=== PATIENT | male | born 1975 | race Caucasian/White ===

== ENCOUNTER 2019-11-22 23:44 | Emergency (ER) | payer OTHER ==
--- OUTSIDE RECORDS SUMMARY | 2019-11-22 23:46 | XMS REPORT | Clinical Summary ---
:1975 Author Organization [facility] Address [address] [place] [address] Care Team Providers Name Role Phone Unavailable Primary Care Provider Unavailable Allergies Not on File Medications Not on file Active Problems Not on file Encounters Date Type Specialty Care Team Description 08/28/2019 Outside Orders Central Scheduling Coco Prado, Sharif nox-Gastaut HOMICIDE SQUAD CAPTAIN syndrome, intra ctable, with status epi lepticus (HCC) (Primary Dx) after 11/21/2018 Social History Tobacco Use Types Packs/Day Years Used Date Never Assessed Sex Assigned at Date Recorded Not on file Job Start Date Occupation Industry Not on file Not on file Not on file Travel History Travel Start Travel End No recent travel history available. Last Filed Vital Signs Not on file Plan of Treatment Date Type Specialty Care Team Description 11/26/2019 Appointment Coco Prado, HOMICIDE SQUAD CAPTAIN [address] [facility] [address] [place], [place] [address] [phone] Results Not on fileafter 11/21/2018 Insurance Payer Benefit Plan / Group Subscriber ID Type Phone A ddress MEDICARE MEDICARE A B xxxxxxxxxxx Medicare MEDICAID MEDICAID [facility] xxxxxxxxx Medicaid
--- OUTSIDE RECORDS SUMMARY | 2019-11-22 23:46 | XMS REPORT | Continuity of Care Document ---
:1975 Author Organization [facility] t Address [address] [place] [address] Care Team Providers Name Role Phone Johan RODGERS Attending Clinician Mitchell Hayes MD Attending Clinician Payers Payer Name Policy Policy Number Effective Expiration Source Type Date Date MEDICAREMEDICARE A xxxxxxxxxxx [facility] S t BxxxxxxxxxxxMedicare [facility] MEDICAIDMEDICAID OF xxxxxxxxx [facility] [place]icaid [facility] Problems This patient has no known problems. Allergies, Adverse Reactions, Alerts This patient has no known allergies or adverse reactions. Social History Social Habit Start Date Stop Date Quantity Comments Source Sex Assigned At [facility] Medications This patient has no known medications. Procedures This patient has no known procedures. Encounters Start End Encounter Admission Attending Care Care Encounter Source Date/Time Date/Time Type Type Clinicians Facility Department ID 2019-03-21 2019-03-21 Office MIGUEL Hayes [id number] 14:17:49 14:47:49 Visit Hira Medrano AMBULATOR [id number] Y [id number] Results This patient has no known results.
[2019-11-23 00:44] LABS: Urine Blood TRACE (NEG); Urine Glucose NEGATIVE (NEG); Urine Protein 1+ (NEG); Urine Specific Gravity >1.030 (1.005-1.030)
[2019-11-23 00:55] LABS: Absolute Lymphocytes (CBC) 1.3 K/uL (0.7-4.9); Basophils % 0.4 % (0-1.3); Hematocrit 40.7 % (39.6-49.0); MPV 8.1 fL (7.6-11.3); RBC Red Blood Cell Count 4.69 M/uL (4.33-5.43)
[2019-11-23 01:04] LABS: Protime INR 0.88
[2019-11-23 01:16] LABS: Barbiturates NEGATIVE (NEGATIVE); Benzodiazepines NEGATIVE (NEGATIVE); Cocaine NEGATIVE (NEGATIVE); METHAMPHETAM NEGATIVE (NEGATIVE); Methadone NEGATIVE (NEGATIVE); Opiates NEGATIVE (NEGATIVE); Phencyclidine NEGATIVE (NEGATIVE); THC Cannibis POSITIVE (NEGATIVE)
[2019-11-23 01:16] LABS: ALT/SGPT 23 U/L (12-78); AST/SGOT 14 U/L (15-37); Albumin 3.7 g/dL (3.4-5.0); Alkaline Phosphatase 96 U/L (45-117); BUN Blood Urea Nitrogen 15 mg/dL (7-18); Bicarbonate 24 mmol/L (21-32); Bilirubin Direct < 0.1 mg/dL (0-0.2); Bilirubin Total 0.3 mg/dL (0.2-1.0); CKMB Creatine Kinase MB 2.3 ng/mL (0.3-3.6); Creatine Phosphokinase 157 U/L (39-308); Glucose Level 93 mg/dL (74-106); Lipase 150 U/L (73-393); Magnesium 2.7 mg/dL (1.8-2.4); Protein, Total 7.4 g/dL (6.4-8.2); Sodium Level 138 mmol/L (136-145); Troponin (Emerg Dept Use Only) < 0.02 ng/mL (0.0-0.045)
--- NOTE | 2019-11-23 01:41 | ER ---
Nurse's Notes [facility] Name: Dylan Manzanares Jr Age: 44 yrs Sex: Male : 1975 Arrival Date: 11/22/2019 Time: 23:45 Bed 8 Private MD: Diagnosis: Epilepsy and recurrent seizures Presentation: 11/22 00:00 Chief complaint: EMS states: Called by mother for seizure that lasted about 10 minutes. ea Mother denies trauma, reports his medications were recently increased, last seizure was one week ago. Coronavirus screen: Proceed with normal triage. Ebola Screen: No symptoms or risks identified at this time. Risk Assessment: Do you want to hurt yourself or someone else? Patient reports no desire to harm self or others. Onset of symptoms was November 23, 2019. 00:00 Method Of Arrival: EMS: [facility] ea 00:00 Acuity: CAITIE 3 ea 00:00 Initial Sepsis Screen: Does the patient meet any 2 criteria? No. Patient's initial rr5 sepsis screen is negative. Does the patient have a suspected source of infection? No. Patient's initial sepsis screen is negative. 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 - Social history:: Smoking status: Patient denies any tobacco usage or history of. Screenin/13 23:55 Abuse screen: Denies threats or abuse. Nutritional screening: No deficits noted. ea Tuberculosis screening: No symptoms or risk factors identified. Fall Risk None identified. Assessment: 11/22 00:30 General: Appears in no apparent distress. Behavior is appropriate for age. Pain: Unable ea to use pain scale. FLACC scale score is 0 out of 10. Neuro: Level of Consciousness is awake, alert, obeys commands, Oriented to person. Respiratory: Airway is patent Respiratory effort is even, unlabored, Respiratory pattern is regular, symmetrical. Derm: Skin is pink, warm \T\ dry. 01:20 Reassessment: Patient appears in no apparent distress at this time. No changes from rr5 previously documented assessment. Patient and/or family updated on plan of care and expected duration. Pain level reassessed. awaiting for results. Cardiovascular: Capillary refill < 3 seconds Patient's skin is warm and dry. 02:20 Reassessment: Patient appears in no apparent distress at this time. discharge rr5 instruction given and explained to solution coordinator without complaints made. no seizure noted vitally stable. Vital Signs: 00:00 BP 117 / 81; Pulse 81; Resp 16; Temp 97.6; Pulse Ox 98% ; Weight 74.39 kg; Height 5 ft. rr5 10 in. (177.80 cm) (R); 01:20 BP 115 / 62; Pulse 89; Resp 15; Pulse Ox 100% ; rr5 02:20 BP 105 / 62; Pulse 80; Resp 19; Pulse Ox 99% on R/A; rr5 00:00 Body Mass Index 23.53 (74.39 kg, 177.80 cm) rr5 [place] Coma Score: 00:59 Eye Response: spontaneous(4). Verbal Response: oriented(5). Motor Response: obeys ea commands(6). Total: 15. ED Course: 11/21 23:45 Patient arrived in ED. ds1 23:49 Michael Borges MD is Attending Physician. tw4 23:50 Patient has correct armband on for positive identification. Bed in low position. Call ea light in reach. Adult w/ patient. Seizure precautions initiated. salvationist on. Pulse ox on. NIBP on. 23:50 Arm band placed on right wrist. Patient placed in an exam room, on a stretcher, on ea pulse oximetry. 11/22 00:11 Kanchan Mehta RN is Primary Nurse. ea 00:22 Triage completed. ea 00:49 UDS Sent. ds4 02:20 No provider procedures requiring assistance completed. IV discontinued, intact, rr5 bleeding controlled, No redness/swelling at site. Pressure dressing applied. Administered Medications: No medications were administered Outcome: 01:40 Discharge ordered by . tw4 02:20 Discharged to home via wheelchair, with family. rr5 02:20 Condition: stable 02:20 Discharge instructions given to family, Instructed on discharge instructions, follow up and referral plans. Demonstrated understanding of instructions, follow-up care. 02:23 Patient left the ED. rr5 Signatures: Christen Noland ds1 Alcon Patel ds4 Kanchan Mehta RN RN ea Wadley, Terrence, MD MD tw4 Schultz, Bry, RN RN rr5
--- NOTE | 2019-11-23 01:41 | EDPHYS ---
Physician Documentation [facility] Name: Dylan Manzanares Jr Age: 44 yrs Sex: Male : 1975 Arrival Date: 11/22/2019 Time: 23:45 Bed 8 Private MD: ED Physician Michael Borges HPI: 11/22 01:33 This 44 yrs old Male presents to ER via EMS with complaints of Seizure. tw4 01:33 The patient presents after having a single isolated seizure. Character of seizure(s): tw4 Loss of consciousness: the patient experienced loss of consciousness. Seizure onset: just prior to arrival. Context: the seizure(s) was witnessed, by family, mother. Seizure Hx: the patient has no previous seizure history. Associated injury: The patient did not suffer any apparent associated injury. The patient has not experienced similar symptoms in the past. 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 - Social history:: Smoking status: Patient denies any tobacco usage or history of. ROS: 01:33 Constitutional: Negative for fever, chills, and weight loss, Eyes: Negative for injury, tw4 pain, redness, and discharge, Cardiovascular: Negative for chest pain, palpitations, and edema, Respiratory: Negative for shortness of breath, cough, wheezing, and pleuritic chest pain, Abdomen/GI: Negative for abdominal pain, nausea, vomiting, diarrhea, and constipation, Back: Negative for injury and pain. 01:33 Neuro: Positive for seizure activity. Exam: 01:33 Constitutional: This is a well developed, well nourished patient who is awake, alert, tw4 and in no acute distress. Head/Face: Normocephalic, atraumatic. Chest/axilla: Normal chest wall appearance and motion. Nontender with no deformity. No lesions are appreciated. Cardiovascular: Regular rate and rhythm with a normal S1 and S2. No gallops, murmurs, or rubs. Normal PMI, no JVD. No pulse deficits. Respiratory: Lungs have equal breath sounds bilaterally, clear to auscultation and percussion. No rales, rhonchi or wheezes noted. No increased work of breathing, no retractions or nasal flaring. Abdomen/GI: Soft, non-tender, with normal bowel sounds. No distension or tympany. No guarding or rebound. No evidence of tenderness throughout. Back: No spinal tenderness. No costovertebral tenderness. Full range of motion. MS/ Extremity: Pulses equal, no cyanosis. Neurovascular intact. Full, normal range of motion. Neuro: Awake and alert, GCS 15, oriented to person, place, time, and situation. Cranial nerves II-XII grossly intact. Motor strength 5/5 in all extremities. Sensory grossly intact. Cerebellar exam normal. Normal gait. Vital Signs: 00:00 BP 117 / 81; Pulse 81; Resp 16; Temp 97.6; Pulse Ox 98% ; Weight 74.39 kg; Height 5 ft. rr5 10 in. (177.80 cm) (R); 01:20 BP 115 / 62; Pulse 89; Resp 15; Pulse Ox 100% ; rr5 02:20 BP 105 / 62; Pulse 80; Resp 19; Pulse Ox 99% on R/A; rr5 00:00 Body Mass Index 23.53 (74.39 kg, 177.80 cm) rr5 [place] Coma Score: 00:59 Eye Response: spontaneous(4). Verbal Response: oriented(5). Motor Response: obeys ea commands(6). Total: 15. MDM: 01:33 Data reviewed: vital signs, nurses notes. Data interpreted: Pulse oximetry: tw4 Interpretation: normal. Counseling: I had a detailed discussion with the patient and/or guardian regarding: the historical points, exam findings, and any diagnostic results supporting the discharge/admit diagnosis. Special discussion: I discussed with the patient/guardian in detail that at this point there is no indication for admission to the hospital. It is understood, however, that if the symptoms persist or worsen the patient needs to return immediately for re-evaluation. 01:37 Differential diagnosis: seizure. tw4 01:40 Patient medically screened. 11/21 23:49 Order name: UDS; Complete Time: 01:23 11/22 01:23 Interpretation: Normal except: THC POSITIVE. 11/21 23:49 Order name: Basic Metabolic Panel; Complete Time: :11/22 01:23 Interpretation: Normal except: GFR 61. 11/21 23:49 Order name: CBC with Diff; Complete Time: :11/22 01:30 Interpretation: Normal except: WBC 11.6; HGB 13.4; MCV 86.8; YESICA% 80.4; LYM% 11.0; NEUT tw4 A 9.3. 11/21 23:49 Order name: Ckmb; Complete Time: :11/22 01:29 Interpretation: Within normal limits: CKMB 2.3. 11/21 23:49 Order name: CPK; Complete Time: :11/22 01:29 Interpretation: Within normal limits: CPK 157. 11/21 23:49 Order name: Hepatic Function; Complete Time: :11/22 01:28 Interpretation: Normal except: AST 14; GLOB 3.7; A/G 1.0. 11/21 23:49 Order name: Lipase; Complete Time: :11/22 01:29 Interpretation: Within normal limits: LIP 150. 11/21 23:49 Order name: Magnesium; Complete Time: 11/22 01:28 Interpretation: Normal except: MG 2.7. 11/21 23:49 Order name: Protime (+inr); Complete Time: :11/22 01:29 Interpretation: Within normal limits: PT 10.4. 11/21 23:49 Order name: Ptt, Activated; Complete Time: :11/22 01:30 Interpretation: Within normal limits: PTT 28.3. 11/21 23:49 Order name: Troponin (emerg Dept Use Only); Complete Time: :11/22 01:30 Interpretation: Within normal limits: TROPED < 0.02. 11/21 23:49 Order name: EKG; Complete Time: 23:50 11/21 23:49 Order name: Cardiac monitoring; Complete Time: 00:49 11/22 00:30 Order name: Urine Dipstick--Ancillary (enter results); Complete Time: 01:23 11/22 01:29 Interpretation: Normal except: USPGR >1.030; UBLD TRACE; UPROT 1+. 11/21 23:49 Order name: EKG - Nurse/Tech; Complete Time: 00:16 11/21 23:49 Order name: IV Saline Lock; Complete Time: 00:49 11/21 23:49 Order name: Labs collected and sent; Complete Time: 00:49 11/21 23:49 Order name: NPO; Complete Time: 00:16 11/21 23:49 Order name: O2 Per Protocol; Complete Time: 00:16 11/21 23:49 Order name: O2 Sat Monitoring; Complete Time: 00:16 11/21 23:49 Order name: Urine Dipstick-Ancillary (obtain specimen); Complete Time: 00:29 EC:13 Rate is 76 beats/min. Rhythm is regular. QRS [place] is Normal. DE interval is normal. QRS tw4 interval is normal. QT interval is normal. No Q waves. T waves are Normal. No ST changes noted. Clinical impression: NSR w/ Non-specific ST/T Changes. Interpreted by me. Reviewed by me. Administered Medications: No medications were administered Disposition: 11/23/19 01:40 Discharged to Home. Impression: Epilepsy and recurrent seizures. - Condition is Stable. - Discharge Instructions: Seizure, Adult. - Medication Reconciliation Form, Thank You Letter, Antibiotic Education, Prescription Opioid Use form. - Follow up: Private Physician; When: Upon discharge from the Emergency Department; Reason: Recheck today's complaints, Continuance of care, Re-evaluation by your physician. - Problem is new. - Symptoms have improved. Signatures: Dispatcher [employer] EDME Kanchan Mehta RN RN Michael Montemayor MD MD tw4 Bry Schultz RN RN rr5 Corrections: (The following items were deleted from the chart) 01:30 01:28 Normal except: WBC 11.6; HGB 13.4; MCV 86.8. 02:23 01:40 11/23/2019 01:40 Discharged to Home. Impression: Epilepsy and recurrent seizures. rr5 Condition is Stable. Forms are Medication Reconciliation Form, Thank You Letter, Antibiotic Education, Prescription Opioid Use. Follow up: Private Physician; When: Upon discharge from the Emergency Department; Reason: Recheck today's complaints, Continuance of care, Re-evaluation by your physician. Problem is new. Symptoms have improved. tw4
[2019-11-23 02:29] VITALS: BP 117/81; TEMP 97.6; O2SAT 98
== END 2019-11-23 02:23 | disposition home or self-care (01) ==
LOC: ER 23:44
DX: G40.802 Other epilepsy, not intractable, without status epilepticus (principal); G80.9 Cerebral palsy, unspecified
CPT/HCPCS: 36415; 80048; 80076; 80307; 81003; 82550; 82553; 83690; 83735; 84484; 85025; 85610; 85730; 93005; 99284

== ENCOUNTER 2020-05-15 17:55 | Inpatient (IN) | payer OTHER ==
--- OUTSIDE RECORDS SUMMARY | 2020-05-15 17:58 | XMS REPORT | Clinical Summary ---
:[address] [facility] Address [address] [place] [address] Care Team Providers Name Role Phone John Taylor MD Primary Care Provider Unavailable Allergies Not on File Medications Not on file Active Problems Not on file Encounters Date Type Specialty Care Team Description 11/26/2019 Hospital Encounter Johan, Matt-Ga staut Coco, GUEST RELATIONS REPRESENTATIVE syndrome, intractable, wi th status epilepti cus (HCC) 08/28/2019 Outside Orders Central Scheduling Johan, [place]- Gastaut Coco, GUEST RELATIONS REPRESENTATIVE syndrome, intractable, wi th status epilepti cus (HCC) (Primary Dx) after 05/15/2019 Social History Tobacco Use Types Packs/Day Years Used Date Never Assessed Sex Assigned at Date Recorded Not on file Last Filed Vital Signs Not on file Plan of Treatment Health Maintenance Due Date Last Done Comments MEDICARE ANNUAL WELLNESS (YEAR 2 or FIRST YEAR if no 02/10/1997 IPPE) LIPID PANEL 02/20/2011 INFLUENZA VACCINE (#1) 2020 Procedures Procedure Name Priority Date/Time Associated Diagnosis Comme nts EEG AWAKE AND Routine 11/26/2019 1:42 PM Matt-Gastaut Resul ts for this DROWSY CDT syndrome, procedure are i n intractable, with the result s status epilepticus section. ([facility]) after 05/15/2019 Results EEG Awake & Drowsy (11/26/2019 1:42 PM CDT) Specimen Narrative Performed At [facility] EEG REPORT GE RIS DATE OF TEST: 11-26-2019 DATE OF REPORT: 11-26-2019 ACC: [id number] EE Start time: 1312 Stop time: 1342 CPT Code: 10088 ICD-10: G40.813 HISTORY: A 44yr old M with LGS with freq uent seizures, last seizure was 1 week ago. MEDICATIONS: Epidiolex and Lacosamide. TECHNICAL SUMMARY: This is a digital video EEG recorded wit h 32 input channels reviewed with bipolar and referential montages us ing the modified combinatorial system nomenclature. DESCRIPTION OF RECORD: In the most wakeful state the background consists of theta (5-7Hz) activity with a poorly formed posterior dominant rhythm 7Hz, minimally reactive to light and poorly m odulated, symmetric with no AP gradient noted. Stage 2 sleep archite cture was seen K-complexes and sleep spindles. HV: Hyperventilation was not performed. PHOTIC STIMULATION: Photic stimulation w as done from 1-33 Hz; photic driving was not seen; photoparoxysmal re sponses were absent. ELECTROCARDIOGRAM EVENTS: None IMPRESSION: Abnormal Awake and Asleep EE G due to: 1) Continuous slow, generalized 2) Background slow CLINICAL CORRELATION: The EEG is consistent with a mild degree of encephalopathy. No areas of focal dysfunction or epileptiform dis charges were seen. No clinical or electrographic seizures were seen. Carlitos Henrandez MD Epilepsy Fellow I have reviewed this electroencephalogra m, discussed the findings with the fellow, addended the fellow's r eport and agree with the overall assessment. Hoang Monaco MD, MS Neurophysiology/Epilepsy attending. Procedure Note Interface, External Ris In - 11/26/2019 3:[address] [facility]'s EEG REPORT DATE OF TEST: 11-26-2019 DATE OF REPORT: 11-26-2019 ACC: [id number] EE Start time: 1312 Stop time: 1342 CPT Code: 56773 ICD-10: G40.813 HISTORY: A 44yr old M with LGS with freq uent seizures, last seizure was 1 week ago. MEDICATIONS: Epidiolex and Lacosamide. TECHNICAL SUMMARY: This is a digital video EEG recorded wit h 32 input channels reviewed with bipolar and referential montages us ing the modified combinatorial system nomenclature. DESCRIPTION OF RECORD: In the most wakeful state the background consists of theta (5-7Hz) activity with a poorly formed posterior dominant rhythm 7Hz, minimally reactive to light and poorly m odulated, symmetric with no AP gradient noted. Stage 2 sleep archite cture was seen K-complexes and sleep spindles. HV: Hyperventilation was not performed. PHOTIC STIMULATION: Photic stimulation w as done from 1-33 Hz; photic driving was not seen; photoparoxysmal re sponses were absent. ELECTROCARDIOGRAM EVENTS: None IMPRESSION: Abnormal Awake and Asleep EE G due to: 1) Continuous slow, generalized 2) Background slow CLINICAL CORRELATION: The EEG is consistent with a mild degree of encephalopathy. No areas of focal dysfunction or epileptiform dis charges were seen. No clinical or electrographic seizures were seen. Carlitos Hernandez MD Epilepsy Fellow I have reviewed this electroencephalogra m, discussed the findings with the fellow, addended the fellow's r eport and agree with the overall assessment. Hoang Monaco MD, MS Neurophysiology/Epilepsy attending. Performing Organization Address City/State/Zipcode Phone Number GE RIS after 05/15/2019
--- OUTSIDE RECORDS SUMMARY | 2020-05-15 17:58 | XMS REPORT | Summary of Care ---
:[address] [facility] - [facility] Address [address] [place] [id number] Care Team Providers Name Role Phone John Taylor MD Primary Care Provider Reason for Referral MRI/CAT Scan (AMINATA) Status Reason Specialty Diagnoses / Referred By Referred To Procedures Contact Contact New Request Diagnostic Diagnoses Closed fracture of eleventh thoracic vertebra, unspecified fracture morphology, initial encounter Lumbar radiculopathy Arnol Baires MD Radiology Procedures MR THORACIC SPINE WO CONTRAST MR THORACIC SPINE WO CONTRAST [address] [place] [phone] MRI/CAT Scan (AMINATA) Status Reason Specialty Diagnoses / Referred By Referred To Procedures Contact Contact New Request Diagnostic Diagnoses Closed fracture of eleventh thoracic vertebra, unspecified fracture morphology, initial encounter Lumbar radiculopathy Arnol Baires MD Radiology Procedures MR LUMBAR SPINE WO CONTRAST MR LUMBAR SPINE WO CONTRAST [address] [place] [phone] (Routine) Status Reason Specialty Diagnoses / Referred By Referred To Procedures Contact Contact New Request Physical Therapy Diagnoses Closed fracture of eleventh thoracic vertebra, unspecified fracture morphology, initial encounter Lumbar radiculopathy Arnol Baires MD Procedures CONSULT/REFERRAL PHYSICAL THERAPY [address] [place] [phone] Radiology Services (Routine) Status Reason Specialty Diagnoses / Referred By Referred To Procedures Contact Contact New Request Diagnostic Diagnoses Closed fracture of eleventh thoracic vertebra, unspecified fracture morphology, initial encounter Lumbar radiculopathy Arnol Baires MD Radiology Procedures XR SCOLIOSIS SURVEY 2 [address] [facility] [place] [address] Reason for Visit Reason Comments New Evaluation Encounter Details Date Type Department Care Team Description 04/22/2020 Office Visit [facility] Arnol Baires MD Closed fracture of eleventh thoracic param tebra, unspecified fracture morphology, initial encounter (Primary Dx); Neurosurgery, [address] Lumbar radiculopathy [facility]. [address] [place] [address] 4th Floor [address] [place], [place] [phone] [phone] Allergies Active Allergy Reactions Severity Noted Date Comments Antihistamines - Unknown - See High 04/28/2008 Reacts wit h Alkylamine comments medications. Diphenhydramine Hcl Unknown - See 12/30/2007 comments documented as of this encounter (statuses as of 04/23/2020) Medications Medication Sig Dispensed Refills Start End Status Date Date triazolam 0.25 mg 2 tabs po x 1 4 tablet 0 Active tabletIndications: dose 1 hour 9 Agitation requiring prior to CT sedation protocol scan ciclopirox 8 % Apply to 6.6 mL 0 Activ e solutionIndications: area(s) at 0 Onychomycosis bedtime. Apply to Nails. Reapply nightly. On day 7, remove with alcohol/file nails. Repeat diazePAM (VALTOCO) 15 Use in each 0 Active mg/2 spray (7.5/0.1mL nostril. x 2) [place] capsaicin/menthol Apply to 0 Di scontinued (ALIVIO TOPICAL) area(s). 020 CBD oil (ABHINAV'S 100 mL. 0 D iscontinued HOPE) 20:1 with 020 safflower DIAZEPAM RECTAL Insert into 0 D iscontinued rectum as 020 (Discontin ued needed. by another clinician) mupirocin 2 % Apply to 22 g 0 Discon tinued ointmentIndications: area(s) 3 9 020 Abrasion, knee, left, (three) times initial encounter daily. diazePAM 5-7.5-10 mg USE 10 MG 3 Discontinued rectal gel AFTER SEIZURE 9 020 (Disc ontinued LASTING OVER 5 by an other MINS OR BACK clinici an) TO BACK SEIZURE VIMPAT 100 mg tablet 200 mg 3 3 Discontinued (three) times 9 020 daily. methocarbamoL Take 1 tablet 28 tablet 0 Di scontinued (ROBAXIN-750) 750 mg by mouth 4 0 020 (Reorder) tabletIndications: Low (four) times back pain, unspecified daily for 7 back pain laterality, days. unspecified chronicity, unspecified whether sciatica present meloxicam (MOBIC) 15 Take 1 tablet 7 tablet 0 04/22 Discontinued mg tabletIndications: by mouth daily 0 020 (Reorder) Low back pain, for 7 days. unspecified back pain laterality, unspecified chronicity, unspecified whether sciatica present methylPREDNISolone Take by mouth 21 Each 0 Discontinued (MEDROL, CUCO,) 4 mg SEE-INSTRUCTIO 0 020 tabletsIndications: NS. 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 Elevated lipase 09/17/2018 Seizure disorder 09/16/2018 Dyspepsia 09/16/2018 Personal history of other mental and behavioral disord ers 09/16/2018 Cerebral palsy, unspecified type 09/16/2018 MR (mental retardation) 09/16/2018 Autism 09/16/2018 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 Legal blindness Microcephaly Intellectual disability documented as of this encounter (statuses as of 04/23/2020) Social History Tobacco Use Types Packs/Day Years Used Date Never Smoker Smokeless Tobacco: Never Used Alcohol Use Drinks/Week oz/Week Comments No Sex Assigned at Date Recorded Not on file COVID-19 Exposure Response Date Recorded In the last month, have you been in contact with No / Unsure 04/22/2020 3:22 PM HAT SIZER someone who was confirmed or suspected to have Coronavirus / COVID-19? documented as of this encounter Last Filed Vital Signs Vital Sign Reading Time Taken Comments Blood Pressure 123/72 04/22/2020 9:00 AM HAT SIZER Pulse 80 04/22/2020 9:00 AM HAT SIZER Temperature - - Respiratory Rate - - Oxygen Saturation - - Inhaled Oxygen Concentration - - Weight 80.6 kg (177 lb 12.8 oz) 04/22/2020 9:00 AM HAT SIZER Height 175.3 cm (5' 9") 04/22/2020 9:00 AM HAT SIZER Body Mass Index 26.26 04/22/2020 9:00 AM HAT SIZER documented in this encounter Progress Notes Dany Echavarria MD - 04/22/2020 9:00 AM CSTNeurosurgery Clinic Note 04/22/2020 HPI: Dylan Manzanares is a pleasant 45 year old man with R lower back pain, unclear if radicular component due to autism limited communication ability. He has had this pain for several weeks and his ambulationhas been limited due to pain and he is more hunched over than previously per parents. Past Medical History: Severe autism Review of Systems Constitutional: negative Eyes: negative Ears: negative Nose/Sinuses: negative Mouth/Throat: negative Cardiovascular: negative Respiratory: negative Gastrointestinal: negative Genitourinary: negative Musculoskeletal: Back pain Integumentary: negative Neuro: negative Physical Exam: Awake, alert, communication limited due to autism Face symmetric UPPER EXTREMITY STRENGTH EXAM: R 5/5 5/5 5/5 5/5 5/5 D(C5) B(C6) T(C7) Surgeon/President(C8) I (T1) L 5/5 5/5 5/5 5/5 5/5 LOWER EXTREMITY STRENGTH EXAM: R 5/5 5/5 5/5 5/5 5/5 IP(L2) Q(L3) TA(L4) EHL(L5) G(S1) L 5/5 5/5 5/5 5/5 5/5 Sensation intact to LT throughout Exam deep tendon: unable to elicit patellar No clonus No Hair's Imaging: XR L sp: unremarkable CT abd: T11 severe compression deformity c focal scoliotic deformity Assessment/Plan: Dylan Manzanares is a 45 year old male with severe autism, several weeks of predominantly R lower back pain but unclear to what extent there is a radicular component due to communication limitations. Has focal T11 scoliotic deformity that may be causative of his pain. Will image further c scoli films, MRI T/L spine. Also rx medrol dosepak and referral to PT. Follow Up: Follow up with Dr Baires in neurosurgery clinic after imaging complete Dany Echavarria MD Neurosurgery Faculty Addendum: I personally evaluated and examined the patient and agree with the note by Dr. Echavarria with no changes. Given his severe autism, would be hesitant to pursue surgery, but given that patient seems to be in very severe pain (which is causing him to pursue some self harming behavior), and his inability tofully articulate what he is experiencing, feel the best option is to obtain MRI imaging at present to rule out any severe stenosis or compression and to help identify target for possible CAITIE. F/u afterimaging complete. Arnol Baires MD [facility] Neurosurgery I spent 45 minutes on this encounter over half of which was spent on patient counseling and coordination of care documented in this encounter Plan of Treatment Date Type Specialty Care Team Description 04/28/2020 Hospital Encounter Ambulatory Arnol Baires MD Surgical [address] [place] [address]. [place] [phone] 04/28/2020 Anesthesia Event Surgery Letty Kruger, RN [address] [place] [address] 04/28/2020 Appointment Radiology Arnol Baires MD [address] [place] [address]. [place] [phone] 04/28/2020 Surgery Surgery Anesthesiology [facility] [address] [place] [address] IMAGING UNDER [facility] [place] [address] 04/28/2020 Appointment Radiology Arnol Baires MD [address] [place] [address]. [place] [phone] 05/10/2020 Office Visit Family Medicine Og Taylor MD [address] [place] [phone] Name Type Priority Associated Diagnoses Order S chedule XR SCOLIOSIS SURVEY 2 IMAGING Routine Closed fracture of Expected: VW eleventh thoracic 04/22/2020 , Expires: vertebra, unspecified 2020 fracture morphology, initial encounte r Lumbar radiculopathy MR LUMBAR SPINE WO IMAGING AMINATA Closed fracture of Exp ected: CONTRAST eleventh thoracic 04/22/2020 , Expires: vertebra, unspecified 2020 fracture morphology, initial encounte r Lumbar radiculopathy MR THORACIC SPINE WO IMAGING AMINATA Closed fracture of E xpected: CONTRAST th thoracic 04/22/2020 , Expires: vertebra, unspecified 2020 fracture morphology, initial encounte r Lumbar radiculopathy Health Maintenance Due Date Last Done Comments DTaP,Tdap,and Td Vaccines (1 - 02/20/1995 Tdap) INFLUENZA VACCINE (#1) 2020 Depression Screening 04/22/2021 04/22/2020 PNEUMOCOCCAL 0-64 YEARS COMBINED Aged Out No longer eligible based on SERIES patient's age to complete this topic documented as of this encounter Results Not on filedocumented in this encounter Visit Diagnoses Diagnosis Closed fracture of eleventh thoracic param tebra, unspecified fracture morphology, initial encounter - Primary Lumbar radiculopathy Thoracic or lumbosacral neuritis or radi culitis, unspecified documented in this encounter Insurance Payer Benefit Plan / Subscriber ID Effective Dates Phone Addre ss Type Group MEDICARE MEDICARE PART [id number] 1996-Nighat [phone] [address] Medicare A & B t [id number] [place] [address] [facility] MEDICAID OF [id number] 2018-Nighat [phone] [address] Medicaid [place] t 0 [id number] [place] [address] (Home) [place] [address] documented as of this encounter
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
--- OUTSIDE RECORDS SUMMARY | 2020-05-15 17:58 | XMS REPORT | Summary of Care ---
:1975 Author Organization [facility] - Health Address [address] [place] [id number] Care Team Providers Name Role Phone John Taylor MD Primary Care Provider Reason for Visit Reason Comments Back Pain right side Other bites, pinches and scratches self Encounter Details Date Type Department Care Team Description 04/15/2020 Urgent Care [facility] Family Rula Taylor MD [address] [place] [address] [phone] Acute midline low back pain without scia chayito (Primary Dx); Medicine - [place] Provider, [facility] Onychomycosis [address] [place] [phone] Allergies Active Allergy Reactions Severity Noted Date Comments Antihistamines - Unknown - See High 04/28/2008 Reacts wit h Alkylamine comments medications. Diphenhydramine Hcl Unknown - See 12/30/2007 comments documented as of this encounter (statuses as of 04/18/2020) Medications Medication Sig Dispensed Refills Start Date End Date Status capsaicin/menthol Apply to 0 Ac tive (ALIVIO TOPICAL) area(s). CBD oil (ABHINAV'S 0 A ctive HOPE) 20:1 with safflower DIAZEPAM RECTAL Insert into 0 A ctive rectum as needed. triazolam 0.25 mg 2 tabs po x 1 4 tablet 0 09/18/2018 Active tabletIndications: dose 1 hour prior Agitation requiring to CT scan sedation protocol mupirocin 2 % Apply to area(s) 22 g 0 10/15/2018 Active ointmentIndications: 3 (three) times Abrasion, knee, left, daily. initial encounter diazePAM 5-7.5-10 mg USE 10 MG AFTER 3 08/29/2018 Active rectal gel SEIZURE LASTING OVER 5 MINS OR BACK TO BACK SEIZURE VIMPAT 100 mg tablet TAKE 2 TABLETS BY 3 10/05/2018 Active MOUTH TWICE A DAY ciclopirox 8 % Apply to area(s) 6.6 mL 0 04/15/2020 Active solutionIndications: at bedtime. Apply Onychomycosis to Nails. Reapply nightly. On day 7, remove with alcohol/file nails. Repeat documented as of this encounter (statuses as of 04/18/2020) Active Problems Problem Noted Date Elevated lipase 09/17/2018 Seizure disorder 09/16/2018 Dyspepsia 09/16/2018 Personal history of other mental and behavioral disord ers 09/16/2018 Cerebral palsy, unspecified type 09/16/2018 MR (mental retardation) 09/16/2018 Autism 09/16/2018 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 Legal blindness Microcephaly Intellectual disability documented as of this encounter (statuses as of 04/18/2020) Social History Tobacco Use Types Packs/Day Years Used Date Never Smoker Smokeless Tobacco: Never Used Alcohol Use Drinks/Week oz/Week Comments No Sex Assigned at Date Recorded Not on file COVID-19 Exposure Response Date Recorded In the last month, have you been in contact with No / Unsure 04/15/2020 1:11 PM [employer] someone who was confirmed or suspected to have Coronavirus / COVID-19? documented as of this encounter Last Filed Vital Signs Vital Sign Reading Time Taken Comments Blood Pressure 110/76 04/15/2020 1:16 PM [employer] Pulse 69 04/15/2020 1:16 PM [employer] Temperature 36.4 C (97.6 F) 04/15/2020 1:16 PM [employer] Respiratory Rate 20 04/15/2020 1:16 PM [employer] Oxygen Saturation 95% 04/15/2020 1:16 PM [employer] Inhaled Oxygen Concentration - - Weight 79.8 kg (176 lb) 04/15/2020 1:16 PM [employer] Height - - Body Mass Index 27.57 12/24/2018 2:30 PM CDT documented in this encounter Patient Instructions Patient InstructionsAlicia Borrego PA - 04/15/2020 1:00 PM CST Patient Education Back Exercises: Knee Lift To start, lie on your back with your knees bent and feet flat on the floor. Dont press your neck or lower back to the floor. Breathe deeply. You should feel comfortable and relaxed in this position: Start by tightening your abdominal muscles. Lift one bent knee off the floor 2 to 4 inches. Hold for10 seconds. Return to start position. Repeat3 times. Switch legs. [email or web address] last reviewed this educational content on 08/09/2017 [employer]. [address] [place] [address]. All rights reserved. This information is not intended as a substitute for professional medical care. Always follow your healthcare professional's instructions. Patient Education Back Exercises: Back Release Do this exercise on your hands and knees. Keep your knees under your hips and your hands under your shoulders. Relax your abdominal and buttocks muscles, lift your head, and let your back sag. Be sure to keepyour weight evenly distributed. Dont sit back on your hips. Hold [id number]. Return to starting position. Tuck your head and lift (arch) your back. Hold for 5 seconds Return to starting position. [id number]. [email or web address] last reviewed this educational content on 08/09/2017 [employer]. [address] [place] [address]. All rights reserved. This information is not intended as a substitute for professional medical care. Always follow your healthcare professional's instructions. Patient Education Back Exercises: Leg Pull To start, lie on your back with your knees bent and feet flat on the floor. Dont press your neck or lower back to the floor. Breathe deeply. You should feel comfortable and relaxed in this position. Pull one knee to your chest. Hold for30 to 60seconds. Return to starting position. [id number]. Switch legs. For a double leg pull, pull both legs to your chest at the same time. [id number]. For your safety, check with your healthcare provider before starting an exercise program. [email or web address] last reviewed this educational content on 08/09/201719990258-7911 [employer]. [address] [place] [address]. All rights reserved. This information is not intended as a substitute for professional medical care. Always follow your healthcare professional's instructions. Patient Education Back Exercises: Lower Back Rotation To start, lie on your back with your knees bent and feet flat on the floor. Dont press your neck or lower back to the floor. Breathe deeply. You should feel comfortable and relaxed in this position. Drop both knees to one side. Turn your head to the other side. Keep your shoulders flat on the floor. Do not push through pain. Hold [id number]. Slowly switch sides. Repeat2 to 5times. [email or web address] last reviewed this educational content on 08/09/201719997434-8104 [employer]. [address] [place] [address]. All rights reserved. This information is not intended as a substitute for professional medical care. Always follow your healthcare professional's instructions. Patient Education Back Exercises: Lower Back Stretch To start, sit in a chair with your feet flat on the floor. Shift your weight slightly forward. Relax, and keep your ears, shoulders, and hips aligned while you do the following: Sit with your feet well apart. Bend forward and touch the floor with the backs of your hands. Relax and let your body drop. Hold for 20seconds. Return to starting position. Repeat 2times. Note: If you've had back or hip surgery, talk with your healthcare provider before doing this stretch. [email or web address] last reviewed this educational content on 09/10/201919999286-6818 [employer]. All rights reserved. This information is not intended as a substitute for professional medical care. Always follow your healthcare professional's instructions. [employer] documented in this encounter Progress Notes Dinorah Jones RN - 04/15/2020 1:00 PM CST Dylan Manzanares is a 45 year old male here for Chief Complaint Patient presents with Back Pain right side/flank x 2 days Other bites, pinches and scratches self x 2 days Duration of Symptoms: 2 days Patient brought in by mother/legal guardian for complains of right side/back/flank pain. Mother reports that patient is walking hunched over and appears in pain. Mother also states that patient has been pinching, scratching and biting himself. Noted with bruises and scratches to his arms. Patient awake and responsive, answers simple questions, unclear speech Respirations even and non-labored. Skin dry and warm. Ambulatory, slightly bent over. Dinorah Garcia RN 04/15/2020 1:21 PM [employer] Alicia Borrego PA - 04/15/2020 1:00 PM CST Cc: Chief Complaint Patient presents with Back Pain right side Other bites, pinches and scratches self Dylan Manzanares is a 45 year old male. Patient with pmh of cerebral palsy, intellectual disability presents with Fide Morton, mother, to appointment for low back pain. Mother helps with most of history. No covid-19 exposure. PCP-Dr. Taylor Patient is under the care of neuro who is already aware/managing the biting/scratching/picking. Use neosporin as needed. No spreading redness, purulent drainage. No f/c, n/v. Want to make sure he does not have a UTI. No flank pain. No dysuria, frequency, urgency, hematuria. No f/c. No abdominal pain, n/v/d/c. Last BM this morning- normal. Not black or bloody Fluid intake: 2 cokes daily 2-3 ensure daily [place] or chocolate milk Water: none At the last minute asking about L 2nd toenail abnormality Appears discolored Possible fungus? No redness, warmth, tenderness or pain Back Pain Location: Lumbar spine Quality: Aching Radiates to: Does not radiate Duration: 2 days Timing: Intermittent Progression: Unchanged Chronicity: New Context: not emotional stress, not falling, not jumping from heights, not lifting heavy objects, notMCA, not MVA, not occupational injury, not pedestrian accident, not physical stress, not recent illness, not recent injury and not twisting Worsened by: Lying down Ineffective treatments: None tried Associated symptoms: no abdominal pain, no abdominal swelling, no bladder incontinence, no bowel incontinence, no chest pain, no dysuria, no fever, no headaches, no leg pain, no numbness, no paresthesias, no pelvic pain, no perianal numbness, no tingling, no weakness and no weight loss Allergies Dylan is allergic to antihistamines - alkylamine and diphenhydramine hcl. Medications Outpatient Medications Prior to Visit Medication Sig Dispense Refill diazePAM 5-7.5-10 mg rectal gel USE 10 MG AFTER SEIZURE LASTING OVER 5 MINS OR BACK TO BACK SEIZURE 3 VIMPAT 100 mg tablet TAKE 2 TABLETS BY MOUTH TWICE A DAY 3 mupirocin 2 % ointment Apply to area(s) 3 (three) times daily. 22 g 0 triazolam 0.25 mg tablet 2 tabs po x 1 dose [address] scan 4 tablet 0 capsaicin/menthol (ALIVIO TOPICAL) Apply to area(s). CBD oil ([employer]S HOPE) 20:1 with safflower DIAZEPAM RECTAL Insert into rectum as needed. No facility-administered medications prior to visit. Histories Past Medical History: Diagnosis Date Autism Cerebral palsy 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 Epilepsy Gout Intellectual disability Legal blindness Microcephaly Psychotic disorder Past Surgical History: Procedure Laterality Date FOOT/TOES SURGERY PROC UNLISTED Left MYRINGOTOMY Bilateral Social History Socioeconomic History Marital status: Single Spouse name: Not on file Number of children: Not on file Years of education: Not on file Highest education level: Not on file Occupational History Not on file Social Needs Financial resource strain: Not on file Food insecurity Worry: Not on file Inability: Not on file Transportation needs Medical: Not on file Non-medical: Not on file Tobacco Use Smoking status: Never Smoker Smokeless tobacco: Never Used Substance and Sexual Activity Alcohol use: No Drug use: No Sexual activity: Never Lifestyle Physical activity Days per week: Not on file Minutes per session: Not on file Stress: Not on file Relationships Social connections Talks on phone: Not on file Gets together: Not on file Attends zoroastrianism service: Not on file Active member of club or organization: Not on file Attends meetings of clubs or organizations: Not on file Relationship status: Not on file Intimate partner violence Fear of current or ex partner: Not on file Emotionally abused: Not on file Physically abused: Not on file Forced sexual activity: Not on file Other Topics Concern Not on file Social History Narrative Not on file Family History Problem Relation Age of Onset High cholesterol Mother Skin Cancer Mother Stroke Mother Diabetes Father DM1, at 32yo of complications from his diabetes Ovarian Cancer Sister Review of Systems Constitutional: Negative for activity change, appetite change, chills, diaphoresis, fatigue, fever and weight loss. HENT: Negative for congestion, ear discharge, ear pain, facial swelling, postnasal drip, rhinorrhea,sinus pressure, sneezing, sore throat, trouble swallowing and voice change. Eyes: Negative for pain, discharge, redness and itching. Respiratory: Negative for cough, chest tightness, shortness of breath and wheezing. Cardiovascular: Negative for chest pain, palpitations and leg swelling. Gastrointestinal: Negative for abdominal pain, bowel incontinence, constipation, diarrhea, nausea and vomiting. Genitourinary: Negative for bladder incontinence, dysuria, urgency, frequency, hematuria, flank pain, decreased urine volume, discharge, enuresis, difficulty urinating, genital sores, pelvic pain and nocturia. Musculoskeletal: Positive for back pain. Negative for arthralgias, gait problem, joint swelling, myalgias, neck pain and neck stiffness. Skin: Negative for rash. Neurological: Negative for dizziness, tingling, syncope, weakness, light- headedness, numbness, headaches and paresthesias. Psychiatric/Behavioral: Negative for confusion. Endocrine: Negative for weight loss. Vital Signs BP 110/76 (BP Location: Right arm, Patient Position: Sitting, BP CUFF SIZE: Adult Medium) | Pulse 69 | Temp 36.4 C (97.6 F) (Axillary) | Resp 20 | Wt 176 lb (79.8 kg) | SpO2 95% | BMI 27.57 kg/m Physical Exam Vitals signs and nursing note reviewed. Constitutional: General: He is not in acute distress. Appearance: He is well-developed. He is not ill-appearing, toxic-appearing or diaphoretic. HENT: Head: Normocephalic and atraumatic. Right Ear: External ear normal. Left Ear: External ear normal. Eyes: Conjunctiva/sclera: Conjunctivae normal. Cardiovascular: Rate and Rhythm: Normal rate and regular rhythm. Pulses: Normal pulses. Heart sounds: Normal heart sounds. Pulmonary: Effort: Pulmonary effort is normal. Breath sounds: Normal breath sounds. Abdominal: General: Bowel sounds are normal. There is no distension. Palpations: Abdomen is soft. Abdomen is not rigid. Tenderness: There is no abdominal tenderness. There is no right CVA tenderness, left CVA tenderness, guarding or rebound. Musculoskeletal: General: No swelling. Lumbar back: He exhibits tenderness, bony tenderness and pain. He exhibits normal range of motion, no swelling, no edema and normal pulse. Back: Right lower leg: No edema. Left lower leg: No edema. Skin: General: Skin is warm and dry. Comments: L 2nd toenail with slight yellow coloration and nail thickening Neurological: Mental Status: He is alert and oriented to person, place, and time. Psychiatric: Behavior: Behavior normal. Assessment/Plan Acute midline low back pain without sciatica (primary encounter diagnosis) Plan: POCT URINALYSIS W SPECIFIC GRAVITY, XR LUMBAR SPINE 4 VW, XR SACRUM AND COCCYX Afebrile, well appearing, NAD, nontoxic. HR < 100. No UTI symptoms. No flank pain and no CVAT. UA- neg for UTI. No leuk or nitrite. No blood. Urine color appearance: yellow. No evidence of UTI. Admits to midline low back pain. Does have mild bony tenderness and paraspinal muscle tenderness/tightness on exam. Likely 2/2 musculoskeletal cause. Will get x-rays to further evaluate. Follow-up withPCP if no improvement, discuss ortho spine and/or PT referral. Educated on the following at home care: Take otc nsaids as needed with food. May add Tylenol as needed Ice 15 min every 2-3 hours as needed; alternate with warm compress Stretches 2-3 times daily Icy hot as needed Massages as needed Avoid heavy lifting > 10 lbs Wear good, supportive tennis shoes Er--> worsening condition; increasing pain, incontinence, weakness, numbness/tingling in groin Onychomycosis Plan: ciclopirox 8 % solution Start on ciclopirox, use as directed. Follow-up with PCP for additional RF/management monitoring Avoid moisture Keep area clean and dry Wear cotton socks, change often Pt ed/precautions given in detail regarding conditions/medicaitons. Er precautions given. Pt reportsunderstanding and agrees. rtc if s/s worsen or do not improve ; Plan of care, desired health behaviors, goals, Ddx, & any prescribed or OTC medications discussed with patient. Education resources & self management tools provided and reviewed with AVS. Patient/guardian/family verbalized understanding & agrees to plan of care. Barriers to care: NONE Ability to manage care: Good This visit did not involve counseling and coordination that comprised more than 50% of the visit time. documented in this encounter Plan of Treatment Date Type Specialty Care Team Description 04/22/2020 Office Visit Family Medicine Charles Taylor MD [address] [place] [phone] Health Maintenance Due Date Last Done Comments Depression Screening 1988 DTaP,Tdap,and Td Vaccines (1 - 02/20/1995 Tdap) INFLUENZA VACCINE (#1) 2020 PNEUMOCOCCAL 0-64 YEARS COMBINED Aged Out No longer eligible based on SERIES patient's age to complete this topic documented as of this encounter Procedures Procedure Name Priority Date/Time Associated Diagnosis Comme nts POCT URINALYSIS STAT 04/15/2020 1:26 PM Acute midline low Results for this [employer] back pain without procedure are in sciatica the results section. documented in this encounter Results XR SACRUM AND COCCYX (04/16/2020 11:26 AM [employer]) Specimen Narrative Performed At XR LUMBAR SPINE 4 VW, PACS/VR/DOSE XR SACRUM AND COCCYX HISTORY: Male 45 years acute midline low back pain w/o sciatica COMPARISON: None FINDINGS: Mild levocurvature. The vertebral bodies are normal in heigh t and in normal alignment. No significant degenerative changes are pre sent. Oblique radiographs demonstrate no evidence of spondylolysis . The sacrum and coccyx are unremarkable. Procedure Note [facility], Radiant Results Inft User - 2019 1:42 PM [employer] XR LUMBAR SPINE 4 VW, XR SACRUM AND COCCYX HISTORY: Male 45 years acute midline low back pain w/o sciatica COMPARISON: None FINDINGS: Mild levocurvature. The vertebral bodies are normal in heigh t and in normal alignment. No significant degenerative changes are pre sent. Oblique radiographs demonstrate no evidence of spondylolysis . The sacrum and coccyx are unremarkable. Performing Organization Address City/State/Zipcode Phone Number PACS/VR/DOSE XR LUMBAR SPINE 4 VW (04/16/2020 11:26 AM [employer]) Specimen Narrative Performed At XR LUMBAR SPINE 4 VW, PACS/VR/DOSE XR SACRUM AND COCCYX HISTORY: Male 45 years acute midline low back pain w/o sciatica COMPARISON: None FINDINGS: Mild levocurvature. The vertebral bodies are normal in heigh t and in normal alignment. No significant degenerative changes are pre sent. Oblique radiographs demonstrate no evidence of spondylolysis . The sacrum and coccyx are unremarkable. Procedure Note [facility], Radiant Results Inft User - 2019 1:42 PM [employer] XR LUMBAR SPINE 4 VW, XR SACRUM AND COCCYX HISTORY: Male 45 years acute midline low back pain w/o sciatica COMPARISON: None FINDINGS: Mild levocurvature. The vertebral bodies are normal in heigh t and in normal alignment. No significant degenerative changes are pre sent. Oblique radiographs demonstrate no evidence of spondylolysis . The sacrum and coccyx are unremarkable. Performing Organization Address City/State/Zipcode Phone Number PACS/VR/DOSE POCT URINALYSIS W SPECIFIC GRAVITY (04/15/2020 1:26 PM [employer]) Pathologist Sig nature POCT U SP GRAV 1.020 1.005 - 1.025 mg/dl POCT PH U 5 5 - 8 mg/dl POCT U LEUK EST Negative Negative - Negative POCT U NIT Negative Negative - Negative POCT U PROT Negative Negative - Negative POCT U GLU Negative Negative - Negative POCT U KETONE Negative Negative - Negative POCT U UROBILI Normal 0.2 - 1 mg/dl POCT U BILI Negative Negative - Negative POCT U BLD Negative Negative - Negative POCT U COLOR orange POCT U APPEAR clear Specimen Urine - URINE, CLEAN CATCH documented in this encounter Visit Diagnoses Diagnosis Acute midline low back pain without scia chayito - Primary Onychomycosis Dermatophytosis of nail documented in this encounter Insurance Payer Benefit Plan / Subscriber ID Effective Dates Phone Addre ss Type Group MEDICARE MEDICARE PART [id number] 1996-Presen [phone] Medicare A & B t 2 [id number] [place] [id number] [facility] MEDICAID OF [id number] 2018-Nighat [phone] [address] Medicaid [place] t 0 [id number] [place] [address] documented as of this encounter"
--- OUTSIDE RECORDS SUMMARY | 2020-05-15 17:58 | XMS REPORT | Summary of Care ---
:1975 Author Organization [facility] Address [address] [place] [address] Care Team Providers Name Role Phone John Taylor MD Primary Care Provider Reason for Visit Reason Comments Orders MRI STAT Encounter Details Date Type Department Care Team Description 04/19/2020 Telephone [facility] Moondo Family Og Taylor O rders (MRI STAT ) Medicine - Christopher WINSLOW [address] [place] [address] Dr wheel[address] [place] [address] [place] [address] [place] [phone] Allergies Active Allergy Reactions Severity Noted Date Comments Antihistamines - Unknown - See High 04/28/2008 Reacts wit h Alkylamine comments medications. Diphenhydramine Hcl Unknown - See 12/30/2007 comments documented as of this encounter (statuses as of 04/19/2020) Medications Medication Sig Dispensed Refills Start Date End Date Status capsaicin/menthol Apply to 0 Ac tive (ALIVIO TOPICAL) area(s). CBD oil (ABHINAV'S 0 A ctive HOPE) 20:1 with safflower DIAZEPAM RECTAL Insert into 0 A ctive rectum as needed. triazolam 0.25 mg 2 tabs po x 1 4 tablet 0 09/18/2018 Active tabletIndications: dose 1 hour Agitation requiring prior to CT scan sedation protocol mupirocin 2 % Apply to 22 g 0 10/15/2018 Activ e ointmentIndications: area(s) 3 Abrasion, knee, left, (three) times initial encounter daily. diazePAM 5-7.5-10 mg USE 10 MG AFTER 3 08/29/2018 Active rectal gel SEIZURE LASTING OVER 5 MINS OR BACK TO BACK SEIZURE VIMPAT 100 mg tablet TAKE 2 TABLETS 3 10/05/2018 Active BY MOUTH TWICE A DAY ciclopirox 8 % Apply to 6.6 mL 0 04/15/2020 Acti ve solutionIndications: area(s) at Onychomycosis bedtime. Apply to Nails. Reapply nightly. On day 7, remove with alcohol/file nails. Repeat methocarbamoL Take 1 tablet by 28 tablet 0 04/19/2020 04/26/20 20 Active (ROBAXIN-750) 750 mg mouth 4 (four) tabletIndications: Low times daily for back pain, unspecified 7 days. back pain laterality, unspecified chronicity, unspecified whether sciatica present meloxicam (MOBIC) 15 Take 1 tablet by 7 tablet 0 04/19/2020 1 06/26/2019 Active mg tabletIndications: mouth daily for Low back pain, 7 days. unspecified back pain laterality, unspecified chronicity, unspecified whether sciatica present documented as of this encounter (statuses as of 04/19/2020) Active Problems Problem Noted Date Elevated lipase 09/17/2018 Seizure disorder 09/16/2018 Dyspepsia 09/16/2018 Personal history of other mental and behavioral disord ers 09/16/2018 Cerebral palsy, unspecified type 09/16/2018 MR (mental retardation) 09/16/2018 Autism 09/16/2018 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 Legal blindness Microcephaly Intellectual disability documented as of this encounter (statuses as of 04/19/2020) Social History Tobacco Use Types Packs/Day Years Used Date Never Smoker Smokeless Tobacco: Never Used Alcohol Use Drinks/Week oz/Week Comments No Sex Assigned at Date Recorded Not on file COVID-19 Exposure Response Date Recorded In the last month, have you been in contact with No / Unsure 04/15/2020 1:11 PM 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 documented as of this encounter Last Filed Vital Signs Not on filedocumented in this encounter Miscellaneous Notes Telephone Encounter - Katlheen Crockett FNP - 04/19/2020 4:23 PM CSTSpoke with caregiver and she states Dylan is in pain and Tylenol is not helping, she thought she was coming in today to urgent care for MRI order, I informed her that does not order that he will need to see his PCP, Dylan has an appointment scheduled but she is requesting pain and muscle relaxer medications be sent to pharmacy on file. Dylan was seen in a few days ago, chart reviewed. Cyn and Deriksapna called in, should help with symptoms until Dylan can get into PCP on . elephone Encounter - Harriet Mcgarry LVN - 04/19/2020 10:34 AM INDUSTRIAL ECONOMICS PROFESSOR Patient's mother states the patient is autistic and is self harming. He is in pain and needs medication. Requesting to possibly see you earlier this week. Not sure they can wait until . Please advise. elephone Encounter - Og Taylor MD - 04/19/2020 10:29 AM CSTI have to see the patient in order to order an MRI. elephone Encounter - Harriet Mcgarry LVN - 04/19/2020 9:48 AM CSTPlease see below. Patient has appointment with you o 04/22/20. Advise. Pt's guardian is calling in regards to requesting a STAT MRI for the patient. She states that she has been trying to get him in with a specialist but they will not see him unless an MRI is done. Pleasecontact the patient's guardian for further assistance. elephone Encounter - Winnie Hawthorne - 04/19/2020 9:23 AM CSTPt's guardian is calling in regards to requesting a STAT MRI for the patient. She states that she has been trying to get him in with a specialist but they will not see him unless an MRI is done. Pleasecontact the patient's guardian for further assistance. documented in this encounter Plan of Treatment Date Type Specialty Care Team Description 04/19/2020 Urgent Care Family Medicine Provider, [facility] 04/22/2020 Office Visit Neurological Surgery Arnol Baires MD [address] [place] [address]. [place], [place] [phone] 04/22/2020 Office Visit Family Medicine Charles Taylor MD [address] [place], [place] [phone] Health Maintenance Due Date Last Done Comments Depression Screening 1988 DTaP,Tdap,and Td Vaccines (1 - 02/20/1995 Tdap) INFLUENZA VACCINE (#1) 2020 PNEUMOCOCCAL 0-64 YEARS COMBINED Aged Out No longer eligible based on SERIES patient's age to complete this topic documented as of this encounter Results Not on filedocumented in this encounter Visit Diagnoses Diagnosis Low back pain, unspecified back pain lat erality, unspecified chronicity, unspecified whether sciatica present - Primary documented in this encounter Insurance Payer Benefit Plan / Subscriber ID Effective Dates Phone Addre ss Type Group MEDICARE MEDICARE PART [id number] 1996-[place] [phone] [address] Medicare A & B t 2 [id number] [place] [address] [facility] MEDICAID OF [id number] 2018-[place] [phone] [address] Medicaid [place] t 0 [id number] [place] [address] documented as of this encounter
--- OUTSIDE RECORDS SUMMARY | 2020-05-15 17:58 | XMS REPORT | Summary of Care ---
:1975 Author Organization [facility] Address [address] [place] [address] Care Team Providers Name Role Phone John Taylor MD Primary Care Provider Reason for Visit (Routine) Status Reason Specialty Diagnoses / Procedures Referred By Gatito ontact Referred To Contact Closed Radiology Procedures Alicia Borrego PA [facility] X-Ray XR LUMBAR SPINE [address] XR LUMBAR SPINE 4 [place] Dr wheeler [address] [place], [place] Phone: [phone] Fax: Encounter Details Date Type Department Care Team Description 04/16/2020 Hospital Encounter [facility] Alicia Borrego PA Arrived [facility] [address] [place] [address] [place] [address] [phone] Allergies Active Allergy Reactions Severity Noted Date Comments Antihistamines - Unknown - See High 04/28/2008 Reacts wit h Alkylamine comments medications. Diphenhydramine Hcl Unknown - See 12/30/2007 comments documented as of this encounter (statuses as of 04/17/2020) Medications Medication Sig Dispensed Refills Start Date [...] as of this encounter (statuses as of 04/17/2020) Active Problems Problem Noted Date Elevated lipase 09/17/2018 Seizure disorder 09/16/2018 Dyspepsia 09/16/2018 Personal history of other mental and behavioral disord ers 09/16/2018 Cerebral palsy, unspecified type 09/16/2018 MR (mental retardation) 09/16/2018 Autism 09/16/2018 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 Legal blindness Microcephaly Intellectual disability documented as of this encounter (statuses as of 04/17/2020) Social History Tobacco Use Types Packs/Day Years Used Date Never Smoker Smokeless Tobacco: Never Used Alcohol Use Drinks/Week oz/Week Comments No Sex Assigned at Date Recorded Not on file COVID-19 Exposure Response Date Recorded In the last month, have you been in contact with No / Unsure 04/15/2020 1:11 PM 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 documented as of this encounter Last Filed Vital Signs Not on filedocumented in this encounter Plan of Treatment Date Type Specialty Care Team Description 04/22/2020 Office Visit Family Medicine Charles Taylor MD [address] [place] [address] [phone] Health Maintenance Due Date Last Done Comments Depression Screening 1988 DTaP,Tdap,and Td Vaccines (1 - 02/20/1995 Tdap) INFLUENZA VACCINE (#1) 2020 PNEUMOCOCCAL 0-64 YEARS COMBINED Aged Out No longer eligible based on SERIES patient's age to complete this topic documented as of this encounter Procedures Procedure Name Priority Date/Time Associated Diagnosis Comme nts XR SACRUM AND Routine 04/16/2020 11:26 AM Acute midline low Re sults for this COCCYX SHRIMPING BOAT CAPTAIN back pain without procedure are in sciatica the results section. XR LUMBAR SPINE 4 Routine 04/16/2020 11:26 AM Acute midline lo w Results for this VW SHRIMPING BOAT CAPTAIN back pain without procedure are in sciatica the results section. documented in this encounter Results XR SACRUM AND COCCYX (04/16/2020 11:26 AM SHRIMPING BOAT CAPTAIN) Specimen Narrative Performed At XR LUMBAR SPINE [...] Results Inft User - 2019 1:42 PM SHRIMPING BOAT CAPTAIN XR LUMBAR SPINE 4 VW, XR SACRUM [...] LUMBAR SPINE 4 VW (04/16/2020 11:26 AM SHRIMPING BOAT CAPTAIN) Specimen Narrative Performed At XR LUMBAR SPINE [...] Results Inft User - 2019 1:42 PM SHRIMPING BOAT CAPTAIN XR LUMBAR SPINE 4 VW, XR SACRUM [...] Performing Organization Address City/State/Zipcode Phone Number PACS/VR/DOSE documented in this encounter Visit Diagnoses Diagnosis Acute midline low back pain without scia chayito documented in this encounter Insurance Payer Benefit Plan / Subscriber ID Effective Dates Phone Addre ss Type Group MEDICARE MEDICARE PART [id number] [facility] [phone] [address] Medicare A & B t 2 [id number] [place] [address] [facility] MEDICAID OF [id number] 2018-[place] [phone] [address] Medicaid [place] t 0 [id number] [place] [address] documented as of this encounter
--- OUTSIDE RECORDS SUMMARY | 2020-05-15 17:58 | XMS REPORT | Continuity of Care Document ---
:[address] [facility] t Address [address] [place] [address] Care Team Providers Name Role Phone Claudia WINSLOW, A Primary Care Physician Unavailable Lab, Fam Pob I Attending Clinician Unavailable Romina OBRIENP Attending Clinician Viry WINSLOW Attending Clinician Claudia WINSLOW, John Attending Clinician Andrea PT, G Attending Clinician Unavailable Devin Garcia MD, Mitchell Attending Clinician Johan OBRIENP Attending Clinician Payers Payer Name Policy Type Policy Effective Date Expiration Date Sour ce Number MEDICAREMEDICARE A [id number] 1996 PERLA Petit [id number] 00:00:00 [facility] MEDICAIDMEDICAID OF [id number] 2019 PERLA Petit [id number] 2019 00:00:[facility] Problems This patient has no known problems. Allergies, Adverse Reactions, Alerts This patient has no known allergies or adverse reactions. Social History Social Habit Start Date Stop Date Quantity Comments Source Sex Assigned At [facility] Medications This patient has no known medications. Procedures Procedure Date / Time Performed Performing Clinician Sour e EEG AWAKE AND DROWSY 2019-11-26 13:42:00 Coco Prado [facility] Plan of Care Planned Activity Planned Date Details Comments Source Future Scheduled 2020-02-[address] [facility] - Test 00:00:00 (#1) [code = [facility] INFLUENZA VACCINE (#1)] Future Scheduled 2011-02-[address] - Test 00:00:00 (procedure) [code = [facility] [id number]] Future Scheduled 1997-02-[address] [facility] [facility] - Test 00:00:00 WELLNESS (YEAR 2 or [facility] Center FIRST YEAR if no IPPE) [code = MEDICARE ANNUAL WELLNESS (YEAR 2 or FIRST YEAR if no IPPE)] Encounters Start End Encounter Admission Attending Care Care Encounter Source Date/Time Date/Time Type Type Clinicians Facility Department ID 2020-05-15 2020-05-15 Laboratory Lab, [facility] [id number] 13:51:55 14:11:55 Only Fam Pob I Health [id number] [place] [id number] Professio [phone] nal 044 Office Building One 2020-05-14 2020-05-14 Telemedici Romina [facility] [id number] 15:04:18 15:19:18 ne Visit [facility] [id number] [place] [id number] Professio [phone] nal [facility] Office Building One 2020-05-14 2020-05-14 Telephone Arnol Baires [facility] [id number] 00:00:00 00:00:00 Health [id number] [place] [id number] [place] [phone] Medical [facility] [facility] Office Building 2020-05-10 2020-05-10 Office Claudia [facility] [id number] 15:03:56 16:37:58 Visit [facility] [id number] [place] 4.2.7.2.686 Professio [phone] nal 044 Office Building One 2020-05-04 2020-05-04 Ancillary CIRILO Mendez [id number] 13:42:26 14:42:26 Visit Susie White [id number] [place] 4.2.7.2.686 laurie [phone] [facility] 179 [facility] 2020-04-07 2020-04-07 Office MIGUEL Hayes [id number] 13:03:12 13:33:12 Visit Hira Medrano AMBULATOR [id number] Y [id number] [phone] 800 2019-03-21 2019-03-21 Office MIGUEL Hayes [id number] 14:17:49 14:47:49 Visit Hira Medrano AMBULATOR [id number] Y 0.2.7.2.686 [phone] Results Test Description Test Time Test Comments Results Result [facility] e Comments EEG AWAKE AND 2019-11-[address] [facility] EEG DROWSY 7 exam:->Matt-Ga REPORTDATE OF TEST: 15:51:00 staut syndrome, [id number] OF intractable, REPORT: [id number]: with status [id number]: epilepticus Start time: 1312Stop time: 1342CPT Code: 60796VTR-49: G40.813 HISTORY: A 44yr old M with LGS with frequent seizures, last seizure was 1 week ago. MEDICATIONS: Epidiolex and Lacosamide. TECHNICAL SUMMARY:This is a digital video EEG recorded with 32 input channels reviewed with bipolar and referential montages using the modified combinatorial system nomenclature. DESCRIPTION OF RECORD:In the most wakeful state the background consists of theta (5-7Hz) activity with a poorly formed posterior dominant rhythm 7Hz, minimally reactive to light and poorly modulated, symmetric with no AP gradient noted. Stage 2 sleep architecture was seen K-complexes and sleep spindles. HV: Hyperventilation was not performed.PHOTIC STIMULATION: Photic stimulation was done from 1-33 Hz; photic driving was not seen; photoparoxysmal responses were absent. ELECTROCARDIOGRAM EVENTS: None IMPRESSION: Abnormal Awake and Asleep EEG due to: 1) Continuous slow, generalized2) Background slow CLINICAL CORRELATION:The EEG is consistent with a mild degree of encephalopathy. No areas of focal dysfunction or epileptiform discharges were seen. No clinical or electrographic seizures were seen. Carlitos Hernandez MDEpilepsy Fellow I have reviewed this electroencephalogram, discussed the findings with the fellow, addended the fellow's report and agree with the overall assessment. Frank Monaco MD, MSNeurophysiology/Epi lepsy attending. Awake & 2019-11-10 Interface, External [facility] - [facility]/26[facility] - 15:51:00 3:[address] [facility] EEG REPORTDATE OF Center TEST: [id number] OF REPORT: [id number]: [id number]: [id number] time: 1312Stop time: 1342CPT Code: 12694PHP-86: G40.813 HISTORY: A 44yr old M with LGS with frequent seizures, last seizure was 1 week ago. MEDICATIONS: Epidiolex and Lacosamide. TECHNICAL SUMMARY:This is a digital video EEG recorded with 32 input channels reviewed with bipolar and referential montages using the modified combinatorial system nomenclature. DESCRIPTION OF RECORD:In the most wakeful state the background consists of theta (5-7Hz) activity with a poorly formed posterior dominant rhythm 7Hz, minimally reactive to light and poorly modulated, symmetric with no AP gradient noted. Stage 2 sleep architecture was seen K-complexes and sleep spindles. HV: Hyperventilation was not performed.PHOTIC STIMULATION: Photic stimulation was done from 1-33 Hz; photic driving was not seen; photoparoxysmal responses were absent. ELECTROCARDIOGRAM EVENTS: None
--- OUTSIDE RECORDS SUMMARY | 2020-05-15 17:59 | XMS REPORT | Summary of Care ---
:1975 Author Organization [facility] Address [address] [place] [address] Care Team Providers Name Role Phone John Taylor MD Primary Care Provider Reason for Referral MRI/CAT Scan (AMINATA) Status Reason Specialty Diagnoses / Referred By Referred To Procedures Contact Contact New Request Diagnostic Diagnoses Closed fracture of eleventh thoracic vertebra, unspecified fracture morphology, initial encounter Lumbar radiculopathy Arnol Baires MD Radiology Procedures MR THORACIC SPINE WO CONTRAST MR THORACIC SPINE WO CONTRAST [address] [place] [phone] MRI/CAT Scan (AMINATA) Status Reason Specialty Diagnoses / Referred By Referred To Procedures Contact Contact New Request Diagnostic Diagnoses Closed fracture of eleventh thoracic vertebra, unspecified fracture morphology, initial encounter Lumbar radiculopathy Arnol Baires MD Radiology Procedures MR LUMBAR SPINE WO CONTRAST MR LUMBAR SPINE WO CONTRAST [address] [place] [phone] (Routine) Status Reason Specialty Diagnoses / Referred By Referred To Procedures Contact Contact New Request Physical Therapy Diagnoses Closed fracture of eleventh thoracic vertebra, unspecified fracture morphology, initial encounter Lumbar radiculopathy Arnol Baires MD Procedures CONSULT/REFERRAL PHYSICAL THERAPY [address] [place] [phone] Radiology Services (Routine) Status Reason Specialty Diagnoses / Referred By Referred To Procedures Contact Contact New Request Diagnostic Diagnoses Closed fracture of eleventh thoracic vertebra, unspecified fracture morphology, initial encounter Lumbar radiculopathy Arnol Baires MD Radiology Procedures XR SCOLIOSIS SURVEY [address] [facility] [place] [address] Reason for Visit Reason Comments New Evaluation Encounter Details Date Type Department Care Team Description 04/22/2020 Office Visit [facility] Arnol Baires MD Closed fracture of eleventh thoracic param tebra, unspecified fracture morphology, initial encounter (Primary Dx); Neurosurgery, [address] [facility]. [address] [place] [address] 4th Floor [address] [place], [place] [phone] [address] [phone] Allergies Active Allergy Reactions Severity Noted Date [...] Active mg/2 spray (7.5/0.1mL nostril. x 2) [place] capsaicin/menthol Apply to 0 Di scontinued (ALIVIO [...] with No / Unsure 04/22/2020 3:22 PM THINNER SPRAYER someone who was confirmed or suspected to have Coronavirus / COVID-19? documented as of this encounter Last Filed Vital Signs Vital Sign Reading Time Taken Comments Blood Pressure 123/72 04/22/2020 9:00 AM THINNER SPRAYER Pulse 80 04/22/2020 9:00 AM THINNER SPRAYER Temperature - - Respiratory Rate - - Oxygen Saturation - - Inhaled Oxygen Concentration - - Weight 80.6 kg (177 lb 12.8 oz) 04/22/2020 9:00 AM THINNER SPRAYER Height 175.3 cm (5' 9") 04/22/2020 9:00 AM THINNER SPRAYER Body Mass Index 26.26 04/22/2020 9:00 AM THINNER SPRAYER documented in this encounter Progress Notes Dany [...] 5/5 5/5 5/5 5/5 D(C5) B(C6) T(C7) Him Specialist(C8) I (T1) L 5/5 5/5 5/5 5/5 5/5 LOWER EXTREMITY STRENGTH EXAM: R 5/5 5/5 5/5 5/5 5/5 IP(L2) Q(L3) TA(L4) EHL(L5) G(S1) L 5/5 5/5 5/5 5/5 5/5 Sensation intact to LT throughout Exam deep tendon: unable to elicit patellar No clonus No [facility] Imaging: XR L sp: unremarkable CT abd: [...] CAITIE. F/u afterimaging complete. Arnol Baires MD [facility] Neurosurgery I spent 45 minutes on this encounter over half of which was spent on patient counseling and coordination of care documented in this encounter Plan of Treatment Date Type Specialty Care Team Description 04/28/2020 Hospital Encounter Ambulatory Arnol Baires MD Surgical [address] [place] [address]. [place] [phone] 04/28/2020 Anesthesia Event Surgery Letty Kruger, RN [address] [place] [address] 04/28/2020 Appointment Radiology Arnol Baires MD [address] [place] [address]. [place] [phone] 04/28/2020 Surgery Surgery Anesthesiology [facility] [address] [place] [address] IMAGING UNDER [facility] [place] [address] 04/28/2020 Appointment Radiology Arnol Baires MD [address] [place] [address]. [place] [phone] 05/10/2020 Office Visit Family Medicine Og Taylor MD [address] [place] [phone] Name Type Priority Associated Diagnoses Order S [...] Addre ss Type Group MEDICARE MEDICARE PART [id number] 1996-[place] [phone] [address] Medicare A & B t 2 [id number] [place] [address] [facility] MEDICAID OF [id number] 2018-[place] [phone] [address] Medicaid [place] t 0 [id number] [place] [address] (Home) [place] [address] documented as of this encounter
--- OUTSIDE RECORDS SUMMARY | 2020-05-15 17:59 | XMS REPORT | Summary of Care ---
:1975 Author Organization [facility] - [facility] Address [address] [place] [address] Care Team Providers Name Role Phone John Taylor MD Primary Care Provider Reason for Visit Reason Comments Erroneous encounter-disregard Encounter Details Date Type Department Care Team Description 04/19/2020 Urgent Care [facility] Family Provider, [facility] ENCOUNTER--DISREGARD [address] [place] [address] (Primary D x) [place] [address] Allergies Active Allergy Reactions Severity Noted Date Comments Antihistamines - Unknown - See High 04/28/2008 Reacts wit h Alkylamine comments medications. Diphenhydramine Hcl Unknown - See 12/30/2007 comments documented as of this encounter (statuses as of 04/24/2020) Medications Medication Sig Dispensed Refills Start Date End Date Status triazolam 0.25 mg 2 tabs po x 1 4 tablet 0 09/18/2018 Active tabletIndications: dose 1 hour prior Agitation requiring to CT scan sedation protocol ciclopirox 8 % Apply to area(s) 6.6 mL 0 04/15/2020 Active solutionIndications: at bedtime. Apply Onychomycosis to Nails. Reapply nightly. On day 7, remove with alcohol/file nails. 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 Elevated lipase 09/17/2018 Seizure disorder 09/16/2018 Dyspepsia 09/16/2018 Personal history of other mental and behavioral disord ers 09/16/2018 Cerebral palsy, unspecified type 09/16/2018 MR (mental retardation) 09/16/2018 Autism 09/16/2018 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 Legal blindness Microcephaly Intellectual disability documented as of this encounter (statuses as of 04/24/2020) Social History Tobacco Use Types Packs/Day Years Used Date Never Smoker Smokeless Tobacco: Never Used Alcohol Use Drinks/Week oz/Week Comments No Sex Assigned at Date Recorded Not on file COVID-19 Exposure Response Date Recorded In the last month, have you been in contact with No / Unsure 04/22/2020 3:22 PM [employer] SAL[employer]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 documented as of this encounter Last Filed Vital Signs Not on filedocumented in this encounter Progress Notes Kathleen Crockett FNP - 04/19/2020 6:40 PM CSTError documented in this encounter Plan of Treatment Date Type Specialty Care Team Description 04/28/2020 Hospital Encounter Ambulatory Arnol Baires MD Surgical [address] [place] [phone] 04/28/2020 Anesthesia Event Surgery Letty Krguer, ABBY [address] [place] [phone] 04/28/2020 Appointment Radiology Arnol Baires MD [address] [place] [phone] 04/28/2020 Surgery Surgery Anesthesiology [facility] [address] [place] [address] [facility]ER [facility] [place] [address] 04/28/2020 Appointment Radiology Arnol Baires MD [address] [place] [phone] 05/04/2020 Ancillary Visit Physical Therapy Arnol Baires MD [address] [place] [phone] Susie Mendez, PT [address] [place] [phone] 05/10/2020 Office Visit Family Medicine Og Taylor MD [address] [place] [phone] Health Maintenance Due Date Last Done Comments DTaP,Tdap,and Td Vaccines (1 - 02/20/1995 Tdap) INFLUENZA VACCINE (#1) 2020 Depression Screening 04/22/2021 04/22/2020 PNEUMOCOCCAL 0-64 YEARS COMBINED Aged Out No longer eligible based on SERIES patient's age to complete this topic documented as of this encounter Results Not on filedocumented in this encounter Visit Diagnoses Diagnosis ERRONEOUS ENCOUNTER--DISREGARD - Primary documented in this encounter Insurance Payer Benefit Plan / Subscriber ID Effective Dates Phone Addre ss Type Group MEDICARE MEDICARE PART [id number] 1996-Nighat [phone] [address] Medicare A & B t 2 [id number] [place] [address] [facility] MEDICAID OF [id number] 2018-Nighat [phone] [address] Medicaid [place] t 0 [id number] [place] [address] documented as of this encounter
--- OUTSIDE RECORDS SUMMARY | 2020-05-15 17:59 | XMS REPORT | Summary of Care ---
:1975 Author Organization [facility] Address [address] [place] [address] Care Team Providers Name Role Phone John Taylor MD Primary Care Provider Reason for Referral (Routine) Status Reason Specialty Diagnoses / Referred By Referred To Procedures Contact Contact New Request Diagnoses Elevated lipase Pancreatic abnormality Og Taylor [place], Procedures CONSULT/REFERRAL GENERAL SURGERY MD GOLDY Lopez [address] [place] [address] [facility] [address] Jose 2.100 Phone: Crapo, Santhosh TM [phone] Fax: Reason for Visit Reason Comments Back Pain Encounter Details Date Type Department Care Team Description 04/22/2020 Office Visit [facility] Claudia, Og Elev ated lipase (Primary Dx); Medicine - Christopher Lopez MD Self-mutilation; [address] [place] [address] Intellectual disability; Drive [place], [place] Cerebral palsy, unspecified type; [place] [address] Autism; [phone] Protein malnutrition; [phone] Pancreati c abnormality; Low back pain, unspecified back pain laterality, unspecified chronicity, unspecified whether sciatica present Allergies Active Allergy Reactions Severity Noted Date Comments Antihistamines - Unknown - See High 04/28/2008 Reacts wit h Alkylamine comments medications. Diphenhydramine Hcl Unknown - See 12/30/2007 comments documented as of this encounter (statuses as of 04/24/2020) Medications Medication Sig Dispensed Refills Start End [...] Active mg/2 spray (7.5/0.1mL nostril. x 2) [place] cannabidioL Take 500 mg by 0 Act liam (EPIDIOLEX) 100 mg/mL mouth 2 (two) 0 oral solution times daily. VIMPAT 200 mg tablet TAKE 1 TABLET 0 Active BY MOUTH EVERY 0 MORNING THEN TAKE 2 TABLETS BY MOUTH EVERY EVENING ENSURE Take 1-2 Cans 180 Can 11 Active liquidIndications: by mouth 3 0 Protein malnutrition (three) times daily. methocarbamoL Take 1 tablet 28 tablet 0 Ac tive (ROBAXIN-750) 750 mg by mouth 4 0 tabletIndications: Low (four) times back pain, unspecified daily. back pain laterality, unspecified chronicity, unspecified whether sciatica present meloxicam (MOBIC) 15 Take 1 tablet 30 tablet 0 Active mg tabletIndications: by mouth once 0 Low back pain, daily as unspecified back pain needed for laterality, Pain or unspecified Inflammation. chronicity, Take with unspecified whether food. Don't sciatica present take while on the steroid pack. capsaicin/menthol Apply to 0 Di scontinued (ALIVIO [...] tabletsIndications: NS. follow Lumbar radiculopathy package directions Lacosamide (VIMPAT) Take 1 tab PO 0 Discontinued 200 mg tablet qAM and 2 tabs 0 020 ( Discontinued PO qPM by another clinician) documented as of this encounter (statuses as of 04/24/2020) Active Problems Problem Noted Date Low back pain, unspecified back pain laterality, unspe cified chronicity, 04/24/2020 unspecified whether sciatica present Lyons-Gastaut syndrome 04/22/2020 Elevated lipase 09/17/2018 Seizure disorder [...] with No / Unsure 04/22/2020 3:22 PM PRINCIPAL [employer] OFFICER someone who was confirmed or suspected to have Coronavirus / COVID-19? documented as of this encounter Last Filed Vital Signs Vital Sign Reading Time Taken Comments Blood Pressure 116/68 04/22/2020 3:23 PM [employer] OFFICER Pulse 61 04/22/2020 3:23 PM [employer] OFFICER Temperature 36.3 C (97.3 F) 04/22/2020 3:23 PM PRINCIPAL [employer]TS OFFICER Respiratory Rate - - Oxygen Saturation - - Inhaled Oxygen Concentration - - Weight 81.6 kg (180 lb) 04/22/2020 3:23 PM PRINCIPAL [employer]IFTS OFFICER Height 175.3 cm (5' 9") 04/22/2020 3:23 PM PRINCIPAL [employer] OFFICER Body Mass Index 26.58 04/22/2020 3:23 PM PRINCIPAL [employer]IFTS OFFICER documented in this encounter Patient Instructions Patient InstructionsSonya Townsend R - 04/22/2020 3:00 PM [employer] OFFICER Patient Education Back Care Tips Caring for your back These are things you can do to prevent a recurrence of acute back pain and to reduce symptoms from chronic back pain: Stay at a healthy weight. If you are overweight, losing weight will help most types of back pain. Exercise is an important part of recovery from most types of back pain. The muscles behind and infront of the spine support the back. This means strengthening both the back muscles and the abdominal muscles will provide better support for your spine. Swimming and brisk walking are good overall exercises to improve your fitness level. Practice safe lifting methods (see below). Practice good posture when sitting, standing, and walking. Don't sit for a long time. This puts more stress on the lower back than standing or walking. Wear quality shoes with good arch support. Foot and ankle alignment can affect back symptoms. Don't wear high heels. Therapeutic massage can help relax the back muscles without stretching them. During the first 24 to 72 hours after an acute injury or flare-up of chronic back pain, put an ice pack on the painful area for 20 minutes and then remove it for 20 minutes. Do thisover a period of 60 to 90 minutes, or several times a day. As a safety precaution, don't use a heating pad at bedtime.Sleeping on a heating pad can lead to skin john or tissue damage. You can alternate using ice and heat. Medicines Talk with your healthcare provider before using medicines, especially if you have other health problems or are taking other medicines. You may use clmq-myx-xgiedwi medicines, such as acetaminophen, ibuprofen, or naprosyn to control pain, unless your healthcare provider prescribed other pain medicine. Talk with your healthcare provider before taking any medicines if you have a chronic condition such as diabetes, liver or kidney disease, stomach ulcers, or digestive bleeding, or are taking blood thinners. Be careful if you are given prescription pain medicines, opioids, or medicine for muscle spasm. They can cause drowsiness, and affect your coordination, reflexes, and judgment. Don't drive or operate heavy machinery while taking these types of medicines. Take prescription pain medicine only as prescribed by your healthcare provider. Lumbar stretch This simple stretch will help relax muscle spasm and keep your back more limber. If exercise makes your back pain worse, dont do it. Lie on your back with your knees bent and both feet on the ground. Slowly raise your left knee to your chest as you flatten your lower back against the floor. Hold for 5 seconds. Relax and repeat the exercise with your right knee. Do 10 of these exercises for each leg. Safe lifting method Dont bend over at the waist to lift an object off the floor. Instead, bend your knees and hips in a squat. Keep your back and head upright Hold the object close to your body, directly in front of you. Straighten your legs to lift the object. Lower the object to the floor in the reverse fashion. If you must slide something across the floor, push it. Posture tips Sitting Sit in chairs with straight backs or low-back support. Keep your knees lower than your hips, with your feet flat on the floor. When driving, sit up straight. Adjust the seat forward so you are not leaning toward the steering wheel. A small pillow or rolled towel behind your lower back may help if you are driving long distances. Standing When standing for long periods, shift most of your weight to one leg at a time. Switch legs every few minutes. Sleeping The best way to sleep is on your side with your knees bent. Put a low pillow under your head to support your neck in a neutral spine position. Don't use thick pillows that bend your neck to one side. Put a pillow between your legs to further relax your lower back. If you sleep on your back, put pillows under your knees to support your legs in a slightly flexed position. Use a firm mattress. If your mattress sags, replace it, or use a 1/2-inch plywood board under the mattress to add support. Follow-up care Follow up with yourhealthcare provider, or as advised. If X-rays, a CT scan or an MRI scan were taken, they may be reviewed by a radiologist. You will be told of any new findings that may affect your care. Call 911 Call 911 if any of the following occur: Trouble breathing Confusion Very drowsy Fainting or loss of consciousness Rapid or very slow heart rate Loss of bowel or bladder control When to seek medical advice Call your healthcare provider right awayif any of the following occur: Pain becomes worse or spreads to your arms or legs Weakness or numbness in one or both arms or legs Numbness in the groin area [employer] last reviewed this educational content on 04/11/201919995668-4124 [employer]. [address] [place] [address]. All rights reserved. This information is not intended as a substitute for professional medical care. Always follow your healthcare professional's instructions. MOTOR[employer]ED [employer]ING OFFICER B[employer]CTION CIPAL GIFTS OFFICER documented in this encounter Progress Notes Og Taylor MD - 04/22/2020 3:00 PM CST CC: Chief Complaint Patient presents with Back Pain HPI Dylan Manzanares is a 45 year old M who presents for back pain. He is non-verbal and is brought in by his mother who is his primary caregiver and provides the history. His self-mutilation behavior had recently increased and he was holding his back and that is how his mother realized he was in severe pain. An urgent care provider prescribed some meloxicam and methocarbamol which have helped to ease his pain and [facility]. Imaging studies of the spine have been ordered by the Neurosurgeon and he was prescribed a steroid pack. She wanted to fill me in on the clinical situation given I am his PCP and she wanted to express her frustration regarding what she feels is a lack of urgency in getting his problem addressed. His mother also questions if he needs to follow-up with General Surgery (Dr. Reina) in regards tohis h/o abnormal pancreatic imaging and his elevated lipase level. Additionally she requests an Rx for the Ensure he uses for calorie supplementation. He often won't eat regular meals but will pretty reliable drink Ensure. He consumes 1-2 cans TID (min 3 cans per day, max 6 cans per day). Without the use of Ensure he typically falls into a pattern of weight loss. Allergies Allergen Reactions Antihistamines - Alkylamine Unknown - See comments Reacts with medications. Diphenhydramine Hcl Unknown - See comments Current Outpatient Medications: cannabidioL (EPIDIOLEX) 100 mg/mL oral solution, Take 500 mg by mouth 2 (two) times daily., Disp: , Rfl: diazePAM ([place]) 15 mg/2 spray (7.5/0.1mL x 2) [place], Use in each nostril., Disp: , Rfl: ENSURE liquid, Take 1-2 Cans by mouth 3 (three) times daily., Disp: 180 Can, Rfl: 11 meloxicam (MOBIC) 15 mg tablet, Take 1 tablet by mouth once daily as needed for Pain or Inflammation. Take with food. Don't take while on the steroid pack., Disp: 30 tablet, Rfl: 0 methocarbamoL (ROBAXIN-750) 750 mg tablet, Take 1 tablet by mouth 4 (four) times daily., Disp: 28 tablet, Rfl: 0 VIMPAT 200 mg tablet, TAKE 1 TABLET BY MOUTH EVERY MORNING THEN TAKE 2 TABLETS BY MOUTH EVERY EVENING, Disp: , Rfl: ciclopirox 8 % solution, Apply to area(s) at bedtime. Apply to Nails. Reapply nightly. On day 7, remove with alcohol/file nails. 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 HENT: Negative. Eyes: Negative. Respiratory: Positive for cough. Cardiovascular: Negative. Gastrointestinal: Negative. Genitourinary: Negative. Musculoskeletal: Positive for back pain and gait problem. Skin: Positive for wound (self-inflicted skin wounds). Neurological: Positive for seizures (4 this year). Psychiatric/Behavioral: Positive for behavioral problems, dysphoric mood, self- injury and sleep disturbance. Endocrine: Endocrine negative Vital signs BP 116/68 | Pulse 61 | Temp 36.3 C (97.3 F) (Tympanic) | Ht 5' 9" (1.753 m) | Wt 180 lb (81.6 kg) | BMI 26.58 kg/m Physical Exam Vitals signs and nursing note reviewed. Constitutional: General: He is not in acute distress. HENT: Head: Microcephalic. Neck: Musculoskeletal: Neck supple. Cardiovascular: Rate and Rhythm: Normal rate and regular rhythm. Pulses: Normal pulses. Heart sounds: Normal heart sounds. No murmur. No friction rub. No gallop. Pulmonary: Effort: Pulmonary effort is normal. No respiratory distress. Breath sounds: Normal breath sounds. No wheezing, rhonchi or rales. Abdominal: General: Bowel sounds are normal. There is no distension. Palpations: Abdomen is soft. There is no mass. Tenderness: There is no abdominal tenderness. There is no right CVA tenderness, left CVA tenderness, guarding or rebound. Skin: General: Skin is warm and dry. Comments: Self-inflicted abrasions on the extremities Neurological: Mental Status: He is alert. Mental status is at baseline. Psychiatric: Attention and Perception: He is inattentive. Speech: He is noncommunicative (only sparse occasional prompted speech). Behavior: Behavior is cooperative. Cognition and Memory: Cognition is impaired. Labs Urgent Care on 04/15/2020 Component Date Value POCT U SP GRAV 04/15/2020 1.020 POCT PH U 04/15/2020 5 POCT U LEUK EST 04/15/2020 Negative POCT U NIT 04/15/2020 Negative POCT U PROT 04/15/2020 Negative POCT U GLU 04/15/2020 Negative POCT U KETONE 04/15/2020 Negative POCT U UROBILI 04/15/2020 Normal POCT U BILI 04/15/2020 Negative POCT U BLD 04/15/2020 Negative POCT U COLOR 04/15/2020 orange POCT U APPEAR 04/15/2020 clear Radiology XR LUMBAR SPINE 4 VW, XR SACRUM AND COCCYX HISTORY: Male 45 years acute midline low back pain w/o sciatica COMPARISON: None FINDINGS: Mild levocurvature. The vertebral bodies are normal in height and in normal alignment. No significant degenerative changes are present. Oblique radiographs demonstrate no evidence of spondylolysis. The sacrum and coccyx are unremarkable. ASSESSMENT/PLAN Diagnoses and all orders for this visit: Self-mutilation, Intellectual disability, Cerebral palsy, unspecified type, Autism He is pretty close to his baseline today. It seems his self-mutilating behavior had worsened due touncontrolled pain. Pain control will be paramount in preventing an increase in self-harming behaviors in this challenged patient (see below). Low back pain, unspecified back pain laterality, unspecified chronicity, unspecified whether sciatica present Refills of the previous analgesic medications were provided given these medications seem to pretty effectively manage his pain. Management otherwise will be per Neurosurgery. Follow-up for imaging and with this specialist as scheduled/planned. - methocarbamoL (ROBAXIN-750) 750 mg tablet; Take 1 tablet by mouth 4 (four) times daily. - meloxicam (MOBIC) 15 mg tablet; Take 1 tablet by mouth once daily as needed for Pain or Inflammation. Take with food. Don't take while on the steroid pack. Elevated lipase, Pancreatic abnormality I recommended a repeat lipase level and f/u with General Surgery soon. - LIPASE; Standing - CONSULT/REFERRAL GENERAL SURGERY Protein malnutrition - ENSURE liquid; Take 1-2 Cans by mouth 3 (three) times daily. Plan of care, desired health behaviors, goals, Ddx, and any prescribed medications were discussed with the patient. This visit did not involve counseling and coordination that comprised more than 50% of the visit time. Education resources and self-management tools were provided/reviewed with the AVS. Patient/guardian/family verbalized understanding and agrees to the plan of care. Barriers to care: None. Ability to manage care: Good. Advanced care planning (living will) information was not given/offered to the patient to review for discussion at a future visit. If applicable, the [place] PMPdatabase was accessed to review any controlled substance prescription claims data. If the patient is taking prescribed medications, the [place] prescription claims data in [place] was reviewed to assess patient compliance with the medication treatment plan. Follow-up: Return soon for fasting annual physical. Follow-up sooner if any problems or concerns. documented in this encounter Plan of Treatment Date Type Specialty Care Team Description 04/28/2020 Hospital Encounter Ambulatory Arnol Baires MD Surgical [address] [place] [address]. [place] [phone] 04/28/2020 Anesthesia Event Surgery Letty Kruger, ABBY [address] [place] [address] 04/28/2020 Appointment Radiology Arnol Baires MD [address] [place] [address]. [place] [phone] 04/28/2020 Surgery Surgery Anesthesiology [facility] [address] [place] [address] IMAGING [facility] [place] [address] 04/28/2020 Appointment Radiology Arnol Baires MD [address] [place] [phone] 05/04/2020 Ancillary Visit Physical Therapy Arnol Baires MD [address] [place] [phone] Susie Mendez, PT [address] [place] [address] 05/10/2020 Office Visit Family Medicine Og Taylor MD [address] [place] [phone] Name Type Priority Associated Diagnoses Order S chedule LIPASE LAB Routine Elevated lipase 1 Occurrences starting Pancreatic abnormality 04/22 until 10/20/2020 Health Maintenance Due Date Last Done Comments DTaP,Tdap,and Td Vaccines (1 - 02/20/1995 Tdap) INFLUENZA VACCINE (#1) 2020 Depression Screening 04/22/2021 04/22/2020 PNEUMOCOCCAL 0-64 YEARS COMBINED Aged Out No longer eligible based on SERIES patient's age to complete this topic documented as of this encounter Results Not on filedocumented in this encounter Visit Diagnoses Diagnosis Elevated lipase - Primary Other nonspecific abnormal serum enzyme levels Self-mutilation Unspecified nonpsychotic mental disorder Intellectual disability Unspecified intellectual disabilities Cerebral palsy, unspecified type Autism Autistic disorder, current or active sta te Protein malnutrition [place] Pancreatic abnormality Low back pain, unspecified back pain lat erality, unspecified chronicity, unspecified whether sciatica present documented in this encounter Insurance Payer Benefit Plan / Subscriber ID Effective Dates Phone Addre ss Type Group MEDICARE MEDICARE PART [id number] 1996-Nighat [phone] [address] Medicare A & B t 2 [id number] [place] [address] [facility] MEDICAID OF [id number] 2018-Nighat [phone] [address] Medicaid [place] t 0 [id number] [place] [address] documented as of this encounter
--- OUTSIDE RECORDS SUMMARY | 2020-05-15 18:00 | XMS REPORT | Summary of Care ---
:1975 Author Organization [facility] Address [address] [place], [place] [address] Care Team Providers Name Role Phone John Taylor MD Primary Care Provider Reason for Referral MRI/CAT Scan (AMINATA) Status Reason Specialty Diagnoses / Referred By Referred To Procedures Contact Contact Closed Diagnostic Diagnoses Closed fracture of eleventh thoracic vertebra, unspecified fracture morphology, initial encounter Lumbar radiculopathy Arnol Baires MD Radiology Procedures MR LUMBAR SPINE WO CONTRAST MR LUMBAR SPINE WO CONTRAST [address] [facility] [place] [place] [address] Reason for Visit Auth/Cert Status Reason Specialty Diagnoses / Referred By Referred To Procedures Contact Contact Ambulatory Diagnoses Preoperative Diagnosis 1: Closed fracture of eleventh thoracic vertebra, uns Diagnosis Code:S22.089A Additional Diagnosis 2: Lumbar radiculopathy Diagnosis Code:M54.16 Kayleigh u Surgical Procedures [facility] CODING HELP [facility]NET[facility]ON[facility] IMAGING UNDER ANESTHESIA [address] [place] [address] Encounter Details Date Type Department Care Team Description 04/28/2020 Hospital Encounter [facility] Shruti Baires MD Arrived Resonance Imaging - [address] [place] [address]. [place] [address] [phone] [place], [place] [phone] Allergies Active Allergy Reactions Severity Noted Date Comments Antihistamines - Unknown - See High 04/28/2008 Reacts wit h Alkylamine comments medications. 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 Elevated lipase 09/17/2018 Seizure disorder 09/16/2018 Dyspepsia 09/16/2018 Personal history of other mental and behavioral disord ers 09/16/2018 Cerebral palsy, unspecified type 09/16/2018 MR (mental retardation) 09/16/2018 Autism 09/16/2018 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 Legal blindness Microcephaly Intellectual disability documented as of this encounter (statuses as of 04/29/2020) Social History Tobacco Use Types Packs/Day Years Used Date Never Smoker Smokeless Tobacco: Never Used Alcohol Use Drinks/Week oz/Week Comments No Sex Assigned at Date Recorded Not on file COVID-19 Exposure Response Date Recorded In the last month, have you been in contact with No / Unsure 04/27/2020 9:21 AM RESEARCH ADVISOR someone who was confirmed or suspected to have Coronavirus / COVID-19? documented as of this encounter Last Filed Vital Signs Not on filedocumented in this encounter Plan of Treatment Date Type Specialty Care Team Description 05/04/2020 Ancillary Visit Physical Therapy Arnol Baires MD [address] [place] [phone] Susie Mendez, PT [address] [place] [address] 05/10/2020 Office Visit Family Medicine Charles Taylor MD [address] [place], [place] [phone] Health Maintenance Due Date Last Done Comments DTaP,Tdap,and Td Vaccines (1 - 02/20/1995 Tdap) INFLUENZA VACCINE (#1) 2020 Depression Screening 04/28/2021 04/28/2020 PNEUMOCOCCAL 0-64 YEARS COMBINED Aged Out No longer eligible based on SERIES patient's age to complete this topic documented as of this encounter Procedures Procedure Name Priority Date/Time Associated Diagnosis Comme nts MR LUMBAR SPINE WO AMINATA 04/28/2020 1:16 Closed fracture of Results for this CONTRAST PM RESEARCH ADVISOR eleventh thoracic procedure are in vertebra, unspecified the re sults fracture morphology, section . 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 Diffuse posterior epidural lamina stenosis is noted th roughout the thoracic spine resulting in mild effacement of th e thecal sac but no bony canal stenosis. Mild multilevel spondylosis and spondylo arthropathy of the lumbar spine most pronounced at L3-L4 result in no more than mild s kade canal stenosis. Narrative Performed At EXAM: MR THORACIC SPINE WO CONTRAST, MR LUMBAR SPINE WO CONTRAST PACS/VR/DOSE HISTORY: Presurgical eval, T-spine TECHNIQUE: MRIs of the thoracic and lumb ar spine were performed without intravenous contrast. COMPARISON: Lumbar spine radiograph date d 04/16/2020. 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 The vertebral bodies are otherwise hilary l in height and alignment. The background bone marrow signal is unremar kable. Small Schmorl's nodes are noted at the mid thoracic sp ine. Disc spaces are otherwise normal in height and alignment . There is prominent posterior epidural fa t throughout the entire thoracic spine results in mild diffuse narrowing of the thecal sac. No osseous spinal canal stenosis. The paraspinal soft tissues are unremark able. Dilated fluid-filled esophagus noted. LUMBAR SPINE The vertebral bodies are normal in heigh t and alignment. The background bone marrow signal is unr emarkable. The cauda equina terminates at L2 and is normal. Cauda equina nerve roots are unremarkable. Mild disc desiccation at L3-L4. Lumbar discs are other padron normal in height and signal intensity. At L1-L2, mild ligamentum flavum thicken ing noted. No high-grade spinal canal stenosis or significant neural for aminal narrowing. At L2-L3, mild diffuse disc bulge with b ilateral facet arthrosis and ligamentum flavum thickening. No high-gr jesse spinal canal stenosis or significant neural foraminal narrowing. At L3-L4, diffuse disc bulge with bilateral facet arth rosis and ligamentum flavum thickening result in mild spinal canal stenosis. No significant neural foraminal narrowing. At L4-L5, mild to moderate bilateral facet arthrosis a nd ligamentum flavum thickening. No high-grade spinal canal s tenosis or significant neural foraminal narrowing. At L5-S1, no high-grade spinal canal viola nosis or significant neural foraminal narrowing. The paraspinal soft tissues are unremark able. Procedure Note [facility], Radiant Results Inft User - 2019 3:24 PM RESEARCH ADVISOR EXAM: MR THORACIC SPINE WO CONTRAST, MR LUMBAR SPINE WO CONTRAST HISTORY: Presurgical eval, T-spine TECHNIQUE: MRIs of the thoracic and lumb ar spine were performed without intravenous contrast. COMPARISON: Lumbar spine radiograph date d 04/16/2020. FINDINGS: THORACIC SPINE Congenital hypoplastic T11 vertebral bod y and posterior elements noted and resulted in mild kyphotic deformity. The vertebral bodies are otherwise hilary l in height and alignment. The background bone marrow signal is unremar kable. Small Schmorl's nodes are noted at the m id thoracic spine. Disc spaces are otherwise normal in height and alignment . There is prominent posterior epidural fa t throughout the entire thoracic spine results in mild diffuse narrowing of the thecal sac. No osseous spinal canal stenosis. The paraspinal soft tissues are unremark able. Dilated fluid-filled esophagus noted. LUMBAR SPINE The vertebral bodies are normal in heigh t and alignment. The background bone marrow signal is unr emarkable. The cauda equina terminates at L2 and is normal. Cauda equina nerve roots are unremarkable. Mild disc desiccation at L3-L4. Lumbar d iscs are otherwise normal in height and signal intensity. At L1-L2, mild ligamentum flavum thicken ing noted. No high-grade spinal canal stenosis or significant neural for aminal narrowing. At L2-L3, mild diffuse disc bulge with b ilateral facet arthrosis and ligamentum flavum thickening. No high-gr jesse spinal canal stenosis or significant neural foraminal narrowing. At L3-L4, diffuse disc bulge with bilate ral facet arthrosis and ligamentum flavum thickening result in mild spinal canal stenosis. No significant neural foraminal narrowing. At L4-L5, mild to moderate bilateral fac et arthrosis and ligamentum flavum thickening. No high-grade spinal canal s tenosis or significant neural foraminal narrowing. At L5-S1, no high-grade spinal canal viola nosis or significant neural foraminal narrowing. The paraspinal soft tissues are unremark able. 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 Diffuse posterior epidural lamina stenos is is noted throughout the thoracic spine resulting in mild effacement of th e thecal sac but no bony canal stenosis. Mild multilevel spondylosis and spondylo arthropathy of the lumbar spine most pronounced at L3-L4 result in no mo re than mild spinal canal stenosis. Performing Organization Address City/State/Zipcode Phone Number PACS/VR/DOSE documented in this encounter Visit Diagnoses Diagnosis Closed fracture of eleventh thoracic param tebra, unspecified fracture morphology, initial encounter Lumbar radiculopathy Thoracic or lumbosacral neuritis or radi culitis, unspecified documented in this encounter Additional Health Concerns Infection Onset Date Last Indicated Resolved Time COVID-19 Rule Out 04/28/2020 04/28/2020 04/28/2020 9: 58 AM RESEARCH ADVISOR documented as of this encounter Insurance Payer Benefit Plan / Subscriber ID Effective Dates Phone Addre ss Type Group MEDICARE MEDICARE PART [id number] 1996-[place] [phone] [address] t [id number] [place] [address] [facility] MEDICAID OF [id number] 2018-Presjackelyn [phone] [address] [place] t 0 [id number] [place] [address] documented as of this encounter
--- OUTSIDE RECORDS SUMMARY | 2020-05-15 18:00 | XMS REPORT | Summary of Care ---
:1975 Author Organization [facility] Address [address] [place], [place] [address] Care Team Providers Name Role Phone John Taylor MD Primary Care Provider Reason for Referral Radiology Services (Routine) Status Reason Specialty Diagnoses / Referred By Referred To Procedures Contact Contact New Request Diagnostic Diagnoses Closed fracture of eleventh thoracic vertebra, unspecified fracture morphology, initial encounter Lumbar radiculopathy Arnol Baires MD Radiology Procedures XR SCOLIOSIS SURVEY [address] [address] Reason for Visit Auth/Cert Status Reason Specialty Diagnoses / Procedures Referred By [place] ontact Referred To Contact Radiology Diagnoses Unspecified fracture of t11-T12 vertebra, initial encounter for closed fracture [facility] X-Ray [address] [place] [address] Phone: Fax: Encounter Details Date Type Department Care Team Description 04/27/2020 Hospital Encounter Pending sale to [facility] Shruti Baires MD [facility] Radiology [address] [place] [address] Drive [address] [place], [place] [phone] [address] [phone] Allergies Active Allergy Reactions Severity Noted Date Comments Antihistamines - Unknown - See High 04/28/2008 Reacts wit h Alkylamine comments medications. Diphenhydramine Hcl Unknown - See 12/30/2007 comments documented as of this encounter (statuses as of 04/28/2020) Medications Medication Sig Dispensed Refills Start Date End Date Status triazolam 0.25 mg 2 tabs po x 1 4 tablet 0 09/18/2018 Active tabletIndications: dose 1 hour Agitation requiring prior to CT sedation protocol scan ciclopirox 8 % Apply to 6.6 mL 0 04/15/2020 Acti ve solutionIndications: area(s) at Onychomycosis bedtime. Apply to Nails. Reapply nightly. On day 7, remove with alcohol/file nails. Repeat diazePAM (VALTOCO) 15 mg/2 Use in each 0 Active spray (7.5/0.1mL x 2) [place] nostril. cannabidioL (EPIDIOLEX) Take 500 mg by 0 10/14/2019 Active 100 mg/mL oral solution mouth 2 (two) times daily. VIMPAT 200 mg tablet TAKE 1 TABLET 0 03/28/2020 Active BY MOUTH EVERY MORNING THEN TAKE 2 TABLETS BY MOUTH EVERY EVENING ENSURE liquidIndications: Take 1-2 Cans 180 Can 11 04/22/2020 Active Protein malnutrition by mouth 3 (three) times daily. methocarbamoL Take 1 tablet 28 tablet 0 04/22/2020 A ctive (ROBAXIN-750) 750 mg by mouth 4 tabletIndications: Low (four) times back pain, unspecified daily. back pain laterality, unspecified chronicity, unspecified whether sciatica present meloxicam (MOBIC) 15 mg Take 1 tablet 30 tablet 0 04/22/2020 Active tabletIndications: Low by mouth once back pain, unspecified daily as back pain laterality, needed for unspecified chronicity, Pain or unspecified whether Inflammation. sciatica present Take with food. Don't take while on the steroid pack. Methylprednisolone 4 mg Take 4 mg 0 Active tablet through enteral tube every 4 (four) hours. 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 Elevated lipase 09/17/2018 Seizure disorder 09/16/2018 Dyspepsia 09/16/2018 Personal history of other mental and behavioral disord ers 09/16/2018 Cerebral palsy, unspecified type 09/16/2018 MR (mental retardation) 09/16/2018 Autism 09/16/2018 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 Legal blindness Microcephaly Intellectual disability documented as of this encounter (statuses as of 04/28/2020) Social History Tobacco Use Types Packs/Day Years Used Date Never Smoker Smokeless Tobacco: Never Used Alcohol Use Drinks/Week oz/Week Comments No Sex Assigned at Date Recorded Not on file COVID-19 Exposure Response Date Recorded In the last month, have you been in contact with No / Unsure 04/27/2020 9:21 AM ANTHROPOMETRIST someone who was confirmed or suspected to have Coronavirus / COVID-19? documented as of this encounter Last Filed Vital Signs Not on filedocumented in this encounter Plan of Treatment Date Type Specialty Care Team Description 04/28/2020 Appointment Radiology Arnol Baires MD [address] [place] [phone] 04/28/2020 Appointment Radiology Arnol Baires MD [address] [place] [phone] 05/04/2020 Ancillary Visit Physical Therapy Arnol Baires MD [address] [place] [phone] Susie Mendez, PT [address] [place] [address] 05/10/2020 Office Visit Family Medicine Charles Taylor MD [address] [place] [phone] Health Maintenance Due Date Last Done Comments DTaP,Tdap,and Td Vaccines (1 - 02/20/1995 Tdap) INFLUENZA VACCINE (#1) 2020 Depression Screening 04/22/2021 04/22/2020 PNEUMOCOCCAL 0-64 YEARS COMBINED Aged Out No longer eligible based on SERIES patient's age to complete this topic documented as of this encounter Procedures Procedure Name Priority Date/Time Associated Diagnosis Comme nts XR SCOLIOSIS SURVEY Routine 04/27/2020 12:34 Closed fracture o f Results for this 2 VW PM ANTHROPOMETRIST eleventh thoracic procedure are in vertebra, unspecified the re sults fracture morphology, section . initial encounte r Lumbar radiculopathy NOTICE OF PRIVACY Routine 04/27/2020 12:02 PRACTICES PM ANTHROPOMETRIST CONSENT/REFUSAL FOR Routine 04/27/2020 12:01 DIAGNOSIS AND PM ANTHROPOMETRIST TREATMENT ASSIGNMENT OF Routine 04/27/2020 12:01 BENEFITS PM ANTHROPOMETRIST documented in this encounter Results XR SCOLIOSIS SURVEY 2 VW (04/27/2020 12:34 PM ANTHROPOMETRIST) Specimen Narrative Performed At HISTORY: Back pain, T11 deformity. PACS/VR/DOSE COMPARISON: Lumbar spine study of and CT scan of abdomen dated 09/19/2018. TECHNIQUE: AP and lateral views of thora cic and lumbar spines as well as sacrum were obtained. FINDINGS: Anatomical details of upper th oracic spines in the AP view are suboptimal. Mild mid thoracic dextroscoliosis suspec kerry. Moderate thoracolumbar dextroscoliosis is noted second yoanna to developmental abnormality in size and shape of T11 as well as T12 ve rtebral bodies. T11 vertebral body is butterfly-shaped and, as a result, t here is deformity in the upper left side of T12 vertebral bod y. Approximate scoliosis angle at mid thora cic level is less than 5 degrees and at thoracolumbar junction is proxima lly 13 to 15 degrees. 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 Procedure Note [facility], Radiant Results Inft User - 2019 12:43 PM ANTHROPOMETRIST HISTORY: Back pain, T11 deformity. COMPARISON: Lumbar spine study of and CT scan of abdomen dated 09/19/2018. TECHNIQUE: AP and lateral views of thora cic and lumbar spines as well as sacrum were obtained. FINDINGS: Anatomical details of upper th oracic spines in the AP view are suboptimal. Mild mid thoracic dextroscoliosis suspec kerry. Moderate thoracolumbar dextroscoliosis i s noted secondary to developmental abnormality in size and shape of T11 as well as T12 vertebral bodies. T11 vertebral body is butterfly-shaped and, as a result, there is deformity in the upper left side of T12 vertebral bod y. Approximate scoliosis angle at mid thora cic level is less than 5 degrees and at thoracolumbar junction is proxima lly 13 to 15 degrees. CONCLUSIONS: Thoracolumbar scoliosis sec ondary to developmental anomaly in size and shape of T11 and T12 vertebral bodies. Performing Organization Address City/State/Zipcode Phone Number PACS/VR/DOSE documented in this encounter Visit Diagnoses Diagnosis Closed fracture of eleventh thoracic param tebra, unspecified fracture morphology, initial encounter Lumbar radiculopathy Thoracic or lumbosacral neuritis or radi culitis, unspecified documented in this encounter Insurance Payer Benefit Plan / Subscriber ID Effective Dates Phone Addre ss Type Group MEDICARE MEDICARE PART [id number] 1996-[place] [phone] [address] Medicare A & B t 2 [id number] [place] [address] [facility] MEDICAID OF [id number] 2018-[place] [phone] [address] Medicaid [place] t 0 [id number] [place] [address] documented as of this encounter
--- OUTSIDE RECORDS SUMMARY | 2020-05-15 18:00 | XMS REPORT | Summary of Care ---
:1975 Author Organization [facility] - Health Address [address] [place] [address] Care Team Providers Name Role Phone John Taylor MD Primary Care Provider Reason for Visit Auth/Cert Status Reason Specialty Diagnoses / Referred By Referred To Procedures Contact Contact Ambulatory Diagnoses Preoperative Diagnosis 1: Closed fracture of eleventh thoracic vertebra, uns Diagnosis Code:S22.089A Additional Diagnosis 2: Lumbar radiculopathy Diagnosis Code:M54.16 [facility] Surgical Procedures [facility] CODING HELP MAGNETIC RESONANCE IMAGING UNDER ANESTHESIA [address] [place] [address] Encounter Details Date Type Department Care Team Description 04/28/2020 Hospital Encounter [facility] Luiza Baires MD Post Anesthesia Care [address] [place] [address]. Unit [place] [address] [place] [address] [phone] Allergies Active Allergy Reactions Severity Noted Date Comments Antihistamines - Unknown - See High 04/28/2008 Reacts wit h Alkylamine comments medications. Diphenhydramine Hcl Unknown - See 12/30/2007 comments documented as of this encounter (statuses as of 04/28/2020) Medications Medication Sig Dispensed Refills Start Date End Date Status triazolam 0.25 mg 2 tabs po x 4 tablet 0 09/18/2018 Discontinued tabletIndications: 1 dose 1 0 Agitation requiring hour prior sedation protocol to CT scan ciclopirox 8 % Apply to 6.6 mL 0 04/15/2020 Disc ontinued solutionIndications: area(s) at 0 Onychomycosis bedtime. Apply to Nails. Reapply nightly. On day 7, remove with alcohol/file nails. Repeat diazePAM (VALTOCO) 15 Use in each 0 04/28 Discontinued mg/2 spray (7.5/0.1mL x nostril. 0 2) Lasara cannabidioL (EPIDIOLEX) Take 500 mg 0 10/14/2019 Discontinued 100 mg/mL oral solution by mouth 2 0 (two) times daily. VIMPAT 200 mg tablet TAKE 1 0 03/28/2020 04/28/20 2 Discontinued TABLET BY 0 MOUTH EVERY MORNING THEN TAKE 2 TABLETS BY MOUTH EVERY EVENING ENSURE Take 1-2 180 Can 11 04/22/2020 Discontin ued liquidIndications: Cans by 0 Protein malnutrition mouth 3 (three) times daily. methocarbamoL Take 1 28 tablet 0 04/22/2020 Disco ntinued (ROBAXIN-750) 750 mg tablet by 0 tabletIndications: Low mouth 4 back pain, unspecified (four) times back pain laterality, daily. unspecified chronicity, unspecified whether sciatica present meloxicam (MOBIC) 15 mg Take 1 30 tablet 0 04/22/202004/28 Discontinued tabletIndications: Low tablet by 0 back pain, unspecified mouth once back pain laterality, daily as unspecified chronicity, needed for unspecified whether Pain or sciatica present Inflammation . Take with food. Don't take while on the steroid pack. Methylprednisolone 4 mg Take 4 mg 0 Discontinued tablet through 0 enteral tube every 4 (four) hours. documented [...] with No / Unsure 04/27/2020 9:21 AM TORCH STRAIGHTENER someone who was confirmed or suspected to have Coronavirus / COVID-19? documented as of this encounter Last Filed Vital Signs Vital Sign Reading Time Taken Comments Blood Pressure 91/55 04/28/2020 2:45 PM TORCH STRAIGHTENER Pulse 57 04/28/2020 2:45 PM TORCH STRAIGHTENER Temperature 36 C (96.8 F) 04/28/2020 1:40 PM TORCH STRAIGHTENER Respiratory Rate 16 04/28/2020 1:45 PM TORCH STRAIGHTENER Oxygen Saturation 98% 04/28/2020 3:00 PM TORCH STRAIGHTENER Inhaled Oxygen Concentration - - Weight 78.9 kg (173 lb 15.1 oz) 04/28/2020 10:35 AM TORCH STRAIGHTENER Height 177.8 cm (5' 10") 04/28/2020 10:35 AM TORCH STRAIGHTENER Body Mass Index 24.96 04/28/2020 10:35 AM TORCH STRAIGHTENER documented in this encounter Miscellaneous Notes Nursing Note - Jaki Kay RN - 04/27/2020 9:27 AM CSTMom states he may be hard to get covid test on. She will explain procedure to him before hand and ask the nurses to go slow. documented in this encounter Plan of Treatment Date Type Specialty Care Team Description 05/04/2020 Ancillary Visit Physical Therapy Arnol Baires MD [address] [place] [address] [phone] Susie Mendez, PT [address] [place] [address] 05/10/2020 Office Visit Family Medicine Charles Taylor MD [address] [place] [address] [phone] Name Type Priority Associated Diagnoses Date/Ti me LAB ONLY COVID LAB Routine 04/28/2020 9 :14 AM INTERPRETATION TORCH STRAIGHTENER Name Type Priority Associated Diagnoses Order S chedule LAB ONLY COVID LAB Routine ONCE for 1 Oc currences INTERPRETATION starting 04/11 until 0, 1 completed Health Maintenance Due Date Last Done Comments DTaP,Tdap,and Td Vaccines (1 - 02/20/1995 Tdap) INFLUENZA VACCINE (#1) 2020 Depression Screening 04/28/2021 04/28/2020 PNEUMOCOCCAL 0-64 YEARS COMBINED Aged Out No longer eligible based on SERIES patient's age to complete this topic documented as of this encounter Procedures Procedure Name Priority Date/Time Associated Comments Diagnosis COVID-19 (ID NOW STAT 04/28/2020 9:14 AM Resu lts for this RAPID TESTING) TORCH STRAIGHTENER procedure are in the results section. CONSENT/REFUSAL FOR Routine 04/28/2020 8:46 AM DIAGNOSIS AND TORCH STRAIGHTENER TREATMENT ASSIGNMENT OF Routine 04/28/2020 8:41 AM BENEFITS TORCH STRAIGHTENER documented in this encounter Results COVID-19 (ID NOW RAPID TESTING) (04/28/2020 9:14 AM TORCH STRAIGHTENER) SARS-CoV-2 Rapid ID Not Detected Not Detected [facility] LABOR[facility] NOW SERVICES Specimen Swab - NASOPHARYNGEAL SWAB Narrative Performed At ID NOW COVID-19 Assay is an isothermal nucleic acid [facility]OR[facility] SERVICES amplification test intended for the qualitative detect ion of nucleic acid from SARS-CoV-2 viral RNA in nasopharynge al (GROUND INTELLIGENCE OFFICER) specimens. It is used under Emergency Use Authori zation (EUA) by FDA. The limit of detection (LOD) of the assa y is 125 Genome Equivalents/mL. A positive result is indicative of the presence of SARS-CoV-2 RNA. Clinical correlation with patient hi story and other diagnostic information is necessary to deter mine patient infection status. A negative (Not Detected) result does not preclude SARS-CoV-2 infection. In patients with clinical sympto ms and other tests that are consistent with SARS-CoV-2 infect ion, negative results should be treated as presumptive nega tive and a new specimen should be tested with alternative P CR molecular test. Invalid: Please collect a new specimen for repeat kwadwo ent testing if clinically indicated. Performing Organization Address City/State/Zipcode Phone Number [facility] CLIA: [id number] [place] [address] [place] [address] documented in this encounter Additional Health Concerns Infection Onset Date Last Indicated Resolved Time COVID-19 Rule Out 04/28/2020 04/28/2020 04/28/2020 9: 58 AM TORCH STRAIGHTENER documented as of this encounter Insurance Payer Benefit Plan / Subscriber ID Effective Dates Phone Addre ss Type Group MEDICARE MEDICARE PART [id number] 1996-Nighat [phone] Medicare A & B t 2 [id number] [place] [phone] [facility] MEDICAID OF [id number] 2018-Nighat [phone] Medicaid [place] t 0 [id number] [place] [address] documented as of this encounter
--- OUTSIDE RECORDS SUMMARY | 2020-05-15 18:00 | XMS REPORT | Summary of Care ---
:1975 Author Organization [facility] Address [address] [place], [place] [address] Care Team Providers Name Role Phone John Taylor MD Primary Care Provider Reason for Referral MRI/CAT Scan (AMINATA) Status Reason Specialty Diagnoses / Referred By Referred To Procedures Contact Contact Closed Diagnostic Diagnoses Closed fracture of eleventh thoracic vertebra, unspecified fracture morphology, initial encounter Lumbar radiculopathy Arnol Baires MD Radiology Procedures MR THORACIC SPINE WO CONTRAST MR THORACIC SPINE WO CONTRAST [address] [place] [address]. [place] [phone] Reason for Visit Auth/Cert Status Reason Specialty Diagnoses / Referred By Referred To Procedures Contact Contact Ambulatory Diagnoses Preoperative Diagnosis 1: Closed fracture of eleventh thoracic vertebra, uns Diagnosis Code:S22.089A Additional Diagnosis 2: Lumbar radiculopathy Diagnosis Code:M54.16 [facility] Surgical Procedures [facility] CODING HELP MAGNETIC RESONANCE IMAGING UNDER ANESTHESIA [address] [place] [address] Encounter Details Date Type Department Care Team Description 04/28/2020 Hospital Encounter [facility] Shruti Baires MD Arrived Resonance Imaging - [address] [place] [address]. [place] [address] [place], [place] [phone] Allergies Active Allergy Reactions Severity Noted Date [...] with No / Unsure 04/27/2020 9:21 AM CERTIFIED CODING SPECIALIST someone who was confirmed or suspected to have Coronavirus / COVID-19? documented as of this encounter Last Filed Vital Signs Not on filedocumented in this encounter Plan of Treatment Date Type Specialty Care Team Description 05/04/2020 Ancillary Visit Physical Therapy Arnol Baires MD [address] [place] [phone] Susie Mendez, PT [address] [place] [address] 05/10/2020 Office Visit Family Medicine Charles Taylor MD [address] [place], [place] [phone] Health Maintenance Due Date Last Done Comments DTaP,Tdap,and Td Vaccines (1 - 02/20/1995 Tdap) INFLUENZA VACCINE (#1) 2020 Depression Screening 04/28/2021 04/28/2020 PNEUMOCOCCAL 0-64 YEARS COMBINED Aged Out No longer eligible based on SERIES patient's age to complete this topic documented as of this encounter Procedures Procedure Name Priority Date/Time Associated Diagnosis Comme nts MR THORACIC SPINE AMINATA 04/28/2020 12:42 Closed fracture of Results for this WO CONTRAST PM CERTIFIED CODING SPECIALIST eleventh thoracic procedure are in vertebra, unspecified the re sults fracture morphology, section . initial encounte r Lumbar radiculopathy documented in this encounter Results MR THORACIC SPINE WO CONTRAST (04/28/2020 12:42 PM CERTIFIED CODING SPECIALIST) Specimen Impressions Performed At PACS/VR/DOSE Congenital hypoplastic [...] Results Inft User - 2019 3:24 PM CERTIFIED CODING SPECIALIST EXAM: MR THORACIC SPINE WO CONTRAST, MR [...] Out 04/28/2020 04/28/2020 04/28/2020 9: 58 AM CERTIFIED CODING SPECIALIST documented as of this encounter Insurance Payer Benefit Plan / Subscriber ID Effective Dates Phone Addre ss Type Group MEDICARE MEDICARE PART [id number] 1996-Presen [phone] [address] Medicare A & B t 2 [id number] [place] [address] [facility] MEDICAID OF [id number] 2018-Presjackelyn [phone] [address] Medicaid [place] t 0 [id number] [place] [address] documented as of this encounter
--- OUTSIDE RECORDS SUMMARY | 2020-05-15 18:00 | XMS REPORT | Summary of Care ---
:1975 Author Organization [facility] Address [address] [place] [address] Care Team Providers Name Role Phone John Taylor MD Primary Care Provider Reason for Referral (Routine) Status Reason Specialty Diagnoses / Referred By Referred To Procedures Contact Contact New Request Diagnoses Elevated lipase Pancreatic abnormality Og Taylor [place], Procedures CONSULT/REFERRAL GENERAL SURGERY MD GOLDY Lopez [address] [place] [address] [facility] [address] Jose 2.100 Phone: [place], Santhosh Tilera [phone] Fax: Reason for Visit Reason Comments Back Pain Encounter Details Date Type Department Care Team Description 04/22/2020 Office Visit [facility] Family Claudia, Og Elev ated lipase (Primary Dx); Medicine - Christopher Lopez MD Self-mutilation; [address] [place] [address] Intellectual disability; [place], [place] Cerebral palsy, unspecified type; [place] [address] Autism; [phone] Protein malnutrition; [phone] Pancreati c abnormality; Low back pain, unspecified [...] Active mg/2 spray (7.5/0.1mL nostril. 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 documented as of this encounter Last Filed Vital Signs Vital Sign Reading Time Taken Comments Blood Pressure 116/68 04/22/2020 3:23 PM MARKETING AND COMMUNICATIONS OFFICER Pulse 61 04/22/2020 3:23 PM MARKETING AND COMMUNICATIONS OFFICER Temperature 36.3 C (97.3 F) 04/22/2020 3:23 PM MARKETING AND COMMUNICATIONS OFFICER Respiratory Rate - - Oxygen Saturation - - Inhaled Oxygen Concentration - - Weight 81.6 kg (180 lb) 04/22/2020 3:23 PM MARKETING AND COMMUNICATIONS OFFICER Height 175.3 cm (5' 9") 04/22/2020 3:23 PM MARKETING AND COMMUNICATIONS OFFICER Body Mass Index 26.58 04/22/2020 3:23 PM MARKETING AND COMMUNICATIONS OFFICER documented in this encounter Patient Instructions Patient InstructionsSonya Townsend R - 04/22/2020 3:00 PM MARKETING AND COMMUNICATIONS OFFICER Patient Education Back Care Tips Caring [...] are taking other medicines. You may use ljcq-wai-zifpcyt medicines, such as acetaminophen, ibuprofen, or naprosyn [...] or legs Numbness in the groin area [employer] last reviewed this educational content on 04/11/201919999982-0801 [employer]. [address] [place] [address]. All rights reserved. This information is not intended as a substitute for professional medical care. Always follow your healthcare professional's instructions. CAR DESIGNER [place] ETING AND COMMUNICATIONS OFFICER documented in this encounter Progress Notes [...] to ease his pain and he saw [facility] Neurosurgery today. Imaging studies of the spine [...] (VALTOCO) 15 mg/2 spray (7.5/0.1mL x 2) Heartwell, Use in each nostril., Disp: , Rfl: [...] file Gets together: Not on file Attends roman catholic service: Not on file Active member of [...] at a future visit. If applicable, the [place] PMPdatabase was accessed to review any controlled substance prescription claims data. If the patient is taking prescribed medications, the [employer] prescription claims data in Survature was reviewed to assess patient compliance with the medication treatment plan. Follow-up: Return soon for fasting annual physical. Follow-up sooner if any problems or concerns. documented in this encounter Plan of Treatment Date Type Specialty Care Team Description 04/28/2020 Hospital Encounter Ambulatory Arnol Baires MD Surgical [address] [place] [address]. [place] [phone] 04/28/2020 Anesthesia Event Surgery Letty Kruger, ABBY [address] [place] [phone] 04/28/2020 Appointment Radiology Arnol Baires MD [address] [place] [address]. [place] [phone] 04/28/2020 Surgery Surgery Anesthesiology MAGNETIC RESONANCE [address] [place] [address] IMAGING UNDER [facility] [place] [address] 04/28/2020 Appointment Radiology Arnol Baires MD [address] [place] [phone] 05/04/2020 Ancillary Visit Physical Therapy Arnol Baires MD [address] [place] [phone] Susie Mendez, PT [address] [place] [address] 05/10/2020 Office Visit Family Medicine Og Taylor MD [address] [place] [phone] Name Type Priority Associated Diagnoses Order [...] Addre ss Type Group MEDICARE MEDICARE PART [id number] 1996-Nighat [phone] [address] Medicare A & B t 2 [id number] [place] [address] [facility] MEDICAID OF [id number] 2018-Nighat [phone] [address] Medicaid [place] t 0 [id number] [place] [address] documented as of this encounter
--- OUTSIDE RECORDS SUMMARY | 2020-05-15 18:01 | XMS REPORT | Summary of Care ---
:1975 Author Organization [facility] - [facility] Address [address] [place] [address] Care Team Providers Name Role Phone John Taylor MD Primary Care Provider Mitchell Hayes Unavailable Annie Toussaint Unavailable MD Nuno Unavailable MD Viry Unavailable Charis Rivas Unavailable Junior Gaitan MD Unavailable Reason for Visit Reason Comments Medicare Annual Wellness Encounter Details Date Type Department Care Team Description 05/10/2020 Office Visit [facility] Family Og Taylor [facility] annual wellness visit, initial (Primary Dx); Medicine - Christopher Lopez MD Need for influenza vaccination; [address] [place] [address] Encounter for lipid screening for cardio vascular disease; [place], [place] Diabetes mellitus screening; [place] [address] Other senior care (current) drug therapy; [address] Medication monitoring encounter [phone] Allergies Active Allergy Reactions Severity Noted Date Comments Antihistamines - Unknown - See High 04/28/2008 Reacts wit h Alkylamine comments medications. Diphenhydramine Hcl Unknown - See 12/30/2007 comments documented as of this encounter (statuses as of 05/10/2020) Medications Medication Sig Dispensed Refills Start Date End Date Status EPIDIOLEX 100 mg/mL Take by mouth. 0 05/04/2020 Active oral solution 500 ml in AM and 500 ml PM diazePAM (VALTOCO) 15 Use 15 mg in each 0 01/09/2020 Active mg/2 spray (7.5/0.1mL nostril. x 2) [place] meloxicam 15 mg tablet PLEASE SEE 0 04/25/2020 Active ATTACHED FOR DETAILED DIRECTIONS methocarbamoL 750 mg TAKE 1 TABLET BY 0 04/19/2020 Active tablet MOUTH 4 (FOUR) TIMES DAILY FOR 7 DAYS. Lacosamide (VIMPAT) Take by mouth. 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 documented as of this encounter Last Filed Vital Signs Vital Sign Reading Time Taken Comments Blood Pressure 117/77 05/10/2020 4:02 PM SEMICONDUCTOR PROCESSING GROUP LEADER Pulse 92 05/10/2020 4:02 PM SEMICONDUCTOR PROCESSING GROUP LEADER Temperature 37.8 C (100 F) 05/10/2020 4:02 PM SEMICONDUCTOR PROCESSING GROUP LEADER Respiratory Rate - - Oxygen Saturation - - Inhaled Oxygen Concentration - - Weight 79.8 kg (176 lb) 05/10/2020 4:02 PM SEMICONDUCTOR PROCESSING GROUP LEADER Height 177.8 cm (5' 10") 05/10/2020 4:02 PM SEMICONDUCTOR PROCESSING GROUP LEADER Body Mass Index 25.25 05/10/2020 4:02 PM SEMICONDUCTOR PROCESSING GROUP LEADER documented in this encounter Patient Instructions Patient InstructionsOg Taylor MD - 05/10/2020 3:15 PM CST Patient Education Prevention Guidelines,Men Ages 40 to 49 Screening tests and vaccines are an important part of managing your health. A screening test is doneto find possible disorders or diseases in people who don't have any symptoms. The goal is to find a disease early so lifestyle changes can be made and you can be watched more closely to reduce the riskof disease, or to detect it early enough to treat it most effectively. Screening tests are not considered diagnostic, but are used to determine if more testing is needed.Health counseling is essential, too. Below are guidelines for these, for men ages 40 to 49. Talk with your healthcare provider to make sure youre up to date on what you need. Screening Who needs it How often Alcohol misuse All men in this age group At routine exams Blood pressure All men in this age group Yearly checkup if your blood pressure reading is normal Normal blood pressure is less than 120/80 mm Hg If your blood pressure is higher than normal, follow the advice of your healthcare provider Depression All men in this age group At routine exams Type 2 diabetes or prediabetes All men beginning at age 45 and men without symptoms at any age whoare overweight or obese and have 1 or more other risk factors for diabetes At least every 3 years (yearly if blood sugar has begun to rise) Type 2 diabetes All men with prediabetes Every year Hepatitis C Men at increased risk for infection talk with your healthcare provider At routine exams High cholesterol or triglycerides All men ages 35 and older, and younger men at high risk for coronary artery disease At least every 5 years HIV All men At routine exams Obesity All men in this age group At routine exams Prostate cancer Starting at age 45, talk to healthcare provider about risks and benefits of digital rectal exam (MARTIN) and prostate-specific antigen (PSA) screening1 At routine exams Syphilis Men at increased risk for infection talk with your healthcare provider At routine exams Tuberculosis Men at increased risk for infection talk with your healthcare provider Check with your healthcare provider Vision All men in this age group Every 2 to 4 years if no risk factors for eye disease2 Vaccine Who needs it How often Chickenpox (varicella) All men in this age group who have no record of this infection or vaccine 2 doses; the second dose should be given at least 4 weeks after the first dose Hepatitis A Men at increased risk for infection talk with your healthcare provider 2 doses givenat least 6 months apart Hepatitis B Men at increased risk for infection talk with your healthcare provider 3 doses over 6 months; second dose should be given 1 month after the first dose; the third dose should be given atleast 2 months after the second dose and at least 4 months after the first dose Haemophilus influenzae Type B (HIB) Men at increased risk for infection talk with your healthcare provider 1 to 3 doses Influenza (flu) All men in this age group Once a year Measles, mumps, rubella (MMR) All men in this age group who have no record of these infections or vaccines 1 or 2 doses Meningococcal Men at increased risk for infection talk with your healthcare provider 1 or more doses Pneumococcal conjugate vaccine (PCV13) and pneumococcal polysaccharide vaccine (PPSV23) Men at increased risk for infection talk with your healthcare provider PCV13: 1 dose ages 19 to 65 (protects against 13 types of pneumococcal bacteria) PPSV23: 1 to2 doses through age 64, or 1 dose at 65 or older (protects against 23 types of pneumococcal bacteria) Tetanus/diphtheria/ pertussis (Td/Tdap) booster All men in this age group Td every 10 years, or a one-time dose of Tdap instead of a Td booster after age 18, then Td every 10 years Counseling Who needs it How often Diet and exercise Menwho are overweight or obese When diagnosed, and then at routine exams Sexually transmitted infection prevention Men at increased risk for infection talk with your healthcare provider At routine exams Use of daily aspirin Men ages 45 to 79 at risk for cardiovascular health problems At routine exams Use of tobacco and the health effects it can cause All men in this age group Every exam [address] [place] [address] [facility] Academy of Ophthalmology Text[employer] last reviewed this educational content on 07/12/201619999843-1010 The [employer]. All rights reserved. This information is not intended as a substitute for professional medical care. Always follow your healthcare professional's instructions. CONDUCTOR PROCESSING GROUP LEADER documented in this encounter Progress Notes Og Taylor MD - 05/10/2020 3:15 PM CST CC: FIRST ANNUAL WELLNESS VISIT (AWV) LORENA Richardson is a 45 year old male is here for his FIRST ANNUAL WELLNESS VISIT (AWV). He is brought in by his mother who is his primary caregiver. She provides the history. Patient Care Team: Og Taylor MD as PCP - General (FM-FAMILY MEDICINE) Hira Hayes (PN-NEUROLOGY ) Paolo Toussaint (PN-NEUROLOGY ) Sara Reina MD (DUNCAN-SURGERY) Arnol Baires MD (NS-NEUROLOGICAL SURGERY) Renetta Rivas (KOBI-OTOLARYNGOLOGY) Maxwell Gaitan MD (OPH-OPHTHALMOLOGY) List additional current known providers and DME suppliers: He gets supplies and equipment through the [employer] program. - Depression and Other Mood Disorder Assessment Is the patient under current treatment for depression or other mood disorder? The patient exhibits self-mutilating behaviors and has seizure disorder treated with anticonvulsant therapy. PHQ-2: Over the last 2 weeks, how often have you been bothered by any of the following problems? Little interest or pleasure in doing things: 2 Feeling down, depressed, or hopeless: 0 PHQ-2 Score (_/6): (!) 2 - Opioid Risk Assessment Is the patient on chronic opioid pain medication? No Is the patient identified as at risk for opioid use disorder (personal or family history of substance use disorder or personal history of mental illness)? No How many times in the past year have you used an illegal drug or a prescription medication for nonmedical reasons?: Never - Hearing Impairment Assessment Do you think you have a hearing problem?: No - Activities of Daily Living Assessment Bathing: (!) With assistance Dressing: (!) With assistance Feeding: (!) With assistance Using the toilet: Independent Grooming (brushing teeth or hair): (!) With assistance Getting around the house: Independent - Home Safety Assessment Are firearms stored unloaded and securely locked?: (!) No Do you have working smoke alarms and a fire extinguisher available for use?: Yes Have throw rugs been removed or fastened down?: Yes Are electrical cords in working order, easily seen, and out of the walking path?: Yes Are non-slip mats in all bathtubs and showers?: (!) No Do all stairways have a working rail or banister?: Yes Are doorways, walkways, and stairs free of clutter?: Yes In the places you walk outside, are there uneven surfaces, cracked sidewalks, slippery steps, or other problems that make you stumble?: (!) Yes Do you have good light when you walk into your house?: Yes If you were to fall and were unable to get up, would you be able to get help quickly?: Yes Do you slip or have difficulty getting on and off the toilet or in and out of the bath or shower?: (!) Yes Have you been known to leave the stove on or water running?: No -Fall Risk Assessment Have you fallen two or more times in the past year?: (!) Yes Do you believe you have a gait or balance problem or are you afraid of falling?: (!) Yes HISTORY Past Medical History: Diagnosis Date Autism Cerebral palsy 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 Epilepsy Gout Intellectual disability 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 Microcephaly Psychotic disorder Past Surgical History: Procedure Laterality Date FOOT/TOES SURGERY PROC UNLISTED Left MAGNETIC RESONANCE IMAGING UNDER ANESTHESIA N/A 04/28/2020 Surgeon: Anesthesiology; [facility]: [facility] Bilateral Family History Problem Relation Age of Onset High cholesterol Mother Skin Cancer Mother Stroke Mother Diabetes Father DM1, at 32yo of complications from his diabetes Ovarian Cancer Sister Social History Tobacco Use Smoking status: Never Smoker Smokeless tobacco: Never Used Substance Use Topics Alcohol use: No Social History Substance and Sexual Activity Drug Use No Social History Substance and Sexual Activity Sexual Activity Never Allergies Allergen Reactions Antihistamines - Alkylamine Unknown - See comments Reacts with medications. Diphenhydramine Hcl Unknown - See comments Current Outpatient Medications: diazePAM (VALTOCO) 15 mg/2 spray (7.5/0.1mL x 2) [place], Use 15 mg in each nostril., Disp: , Rfl: EPIDIOLEX 100 mg/mL oral solution, Take by mouth. 500 ml in AM and 500 ml PM, Disp: , Rfl: Lacosamide (VIMPAT) 200 mg tablet, Take by mouth. Takes 1 tablet in AM and 2 tablets PM, Disp:, Rfl: meloxicam 15 mg tablet, PLEASE SEE ATTACHED FOR DETAILED DIRECTIONS, Disp: , Rfl: methocarbamoL 750 mg tablet, TAKE 1 TABLET BY MOUTH 4 (FOUR) TIMES DAILY FOR 7 DAYS., Disp: , Rfl: PHYSICAL EXAM BP 117/77 | Pulse 92 | Temp 37.8 C (100 F) (Tympanic) | Ht 5' 10" (1.778 m) | Wt 176 lb (79.8 kg) | BMI 25.25 kg/m Discussion in lieu of physical examination. - Cognitive Screen (Please complete preferred cognitive screen in Flowsheet Activity) Upon direct observation and per beneficiary report, further cognitive assessment is not indicated. ASSESSMENT/PLAN After review of the HRA dated 05/10/2020 and assessment above, I have identified the following concerns: Behavioral disturbance including self-mutilating behaviors Cognitive Impairment Inadequate Pain Control At Risk for Falls At Risk for Accident at Home Declining Functional Status Dependent for Transportation Dependent for Meal Preparation Dependent for Money Management Needs orders/letter for a pickett-sized adjustable bed and a new camera system (some cameras have stopped working) given he sleeps upstairs and has seizures and self-mutilating behavior (his mother sleeps downstairs) Personalized health counseling provided through patient instructions (Medicare Wellness Health Advice) Health Maintenance Summary Status Date DTaP,Tdap,and Td Vaccines Overdue 02/20/1995 INFLUENZA VACCINE Overdue 02/10/2020 Depression Screening Next Due 05/10/2021 Done 05/10/2020 Registry Metric: Last PHQ-2: Flowsheet Data PNEUMOCOCCAL 0-64 YEARS COMBINED SERIES This plan is no longer active. Recommended health maintenance schedule: Diabetes Screening Cardiovascular Disease Screening with Lipid Panel Influenza Vaccination Tdap/Td Vaccination Screening for thyroid disease, Screening for anemia We will hold off on administering the Influenza vaccine today given he has mild temperature elevation without a true fever. Were advanced care planning documents or end of life goals discussed during the visit? Yes. Specify: Living will, advanced care planning, POA for healthcare. Follow-up plan is as follows: Follow-up clinic visit in 12 months for next Medicare AWV discussion but follow- up sooner for any problems or concerns. Orders Placed This Encounter Procedures CBC WITHOUT DIFF COMP. METABOLIC PANEL (49798) LIPID PANEL (12411)(TOTAL CHOLESTEROL, TRIGLYCERIDES, HDL) THYROID STIMULATING HORMONE GLYCOSYLATED HEMOGLOBIN (A1C) VITAMIN D, 25-OH CONDUCTOR PROCESSING GROUP LEADER documented in this encounter Plan of Treatment Date Type Specialty Care Team Description 05/17/2020 [employer] Worker Visit Family Cammy Barajas MD [address] [place] [address] [place] [phone] Lab, Tirso Fam Pob I 05/17/2020 Nurse Visit Family Charles Barajas MD [address] [place] [address] [place] [phone] Nurse, [facility] Pob I 06/17/2020 Office Visit Surgery Sara Reina MD [address] [facility] [address] [place], [place] [id number] Name Type Priority Associated Diagnoses Order S chedule CBC WITHOUT DIFF LAB Routine Medicare annual wellness 1 Occurrences starting visit, initial 05/10/2020 until Encounter for lipid 11/08/19 21 screening for cardiovascular d isease Diabetes mellitus screening Other senior care (current) drug therapy Medication monitoring encounter COMP. METABOLIC PANEL LAB Routine Medicare annual wel lness 1 Occurrences starting (09361) visit, initial 05/10/2020 until Encounter for lipid 11/08/19 21 screening for cardiovascular d isease Diabetes mellitus screening Other senior care (current) drug therapy Medication monitoring encounter LIPID PANEL LAB Routine Medicare annual wellness 1 O ccurrences starting (62764)(TOTAL visit, initial 05/10/2020 until CHOLESTEROL, Encounter for lipid 11/08/19 21 TRIGLYCERIDES, HDL) screening for cardiovascular d isease Diabetes mellitus screening Other predatory animal exterminator (current) drug therapy Medication monitoring encounter THYROID STIMULATING LAB Routine Medicare annual welln ess 1 Occurrences starting HORMONE visit, initial 05/10/2020 until Encounter for lipid 11/08/19 21 screening for cardiovascular d isease Diabetes mellitus screening Other senior care (current) drug therapy Medication monitoring encounter GLYCOSYLATED HEMOGLOBIN LAB Routine Medicare annual w ellness 1 Occurrences starting (A1C) visit, initial 05/10/2020 until Encounter for lipid 11/08/19 21 screening for cardiovascular d isease Diabetes mellitus screening Other senior care (current) drug therapy Medication monitoring encounter VITAMIN D, 25-OH LAB Routine Medicare annual wellness 1 Occurrences starting visit, initial 05/10/2020 until Encounter for lipid 11/08/19 21 screening for cardiovascular d isease Diabetes mellitus screening Other predatory animal exterminator (current) drug therapy Medication monitoring encounter Health Maintenance Due Date Last Done Comments DTaP,Tdap,and Td Vaccines (1 - 02/20/1995 Tdap) INFLUENZA VACCINE (#1) 2020 Depression Screening 05/10/2021 05/10/2020 PNEUMOCOCCAL 0-64 YEARS COMBINED Aged Out No longer eligible based on SERIES patient's age to complete this topic documented as of this encounter Results Not on filedocumented in this encounter Visit Diagnoses Diagnosis Medicare annual wellness visit, initial - Primary Routine general medical examination at a health care facility Need for influenza vaccination Need for prophylactic vaccination and in oculation against influenza Encounter for lipid screening for cardio vascular disease Diabetes mellitus screening Screening for diabetes mellitus Other senior care (current) drug therapy Medication monitoring encounter Encounter for therapeutic drug monitorin g documented in this encounter Insurance Payer Benefit Plan / Subscriber ID Effective Dates Phone Addre ss Type Group MEDICARE MEDICARE PART [id number] 1996-[place]ig[place] [phone] Medicare A & B t 2 [id number] [place] [address] [facility] MEDICAID OF [id number] 2018-Nig[place] [phone] Medicaid [place] t 0 [id number] [place] [address] documented as of this encounter
--- OUTSIDE RECORDS SUMMARY | 2020-05-15 18:01 | XMS REPORT | Summary of Care ---
:1975 Author Organization [facility] - [facility] Address [address] [place] [address] Care Team Providers Name Role Phone John Taylor MD Primary Care Provider Mitchell Hayes Unavailable Annie Toussaint Unavailable MD Nuno Unavailable MD Viry Unavailable Charis Rivas Unavailable Junior Gaitan MD Unavailable Reason for Visit Reason Comments Medicare Annual Wellness Encounter Details Date Type Department Care Team Description 05/10/2020 Office Visit [facility] Family Og Taylor [facility] annual wellness visit, initial (Primary Dx); Medicine - Christopher Lopez MD Need for influenza vaccination; [address] [place] [address] Encounter for lipid screening for cardio vascular disease; [place], [place] Diabetes mellitus screening; [place] [address] Other senior living (current) drug therapy; [address] Medication monitoring encounter [phone] Allergies Active Allergy Reactions Severity Noted Date [...] Active mg/2 spray (7.5/0.1mL nostril. x 2) [place] meloxicam 15 mg tablet PLEASE SEE 0 [...] with No / Unsure 05/10/2020 4:04 PM SCIENTIFIC SOFTWARE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 documented as of this encounter Last Filed Vital Signs Vital Sign Reading Time Taken Comments Blood Pressure 117/77 05/10/2020 4:02 PM SCIENTIFIC SOFTWARE ENGINEER Pulse 92 05/10/2020 4:02 PM SCIENTIFIC SOFTWARE ENGINEER Temperature 37.8 C (100 F) 05/10/2020 4:02 PM SCIENTIFIC SOFTWARE ENGINEER Respiratory Rate - - Oxygen Saturation - - Inhaled Oxygen Concentration - - Weight 79.8 kg (176 lb) 05/10/2020 4:02 PM SCIENTIFIC SOFTWARE ENGINEER Height 177.8 cm (5' 10") 05/10/2020 4:02 PM SCIENTIFIC SOFTWARE ENGINEER Body Mass Index 25.25 05/10/2020 4:02 PM SCIENTIFIC SOFTWARE ENGINEER documented in this encounter Patient Instructions Patient [...] men in this age group Every exam [address] [place] [address] [facility] Academy of Ophthalmology [employer] last reviewed this educational content on 07/12/201619999270-9743 The [employer]. All rights reserved. This information is not intended as a substitute for professional medical care. Always follow your healthcare professional's instructions. NTIFIC SOFTWARE ENGINEER documented in this encounter Progress Notes Og [...] He gets supplies and equipment through the [employer] program. - Depression and Other Mood Disorder [...] (VALTOCO) 15 mg/2 spray (7.5/0.1mL x 2) [place], Use 15 mg in each nostril., Disp: [...] Procedures CBC WITHOUT DIFF COMP. METABOLIC PANEL (99722) LIPID PANEL (23412)(TOTAL CHOLESTEROL, TRIGLYCERIDES, HDL) THYROID STIMULATING HORMONE GLYCOSYLATED HEMOGLOBIN (A1C) VITAMIN D, 25-OH NTIFIC SOFTWARE ENGINEER documented in this encounter Plan of Treatment Date Type Specialty Care Team Description 05/17/2020 Fowl Blood Tester Visit Family Cammy Barajas MD [address] [place] [address] [place] [phone] Lab, Tirso Fam Pob I 05/17/2020 Nurse Visit Family Charles Barajas MD [address] [place] [address] [place] [phone] Nurse, [facility] Pob I 06/17/2020 Office Visit Surgery Sara Reina MD [address] [facility] [address] [place], [place] [address] Name Type Priority Associated Diagnoses Order S chedule CBC WITHOUT DIFF LAB Routine Medicare annual wellness 1 Occurrences starting visit, initial 05/10/2020 until Encounter for lipid 11/08/19 21 screening for cardiovascular d isease Diabetes mellitus screening Other senior living (current) drug therapy Medication monitoring encounter COMP. METABOLIC PANEL LAB Routine Medicare annual wel lness 1 Occurrences starting (21819) visit, initial 05/10/2020 until Encounter for lipid 11/08/19 21 screening for cardiovascular d isease Diabetes mellitus screening Other senior living (current) drug therapy Medication monitoring encounter LIPID PANEL LAB Routine Medicare annual wellness 1 O ccurrences starting (79311)(TOTAL visit, initial 05/10/2020 until CHOLESTEROL, Encounter for lipid 11/08/19 21 TRIGLYCERIDES, HDL) screening for cardiovascular d isease Diabetes mellitus screening Other termite control representative (current) drug therapy Medication monitoring encounter THYROID STIMULATING LAB Routine Medicare annual welln ess 1 Occurrences starting HORMONE visit, initial 05/10/2020 until Encounter for lipid 11/08/19 21 screening for cardiovascular d isease Diabetes mellitus screening Other senior living (current) drug therapy Medication monitoring encounter GLYCOSYLATED HEMOGLOBIN LAB Routine Medicare annual w ellness 1 Occurrences starting (A1C) visit, initial 05/10/2020 until Encounter for lipid 11/08/19 21 screening for cardiovascular d isease Diabetes mellitus screening Other senior living (current) drug therapy Medication monitoring encounter VITAMIN D, 25-OH LAB Routine Medicare annual wellness 1 Occurrences starting visit, initial 05/10/2020 until Encounter for lipid 11/08/19 21 screening for cardiovascular d isease Diabetes mellitus screening Other termite control representative (current) drug therapy Medication monitoring encounter Health [...] screening Screening for diabetes mellitus Other senior living (current) drug therapy Medication monitoring encounter Encounter for therapeutic drug monitorin g documented in this encounter Insurance Payer Benefit Plan / Subscriber ID Effective Dates Phone Addre ss Type Group MEDICARE MEDICARE PART [id number] 1996-[place]ig[place] [phone] [address] Medicare A & B t 2 [id number] [place] [address] [facility] MEDICAID OF [id number] 2018-Nig[place] [phone] [address] Medicaid [place] t 0 [id number] [place] [address] documented as of this encounter
--- OUTSIDE RECORDS SUMMARY | 2020-05-15 18:01 | XMS REPORT | Summary of Care ---
:1975 Author Organization [facility] - [facility] Address [address] [place] [address] Care Team Providers Name Role Phone John Taylor MD Primary Care Provider Mitchell Hayes Unavailable Annie Toussaint Unavailable MD Nuno Unavailable MD Viry Unavailable Charis Rivas Unavailable Junior Gaitan MD Unavailable Reason for Visit Reason Comments Medicare Annual Wellness Encounter Details Date Type Department Care Team Description 05/10/2020 Office Visit [facility] annual wellness visit, initial (Primary Dx); Medicine - Christopher Lopez MD Need for influenza vaccination; [address] [place] [address] Encounter for lipid screening for cardio vascular disease; [place], [place] Diabetes mellitus screening; [place] [address] Other chcf (current) drug therapy; [address] Medication monitoring encounter [phone] Allergies Active Allergy Reactions Severity Noted Date [...] Active mg/2 spray (7.5/0.1mL nostril. x 2) [place] meloxicam 15 mg tablet PLEASE SEE 0 [...] with No / Unsure 05/10/2020 4:04 PM GALLEY HAND someone who was confirmed or suspected to have Coronavirus / COVID-19? documented as of this encounter Last Filed Vital Signs Vital Sign Reading Time Taken Comments Blood Pressure 117/77 05/10/2020 4:02 PM GALLEY HAND Pulse 92 05/10/2020 4:02 PM GALLEY HAND Temperature 37.8 C (100 F) 05/10/2020 4:02 PM GALLEY HAND Respiratory Rate - - Oxygen Saturation - - Inhaled Oxygen Concentration - - Weight 79.8 kg (176 lb) 05/10/2020 4:02 PM GALLEY HAND Height 177.8 cm (5' 10") 05/10/2020 4:02 PM GALLEY HAND Body Mass Index 25.25 05/10/2020 4:02 PM GALLEY HAND documented in this encounter Patient Instructions Patient [...] men in this age group Every exam [address] [place] [address] [facility] [employer] [facility] Trippy Bandz last reviewed this educational content on 07/12/201619991061-1870 [employer]. All rights reserved. This information is not intended as a substitute for professional medical care. Always follow your healthcare professional's instructions. EY HAND documented in this encounter Progress Notes Og [...] He gets supplies and equipment through the [employer] program. - Depression and Other Mood Disorder [...] (VALTOCO) 15 mg/2 spray (7.5/0.1mL x 2) [place], Use 15 mg in each nostril., Disp: [...] Procedures CBC WITHOUT DIFF COMP. METABOLIC PANEL (48679) LIPID PANEL (38478)(TOTAL CHOLESTEROL, TRIGLYCERIDES, HDL) THYROID STIMULATING HORMONE GLYCOSYLATED HEMOGLOBIN (A1C) VITAMIN D, 25-OH EY HAND documented in this encounter Plan of Treatment Date Type Specialty Care Team Description 05/17/2020 Chemical Dependency Therapist Visit Family Cammy Barajas MD [address] [place] [address] [place] [phone] Lab, [facility] Pob I 05/17/2020 Nurse Visit Family Charels Barajas MD [address] [place] [address] [place] [phone] Nurse, [facility] Pob I 06/17/2020 Office Visit Surgery Sara Reina MD [address] [facility] [address] [place], [place] [address] Name Type Priority Associated Diagnoses Order S chedule CBC WITHOUT DIFF LAB Routine Medicare annual wellness 1 Occurrences starting visit, initial 05/10/2020 until Encounter for lipid 11/08/19 21 screening for cardiovascular d isease Diabetes mellitus screening Other chcf (current) drug therapy Medication monitoring encounter COMP. METABOLIC PANEL LAB Routine Medicare annual wel lness 1 Occurrences starting (41974) visit, initial 05/10/2020 until Encounter for lipid 11/08/19 21 screening for cardiovascular d isease Diabetes mellitus screening Other chcf (current) drug therapy Medication monitoring encounter LIPID PANEL LAB Routine Medicare annual wellness 1 O ccurrences starting (61415)(TOTAL visit, initial 05/10/2020 until CHOLESTEROL, Encounter for lipid 11/08/19 21 TRIGLYCERIDES, HDL) screening for cardiovascular d isease Diabetes mellitus screening Other supervisor intermediates (current) drug therapy Medication monitoring encounter THYROID STIMULATING LAB Routine Medicare annual welln ess 1 Occurrences starting HORMONE visit, initial 05/10/2020 until Encounter for lipid 11/08/19 21 screening for cardiovascular d isease Diabetes mellitus screening Other chcf (current) drug therapy Medication monitoring encounter GLYCOSYLATED HEMOGLOBIN LAB Routine Medicare annual w ellness 1 Occurrences starting (A1C) visit, initial 05/10/2020 until Encounter for lipid 11/08/19 21 screening for cardiovascular d isease Diabetes mellitus screening Other chcf (current) drug therapy Medication monitoring encounter VITAMIN D, 25-OH LAB Routine Medicare annual wellness 1 Occurrences starting visit, initial 05/10/2020 until Encounter for lipid 11/08/19 21 screening for cardiovascular d isease Diabetes mellitus screening Other supervisor intermediates (current) drug therapy Medication monitoring encounter Health [...] mellitus screening Screening for diabetes mellitus Other chcf (current) drug therapy Medication monitoring encounter Encounter for therapeutic drug monitorin g documented in this encounter Insurance Payer Benefit Plan / Subscriber ID Effective Dates Phone Addre ss Type Group MEDICARE MEDICARE PART [id number] 1996-Nighat [phone] [address] Medicare A & B t 2 [id number] [place] [address] [facility] MEDICAID OF [id number] 2018-Nighat [phone] Medicaid [place] t 0 [id number] [place] [address] documented as of this encounter
--- OUTSIDE RECORDS SUMMARY | 2020-05-15 18:02 | XMS REPORT | Summary of Care ---
:1975 Author Organization [facility] - [facility] Address [address] [place] [address] Care Team Providers Name Role Phone John Taylor MD Primary Care Provider Mitchell Hayes Unavailable Annie Toussaint Unavailable MD Nuno Unavailable MD Viry Unavailable Charis Rivas Unavailable Junior Gaitan MD Unavailable Reason for Visit Reason Comments LAB covid testing- exposure Encounter Details Date Type Department Care Team Description 05/15/2020 Laboratory Only [facility] Family Snell Enriqueta, ANA MARIA [address] [facility] [address] [place] [address] Exposure to Medicine - [facility], Adc Fam Pob I SARS-associated [address] [facility] coronaviru s (Primary Drive Dx) [place] [address] Allergies Active Allergy Reactions Severity Noted Date Comments Antihistamines - Unknown - See High 04/28/2008 Reacts wit h Alkylamine comments medications. Diphenhydramine Hcl Unknown - See 12/30/2007 comments documented as of this encounter (statuses as of 05/15/2020) Medications Medication Sig Dispensed Refills Start Date End Date Status EPIDIOLEX 100 mg/mL Take by mouth. 0 05/04/2020 Active oral solution 500 ml in AM and 500 ml PM diazePAM (VALTOCO) 15 Use 15 mg in each 0 01/09/2020 Active mg/2 spray (7.5/0.1mL nostril. x 2) [place] meloxicam 15 mg PLEASE SEE 0 04/25/2020 Ac tive tablet ATTACHED FOR DETAILED DIRECTIONS methocarbamoL 750 mg TAKE 1 TABLET BY 0 04/19/2020 Active tablet MOUTH 4 (FOUR) TIMES DAILY FOR 7 DAYS. Lacosamide (VIMPAT) Take by mouth. 0 Active 200 mg tablet Takes 1 tablet in AM and 2 tablets PM promethazine-dextrome Take 5 mL by 200 mL 0 05/14/202005/11 Active thorphan 6.25-15 mg/5 mouth 4 (four) mL syrupIndications: times daily as URI, acute needed for Cough for up to 10 days. 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 Elevated lipase 09/17/2018 Seizure disorder 09/16/2018 Dyspepsia 09/16/2018 Personal history of other mental and behavioral disord ers 09/16/2018 Cerebral palsy, unspecified type 09/16/2018 MR (mental retardation) 09/16/2018 Autism 09/16/2018 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 Legal blindness Microcephaly Intellectual disability documented as of this encounter (statuses as of 05/15/2020) Social History Tobacco Use Types Packs/Day Years Used Date Never Smoker Smokeless Tobacco: Never Used Alcohol Use Drinks/Week oz/Week Comments No Sex Assigned at Date Recorded Not on file COVID-19 Exposure Response Date Recorded In the last month, have you been in contact with Yes 05/15/2020 2:32 PM DENTAL PRACTICE MANAGER someone who was confirmed or suspected to have Coronavirus / COVID-19? documented as of this encounter Last Filed Vital Signs Not on filedocumented in this encounter Nursing Notes Lauren Driver MA - 05/15/2020 1:40 PM CSTDylan Manzanares is a 45 year old male here for COVID Screening with a Nasopharyngeal Swab All droplet and contact precautions taken with appropriate PPE worn while interacting with patient. ? Goggles ? N95 Mask ? Gloves ? Gown RR 18 Pulse Ox 98% Patient educated on plan of care for visit, swabbing technique, risks and benefits of test and length of time to receive results. Verbal consent obtained to perform test. CDC Fact Sheet for Patients nCoV Diagnostic Panel dated 08/24/2019 and Factsheet What to Do if Sick with COVID 19 08/04/19 provided. Patient swabbed per appropriate nasopharyngeal technique, and patient tolerated well. Patient was discharged from the testing clinic in stable condition. Lauren Johnson MA 05/15/2020 2:36 PM Bilate nares swabbed during COVID19 nasopharyngeal swab. AL PRACTICE MANAGER documented in this encounter Plan of Treatment Date Type Specialty Care Team Description 05/20/2020 Telemedicine Visit Neurological Surgery Shruti Baires MD [address] [place] [address]. [place] [phone] 05/21/2020 Food Specialist Visit Family Medicine Lab, [facility] Pob I 06/17/2020 Office Visit Surgery Sara Reina MD [address] [facility] [address] [place] [address] Name Type Priority Associated Diagnoses Order S chedule COVID-19 (MOLECULAR LAB Routine Exposure to Expected : 05/15/2020, TESTING SARS-associated Expires: 021 NUCLEIC ACID coronavirus AMPLIFICATION) Health Maintenance Due Date Last Done Comments DTaP,Tdap,and Td Vaccines (1 - 02/20/1995 Tdap) INFLUENZA VACCINE (#1) 2020 Depression Screening 05/10/2021 05/10/2020 PNEUMOCOCCAL 0-64 YEARS COMBINED Aged Out No longer eligible based on SERIES patient's age to complete this topic documented as of this encounter Results Not on filedocumented in this encounter Visit Diagnoses Diagnosis Exposure to SARS-associated coronavirus - Primary documented in this encounter Additional Health Concerns Infection Onset Date Last Indicated Resolved Time COVID-19 Rule Out 05/15/2020 05/15/2020 documented as of this encounter Insurance Payer Benefit Plan / Subscriber ID Effective Dates Phone Addre ss Type Group MEDICARE MEDICARE PART [id number] 1996-Nighat [phone] [address] Medicare A & B t 2 [id number] [place] [address] [employer] MEDICA[employer] OF [id number] 2018-Nighat [phone] [address] Medicaid [place] t 0 [id number] [place] [address] documented as of this encounter
--- OUTSIDE RECORDS SUMMARY | 2020-05-15 18:02 | XMS REPORT | Summary of Care ---
:1975 Author Organization [facility] Address [address] [place] [address] Care Team Providers Name Role Phone John Taylor MD Primary Care Provider Mitchell Hayes Unavailable Annie Toussaint Unavailable MD Nuno Unavailable MD Viry Unavailable Charis Rivas Unavailable Junior Gaitan MD Unavailable Reason for Visit Reason Comments Medicare Annual Wellness Encounter Details Date Type Department Care Team Description 05/10/2020 Office Visit [facility] annual wellness visit, initial (Primary Dx); Medicine - Christopher Lopez MD Need for influenza vaccination; [address] [place] [address] Encounter for lipid screening for cardio vascular disease; [place], [place] Diabetes mellitus screening; [place] [address] Other roasterman (current) drug therapy; [address] Medication monitoring encounter [phone] Allergies Active Allergy Reactions Severity Noted Date Comments Antihistamines - Unknown - See High 04/28/2008 Reacts wit h Alkylamine comments medications. Diphenhydramine Hcl Unknown - See 12/30/2007 comments documented as of this encounter (statuses as of 05/11/2020) Medications Medication Sig Dispensed Refills Start Date End Date Status EPIDIOLEX 100 mg/mL Take by mouth. 0 05/04/2020 Active oral solution 500 ml in AM and 500 ml PM diazePAM (VALTOCO) 15 Use 15 mg in each 0 01/09/2020 Active mg/2 spray (7.5/0.1mL nostril. x 2) [place] meloxicam 15 mg tablet PLEASE SEE 0 04/25/2020 Active ATTACHED FOR DETAILED DIRECTIONS methocarbamoL 750 mg TAKE 1 TABLET BY 0 04/19/2020 Active tablet MOUTH 4 (FOUR) TIMES DAILY FOR 7 DAYS. Lacosamide (VIMPAT) Take by mouth. 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 Elevated lipase 09/17/2018 Seizure disorder 09/16/2018 Dyspepsia 09/16/2018 Personal history of other mental and behavioral disord ers 09/16/2018 Cerebral palsy, unspecified type 09/16/2018 MR (mental retardation) 09/16/2018 Autism 09/16/2018 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 Legal blindness Microcephaly Intellectual disability documented as of this encounter (statuses as of 05/11/2020) Social History Tobacco Use Types Packs/Day Years Used Date Never Smoker Smokeless Tobacco: Never Used Alcohol Use Drinks/Week oz/Week Comments No Sex Assigned at Date Recorded Not on file COVID-19 Exposure Response Date Recorded In the last month, have you been in contact with No / Unsure 05/10/2020 4:04 PM AUTO ELECTRICIAN someone who was confirmed or suspected to have Coronavirus / COVID-19? documented as of this encounter Last Filed Vital Signs Vital Sign Reading Time Taken Comments Blood Pressure 117/77 05/10/2020 4:02 PM AUTO ELECTRICIAN Pulse 92 05/10/2020 4:02 PM AUTO ELECTRICIAN Temperature 37.8 C (100 F) 05/10/2020 4:02 PM AUTO ELECTRICIAN Respiratory Rate - - Oxygen Saturation - - Inhaled Oxygen Concentration - - Weight 79.8 kg (176 lb) 05/10/2020 4:02 PM AUTO ELECTRICIAN Height 177.8 cm (5' 10") 05/10/2020 4:02 PM AUTO ELECTRICIAN Body Mass Index 25.25 05/10/2020 4:02 PM AUTO ELECTRICIAN documented in this encounter Patient Instructions Patient InstructionsOg Talyor MD - 05/10/2020 3:15 PM CST Patient [...] men in this age group Every exam [address] [place] [address] [facility] [employer] of Ophthalmology [employer] last reviewed this educational content on 07/12/201619992929-8152 [employer]. All rights reserved. This information is not intended as a substitute for professional medical care. Always follow your healthcare professional's instructions. ELECTRICIAN documented in this encounter Progress Notes Og [...] He gets supplies and equipment through the [employer] program. 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 METABOLIC PANEL (98222) LIPID PANEL (13307)(TOTAL CHOLESTEROL, TRIGLYCERIDES, HDL) THYROID STIMULATING HORMONE GLYCOSYLATED HEMOGLOBIN (A1C) VITAMIN D, 25-OH ELECTRICIAN documented in this encounter Plan of Treatment Date Type Specialty Care Team Description 05/17/2020 Case Assembler Visit Family Camym Barajas MD [address] [place] [address] [place] [phone] Lab, Tirso Fam Pob I 05/17/2020 Nurse Visit Family Charles Barajas MD [address] [place] [address] [place] [phone] Nurse, [facility] Pob I 06/17/2020 Office Visit Surgery Sara Reina MD [address] [facility] [address] [place], [place] [address] Name Type Priority Associated Diagnoses Order S chedule CBC WITHOUT DIFF LAB Routine Medicare annual wellness 1 Occurrences starting visit, initial 05/10/2020 until Encounter for lipid 11/08/19 21 screening for cardiovascular d isease Diabetes mellitus screening Other roasterman (current) drug therapy Medication monitoring encounter COMP. METABOLIC PANEL LAB Routine Medicare annual wel lness 1 Occurrences starting (35402) visit, initial 05/10/2020 until Encounter for lipid 11/08/19 21 screening for cardiovascular d isease Diabetes mellitus screening Other usp (current) drug therapy Medication monitoring encounter LIPID PANEL LAB Routine Medicare annual wellness 1 O ccurrences starting (75983)(TOTAL visit, initial 05/10/2020 until CHOLESTEROL, Encounter for lipid 11/08/19 21 TRIGLYCERIDES, HDL) screening for cardiovascular d isease Diabetes mellitus screening Other roasterman (current) drug therapy Medication monitoring encounter THYROID STIMULATING LAB Routine Medicare annual welln ess 1 Occurrences starting HORMONE visit, initial 05/10/2020 until Encounter for lipid 11/08/19 21 screening for cardiovascular d isease Diabetes mellitus screening Other usp (current) drug therapy Medication monitoring encounter GLYCOSYLATED HEMOGLOBIN LAB Routine Medicare annual w ellness 1 Occurrences starting (A1C) visit, initial 05/10/2020 until Encounter for lipid 11/08/19 21 screening for cardiovascular d isease Diabetes mellitus screening Other usp (current) drug therapy Medication monitoring encounter VITAMIN D, 25-OH LAB Routine Medicare annual wellness 1 Occurrences starting visit, initial 05/10/2020 until Encounter for lipid 11/08/19 21 screening for cardiovascular d isease Diabetes mellitus screening Other usp (current) drug therapy Medication monitoring encounter Health [...] mellitus screening Screening for diabetes mellitus Other roasterman (current) drug therapy Medication monitoring encounter Encounter for therapeutic drug monitorin g documented in this encounter Insurance Payer Benefit Plan / Subscriber ID Effective Dates Phone Addre ss Type Group MEDICARE MEDICARE PART [id number] 1996-Nighat [phone] [address] Medicare A & B t 2 [id number] [place] [phone] [facility] MEDICAID OF [id number] 2018-Nighat [phone] [address] Medicaid [place] t 0 [id number] [place] [address] documented as of this encounter
--- OUTSIDE RECORDS SUMMARY | 2020-05-15 18:02 | XMS REPORT | Summary of Care ---
:1975 Author Organization [facility] - [facility] Address [address] [place] [address] Care Team Providers Name Role Phone John Taylor MD Primary Care Provider Reason for Visit Reason Comments New Evaluation (Routine) Status Reason Specialty Diagnoses / Referred By Referred To Procedures Contact Contact Authorized Physical Therapy Diagnoses Closed fracture of eleventh thoracic vertebra, unspecified fracture morphology, initial encounter Lumbar radiculopathy Arnol Baires MD Procedures CONSULT/REFERRAL PHYSICAL THERAPY FL PHYSICAL THERAPY EVALUATION LOW COMPLEX 20 MINS FL PHYSICAL THERAPY EVALUATION MOD COMPLEX 30 MINS FL PHYSICAL THERAPY EVALUATION HIGH COMPLEX 45 MINS FL THERAPEUTIC EXERCISES [address] [place] [address] FL NEUROMUSC REE DUCAT,1+ AREAS, EA 15 MIN FL MANUAL THER TECH,1+REGIONS,EA 15 MIN FL THERAPEUT ACTVITY DIRECT PT CONTACT EACH 15 MIN FL SELF-CARE/HOME MGMT TRAINING EACH 15 [place] [address] Encounter Details Date Type Department Care Team Description 05/04/2020 Ancillary Visit [facility] Arnol Baires MD [address] [place] [phone] Closed fracture of eleventh thoracic param tebra, unspecified fracture morphology, initial encounter (Primary Dx); Physical Therapy- Susie Mendez, PT [address] [place] [address] Lumbar radiculopathy [facility] [address] [place] [address] Dr. Xie [address] [place] [address] Allergies Active Allergy Reactions Severity Noted Date Comments Antihistamines - Unknown - See High 04/28/2008 Reacts wit h Alkylamine comments medications. 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 Elevated lipase 09/17/2018 Seizure disorder 09/16/2018 Dyspepsia 09/16/2018 Personal history of other mental and behavioral disord ers 09/16/2018 Cerebral palsy, unspecified type 09/16/2018 MR (mental retardation) 09/16/2018 Autism 09/16/2018 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 Legal blindness Microcephaly Intellectual disability documented as of this encounter (statuses as of 05/13/2020) Social History Tobacco Use Types Packs/Day Years Used Date Never Smoker Smokeless Tobacco: Never Used Alcohol Use Drinks/Week oz/Week Comments No Sex Assigned at Date Recorded Not on file COVID-19 Exposure Response Date Recorded In the last month, have you been in contact with No / Unsure 05/10/2020 4:04 PM MANAGER POOL someone who was confirmed or suspected to have Coronavirus / COVID-19? documented as of this encounter Last Filed Vital Signs Not on filedocumented in this encounter Patient Instructions Patient InstructionsSusie Mendez, PT - 05/04/2020 1:40 PM MANAGER POOL Home Exercises Program: Pelvic Tilt - 10 reps - 5 hold - 2x daily Supine Single Knee to Chest Stretch - 10 reps - 5 hold - 2x daily Supine Bridge - 10 reps - 2x daily Small Range Straight Leg Raise - 10 reps - 2x daily Clamshell - 10 reps - 2x daily Cervical Extension Stretch - 10 reps - 5 hold - 2x daily Seated Scapular Retraction - 10 reps - 5 hold - 2x daily Seated Shoulder Shrugs - 10 reps - 5 hold - 2x daily GER POOL documented in this encounter Progress Notes Susie Mendez, PT - 05/04/2020 1:40 PM CST Initial Evaluation Date: May 04, 2020 Visit Number: Visit count could not be calculated. Make sure you are using a visit which is associated with an episode. Diagnosis: 1. Closed fracture of eleventh thoracic vertebra, unspecified fracture morphology, initial encounter 2. Lumbar radiculopathy History of Condition:Per patient's mom (legal guardian) stated that in the beginning of this month April 2020 she has noticed that patient is more bend over forward and unsteady when walking. Patient was taken to his doctor for further evaluation and was given medication. Mom reported that he has been better that patient is back to his normal posture. Patient has limited communication that all history and communication is done by mom (Fide). 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 Functional mobility training, Transfer training, Gait training, Patient/Family/Caregiver education and Therapeutic exercise: PT reviewed PT POC, and Safety precautions. Transfers: provided Independent and Modified independent Type: Sit to stand, Stand to sit and Scooting Ambulation:assisted patient with ambulation Independent and Modified independent A/D: None [id number] Weight Bearing: NA Assessment:Patient is a 45 year old male seen secondary to the above listed diagnosis. No further PTneeds at this time. Patient mom (legal guardian) agreed to help patient at home with HEP given to patient. Rehab potential: NA Facilitators to goal achievement: Good family support Barriers to goal achievement: Medical complexity Short Term Goals: To be met in NA visits: Fdc Goals: To be met in NA visits: No acute goals identified at this time Plan of Care Eval only Frequency: NA Duration: NA Patient- Family Teaching: Patient and Family member provided with preferred teaching of verbal information and demonstration on POC. Shows readiness to learn. Verbal instruction teaching provided. Individual is able to read and verbalizes understanding of teaching provided. Susie Mendez,PT [place] License: [id number] PATIENT COMPLEXITY LEVEL Low GER POOL documented in this encounter Plan of Treatment Date Type Specialty Care Team Description 05/17/2020 Bioinformatics Scientist Visit Family Cammy Barajas MD [address] [place] [address] [place] [phone] Lab, [facility] Pob I 05/17/2020 Nurse Visit Family Charles Barajas MD [address] [place] [address] [place] [phone] Nurse, [facility] Pob I 06/17/2020 Office Visit Surgery Sara Reina MD [address] [facility] [address] [place], [place] [address] Health Maintenance Due Date Last Done Comments [...] Addre ss Type Group MEDICARE MEDICARE PART [id number] 1996-Nighat [phone] [address] Medicare A & B t 2 [id number] [place] [address] [facility] MEDICAID OF [id number] 2018-Nighat [phone] [address] Medicaid [place] t 0 [id number] [place] [address] documented as of this encounter
--- OUTSIDE RECORDS SUMMARY | 2020-05-15 18:02 | XMS REPORT | Summary of Care ---
:1975 Author Organization [facility] Address [address] [place], [place] [address] Care Team Providers Name Role Phone John Taylor MD Primary Care Provider Mitchell Hayes Unavailable Annie Toussaint Unavailable MD Nuno Unavailable MD Viry Unavailable Charis Rivas Unavailable Junior Gaitan MD Unavailable Reason for Visit Reason Comments Results Encounter Details Date Type Department Care Team Description 05/14/2020 Telephone [facility], Arnol Baires MD Results [address] [place] [address] Floor [phone] [place] [phone] Allergies Active Allergy Reactions Severity Noted Date Comments Antihistamines - Unknown - See High 04/28/2008 Reacts wit h Alkylamine comments medications. Diphenhydramine Hcl Unknown - See 12/30/2007 comments documented as of this encounter (statuses as of 05/14/2020) Medications Medication Sig Dispensed Refills Start Date End Date Status EPIDIOLEX 100 mg/mL Take by mouth. 0 05/04/2020 Active oral solution 500 ml in AM and 500 ml PM diazePAM (VALTOCO) 15 Use 15 mg in each 0 01/09/2020 Active mg/2 spray (7.5/0.1mL nostril. x 2) [place] meloxicam 15 mg tablet PLEASE SEE 0 04/25/2020 Active ATTACHED FOR DETAILED DIRECTIONS methocarbamoL 750 mg TAKE 1 TABLET BY 0 04/19/2020 Active tablet MOUTH 4 (FOUR) TIMES DAILY FOR 7 DAYS. Lacosamide (VIMPAT) Take by mouth. 0 Active 200 mg tablet Takes 1 tablet in AM and 2 tablets PM documented as of this encounter (statuses as of 05/14/2020) Active Problems Problem Noted Date Low back [...] as of this encounter (statuses as of 05/14/2020) Social History Tobacco Use Types Packs/Day Years Used Date Never Smoker Smokeless Tobacco: Never Used Alcohol Use Drinks/Week oz/Week Comments No Sex Assigned at Date Recorded Not on file COVID-19 Exposure Response Date Recorded In the last month, have you been in contact with No / Unsure 05/10/2020 4:04 PM SURETY BOND AGENT someone who was confirmed or suspected to have Coronavirus / COVID-19? documented as of this encounter Last Filed Vital Signs Not on filedocumented in this encounter Miscellaneous Notes Telephone Encounter - Julianna Serna RN - 05/14/2020 11:31 AM CSTTH appointment made for 05/20/20 at 1330 to follow-up on imaging results. Mother requested TH as they live 70 miles away. elephone Encounter - Marissa Huston - 05/14/2020 11:22 AM CSTDylan Manzanares is a 45 year old male mother calling to discuss MRI results and next steps. Please call [phone] signed by Marissa Huston at 05/14/2020 11:23 AM SURETY BOND AGENT documented in this encounter Plan of Treatment Date Type Specialty Care Team Description 05/17/2020 Substation Operator Conversion Visit Family Cammy Barajas MD [address] [place] [address] [place] [address] Lab, [facility] Fam Pob I 05/17/2020 Nurse Visit Family Charles Barajas MD [address] [place] [address] [place] [address] Nurse, [facility] Pob I 05/20/2020 Telemedicine Visit Neurological Surgery Shruti Baires MD [address] [place] [address]. [place] [address] 06/17/2020 Office Visit Surgery Sara Reina MD [address] [employer] [address] [place] [address] Health Maintenance Due Date Last Done Comments DTaP,Tdap,and Td Vaccines (1 - 02/20/1995 Tdap) INFLUENZA VACCINE (#1) 2020 Depression Screening 05/10/2021 05/10/2020 PNEUMOCOCCAL 0-64 YEARS COMBINED Aged Out No longer eligible based on SERIES patient's age to complete this topic documented as of this encounter Results Not on filedocumented in this encounter Insurance Payer Benefit Plan / Subscriber ID Effective Dates Phone Addre ss Type Group MEDICARE MEDICARE PART [id number] 1996-Nighat [id number] [address] Medicare A & B t 2 [id number] [place] [phone] [facility] MEDICAID OF [id number] 2018-Nighat [phone] [address] Medicaid [place] t 0 [id number] [place] [address] documented as of this encounter
--- OUTSIDE RECORDS SUMMARY | 2020-05-15 18:02 | XMS REPORT | Summary of Care ---
:1975 Author Organization [facility] Address [address] [place] [address] Care Team Providers Name Role Phone John Taylor MD Primary Care Provider Mitchell Hayes Unavailable Annie Toussaint Unavailable MD Nuno Unavailable MD Viry Unavailable Charis Rivas Unavailable Junior Gaitan MD Unavailable Reason for Visit Reason Comments Fever Cough Congestion Encounter Details Date Type Department Care Team Description 05/14/2020 Telemedicine Visit [facility] Family Digna Vanegas URI, acute (Primary Dx); Medicine - [place] [facility] [employer] Cough; [facility] Fever, u nspecified fever cause [address] [place], [place] [address] [place], [place] [phone] [address] Allergies Active Allergy Reactions Severity Noted Date [...] Active mg/2 spray (7.5/0.1mL nostril. 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 documented as of this encounter Last Filed Vital Signs Not on filedocumented in this encounter Progress Notes Digna Vanegas FNP - 05/14/2020 4:00 PM CST Cc: Chief Complaint Patient presents with Fever Cough Congestion Dylan Manzanares is a 45 year old male. TELEHEALTH NOTE Verbal consent obtained from Patient: Dylan Manzanares due to the COVID-19 pandemic for telehealth services provided below. Communication with patient was conducted via Telephone due to patient unable to obtain video call option. Location of Patient: Home Location of Provider: Clinic Date of Service: 05/14/2020 Chief Complaint: fever HPI: Dylan Manzanares is a 45 year old male with his dad speaking for him as he is autistic and has cerebral palsy, this HPI provided by dad. Patient has been having fever on and off for 3 days along withcongestion and cough, sometimes he cough so hard he vomits. T-max of 101.9, has been taking Tylenol around the clock. 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 500 ml in AM and 500 ml PM, Disp: , Rfl: Lacosamide (VIMPAT) 200 mg tablet, Take by mouth. Takes 1 tablet in AM and 2 tablets PM, Disp: , Rfl: meloxicam 15 mg tablet, PLEASE SEE ATTACHED FOR DETAILED DIRECTIONS, Disp: , Rfl: methocarbamoL 750 mg tablet, TAKE 1 TABLET BY MOUTH 4 (FOUR) TIMES DAILY FOR 7 DAYS., Disp: , Rfl: No current facility-administered medications for this visit. URI Presenting symptoms: congestion, cough and fever Presenting symptoms: no fatigue Congestion: Location: Nasal and chest Interferes with sleep: no Interferes with eating/drinking: no Fever: Timing: Intermittent Max temp prior to arrival: 101.9 Temp source: Subjective Severity: Moderate Onset quality: Gradual Duration: 3 days Timing: Constant Progression: Unchanged Chronicity: New Relieved by: Nothing Worsened by: Nothing Ineffective treatments: OTC medications Associated symptoms: no headaches and no wheezing Risk factors: no sick contacts Allergies Dylan is allergic to antihistamines - alkylamine and diphenhydramine hcl. Medications Outpatient Medications Prior to Visit Medication Sig Dispense Refill diazePAM (VALTOCO) 15 mg/2 spray (7.5/0.1mL x 2) [place] Use 15 mg in each nostril. EPIDIOLEX 100 mg/mL oral solution Take by mouth. 500 ml in AM and 500 ml PM Lacosamide (VIMPAT) 200 mg tablet Take by mouth. Takes 1 tablet in AM and 2 tablets PM meloxicam 15 mg tablet PLEASE SEE ATTACHED FOR DETAILED DIRECTIONS methocarbamoL 750 mg tablet TAKE 1 TABLET BY MOUTH 4 (FOUR) TIMES DAILY FOR 7 DAYS. No facility-administered medications prior to visit. 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 Negative for chills and fatigue. HENT: Positive for congestion. Respiratory: Positive for cough. Negative for chest tightness, shortness of breath and wheezing. Cardiovascular: Negative. Negative for chest pain and palpitations. Gastrointestinal: Negative. Neurological: Negative. Negative for syncope, weakness, light-headedness and headaches. Psychiatric/Behavioral: Negative. Endocrine: Endocrine negative Vital Signs There were no vitals taken for this visit. Physical Exam Vitals signs and nursing note reviewed. Constitutional: General: He is not in acute distress. Appearance: He is well-developed. Neurological: Mental Status: He is alert. Assessment/Plan Dylan Manzanares is a 45 year old male with PMH as above presenting with: 1. URI, acute- will schedule patient to come in tomorrow for covid testing. - promethazine-dextromethorphan 6.25-15 mg/5 mL syrup; Take 5 mL by mouth 4 (four) times daily as needed for Cough for up to 10 days. Dispense: 200 mL; Refill: 0 medrol dose pack and bromfed given for symptom relief.hydration, rest, and proper hygiene encouraged. Avoid any known triggers and RTC in 7-10 days if no relief, or sooner if worse. Educated on the following at home care: -Increase water intake -Take over the counter vitamin C/multivitamin with vitamin C -Take Tylenol as needed, avoid nsaids -REST -Wash hands often -Cover mouth when coughing -Wear mask with in the same room/car as others -Gargle with warm salt water as needed -Drink warm liquids as needed. -Throat lozenges as needed -Quarantine until your COVID results are back -Stay in your own bedroom and use a separate bathroom -Keep at least 6 feet from you and others -Avoid sharing personal household items, dishes, glasses, cups, towels -Clean high traffic/touch areas daily. These include but not limited to: doorknobs, refrigerator/cabinet handles, phones, keyboards, tablets, light switches. -Monitor your symptoms. Take your temperature 2 times daily. -Follow-up with PCP as needed, if no improvement. -Monitor your symptoms. Go to the ED if worsening symptoms: chest pain, difficulty breathing, coughing up blood, weakness, dizziness, passing out, AMS. -CDC handout provided After visit summary (AVS ) documentation will be available through [email or web address] for this encounter. A total of 25 minutes was spent on the Telephone due to patient unable to obtain video call option. Digna Vanegas DNP G MACHINE OPERATOR documented in this encounter Plan of Treatment Date Type Specialty Care Team Description 05/20/2020 Telemedicine Visit Neurological Surgery Shruti Baires MD [address] [place] [address]. [place] [phone] 05/21/2020 Needlemaker Visit Family Medicine Lab, [facility] Pob I 06/17/2020 Office Visit Surgery Sara Reina MD [address] [facility] [address] [place] [address] Health Maintenance Due Date Last Done Comments DTaP,Tdap,and Td Vaccines (1 - 02/20/1995 Tdap) INFLUENZA VACCINE (#1) 2020 Depression Screening 05/10/2021 05/10/2020 PNEUMOCOCCAL 0-64 YEARS COMBINED Aged Out No longer eligible based on SERIES patient's age to complete this topic documented as of this encounter Results Not on filedocumented in this encounter Visit Diagnoses Diagnosis URI, acute - Primary Acute upper respiratory infections of un specified site Cough Fever, unspecified fever cause documented in this encounter Insurance Payer Benefit Plan / Subscriber ID Effective Dates Phone Addre ss Type Group MEDICARE MEDICARE PART [id number] 1996-Nighat [phone] [address] Medicare A & B t 2 [id number] [place] [address] [facility] MEDICAID OF [id number] 2018-Nighat [phone] [address] Medicaid [place] t 0 [id number] [place] [address] documented as of this encounter
[2020-05-15 18:46] LABS: Absolute Lymphocytes (CBC) 0.5 K/uL (0.7-4.9); Basophils % 0.5 % (0-1.3); Hematocrit 41.9 % (39.6-49.0); MPV 9.4 fL (7.6-11.3); RBC Red Blood Cell Count 4.82 M/uL (4.33-5.43)
[2020-05-15 18:48] LABS: Protime INR 1.07
[2020-05-15] MEDS ORDERED: ACETAMINOPHEN 160 MG/5 ML UCUP ONE (19:01)
--- NOTE | 2020-05-15 19:04 | RAD REPORT ---
EXAM DESCRIPTION: Jose Alfredo Single View05/15/2020 6:52 pm CLINICAL HISTORY: Shortness of breath COMPARISON: 2011 FINDINGS: [id number] right and questionable mild left pulmonary opacities. The heart is normal size IMPRESSION: Mild to moderate right and questionable mild left pulmonary opacities may indicate pneu monia
[2020-05-15 19:07] LABS: ALT/SGPT 25 U/L (12-78); AST/SGOT 68 U/L (15-37); Albumin 2.9 g/dL (3.4-5.0); Alkaline Phosphatase 88 U/L (45-117); BUN Blood Urea Nitrogen 14 mg/dL (7-18); Bicarbonate 19 mmol/L (21-32); Bilirubin Direct < 0.1 mg/dL (0-0.2); Bilirubin Total 0.2 mg/dL (0.2-1.0); Glucose Level 114 mg/dL (74-106); Magnesium 2.1 mg/dL (1.8-2.4); NT PRO-BNP 51 pg/mL (<125); Potassium 3.9 mmol/L (3.5-5.1); Sodium Level 138 mmol/L (136-145); Troponin (Emerg Dept Use Only) < 0.02 ng/mL (0.0-0.045)
--- NOTE | 2020-05-15 20:07 | RAD REPORT ---
EXAM DESCRIPTION: CT - Chest For Pe Angio - 05/15/2020 7:47 pm CLINICAL HISTORY: cough COMPARISON: Chest x-ray May 15, 2020 TECHNIQUE: Dynamically enhanced axial 3 mm thick images of the chest were obtained during administra tion of <100> mL Isovue 370 IV contrast. Coronal and oblique reconstruction images were generated and reviewed. Exam utilizes a protocol for optimal evaluation of pulmonary arterial tree. Maximum intensity projections 3D imaging was utilized All CT scans are performed using dose optimization technique as appropriate and may include automated exposure control or mA/KV adjustment according to patient size. FINDINGS: A pulmonary embolus is not seen. A thoracic aortic aneurysm is not noted. A pleural effusion is not seen. A pericardial effusion is not seen. Mild to moderate right and mild left pulmonary ground-glass opacities Moderate to marked old compression deformity involves a lower thoracic vertebral body IMPRESSION: Negative for a pulmonary embolism. Mild to moderate right and mild left pulmonary ground-glass opacities may indicate Covid pneumonia
[2020-05-15] MEDS ORDERED: AZITHROMYCIN 500 MG INJ IVPB ONE (20:15)
[2020-05-15] MEDS ORDERED: CEFTRIAXONE/SWI 1gm 1 GM/10 ML SYR ONE (20:16)
[2020-05-15] MEDS ORDERED: NA CHLORIDE 0.9% 250 ML ONE (20:16)
[2020-05-15] MEDS ORDERED: NA CHLORIDE 0.9% 2,000 ML ONE (20:16)
--- NOTE | 2020-05-15 20:43 | ER ---
Nurse's Notes [facility] Name: Dylan Manzanares Jr Age: 45 yrs Sex: Male : 1975 Arrival Date: 05/15/2020 Time: 18:11 Bed 20 Private MD: Diagnosis: Pneumonia due to other specified infectious organisms;Hypoxemia Presentation: 05/15 18:12 Chief complaint: EMS states: Pt from home, mother reports fever and cough x 2 days, was ph tested for COVID today at urgent care but has not received results, has extensive seizure hx, had seizure lasting approx 30 minutes, nasal diazepam administered x 2 by family, axillary temp 101.2, HR 112, Spo2 96% RA. Coronavirus screen: cough unrelated to allergies, fatigue, fever, Client presents with at least one sign or symptom that may indicate coronavirus-19. Standard/surgical mask placed on the client. Provider contacted for isolation considerations. The client indicates previous COVID test results are pending. Ebola Screen: No symptoms or risks identified at this time. Initial Sepsis Screen: Does the patient meet any 2 criteria? Temp <36.0*C (96.8*F)) or > 38.3*C (100.9*F). HR > 90 bpm. Yes Does the patient have a suspected source of infection? Yes: Productive cough/pneumonia. Risk Assessment: Do you want to hurt yourself or someone else? Patient reports no desire to harm self or others. Onset of symptoms was May 15, 2020. 18:12 Method Of Arrival: EMS: [facility] 18:12 Acuity: CAITIE 2 ph Triage Assessment: 18:22 General: Appears in no apparent distress. ill, Behavior is cooperative, quiet, Reports ph fever for 2-3 days. Pain: Unable to use pain scale. Does not appear to understand pain scale. Neuro: Level of Consciousness is awake, obeys commands, lethargic, post ictal, Oriented to Seizure activity reported prior to arrival. Type of seizure: grand mal seizure. Seizure lasted approximately 30 minutes. Patient is post-ictal at this time. Cardiovascular: Rhythm is sinus tachycardia. Respiratory: Airway is patent Respiratory effort is even, unlabored. Respiratory: Parent/caregiver reports the patient having cough that is. GI: No signs and/or symptoms were reported involving the gastrointestinal system. Derm: Skin is intact, Skin is pale, Skin temperature is hot. Musculoskeletal: Circulation, motion, and sensation intact. Range of motion: intact in all extremities. 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 - Social history:: Smoking status: Patient denies any tobacco usage or history of. Screenin:22 Abuse screen: Denies threats or abuse. Denies injuries from another. Nutritional ph screening: No deficits noted. Tuberculosis screening: No symptoms or risk factors identified. Fall Risk Fall in past 12 months (25 points). Secondary diagnosis (15 points) seizures, IV access (20 points). Ambulatory Aid- None/Bed Rest/Nurse Assist (0 pts). Gait- Weak (10 pts.). Mental Status- Overestimates/Forgets Limitations (15 pts.). Total Elias Fall Scale indicates High Risk Score (45 or more points). Fall prevention measures have been instituted. Side Rails Up X 2 Placed Close to Nursing Station Frequent Obs/Assessments Occuring Family Present and informed to notify staff if the need to leave the bedside As available patient and family educated on Fall Prevention Program and Strategies. Assessment: 19:00 General: SEE TRIAGE ASSESSMENT. ph 20:00 Reassessment: No changes from previously documented assessment. Patient and/or family ll1 updated on plan of care and expected duration. Pain level reassessed. 21:00 Reassessment: Patient and/or family updated on plan of care and expected duration. Pain ll1 level reassessed. Patient states feeling better. 22:00 Reassessment: Patient appears in no apparent distress at this time. Patient and/or jb4 family updated on plan of care and expected duration. Pain level reassessed. Patient is alert, oriented x 3, equal unlabored respirations, skin warm/dry/pink. Received report from ABBY Brady. Mother remains at the bedside. 23:00 Reassessment: Patient appears in no apparent distress at this time. No changes from jb4 previously documented assessment. Patient and/or family updated on plan of care and expected duration. Pain level reassessed. Vital Signs: 18:12 BP 113 / 75; Pulse 109; Resp 20; Temp 101.2; Pulse Ox 88% on R/A; ph 20:08 Weight 83 kg (R); ll1 20:10 Resp 20; Pulse Ox 89% on R/A; ll1 20:18 BP 103 / 69; Pulse 77; Resp 18; Temp 97.5; Pulse Ox 94% on 2 lpm NC; ll1 21:46 BP 108 / 76; Pulse 69; Resp 18; Pulse Ox 96% on 2 lpm NC; Pain 0/10; ll1 22:30 BP 108 / 73; Pulse 72; Resp 16; Pulse Ox 95% on 2 lpm NC; jb4 23:30 BP 106 / 69; Pulse 77; Resp 16; Pulse Ox 93% on 2 lpm NC; jb4 [place] Coma Score: 18:22 Eye Response: spontaneous(4). Verbal Response: confused(4). Motor Response: obeys ph commands(6). Total: 14. ED Course: 18:11 Patient arrived in ED. ph 18:12 Perry Zee PA is PHCP. cp 18:12 Greg Cho MD is Attending Physician. cp 18:17 Triage completed. ph 18:21 Arm band placed on Patient placed in an exam room, on a stretcher, on oxygen, on ph monitor car operator, on pulse oximetry. 18:22 Placed in gown. Bed in low position. Call light in reach. Side rails up X2. Adult w/ ph patient. Seizure precautions initiated. court recording monitor on. Pulse ox on. NIBP on. 18:30 Inserted saline lock: 20 gauge in left forearm, using aseptic technique. Blood ds4 collected. 18:33 Judy Galloway RN is Primary Nurse. ph 18:52 XRAY Chest (1 view) In Process Unspecified. EDMS 19:11 Notified Nurse Practitioner and/or Physician Carpenter Repairer of a critical lab result(s), sg Lactate 4.4. 19:48 CT Chest For PE Angio In Process Unspecified. EDMS 20:41 Padilla Mckeon MD is Hospitalizing Provider. cp 21:44 Urine Dipstick--Ancillary (enter results) Sent. ll1 21:44 Urinalysis Sent. ll1 22:07 Report given to ABBY Felipe in ED. ll1 23:41 No provider procedures requiring assistance completed. Patient admitted, IV remains in jb4 place. Administered Medications: 18:58 Drug: Tylenol 1000 mg Route: PO; ph 20:53 Follow up: Response: No adverse reaction; Temperature is decreased; RASS: Drowsy (-1) ll1 19:12 CANCELLED (Physician Discretion): NS 0.9% 1000 ml IV at 1 bolus Per protocol; 1000 mL cp bolus 20:08 Drug: NS 0.9% (30 ml/kg) 30 ml/kg {Note: 2,000 ml.} Route: IV; Rate: bolus; Site: left ll1 forearm; 21:30 Follow up: Response: No adverse reaction; RASS: Alert and Calm (0); IV Status: ll1 Completed infusion; IV Intake: 2000ml 20:09 Drug: Rocephin - (cefTRIAXone) 1 grams Route: IVPB; Infused Over: 30 mins; Site: left ll1 forearm; 20:53 Follow up: Response: No adverse reaction; RASS: Drowsy (-1); IV Status: Completed ll1 infusion; IV Intake: 10ml 20:16 Drug: Zithromax 500 mg Route: IVPB; Infused Over: 1 hrs; Site: left forearm; ll1 21:30 Follow up: Response: No adverse reaction; RASS: Alert and Calm (0); IV Status: ll1 Completed infusion; IV Intake: 260ml 21:36 Drug: MethylPrednisoLONE 80 mg Route: IVP; Site: left forearm; 1 21:45 Follow up: Response: No adverse reaction; RASS: Alert and Calm (0) ll1 Intake: 20:53 IV: 10ml; Total: 10ml. ll1 21:30 IV: 260ml; Total: 270ml. ll1 21:30 IV: 2000ml; Total: 2270ml. ll1 Outcome: 20:42 Decision to Hospitalize by Provider. cp 23:41 Admitted to ER Hold. Please see [facility] for further documentation. 4 23:41 Condition: stable 23:41 Discharge instructions given to patient, family, Instructed on the need for admit, Demonstrated understanding of instructions. 12 12:59 Patient left the ED. eb Signatures: Dispatcher [employer] EDMS Vignesh Krishnan RN RN Alcon Billy ds4 Judy Galloway RN RN Perry Tejada PA PA cp Bryson, James, RN RN jb4 Katie Mata Lynsay, RN RN ll1 Corrections: (The following items were deleted from the chart) 05/15 23:41 22:30 BP 106 / 69; Pulse 77bpm; Resp 16bpm; Pulse Ox 93% 2 lpm Nasal Cannula; jb4 jb4
--- NOTE | 2020-05-15 20:43 | EDPHYS ---
Physician Documentation [facility] Name: Dylan Manzanares Jr Age: 45 yrs Sex: Male : 1975 Arrival Date: 05/15/2020 Time: 18:11 Bed 20 Private MD: ED Physician Greg Cho HPI: 05/15 18:20 This 45 yrs old Male presents to ER via EMS with complaints of Fever, Seizure.cp 18:20 The patient or guardian reports cough, that is intermittent. cp 18:20 Onset: The symptoms/episode began/occurred 2 day(s) ago. Associated signs and symptoms: cp Pertinent positives: fever, seizure, Pertinent negatives: chest pain, abdominal pain. Patient with history and known seizure disorder brought to ED by mother with concern for cough, fever and seizure today. Given intranasal diazepam for seizure. 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 - Social history:: Smoking status: Patient denies any tobacco usage or history of. ROS: 18:25 Constitutional: Positive for fever. cp 18:25 Eyes: Negative for injury, pain, redness, and discharge. cp 18:25 Respiratory: Positive for cough. 18:25 Abdomen/GI: Negative for vomiting, diarrhea, constipation. 18:25 Neuro: Negative for altered mental status. 18:25 All other systems are negative. Exam: 18:30 Constitutional: The patient appears in no acute distress, alert, awake, cp non-diaphoretic, non-toxic, well developed, well nourished, febrile. 18:30 Head/Face: Normocephalic, atraumatic. cp 18:30 Eyes: Periorbital structures: appear normal, Conjunctiva: normal, no exudate, no injection, Sclera: no appreciated abnormality, Lids and lashes: appear normal, bilaterally. 18:30 ENT: External ear(s): are unremarkable, Nose: is normal, Posterior pharynx: Airway: no evidence of obstruction, patent. 18:30 Neck: ROM/movement: is normal, is supple, no meningismus, no nuchal rigidity. 18:30 Chest/axilla: Inspection: normal, Palpation: is normal, no crepitus, no tenderness. 18:30 Cardiovascular: Rate: tachycardic, Rhythm: regular, Edema: is not appreciated, JVD: is not appreciated. 18:30 Respiratory: the patient does not display signs of respiratory distress, Respirations: labored breathing, is not present, intercostal retractions, are absent, Breath sounds: bronchial sounds, that are mild, are heard diffusely, stridor, is not appreciated, wheezing: is not appreciated. 18:30 Abdomen/GI: Inspection: abdomen appears normal, Bowel sounds: active, all quadrants, Palpation: abdomen is soft and non-tender, in all quadrants. 18:30 Skin: cellulitis, is not appreciated, no rash present. 18:30 Neuro: Orientation: no acute changes, per family, Mentation: able to follow commands, sleepy, Motor: moves all fours, strength is normal. 18:48 ECG was reviewed by the Attending Physician. cp Vital Signs: 18:12 BP 113 / 75; Pulse 109; Resp 20; Temp 101.2; Pulse Ox 88% on R/A; ph 20:08 Weight 83 kg (R); ll1 20:10 Resp 20; Pulse Ox 89% on R/A; ll1 20:18 BP 103 / 69; Pulse 77; Resp 18; Temp 97.5; Pulse Ox 94% on 2 lpm NC; ll1 21:46 BP 108 / 76; Pulse 69; Resp 18; Pulse Ox 96% on 2 lpm NC; Pain 0/10; ll1 22:30 BP 108 / 73; Pulse 72; Resp 16; Pulse Ox 95% on 2 lpm NC; jb4 23:30 BP 106 / 69; Pulse 77; Resp 16; Pulse Ox 93% on 2 lpm NC; jb4 [place] Coma Score: 18:22 Eye Response: spontaneous(4). Verbal Response: confused(4). Motor Response: obeys ph commands(6). Total: 14. MDM: 18:18 Patient medically screened. cp 19:00 Differential diagnosis: bronchitis, flu, pneumonia, sepsis, meningitis, COVID-19. cp 20:20 Data reviewed: vital signs, nurses notes, lab test result(s), EKG, radiologic studies, cp CT scan, plain films. 20:20 Test interpretation: by ED physician or midlevel provider: ECG. Physician consultation: nataly Mckeon MD was called at 20:15, was contacted at 20:15, regarding admission, to the telemetry unit. patient's condition. 05/15 18:17 Order name: Basic Metabolic Panel; Complete Time: 19:14 cp 12/ 19:14 Interpretation: Normal except: CL 108; CO2 19; GLUC 114; CRE 1.46; GFR 52. 05/15 18:17 Order name: CBC with Diff; Complete Time: 19:14 cp 05/15 19:15 Interpretation: Normal except: PLT 140; YESICA% 83.3; LYM% 10.0; LYMA 0.5. 05/15 18:17 Order name: LFT's; Complete Time: 19:14 05/15 19:16 Interpretation: Normal except: AST 68; ALB 2.9; GLOB 4.1; A/G 0.7. 05/15 18:17 Order name: Magnesium; Complete Time: 19:14 cp 05/15 19:15 Interpretation: MG 2.1; Reviewed. cp 05/15 18:17 Order name: NT PRO-BNP; Complete Time: 19:14 cp 05/15 18:17 Order name: PT-INR; Complete Time: 19:14 cp 05/15 18:17 Order name: Troponin (emerg Dept Use Only); Complete Time: 19:14 cp 05/15 18:17 Order name: Lactate; Complete Time: 19:14 cp 05/15 18:17 Order name: Procalcitonin; Complete Time: 20:11 cp 05/15 18:17 Order name: Blood Culture Adult (2) cp 05/15 18:17 Order name: CRP; Complete Time: 19:14 cp 05/15 19:16 Interpretation: Abnormal: C-REACTIVE PROT 102.00. cp 05/15 18:17 Order name: D-Dimer; Complete Time: 19:14 cp 05/15 18:17 Order name: Influenza Screen (a \T\ B); Complete Time: 19:14 cp 05/15 18:17 Order name: XRAY Chest (1 view); Complete Time: 19:14 cp 05/15 18:17 Order name: Strep; Complete Time: 19:14 cp 05/15 19:02 Order name: Throat Culture EDNC 05/15 19:08 Order name: CT Chest For PE Angio; Complete Time: 20:11 cp 05/15 20:11 Interpretation: Report reviewed. 05/15 19:14 Order name: Urine Microscopic Only 05/15 19:14 Order name: Urine Culture 05/15 20:52 Order name: Urinalysis EDNC 05/15 20:54 Order name: SARS-COV-2 RT PCR EDNC 05/15 21:26 Order name: Urine Dipstick--Ancillary (enter results) mw2 05/15 21:31 Order name: Urine Dipstick-Ancillary EDNC 05/15 22:14 Order name: Lactate Sepsis 2 HR Follow-up EDNC 05/16 06:09 Order name: CBC without Diff EDNC 05/16 06:41 Order name: Basic Metabolic Panel EDNC 05/16 06:41 Order name: C-Reactive Protein EDNC 05/15 18:17 Order name: EKG; Complete Time: 18:19 05/15 18:17 Order name: Cardiac monitoring; Complete Time: 18:58 05/15 18:17 Order name: EKG - Nurse/Tech; Complete Time: 18:58 05/15 18:17 Order name: IV Saline Lock; Complete Time: 18:19 05/15 18:17 Order name: Labs collected and sent; Complete Time: 18:19 05/15 18:17 Order name: O2 Per Protocol; Complete Time: 18:19 05/15 18:17 Order name: O2 Sat Monitoring; Complete Time: 18:19 05/15 19:14 Order name: Urine Dipstick-Ancillary (obtain specimen); Complete Time: 21:44 05/15 20:55 Order name: Respiratory Therapy Consult EDMS EC:48 Rate is 101 beats/min. Rhythm is regular. MN interval is normal. QRS interval is cp normal. QT interval is normal. T waves are Inverted in leads III, aVF. Interpreted by me. Reviewed by me. Administered Medications: 18:58 Drug: Tylenol 1000 mg Route: PO; ph 20:53 Follow up: Response: No adverse reaction; Temperature is decreased; RASS: Drowsy (-1) ll1 19:12 CANCELLED (Physician Discretion): NS 0.9% 1000 ml IV at 1 bolus Per protocol; 1000 mL cp bolus 20:08 Drug: NS 0.9% (30 ml/kg) 30 ml/kg {Note: 2,000 ml.} Route: IV; Rate: bolus; Site: left ll1 forearm; 21:30 Follow up: Response: No adverse reaction; RASS: Alert and Calm (0); IV Status: ll1 Completed infusion; IV Intake: 2000ml 20:09 Drug: Rocephin - (cefTRIAXone) 1 grams Route: IVPB; Infused Over: 30 mins; Site: left ll1 forearm; 20:53 Follow up: Response: No adverse reaction; RASS: Drowsy (-1); IV Status: Completed ll1 infusion; IV Intake: 10ml 20:16 Drug: Zithromax 500 mg Route: IVPB; Infused Over: 1 hrs; Site: left forearm; ll1 21:30 Follow up: Response: No adverse reaction; RASS: Alert and Calm (0); IV Status: ll1 Completed infusion; IV Intake: 260ml 21:36 Drug: MethylPrednisoLONE 80 mg Route: IVP; Site: left forearm; ll1 21:45 Follow up: Response: No adverse reaction; RASS: Alert and Calm (0) ll1 Disposition: 05/16 14:34 Co-signature as Attending Physician, Greg Cho MD. rn Disposition: 05/15/20 20:42 Hospitalization ordered by Padilla Mckeon for Inpatient Admission. Preliminary diagnosis are Pneumonia due to other specified infectious organisms, Hypoxemia. - Bed requested for [facility] ER HOLD. - Status is Inpatient Admission. eb - Condition is Stable. - Problem is new. - Symptoms have improved. Signatures: Dispatcher [employer] [facility] Greg Cho MD MD rn Hall, Patricia, RN RN Perry Tejada PA PA cp Elias Varner RN RN ja1 Katie Mata Lynsay, RN RN ll1 Corrections: (The following items were deleted from the chart) 05/15 19:12 19:08 NS 0.9% 1000 ml IV at 1 bolus Per protocol; 1000 mL bolus ordered. cp cp 19:15 19:15 Normal except: PLT 140; YESICA% 83.3; LYM% 10.0. cp cp 20:06 18:18 CORONAVIRUS+MR.LAB.BRZ ordered. [facility] EDNC 21:04 20:42 Hospitalization Ordered by Padilla Mckeon MD for Inpatient Admission. ja1 Preliminary diagnosis is Pneumonia due to other specified infectious organisms; Hypoxemia. Bed requested for Telemetry/MedSurg (Inpatient). Status is Inpatient Admission. Condition is Stable. Problem is new. Symptoms have improved. cp 05/16 12:59 05/15 21:04 05/15/2020 20:42 Hospitalization Ordered by Padilla Mckeon MD for eb Inpatient Admission. Preliminary diagnosis is Pneumonia due to other specified infectious organisms; Hypoxemia. Bed requested for [facility] ER HOLD. Status is Inpatient Admission. Condition is Stable. Problem is new. Symptoms have improved. ja1
[2020-05-15] MEDS: METHYLPREDNISOLONE 40 MG INJ IV SCH ×2 (20:47→21:00)
--- NOTE | 2020-05-15 20:52 | P.HP ---
Certification for Inpatient Patient admitted to: Inpatient With expected LOS: >2 Midnights Practitioner: I am a practitioner with admitting privileges, knowledge of patient current condition, hospital course, and medical plan of care. 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 complaining of some fever prior to that patient is a she is usually very active used to work at [employer] exposed to his brother was also tested positive and is currently in the emergency room also complaining of some cough brought in due to hypoxemia Allergies ANTIHISTAMINES Allergy (Uncoded 11/14/14 14:45) interaction with epilepsy medication antihistimines Adverse Reaction (Severe, Uncoded 04/10/12 18:32) interferes with seizure medication - Past Medical/Surgical History -: [place]-Gastaut syndrome -: Seizures Review of Systems is unable to be obtained Physical Examination - Vital Signs Temperature: 101.2 F Blood Pressure: 113/75 Pulse: 109 Respirations: 20 Pulse Ox (%): 88 - Physical Exam General: Alert, Mild distress Respiratory: Clear to auscultation bilaterally, Crackles/rales Cardiovascular: No edema, Normal S1 S2 Gastrointestinal: Normal bowel sounds, Non-distended - Studies Laboratory Data (last 24 hrs) 05/15/20 18:30: PT 12.6 H, INR 1.07 05/15/20 18:30: WBC 4.7, Hgb 14.2, Hct 41.9, Plt Count 140 L 05/15/20 18:30: Sodium 138, Potassium 3.9, BUN 14, Creatinine 1.46 H, Glucose 114 H, Magnesium 2.1 D, Total Bilirubin 0.2, AST 68 H, ALT 25, Alkaline Phosphatase 88 Microbiology Data (last 24 hrs): 05/15/20 18:30 Nasopharnyx Influenza Type A Antigen Screen - Final 05/15/20 18:30 Nasopharnyx Influenza Type B Antigen Screen - Final 05/15/20 18:30 Throat Group A Streptococcus Rapid Screen - Final Assessment and Plan - Problems (Diagnosis) (1) Pneumonia due to 2019 novel coronavirus Current Visit: Yes Status: Acute Plan: Patient is 45 years of age became sick for about a week admitted with pneumonia due to tobin virus CRP is elevated he is febrile coughing renal function is mildly abnormal labs chest x-rays reviewed will admit to the hospital continue with steroids unstable tomorrow may discharge - Advance Directives Does patient have a Living Will: No Does patient have a Durable POA for Healthcare: No
[2020-05-15 21:30] LABS: Urine Blood NEGATIVE (NEG); Urine Glucose NEGATIVE (NEG); Urine Protein 1+ (NEG); Urine Specific Gravity 1.015 (1.005-1.030); Urine pH 5.5 (5.0-7.0)
[2020-05-15 22:07] LABS: Urine Bacteria <20 /HPF (NONE SEEN); Urine Mucus 1+ /HPF (NONE SEEN); Urine RBC <5 /HPF (NONE SEEN)
[2020-05-16] MEDS: ENOXAPARIN 40 MG/0.4 ML SQ SCH ×2 (00:20→09:00)
[2020-05-16 00:47] VITALS: BMI 26.6
[2020-05-16 06:08] LABS: Hematocrit 39.6 % (39.6-49.0); MPV 9.5 fL (7.6-11.3); RBC Red Blood Cell Count 4.55 M/uL (4.33-5.43)
[2020-05-16 06:41] LABS: C-Reactive Protein 76.8 mg/L (<3.00)
[2020-05-16] MEDS: LACOSAMIDE 200 MG PO SCH ×2 (09:00)
[2020-05-16] MEDS: CANNABIDIOL PO SCH ×2 (09:00)
[2020-05-16] MEDS: METHYLPREDNISOLONE 40 MG INJ IV SCH (09:00)
[2020-05-16] MEDS ORDERED: METHYLPREDNISOLONE 40 MG INJ ONE (09:17)
[2020-05-16] MEDS ORDERED: ENOXAPARIN 40 MG/0.4 ML SQ ONE (10:04)
[2020-05-16 10:47] VITALS: O2SAT 92
--- NOTE | 2020-05-16 11:46 | P.DS ---
Admission Date: 05/15/20 Discharge Date: 05/16/20 Disposition: ROUTINE DISCHARGE Discharge Condition: FAIR Reason for Admission: COVID penumonia - Problems (1) Acute respiratory failure with hypoxia Current Visit: Yes Status: Acute (2) Seizure disorder Current Visit: Yes Status: Acute (3) Pneumonia due to 2019 novel coronavirus Current Visit: Yes Status: Acute Brief History of Present Illness: 45 year olds gentleman with a history of seizure disorder, Matt-Gastaut signed was brought to the emergency department course the patient had a fever and started having seizures. Mother stated she given him dose of diazepam and his Lacosamide after which he stops seizing. Tested positive for COVID 19. CTA thorax demonstrated COVID pneumonia. Patient was hospitalized for further management. Hospital Course: Patient admitted to the medical floor and started on IV steroid. He was hypoxic on room air with oxygen saturations 88%. Patient condition was stable overnight, he did not experience any more seizure episodes. Vitals have been stable. Patient will be discharged home with oral prednisone. Mother states patient has oxygen. Mother informed patient is currently hypoxic on room air and need oxygen both at rest and with ambulation. Vital Signs/Physical Exam: Temp Pulse Resp BP Pulse Ox 97.9 F 83 22 H 108/69 96 05/16/20 08:00 05/16/20 08:00 05/16/20 08:00 05/16/20 08:00 05/16/20 08:00 General: Alert, In no apparent distress Respiratory: Clear to auscultation bilaterally, Normal air movement Cardiovascular: No edema, Regular rate/rhythm, Normal S1 S2 Gastrointestinal: Non-distended Musculoskeletal: No swelling Integumentary: No rashes Laboratory Data at Discharge: WBC 3.7 K/uL (4.3-10.9) L D 05/16/20 05:55 Hgb 13.4 g/dL (13.6-17.9) L 05/16/20 05:55 Hct 39.6 % (39.6-49.0) 05/16/20 05:55 Plt Count 128 K/uL (152-406) L 05/16/20 05:55 PT 12.6 SECONDS (9.5-12.5) H 05/15/20 18:30 INR 1.07 05/15/20 18:30 Sodium 141 mmol/L (136-145) 05/16/20 05:55 Potassium 4.0 mmol/L (3.5-5.1) 05/16/20 05:55 BUN 14 mg/dL (7-18) 05/16/20 05:55 Creatinine 1.02 mg/dL (0.55-1.3) 05/16/20 05:55 Glucose 172 mg/dL (74-106) H 05/16/20 05:55 Magnesium 2.1 mg/dL (1.8-2.4) D 05/15/20 18:30 Total Bilirubin 0.2 mg/dL (0.2-1.0) 05/15/20 18:30 AST 68 U/L (15-37) H 05/15/20 18:30 ALT 25 U/L (12-78) 05/15/20 18:30 Alkaline Phosphatase 88 U/L (45-117) 05/15/20 18:30 Home Medications: Ascorbate Calcium [Vitamin C] 500 mg PO TID #90 tablet 05/16/20 Cannabidiol (Cbd) [Epidiolex] 5 ml PO BID 05/16/20 Cholecalciferol (Vitamin D3) [Vitamin D 1000 Iu Tab] 2,000 unit PO DAILY #60 tab 05/16/20 Lacosamide [Vimpat] 2 tab PO BEDTIME 05/16/20 Lacosamide [Vimpat] 200 mg PO DAILY 05/16/20 Zinc Sulfate [Zinc Sulfate*] 220 mg PO DAILY #30 cap 05/16/20 predniSONE [Deltasone*] 10 mg PO BID #21 tab 05/16/20 New Medications: predniSONE [Deltasone*] 10 mg PO BID #21 tab Ascorbate Calcium [Vitamin C] 500 mg PO TID #90 tablet Cholecalciferol (Vitamin D3) [Vitamin D 1000 Iu Tab] 2,000 unit PO DAILY #60 tab Zinc Sulfate [Zinc Sulfate*] 220 mg PO DAILY #30 cap Patient Discharge Instructions: Please isolate for 2 weeks. Diet: Regular Activity: Ad myah Followup: Padilla Mckeon MD [ACTIVE - CAN ADMIT] - 1-2 Weeks Og Taylor MD [Primary Care Provider] - 1-2 Weeks Time spent managing pt's care (in minutes): 28
[2020-05-16] MEDS ORDERED: INFLUENZA VACCINE (for 3y+) 0.5 ML DOSE IMVAC ONE (12:00)
[2020-05-16 12:38] VITALS: BP 115/78; TEMP 98.2
[2020-05-16] MEDS ORDERED: LACOSAMIDE PO SCH (21:00)
== END 2020-05-16 13:01 | disposition home or self-care (01) | DRG 177 ==
LOC: ER 17:55 → ERHOLD 20:54
PROVIDERS: ADMIT Internal Medicine Sleep Medicine; ATTEND Internal Medicine
DX: U07.1 COVID-19 (principal); J12.89 Other viral pneumonia; J96.01 Acute respiratory failure with hypoxia; G40.909 Epilepsy, unspecified, not intractable, without status epilepticus; Z88.8 Allergy status to other drugs, medicaments and biological substances; Z79.52 Long term (current) use of systemic steroids; Z79.899 Other long term (current) drug therapy
CPT/HCPCS: 36415; 71045; 71275; 80048; 80076; 81003; 81015; 83605; 83735; 83880; 84145; 84484; 85025; 85027; 85379; 85610; 86140; 87040; 87070; 87081; 87086; 87088; 87804; 93005; 94760; 96365; 96367; 96375; 99285; J0456; J0696; J1650; J2920; J7030; J7050; Q9967; U0003

== ENCOUNTER 2020-10-10 21:42 | Emergency (ER) | payer OTHER ==
--- OUTSIDE RECORDS SUMMARY | 2020-10-10 21:44 | XMS REPORT | Continuity of Care Document ---
:1975 Author Organization [facility] t Address [address] [place] [address] Care Team Providers Name Role Phone Claudia WINSLOW, A Primary Care Physician Unavailable Devin Garcia MD, Mitchell Attending Clinician Jericho Barker Attending Clinician [phone] Claudia WINSLOW, John Attending Clinician Doctor Unassigned, Name Attending Clinician Unavailable Viry WINSLOW Attending Clinician Lab, Fam Pob I Attending Clinician Unavailable Romina MEASURER Attending Clinician Howie Mendez PT Attending Clinician Unavailable Johan OBRIENP Attending Clinician Payers Payer Name Policy Type Policy Effective Date Expiration Date Sour ce Number MEDICAREMEDICARE A [id number] 1996 PERLA Petit [id number] 1995-P 00:00:00 [facility] MEDICAIDMEDICAID OF [id number] 2019 PERLA Petit [id number] 2019 00:00:[facility] Problems This patient has no known problems. Allergies, Adverse Reactions, Alerts This patient has no known allergies or adverse reactions. Social History Social Habit Start Date Stop Date Quantity Comments Source Sex Assigned At [facility] Medications This patient has no known medications. Procedures Procedure Date / Time Performed Performing Clinician [facility] e EEG AWAKE AND DROWSY 2019-11-26 13:42:00 Coco Prado [facility] Plan of Care Planned Activity Planned Date Details Comments Source Future Scheduled 2020-02-[address] [facility] - Test 00:00:00 (#1) [code = [facility] INFLUENZA VACCINE (#1)] Future Scheduled 2011-02-[address] [facility] Test 00:00:00 (procedure) [code = [facility] [id number]] Future Scheduled 1997-02-[address] [facility] - Test 00:00:00 WELLNESS (YEAR 2 or [facility] FIRST YEAR if no IPPE) [code = MEDICARE ANNUAL WELLNESS (YEAR 2 or FIRST YEAR if no IPPE)] Encounters Start End Encounter Admission Attending Care Care Encounter Source Date/Time Date/Time Type Type Clinicians Facility Department ID 2020-09-03 2020-09-03 Office MIGUEL Hayes [id number] 13:03:36 13:33:36 Visit Hira Medrano AMBULATOR [id number] Y 0.2.7.2.686 [id number] 2020-07-16 2020-07-16 Outpatient Mj [facility] [id number] 00:00:00 00:00:00 Junior [id number] Jericho [id number] 2020-05-27 2020-05-27 Telemedici ClaudiaRUST 1.2.840.114 [id number] 14:38:06 18:06:46 ne Visit CliniCast A [facility] 350.1.13.10 [place] 4.2.7.2.686 Tim [id number] nal 044 Office Building One 2020-05-27 2020-05-27 Orders Doctor CRISTINA [id number] 00:00:00 00:00:00 Only Unassigned, ALANNAH [id number] [facility] 4.2.7.2.686 [id number] 2020-05-26 2020-05-26 Refill ClaudiaRUST [id number] 00:00:00 00:00:00 Wondiful A Health [id number] [place] 4.2.7.2.686 Professio [phone] [place] [address] Office [address] One 2020-05-24 2020-05-24 Telephone ClaudiaRUST 1.2.840.114 [id number] 00:00:00 00:00:00 Wondiful A [place] 350.1.13.10 [place] 4.2.7.2.686 Professio [phone] 2020-05-21 2020-05-21 Orders Doctor CRISTINA 1.2.840.114 [id number] 00:00:00 00:00:00 Only Unassigned, ALANNAH 350.1.13.10 [facility] 4.2.7.2.686 [id number] 2020-05-20 2020-05-20 Telemedici Arnol Baires [facility] 1.2.840.114 [id number] 11:20:35 11:35:35 ne Visit Health 350.1.13.10 Clear 4.2.7.2.686 Fung [phone] Medical [facility] Office Building 2020-05-20 2020-05-20 Telephone ClaudiaRUST 1.2.840.114 [id number] 00:00:00 00:00:00 Wondiful A Health 350.1.13.10 [place] 4.2.7.2.686 Professio [phone] [place] [address] Office Building One 2020-05-19 2020-05-19 [place] ClaudiaRUST 1.2.840.114 [id number] 00:00:00 00:00:00 Wondiful A Health 350.1.13.10 [place] 4.2.7.2.686 Professio [phone] [place] [address] Office Building One 2020-05-15 2020-05-15 Laboratory Lab, Adc [facility] 1.2.840.114 [id number] 13:51:55 14:11:55 Only Fam Pob I Health 350.1.13.10 [place] 4.2.7.2.686 Professio [phone] nal 044 Office Building One 2020-05-14 2020-05-14 Telemedici Romina [facility] 1.2.840.114 [id number] 15:04:18 15:19:18 ne Visit [facility] 350.1.13.10 [place] 4.2.7.2.686 Professio [phone] [facility] 044 Office Building One 2020-05-14 2020-05-14 Telephone Arnol Baires [facility] 1.2.840.114 [id number] 00:00:00 00:00:00 Health 350.1.13.10 Clear 4.2.7.2.686 Fung [phone] Medical 196 Office Building 2020-05-10 2020-05-10 Office Claudia [facility] 1.2.840.114 [id number] 15:03:56 16:37:58 Visit Wonreymundoful A Health 350.1.13.10 [place] 4.2.7.2.686 Professio [phone] [facility] 044 Office Building One 2020-05-04 2020-05-04 Ancillary Mendze [facility] [id number] 13:42:26 14:42:26 Visit Susie Denise Christopher 350.1.13.10 [place] 4.2.7.2.686 Professio [phone] [address] 2020-05-04 2020-05-04 Orders Doctor CRISTINA 1.2.840.114 [id number] 00:00:00 00:00:00 Only Unassigned, ALANNAH 350.1.13.10 [facility] 4.2.7.2.686 [id number] [id number] 2020-04-07 2020-04-07 Office MIGUEL Hayes [id number] 13:03:12 13:33:12 Visit Hira Medrano AMBULATOR 350.1.13.21 Y 0.2.7.2.686 [id number] 2019-03-21 2019-03-21 Office MIGUEL Hayes [id number] 14:17:49 14:47:49 Visit Hira Medrano AMBULATOR 350.1.13.21 Y 0.2.7.2.686 [id number] Results Test Description Test Time Test Comments Results Result [facility] e Comments EEG AWAKE AND 2019-11-[address] [facility] EEG DROWSY 7 exam:->[facility] REPORTDATE OF TEST: 15:51:00 staut syndrome, 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 Frank Glover MD, MSNeurophysiology/Epi lepsy attending. Awake & 2019-11-10 Interface, External [facility] 15:51[facility]00 [facility] [place] EEG REPORTDATE OF Center TEST: [id number] OF REPORT: [id number]: [id number]: [id number] time: 1312Stop time: 1342CPT Code: 49306SML-85: G40.813 HISTORY: A 44yr old M with [...]
[2020-10-10 22:41] LABS: Absolute Lymphocytes (CBC) 1.9 K/uL (0.7-4.9); Basophils % 0.5 % (0-1.3); Hematocrit 41.2 % (39.6-49.0); Lymphocytes % 26.5 % (15.3-44.8); MPV 8.5 fL (7.6-11.3); RBC Red Blood Cell Count 4.65 M/uL (4.33-5.43)
[2020-10-10 23:16] LABS: ALT/SGPT 22 U/L (12-78); AST/SGOT 20 U/L (15-37); Albumin 3.8 g/dL (3.4-5.0); Alkaline Phosphatase 81 U/L (45-117); BUN Blood Urea Nitrogen 18 mg/dL (7-18); Bicarbonate 16 mmol/L (21-32); Bilirubin Direct < 0.1 mg/dL (0-0.2); Bilirubin Total 0.2 mg/dL (0.2-1.0); Glucose Level 83 mg/dL (74-106); Potassium 4.3 mmol/L (3.5-5.1); Protein, Total 7.4 g/dL (6.4-8.2); Sodium Level 140 mmol/L (136-145)
[2020-10-10 23:20] LABS: Protime INR 0.87
--- NOTE | 2020-10-10 23:48 | ER ---
Nurse's Notes [facility] Name: Dylan Manzanares Jr Age: 45 yrs Sex: Male : 1975 Arrival Date: 10/10/2020 Time: 21:49 Bed 3 Private MD: Diagnosis: Epilepsy and recurrent seizures Presentation: 10/10 21:49 Chief complaint: EMS states: patient had seizure lasted 15 minutes, tonic-clonic, rv mother gave diazepam via nasal x 2 doses. BGL is [employer]. Coronavirus screen: At this time, unable to obtain information related to travel outside the [place] Ebola Screen: No symptoms or risks identified at this time. Initial Sepsis Screen: Does the patient meet any 2 criteria? No. Patient's initial sepsis screen is negative. Does the patient have a suspected source of infection? No. Patient's initial sepsis screen is negative. Risk Assessment: Do you want to hurt yourself or someone else? Patient reports no desire to harm self or others. Onset of symptoms was October 10, 2020 at 21:15. 21:49 Method Of Arrival: EMS: [facility] rv 21:49 Acuity: CAITIE 3 rv Triage Assessment: 21:55 General: Appears comfortable, Behavior is calm, cooperative. Pain: Denies pain. Neuro: rv Level of Consciousness is awake, alert. Cardiovascular: Patient's skin is warm and dry. Rhythm is sinus rhythm. Respiratory: Airway is patent Respiratory effort is even, unlabored. Derm: Skin is intact. Historical: - Allergies: 21:55 No Known Allergies; rv - Home Meds: 21:55 Vimpat oral oral [Active]; rv - PMHx: 21:55 autism retardation; Cerebral Palsy; microcephalic; Seizures; rv - PSHx: 21:55 None; rv - Immunization history:: Adult Immunizations up to date. - Social history:: Smoking status: Patient denies any tobacco usage or history of. Screenin:56 Abuse screen: Denies threats or abuse. Denies injuries from another. Nutritional rv screening: No deficits noted. Tuberculosis screening: No symptoms or risk factors identified. Fall Risk None identified. Assessment: 22:00 General: Appears in no apparent distress. Behavior is cooperative. Pain: Denies pain. ea Neuro: Level of Consciousness is awake, alert, obeys commands, Oriented to person, place. Respiratory: Airway is patent Respiratory effort is even, unlabored, Respiratory pattern is regular, symmetrical. Derm: Skin is pink, warm \T\ dry. 23:05 Reassessment: [id number]. ea 23:07 Reassessment: Patient and/or family updated on plan of care and expected duration. Pain ea level reassessed. Patient is alert, oriented x 3, equal unlabored respirations, skin warm/dry/pink. Vital Signs: 21:49 BP 112 / 73; Pulse 88; Resp 24; Temp 97.9(A); Pulse Ox 91% on R/A; Weight 83.46 kg; rv 23:45 BP 114 / 74; Pulse 78; Resp 18; Temp 98; Pulse Ox 97% ; ea [place]en Coma Score: 21:55 Eye Response: spontaneous(4). Verbal Response: oriented(5). Motor Response: obeys rv commands(6). Total: 15. ED Course: 21:49 Patient arrived in ED. rv 21:53 Triage completed. rv 21:55 Arm band placed on right wrist. Patient placed in the treatment room, on a stretcher, rv Patient notified of wait time. 21:56 Seizure precautions initiated. rv 21:56 Maintain EMS IV. Dressing intact. Good blood return noted. Site clean \T\ dry. Gauge \T\ rv site: G20 LAC. 22:20 Amarjit Vazquez, RN is Primary Nurse. rv 23:01 Ervin Quintero MD is Attending Physician. [facility] 23:47 Paolo Toussaint MD is Referral Physician. [facility] 10/11 00:04 No provider procedures requiring assistance completed. IV discontinued, intact, ea bleeding controlled, No redness/swelling at site. Pressure dressing applied. Administered Medications: No medications were administered Outcome: [id number] 23:48 Discharge ordered by . [facility] 10/11 00:04 Discharged to home via wheelchair, with family. ea Condition: stable Discharge instructions given to patient, Instructed on discharge instructions, follow up and referral plans. Demonstrated understanding of instructions, follow-up care. 00:04 Patient left the ED. ea Signatures: Kanchan Mehta RN RN ea Vicente, Ronaldo, RN RN rv Holmes, Maurice, MD MD [facility]
--- NOTE | 2020-10-10 23:48 | EDPHYS ---
Physician Documentation [facility] Name: Dylan Manzanares Jr Age: 45 yrs Sex: Male : 1975 Arrival Date: 10/10/2020 Time: 21:49 Bed 3 Private MD: SILVERIO Physician Ervin Quintero HPI: 10/10 23:37 This 45 yrs old Male presents to ER via EMS with complaints of Seizure. mh7 23:37 The patient presents after having a single isolated seizure, that lasted 15 minute(s). mh7 Character of seizure(s): Loss of consciousness: the patient experienced loss of consciousness, brief, Motor activity: generalized, shaking all over, Incontinence: none, Apnea: the patient did not experience apnea, Circulation: the patient did not experience evidence of pulse disturbance, Eye movements: are unknown. Seizure onset: today. Context: the seizure(s) was witnessed, by family, mother, occurred at home, occurred while the patient was at rest, Contributing factors: Frequent seizures due to medical condition. Seizure Hx: Original onset: longstanding. Associated injury: The patient did not suffer any apparent associated injury. EMS care: none. Current symptoms: Currently, the patient is not experiencing any symptoms, the patient feels back to baseline. The patient has experienced similar episodes in the past, chronically. Historical: - Allergies: 21:55 No Known Allergies; rv - Home Meds: 21:55 Vimpat oral oral [Active]; rv - PMHx: 21:55 autism retardation; Cerebral Palsy; microcephalic; Seizures; rv - PSHx: 21:55 None; rv - Immunization history:: Adult Immunizations up to date. - Social history:: Smoking status: Patient denies any tobacco usage or history of. ROS: 23:40 Constitutional: Negative for fever, chills, and weight loss, Respiratory: Negative for mh7 shortness of breath, cough, wheezing, and pleuritic chest pain, Abdomen/GI: Negative for abdominal pain, nausea, vomiting, diarrhea, and constipation, MS/Extremity: Negative for injury and deformity, Allergy/Immunology: Negative for hives, rash, and allergies, Endocrine: Negative for neck swelling, polydipsia, polyuria, polyphagia, and marked weight changes, Hematologic/Lymphatic: Negative for swollen nodes, abnormal bleeding, and unusual bruising. Exam: 23:40 Eyes: Pupils equal round and reactive to light, extra-ocular motions intact. Lids and mh7 lashes normal. Conjunctiva and sclera are non-icteric and not injected. Cornea within normal limits. Periorbital areas with no swelling, redness, or edema. 23:40 Neck: Trachea midline, no thyromegaly or masses palpated, and no cervical lymphadenopathy. Supple, full range of motion without nuchal rigidity, or vertebral point tenderness. No Meningismus. Chest/axilla: Normal chest wall appearance and motion. Nontender with no deformity. No lesions are appreciated. Cardiovascular: Regular rate and rhythm with a normal S1 and S2. No gallops, murmurs, or rubs. Normal PMI, no JVD. No pulse deficits. Respiratory: Lungs have equal breath sounds bilaterally, clear to auscultation and percussion. No rales, rhonchi or wheezes noted. No increased work of breathing, no retractions or nasal flaring. Abdomen/GI: Soft, non-tender, with normal bowel sounds. No distension or tympany. No guarding or rebound. No evidence of tenderness throughout. Back: No spinal tenderness. No costovertebral tenderness. Full range of motion. Skin: Warm, dry with normal turgor. Normal color with no rashes, no lesions, and no evidence of cellulitis. MS/ Extremity: Pulses equal, no cyanosis. Neurovascular intact. Full, normal range of motion. 23:40 Constitutional: The patient appears in no acute distress, alert, awake, Autism, baseline non verbal 23:40 Head/face: micrcephaly. 23:40 ENT: Nose: is normal, Mouth: Tongue: contusion, bite, no active bleeding, Posterior pharynx: is normal, airway is patent, Dental exam: normal. 23:40 Neuro: Orientation: unable to test, the patient is developmentally delayed, Mentation: unable to test, the patient is developmentally delayed, Memory: unable to test, the patient is developmentally delayed, Cranial nerves: unable to test, the patient is developmentally delayed, Cerebellar function: unable to test, the patient is developmentally delayed, Motor: is normal, Sensation: is normal, Gait: not tested. seizure activity, is not displayed by the patient, Abnormal movements: there are no abnormal movements. Vital Signs: 21:49 BP 112 / 73; Pulse 88; Resp 24; Temp 97.9(A); Pulse Ox 91% on R/A; Weight 83.46 kg; rv 23:45 BP 114 / 74; Pulse 78; Resp 18; Temp 98; Pulse Ox 97% ; ea [place] Coma Score: 21:55 Eye Response: spontaneous(4). Verbal Response: oriented(5). Motor Response: obeys rv commands(6). Total: 15. MDM: 23:40 Differential diagnosis: seizure, medication noncompliance. Data reviewed: vital signs, [facility] nurses notes, EMS record, old medical records, lab test result(s), CBC, electrolytes. Data interpreted: Pulse oximetry: on room air is 97 %. Interpretation: normal. Counseling: I had a detailed discussion with the patient and/or guardian regarding: the historical points, exam findings, and any diagnostic results supporting the discharge/admit diagnosis, lab results, the need for outpatient follow up, to return to the emergency department if symptoms worsen or persist or if there are any questions or concerns that arise at home. Response to treatment: the patient's symptoms have resolved after treatment, the patient's blood pressure is in an acceptable range, mental status has returned to baseline, the patient no longer shows bradycardia, the patient is not short of breath, the patient is not tachycardic, the patient's pain is gone, the patient's temperature has normalized. Refusal of service: The patient/guardian displays adequate decision making capability and despite a detailed discussion of alternatives, benefits, risks, and consequences refuses: CT Scan. 23:48 Patient medically screened. [facility] 10/10 21:51 Order name: Acetaminophen 10/10 21:51 Order name: Basic Metabolic Panel 10/10 21:51 Order name: CBC with Diff 10/10 21:51 Order name: ETOH Level; Complete Time: 23:16 10/10 21:51 Order name: Hepatic Function; Complete Time: 23:32 10/10 21:51 Order name: PT-INR; Complete Time: 23:32 10/10 21:51 Order name: Ptt, Activated; Complete Time: 23:32 10/10 21:51 Order name: Salicylate; Complete Time: 23:16 10/10 21:51 Order name: EKG; Complete Time: 21:52 10/10 21:52 Order name: Acetaminophen Level; Complete Time: 23:32 [facility] 10/10 21:52 Order name: Basic Metabolic Panel; Complete Time: 23:32 [facility] 10/10 21:52 Order name: CBC with Automated Diff; Complete Time: 23:16 [facility] 10/10 21:51 Order name: EKG - Nurse/Tech; Complete Time: 22:20 10/10 21:51 Order name: IV Saline Lock; Complete Time: 21:56 10/10 21:51 Order name: Labs collected and sent; Complete Time: 22:20 Administered Medications: No medications were administered Disposition: 10/10/20 23:48 Discharged to Home. Impression: Epilepsy and recurrent seizures. - Condition is Stable. - Discharge Instructions: Seizure, Adult, Kyru-cf-Jdob. - Medication Reconciliation Form, Thank You Letter, Antibiotic Education, Prescription Opioid Use form. - Follow up: Private Physician; When: 1 - 2 days; Reason: Worsening of condition, Recheck today's complaints, Continuance of care, Re-evaluation by your physician. Follow up: Paolo Toussaint MD; When: 1 - 2 days; Reason: Worsening of condition, Recheck today's complaints, Continuance of care, Re-evaluation by your physician. - Problem is an acute exacerbation. - Symptoms have improved. Signatures: Dispatcher [employer] [facility] Kanchan Mehta, RN Amarjit Chakraborty ea, RN RN rv Holmes, Maurice, MD MD mh7 Corrections: (The following items were deleted from the chart) 23:40 23:37 The patient presents after having a single isolated seizure, that lasted mh7 mh7 23:41 23:02 Head Brain Wo Cont+CT.RAD.BRZ ordered. [facility] 10/11 00:04 05 23:48 10/10/2020 23:48 Discharged to Home. Impression: Epilepsy and recurrent ea seizures. Condition is Stable. Forms are Medication Reconciliation Form, Thank You Letter, Antibiotic Education, Prescription Opioid Use. Follow up: Private Physician; When: 1 - 2 days; Reason: Worsening of condition, Recheck today's complaints, Continuance of care, Re-evaluation by your physician. Follow up: Paolo Toussaint; When: 1 - 2 days; Reason: Worsening of condition, Recheck today's complaints, Continuance of care, Re-evaluation by your physician. Problem is an acute exacerbation. Symptoms have improved. mh7
[2020-10-11 00:14] VITALS: BP 112/73; TEMP 97.9; O2SAT 91
--- NOTE | 2020-10-11 09:19 | EKG ---
Test Date: 2020-10-10 Test Time: 22:01:35 Eligibility Examiner: ALESSIA MEASUREMENT RESULTS: Intervals: Rate: 76 [place]: 190 QRSD: 74 QT: 360 QTc: 405 [place]: P: 23 [place]: 190 QRS: 101 T: 34 INTERPRETIVE STATEMENTS: Normal sinus rhythm Rightward axis Borderline ECG Compared to ECG 05/15/2020 18:38:41 Right-axis deviation now present Sinus tachycardia no longer present Myocardial infarct finding no longer present Electronically Signed On 10-11-20 09:17:10 CDT by Christian Christie
== END 2020-10-11 00:04 | disposition home or self-care (01) ==
LOC: ER 21:42
DX: G40.802 Other epilepsy, not intractable, without status epilepticus (principal); G80.9 Cerebral palsy, unspecified; F84.0 Autistic disorder
CPT/HCPCS: 36415; 80048; 80076; 80320; 80329; 85025; 85610; 85730; 93005; 99284

== ENCOUNTER 2021-09-02 00:57 | Emergency (ER) | payer OTHER ==
--- OUTSIDE RECORDS SUMMARY | 2021-09-02 01:04 | XMS REPORT | Continuity of Care Document ---
:1975 Author Organization [facility] t Address [address] [place] [address] Care Team Providers Name Role Phone Noah WINSLOW, John Primary Care Physician Unavailable DUSTINON_Luiza Attending Clinician Unavailable Jericho Barker Attending Clinician [phone] MITCHELL JACOB Attending Clinician Unavailable Mitchell Jacob MD Attending Clinician CORDELIA Attending Clinician Unavailable John ZAMORA Attending Clinician Unavailable John Zamora MD Attending Clinician Doctor Unassigned, Name Attending Clinician Unavailable VIRY Attending Clinician Unavailable Viry WINSLOW Attending Clinician Lab, Fam Pob I Attending Clinician Unavailable Channing RODGERS Attending Clinician CHANNING Attending Clinician Unavailable ANENE Attending Clinician Unavailable Romina GEOPHYSICS SCIENTIST Attending Clinician Howie Mendez PT Attending Clinician Unavailable Provider, Urgent Care Attending Clinician Unavailable John Tobias Attending Clinician John GIBBS Attending Clinician Unavailable SOLOMON Attending Clinician Unavailable SONIA_Luiza Admitting Clinician Unavailable Viry WINSLOW Admitting Clinician Payers Payer Name Policy Type Policy Number Effective Date Expiration Date [facility] [place]IC[place] PART A [id number] 1996 \T\ B 00:00:00 MEDICAID [facility] [id number] 2018 00:00:00 [place]: [id number] 1996 [place] [employer] 00:00:00 [place] [id number] [place] MEDICARE PART A [id number] 1996 \T\ B - MEDICARE 00:00:00 CHOICE/CHOICE [id number] PLUS/OPTIONS [facility]-MEDICAID - [id number] MEDICAID MEDICARE A B [id number] 1996 00:00:00 MEDICAID OF [place] [id number] Problems Condition Condition Condition Status Onset Resolution Last Treating Co mments Source Name Details Category Date Date Treatment Clinician Date COVID-19 COVID-19 Disease Active 2019-06 Unive rs virus virus 2-26 ity of infection infection 00:00: [facility] COVID-19 COVID-19 Disease Active 2019-06 Overview: Torrey ylor 2-05 [facility] 00:00: g of this note Medicin might be e different from the original. 2 days in ER, 100% O2 for 2 weeks, not intubated . He presented with status epileptic us with tonic clonic seizures Low back Low back Disease Active 2019-06 Unive rs pain, pain, 1-14 it[place] of [place]spec[place] back 00 Medical pain pain Branch laterality laterality , , unspecifie unspecifie d d chronicity chronicity , , unspecifie unspecifie d whether d whether sciatica sciatica present present Elevated Elevated Disease Active Unive rs lipase lipase 09-17 ity of 00:00: [place] 00 Medical Branch Seizure Seizure Disease Active Univers disorder disorder 09-16 ity of 00:00: [place] [facility] Dyspepsia Dyspepsia Disease Active Uni vers 09-16 ity of 00:00: [place] [facility] Personal Personal Disease Active Unive rs history of history of -08 it y of other other 00:00: [place] mental and mental and 00 Me dical behavioral behavioral Br anch disorders disorders Intellectu Intellectu Disease Active 2019-0 U nivers al al 09-16 [place] [facility] Compulsive Compulsive Disease Active 2019-0 U nivers self-bitin self-bitin 09-16 it y of g behavior g behavior [place] [facility] [place] Blind Blind Disease Active [facility] of Medicin e Autism Autism Disease Active [facility] Medicin e Microcepha Microcepha Disease Active [facility] ly ly [facility] Medicin e Cerebral Cerebral Disease Active [facility] r palsy palsy [facility] Medicin e Gout Gout Disease Active [facility] Medicin e Microcepha Microcepha Disease Active [facility] ly ly [facility] of Medicin e Moderate Moderate Disease Active [place] [facility] al al of disability disability Me dicin e Psychotic Psychotic Disease Active [place] sherita disorder disorder Colleg e (HCCode) (HCCode) of Medicin e Self-injur Self-injur Disease Active [facility] ious ious [place] behavior behavior of Medicin e [place] Matt-Gas Disease Active [facility] taut taut [place] syndrome, syndrome, of intractabl intractabl Me dicin e, with e, with e status status epilepticu epilepticu s ([facility] s ([facility] Legal Legal Disease Active Univers blindness blindness ity of [facility] Allergies, Adverse Reactions, Alerts Allergy Allergy Status Severity Reaction(s) Onset Inactive Treating Comm ents Source Name Type Date Date Clinician ANTIHIST Drug Active High Unknown-Cmnt 2007-06 Un pietro AMINES - Class 1-18 ity of ALKYLAMI 00:00: [place] 00 Medical Branch Antihist Propensi Active Unknown - 2007-06 Reacts Uni vers amines - ty to See comments 1-18 with it y of [place] adverse 00:00[place] reaction 00 ns. Medical s to Branch drug DIPHENHY DRUG Active Unknown-Cmnt Un pietro DRAMINE INGREDI 7- ity of HCL 00:00: [place] 00 Medical Branch Diphenhy Propensi Active Unknown - Uni vers dramine ty to See comments 7- ity of Hcl adverse 00:00: [place] reaction 00 Medical s Branch NO KNOWN Drug Active Univers ALLERGIE Class ity of S [facility] Social History Social Habit Start Date Stop Date Quantity Comments Source History SDOH [facility] ge Alcohol Comment of Medici ne Exposure to Not sure [facility] e SARS-CoV-2 (event) of Med icine History [facility] ge Alcohol Std Drinks of Med icine History [facility] Alcohol Binge of Medicine Alcohol intake 2021-07-01 2021-07-01 Lifetime [facility] Col lege 00:00:00 00:00:00 non-drinker of Medicine (finding) Tobacco use and 2018-10-18 2018-10-18 Smokeless tobacco [facility] [employer] exposure 00:00:00 00:00:00 non-user of Medicine History [facility] 2018-10-18 2018-10-18 1 [facility] Alcohol Frequency 00:00:00 00:00:00 of Medi cine Sex [birth year] [facility] [address] [place] [facility] - 00:00:00 00:00:00 [facility] Smoking Status Start Date Stop Date Source Never smoked tobacco [facility] ege of Medicine Medications Ordered Filled Start Stop Current Ordering Indication Dosage Frequency Signature Comments Components Source Medication Medication Date Date Medication? Clinician (SIG) Name Name CAMILABHAVANI Yes 500mg Take 500 [place] sherita 100 MG/ML 1-21 mg by College SOLN 00:00: mouth two of 00 times Medicin daily. e Lacosamide 2020-06 Yes 200mg Take 200 [facility] (VIMPAT) 2-27 mg by [place] 200 MG TABS 00:00: mouth of 00 daily. Medicin Take 1 e tablet (200 mg) in the morning and 2 tablets (400 mg) at night diazePAM, Yes 15mg 15 mg by [facility] or 15 MG Dose, 7-23 Nasal [facility] (VALTOCO 15 00:00: route as of MG DOSE) 2 00 needed for Med icin x 7.5 Other e MG/0.1ML (seizures LQPK lasting more than 3 minutes or for three or more seizure clusters). Lacosamide Yes 400mg Take 400 [facility] (VIMPAT) 7-23 mg by College 200 MG TABS 00:00: mouth of 00 every 12 Medicin hours. e Take 1 tab PO qAM and 2 tabs PO qPM EPIDIOLEX Yes 500mg Take 500 [place] sherita 100 MG/ML 7-23 mg by College SOLN 00:00: mouth two of 00 times Medicin daily. e diazePAM, Yes 15mg 15 mg by [place] or 15 MG Dose, 12-31 Nasal [facility] ([place] 15 00:00: route as of MG DOSE) 2 00 needed for Med icin x 7.5 Other e MG/0.1ML (seizures LQPK lasting more than 3 minutes or for three or more seizure clusters). EPIDIOLEX 2021- No 500mg Take 500 [facility] 100 MG/ML 12-31- mg by [place] SOLN 00:00: 00:00 mouth two of 00 :00 times Medicin daily. e diazePAM, No 15mg 15 mg by [place] sherita 15 MG Dose, 12-31 [facility] e ([place] 15 00:00: 00:00 route as o f MG DOSE) 2 00 :00 needed for Med icin x 7.5 Other e MG/0.1ML (seizures LQPK lasting more than 3 minutes or for three or more seizure clusters). EPIDIOLEX 2020- No 500mg Take 500 [facility] 100 MG/ML 11-16- mg by [facility] 00:00: 00:00 mouth two of 00 :00 times Medicin daily. e Lacosamide Yes Take 1 tab [facility] (VIMPAT) 09-03 PO qAM and Colle ge 200 MG TABS 00:00: 2 tabs PO o f 00 qPM Medicin e Lacosamide 2020- No Take 1 tab [facility] (VIMPAT) 09-03- PO qAM and Mary Jane ege 200 MG TABS 00:00: 00:00 2 tabs PO of 00 :00 qPM Medicin e EPIDIOLEX Yes 500mg Take 500 [place] sherita 100 MG/ML 2-04 mg by [place] SOL 00:00: mouth two of 00 times Medicin daily. e MELOXICAM 2019-06 Yes [id number] TAKE 1 U nivers 15 mg 2-16 TABLET BY ity of tablet 00:00: MOUTH ONCE [place] 00 DAILY Medical NEEDED FOR Branch PAIN OR INFLAMMATI ON. TAKE WITH FOOD. DON'T TAKE WHILE ON THE STEROID PACK. MELOXICAM 2019-06 Yes [id number] TAKE 1 U nivers 15 mg 2-16 TABLET BY ity of tablet 00:00: MOUTH ONCE [place] 00 DAILY Medical NEEDED FOR Branch PAIN OR INFLAMMATI ON. TAKE WITH FOOD. DON'T TAKE WHILE ON THE STEROID PACK. MELOXICAM 2019-06 Yes [id number] TAKE 1 U nivers 15 mg 2-16 TABLET BY ity of tablet 00:00: MOUTH ONCE [place] 00 DAILY Medical NEEDED FOR Branch PAIN OR INFLAMMATI ON. TAKE WITH FOOD. DON'T TAKE WHILE ON THE STEROID PACK. promethazin 2019-06- No [id number] 5mL Take 5 mL Univers e-dextromet 2-04 12-15 by mouth 4 i ty of horphan 00:00: 05:59 (four) [place] 6.25-15 00 :00 times Medical mg/5 mL daily as Branch syrup needed for Cough for up to 10 days. promethazin 2019-06- No [id number] 5mL Take 5 mL Univers e-dextromet 2-04 12-15 by mouth 4 i ty of horphan 00:00: 05:59 (four) [place] 6.25-15 00 :00 times Medical mg/5 mL daily as Branch syrup needed for Cough for up to 10 days. promethazin 2019-06- No [id number] 5mL Take 5 mL Univers e-dextromet 2-04 12-15 by mouth 4 i ty of horphan 00:00: 05:59 (four) [place] 6.25-15 00 :00 times Medical mg/5 mL daily as Branch syrup needed for Cough for up to 10 days. promethazin 2019-06- No [id number] 5mL Take 5 mL Univers e-dextromet 2-04 12-15 by mouth 4 i ty of horphan 00:00: 05:59 (four) [place] 6.25-15 00 :00 times Medical mg/5 mL daily as Branch syrup needed for Cough for up to 10 days. promethazin 2019-06- No [id number] 5mL Take 5 mL Univers e-dextromet 2-04 12-15 by mouth 4 i ty of horphan 00:00: 05:59 (four) [place] 6.25-15 00 :00 times Medical mg/5 mL daily as Branch syrup needed for Cough for up to 10 days. promethazin 2019-06- No [id number] 5mL Take 5 mL Univers e-dextromet 07-15 12-15 by mouth 4 i ty of horphan 00:00: 05:59 (four) [place] 6.25-15 00 :00 times Medical mg/5 mL daily as Branch syrup needed for Cough for up to 10 days. Lacosamide 2019- Yes Take by Uni vers (VIMPAT) 1-30 mouth. ity of 200 mg 22:03: Takes 1 [place] tablet 24 tablet in Medical AM and 2 Branch tablets PM Lacosamide 2019- Yes Take by Uni vers (VIMPAT) 1-30 mouth. ity of 200 mg 22:03: Takes 1 [place] tablet 24 tablet in Medical AM and 2 Branch tablets PM Lacosamide 2019- Yes Take by Uni vers (VIMPAT) 1-30 mouth. ity of 200 mg 22:03: Takes 1 [place] tablet 24 tablet in Medical AM and 2 Branch tablets PM Lacosamide 2019- Yes Take by Uni vers (VIMPAT) 1-30 mouth. ity of 200 mg 22:03: Takes 1 [place] tablet 24 tablet in Medical AM and 2 Branch tablets PM Lacosamide 2020- Yes Take by Uni vers (VIMPAT) 1-30 mouth. ity of 200 mg 22:03: Takes 1 [place] tablet 24 tablet in Medical AM and 2 Branch tablets PM Lacosamide 2020- Yes Take by Uni vers (VIMPAT) 1-30 mouth. ity of 200 mg 22:03: Takes 1 [place] tablet 24 tablet in Medical AM and 2 Branch tablets PM Lacosamide 2020-1 Yes Take by Uni vers (VIMPAT) 1-30 mouth. ity of 200 mg 22:03: Takes 1 [place] tablet 24 tablet in Medical AM and 2 Branch tablets PM Lacosamide 2020-1 Yes Take by Uni vers (VIMPAT) 1-30 mouth. ity of 200 mg 22:03: Takes 1 [place] tablet 24 tablet in Medical AM and 2 Branch tablets PM Lacosamide 2020-1 Yes Take by Uni vers (VIMPAT) 1-30 mouth. ity of 200 mg 22:03: Takes 1 [place] tablet 24 tablet in Medical AM and 2 Branch tablets PM Lacosamide 2020-1 Yes Take by Uni vers (VIMPAT) 1-30 mouth. ity of 200 mg 22:03: Takes 1 [place] tablet 24 tablet in Medical AM and 2 Branch tablets PM Lacosamide 2020-1 Yes Take by Uni vers (VIMPAT) 1-30 mouth. ity of 200 mg 22:03: Takes 1 [place] tablet 24 tablet in Medical AM and 2 Branch tablets PM Lacosamide 2020-1 Yes Take by Uni vers (VIMPAT) -30 mouth. ity of 200 mg 22:03: Takes 1 [place] tablet 24 tablet in Medical AM and 2 Branch tablets PM Lacosamide 2020-1 Yes Take by Uni vers (VIMPAT) -30 mouth. ity of 200 mg 22:03: Takes 1 [place] tablet 24 tablet in Medical AM and 2 Branch tablets PM Lacosamide 2020-1 Yes Take by Uni vers (VIMPAT) -30 mouth. ity of 200 mg 22:03: Takes 1 [place] tablet 24 tablet in Medical AM and 2 Branch tablets PM Lacosamide 2020-1 Yes Take by Uni vers (VIMPAT) -30 mouth. ity of 200 mg 22:03: Takes 1 [place] tablet 24 tablet in Medical AM and 2 Branch tablets PM EPIDIOLEX 2020-1 Yes Take by Univ ers 100 mg/mL 1-24 mouth. 500 ity of oral 00:00: ml in AM [place] solution 00 and 500 ml Medic al PM Branch EPIDIOLEX 2020-1 Yes Take by Univ ers 100 mg/mL 1-24 mouth. 500 ity of oral 00:00: ml in AM [place] solution 00 and 500 ml Medic al PM Branch EPIDIOLEX 2020-1 Yes Take by Univ ers 100 mg/mL 1-24 mouth. 500 ity of oral 00:00: ml in AM [place] solution 00 and 500 ml Medic al PM Branch EPIDIOLEX 2020-1 Yes Take by Univ ers 100 mg/mL 1-24 mouth. 500 ity of oral 00:00: ml in AM [place] solution 00 and 500 ml Medic al PM Branch EPIDIOLEX 2020-1 Yes Take by Univ ers 100 mg/mL 1-24 mouth. 500 ity of oral 00:00: ml in AM [place] solution 00 and 500 ml Medic al PM Branch EPIDIOLEX 2020-1 Yes Take by Univ ers 100 mg/mL 1-24 mouth. 500 ity of oral 00:00: ml in AM [place] solution 00 and 500 ml Medic al PM Branch EPIDIOLEX 2020- Yes Take by Univ ers 100 mg/mL -24 mouth. 500 ity of oral 00:00: ml in AM [place] solution 00 and 500 ml Medic al PM Branch EPIDIOLEX 2020- Yes Take by Univ ers 100 mg/mL 24 mouth. 500 ity of oral 00:00: ml in AM [place] solution 00 and 500 ml Medic al PM Branch EPIDIOLEX 2020- Yes Take by Univ ers 100 mg/mL 24 mouth. 500 ity of oral 00:00: ml in AM [place] solution 00 and 500 ml Medic al PM Branch EPIDIOLEX 2020- Yes Take by Univ ers 100 mg/mL 24 mouth. 500 ity of oral 00:00: ml in AM [place] solution 00 and 500 ml Medic al PM Branch EPIDIOLEX 2020- Yes Take by Univ ers 100 mg/mL 24 mouth. 500 ity of oral 00:00: ml in AM [place] solution 00 and 500 ml Medic al PM Branch EPIDIOLEX 2020- Yes Take by Univ ers 100 mg/mL 24 mouth. 500 ity of oral 00:00: ml in AM [place] solution 00 and 500 ml Medic al PM Branch EPIDIOLEX 2019- Yes Take by Univ ers 100 mg/mL 24 mouth. 500 ity of oral 00:00: ml in AM [place] solution 00 and 500 ml Medic al PM Branch EPIDIOLEX 2019- Yes Take by Univ ers 100 mg/mL 24 mouth. 500 ity of oral 00:00: ml in AM [place] solution 00 and 500 ml Medic al PM Branch EPIDIOLEX 2019- Yes Take by Univ ers 100 mg/mL 24 mouth. 500 ity of oral 00:00: ml in AM [place] solution 00 and 500 ml Medic al PM Branch diazePAM 2019-06 2020- [facility] 06-28 each ity of 15 mg/2 21:29: 00:00 nostril. [place] spray 03 :00 Medical (7.5/0.1mL Branch x 2) [place] Methylpredn 2019-06 2020- No 4mg Take 4 mg Univers isolone 4 [id number] through ity of mg tablet 21:29: 00:00 [place]eral [place] 03 :00 tube every Medical 4 (four) Branch hours. diazePAM 2019- Yes Use in Univer s (VALTOCO) 1-17 each ity of 15 mg/2 15:20: nostril. [place] spray 29 Medical (7.5/0.1mL Branch x 2) [place] Methylpredn 2019-06 Yes 4mg Take 4 mg U nivers isolone 4 1-17 through ity of mg tablet 15:20: enteral [place] 29 tube every Medical 4 (four) Branch hours. meloxicam 2019-06 Yes PLEASE SEE Un pietro 15 mg 1-15 ATTACHED ity of tablet 00:00: FOR DETAILED Medical DIRECTIONS Branch meloxicam 2019- Yes PLEASE SEE Un pietro 15 mg 1-15 ATTACHED ity of tablet 00:00: FOR DETAILED Medical DIRECTIONS Branch meloxicam 2019- Yes PLEASE SEE Un pietro 15 mg 1-15 ATTACHED ity of tablet 00:00: FOR DETAILED Medical DIRECTIONS Branch meloxicam 2019- Yes PLEASE SEE Un pietro 15 mg 1-15 ATTACHED ity of tablet 00:00: FOR DETAILED Medical DIRECTIONS Branch meloxicam 2019- Yes PLEASE SEE Un pietro 15 mg 1-15 ATTACHED ity of tablet 00:00: FOR DETAILED Medical DIRECTIONS Branch meloxicam 2019- Yes PLEASE SEE Un pietro 15 mg 1-15 ATTACHED ity of tablet 00:00: FOR DETAILED Medical DIRECTIONS Branch meloxicam 2019- Yes PLEASE SEE Un pietro 15 mg 1-15 ATTACHED ity of tablet 00:00: FOR DETAILED Medical DIRECTIONS Branch meloxicam 2019- Yes PLEASE SEE Un pietro 15 mg 1-15 ATTACHED ity of tablet 00:00: FOR DETAILED Medical DIRECTIONS Branch meloxicam 2019- Yes PLEASE SEE Un pietro 15 mg 1-15 ATTACHED ity of tablet 00:00: FOR DETAILED Medical DIRECTIONS Branch meloxicam 2019- Yes PLEASE SEE Un pietro 15 mg 1-15 ATTACHED ity of tablet 00:00: FOR DETAILED Medical DIRECTIONS Branch meloxicam 2019- Yes PLEASE SEE Un pietro 15 mg 1-15 ATTACHED ity of tablet 00:00: FOR DETAILED Medical DIRECTIONS Branch meloxicam 2020- 2020- No PLEASE SEE U nivers 15 mg 1-15 12-16 ATTACHED ity of tablet 00:00: 00:00 FOR [place] 00 :00 DETAILED Medical DIRECTIONS Branch diazePAM 2019-06 Yes Use in Univer s (VALTOCO) 1-12 each ity of 15 mg/2 21:50: nostril. [place] spray 05 Medical (7.5/0.1mL Branch x 2) [place] diazePAM 2019-06 Yes Use in Univer s (VALTOCO) -12 each ity of 15 mg/2 21:50: nostril. [place] spray 05 Medical (7.5/0.1mL Branch x 2) [place] diazePAM 2019-06 Yes Use in Univer s (VALTOCO) -12 each ity of 15 mg/2 21:50: nostril. [place] spray 05 Medical (7.5/0.1mL Branch x 2) [place] diazePAM 2019-06 Yes Use in Univer s (VALTOCO) -12 each ity of 15 mg/2 21:50: nostril. [place] spray 05 Medical (7.5/0.1mL Branch x 2) [place] CBD oil 2019-06 2020- No 100mL 100 mL. Unive rs ([facility] 06-22 ity [facility]) 20:1 21:48: 00:00 [place] with 42 :00 Medical safflower Branch CBD oil 2019-06 2020- No 100mL 100 mL. Unive rs ([facility] 06-22 ity [facility]) 20:1 21:48: 00:00 [place] with 42 :00 Medical safflower Branch CBD oil 2019- 2020- No 100mL 100 mL. Unive rs ([facility] 06-22 ity [facility]) 20:1 21:48: 00:00 [place] with 42 :00 Medical safflower Branch CBD oil 2019-06 2020- No 100mL 100 mL. Unive rs ([facility] 06-22 ity [facility]) 20:1 21:48: 00:00 [place] with 42 :00 Medical safflower Branch capsaicin/m 2019-06 2020- No Apply to [facility] 06-22 area(s). ity of (ALIVIO 21:48: 00:00 [place] TOPICAL) 38 :00 Medical Branch capsaicin/m 2019-06 2020- [facility] area[facility] ity of (ALIVIO 21:48: 00:00 [place] TOPICAL) 38 :00 Medical Branch capsaicin/m 2019-06 2020- No Apply to Univers enthol -04-22 area(s). ity of (ALIVIO 21:48: 00:00 [place] TOPICAL) 38 :00 Medical Branch capsaicin/m 2019-06 2020- No Apply to Univers enthol -12 area(s). ity of (ALIVIO 21:48: 00:00 [place] TOPICAL) 38 :00 Medical Branch DIAZEPAM 2019-06- No Insert Univer s RECTAL 06-22 into ity of 21:34: 00:00 rectum as [place] 25 :00 needed. Medical Branch DIAZEPAM 2019-06 2020- No Insert Univer s RECTAL 06-22 into ity of 21:34: 00:00 rectum as [place] 25 :00 needed. Medical Branch DIAZEPAM 2019-06 2020- No Insert Univer s RECTAL 06-22 into ity of 21:34: 00:00 rectum as [place] 25 :00 needed. Medical Branch DIAZEPAM 2019-06 2020- No Insert Univer s RECTAL 06-22 into ity of 21:34: 00:00 rectum as [place] 25 :00 needed. Medical Branch ENSURE 2019-06 Yes [id number] 1{can} Take 1-2 Univers liquid 1-12 Cans by ity of 00:00: mouth 3 [place] 00 (three) Medical times Branch daily. methocarbam 2019-06 Yes [id number] 750mg Take 1 Univers oL 1-12 tablet by ity of (ROBAXIN-75 00:00: mouth 4 [place] as 0) 750 mg 00 (four) Medical tablet times Branch daily. meloxicam 2019-06 Yes [id number] 15mg Take 1 U nivers (MOBIC) 15 1-12 tablet by ity of mg tablet 00:00: mouth once [place] 00 daily as Medical needed for Branch Pain or Inflammati on. Take with food. Don't take while on the steroid pack. ENSURE 2019-06 Yes [id number] 1{can} Take 1-2 Univers liquid 1-12 Cans by ity of 00:00: mouth 3 [place] 00 (three) Medical times Branch daily. methocarbam 2019-06 Yes [id number] 750mg Take 1 Univers oL 1-12 tablet by ity of (ROBAXIN-75 00:00: mouth 4 [place] as 0) 750 mg 00 (four) Medical tablet times Branch daily. meloxicam 2019-06 Yes [id number] 15mg Take 1 U nivers (MOBIC) 15 1-12 tablet by ity of mg tablet 00:00: mouth once [place] 00 daily as Medical needed for Branch Pain or Inflammati on. Take with food. Don't take while on the steroid pack. ENSURE 2019-06 Yes [id number] 1{can} Take 1-2 Univers liquid 1-12 Cans by ity of 00:00: mouth 3 [place] 00 (three) Medical times Branch daily. methocarbam 2019-06 Yes [id number] 750mg Take 1 Univers oL 1-12 tablet by ity of (ROBAXIN-75 00:00: mouth 4 [place] as 0) 750 mg 00 (four) Medical tablet times Branch daily. meloxicam 2019-06 Yes [id number] 15mg Take 1 U nivers (MOBIC) 15 1-12 tablet by ity of mg tablet 00:00: mouth once [place] 00 daily as Medical needed for Branch Pain or Inflammati on. Take with food. Don't take while on the steroid pack. ENSURE 2019-06- No [id number] 1{can} Take 1-2 Univers liquid -12 11-18 Cans by ity of 00:00: 00:00 mouth 3 [place] 00 :00 (three) Medical times Branch daily. methocarbam 2019-06 2020- No [id number] 750mg Take 1 Univers oL 1-12 11-18 tablet by ity of (ROBAXIN-75 00:00: 00:00 mouth 4 [place] 0) 750 mg 00 :00 (four) Medical tablet times Branch daily. meloxicam 2019-06 2020- No [id number] 15mg Take 1 Univers (MOBIC) 15 1-12 11-18 tablet by ity of mg tablet 00:00: 00:00 mouth once [place] 00 :00 daily as Medical needed for Branch Pain or Inflammati on. Take with food. Don't take while on the steroid pack. methylPREDN 2019-06 2020- No [id number] Take by Univers ISolone 1-12 11-12 mouth ity of (MEDROL, 00:00: 00:00 [place]-INSTRU [place] CUCO,) 4 mg 00 :00 CTIONS. Medica l tablets follow Branch package directions methylPREDN 2019-06 2020- No [id number] [facility] mouth ity of (MEDROL, 00:00: 00:00 [place]-INSTRU [place] CU[place],) 4 mg 00 :00 CTIONS. Medica l tablets follow Branch package directions methylPREDN 2019-06- No [id number] Take by [facility] 06-22 mouth ity of (MEDROL, 00:00: 00:00 [place]INSTRU [place] CU[place],) 4 mg 00 :00 CTIONS. Medica l tablets follow Branch package directions methylPREDN 2019-06- No [id number] Take by [facility] 06-22 mouth ity of (MEDROL, 00:00: 00:00 [place]INSTRU [place] CU[place],) 4 mg 00 :00 CTIONS. Medica l tablets follow Branch package directions methocarbam 2020- Yes TAKE 1 Univ ers oL 750 mg 1-09 TABLET BY ity o f tablet 00:00: MOUTH 4 ([facility]) Medical TIMES Branch DAILY FOR 7 DAYS. methocarbam 2020-1 Yes TAKE 1 Univ ers oL 750 mg 1-09 TABLET BY ity o f tablet 00:00: MOUTH 4 ([facility]) Medical TIMES Branch DAILY FOR 7 DAYS. methocarbam 2020-1 Yes TAKE 1 Univ ers oL 750 mg 1-09 TABLET BY ity o f tablet 00:00: MOUTH 4 ([facility]) Medical TIMES Branch DAILY FOR 7 DAYS. methocarbam 2020-1 Yes TAKE 1 Univ ers oL 750 mg 1-09 TABLET BY ity o f tablet 00:00: MOUTH 4 [place] ([facility]) Medical TIMES Branch DAILY FOR 7 DAYS. methocarbam 2020-1 Yes TAKE 1 Univ ers oL 750 mg 1-09 TABLET BY ity o f tablet 00:00: MOUTH 4 ([facility]) Medical TIMES Branch DAILY FOR 7 DAYS. methocarbam 2020-1 Yes TAKE 1 Univ ers oL 750 mg 1-09 TABLET BY ity o f tablet 00:00: MOUTH 4 ([facility]) Medical TIMES Branch DAILY FOR 7 DAYS. methocarbam 2020-1 Yes TAKE 1 Univ ers oL 750 mg 1-09 TABLET BY ity o f tablet 00:00: MOUTH 4 00 ([facility]) Medical TIMES Branch DAILY FOR 7 DAYS. methocarbam 2020- Yes TAKE 1 [facility] ers oL 750 mg 1-09 TABLET BY ity o f tablet 00:00: MOUTH 4 00 (FOUR) Medical TIMES Branch DAILY FOR 7 DAYS. methocarbam 2020-1 Yes TAKE 1 [facility] ers oL 750 mg 1-09 TABLET BY ity o f tablet 00:00: MOUTH 4 [place] 00 (FOUR) Medical TIMES Branch DAILY FOR 7 DAYS. methocarbam 2020- Yes TAKE 1 [facility] oL 750 mg 1-09 TABLET BY ity o f tablet 00:00: MOUTH 4 [place] 00 (FOUR) Medical TIMES Branch DAILY FOR 7 DAYS. methocarbam 2020- Yes TAKE 1 [facility] oL 750 mg 1-09 TABLET BY ity o f tablet 00:00: MOUTH 4 00 (FOUR) Medical TIMES Branch DAILY FOR 7 DAYS. methocarbam 2020- Yes TAKE 1 [facility] oL 750 mg 1-09 TABLET BY ity o f tablet 00:00: MOUTH 4 00 (FOUR) Medical TIMES Branch DAILY FOR 7 DAYS. methocarbam 2020- Yes TAKE 1 [facility] oL 750 mg 1-09 TABLET BY ity o f tablet 00:00: MOUTH 4 00 (FOUR) Medical TIMES Branch DAILY FOR 7 DAYS. methocarbam 2020- Yes TAKE 1 [facility] oL 750 mg 1-09 TABLET BY ity o f tablet 00:00: MOUTH 4 00 (FOUR) Medical TIMES Branch DAILY FOR 7 DAYS. methocarbam 2019- Yes TAKE 1 [facility] oL 750 mg 1-09 TABLET BY ity o f tablet 00:00: MOUTH 4 00 (FOUR) Medical TIMES Branch DAILY FOR 7 DAYS. methocarbam 2019-06 2020- No [id number] 750mg Take 1 [facility] oL 06-19 tablet by ity of (ROBAXIN-75 00:00: 05:59 mouth 4 [place] 0[place] 750 mg 00 :00 (four) Medical tablet times Branch daily for 7 days. meloxicam 2019-06- No [id number] 15mg Take 1 [facility] (MOBIC) 15 06-19 tablet by ity of mg tablet 00:00: 05:59 mouth [place] 00 :00 daily for Medical 7 days. Branch methocarbam 2019-06 2020- No [id number] 750mg Take 1 [facility] oL 06-19 tablet by ity of (ROBAXIN-75 00:00: [place]:00 [place] 4 [place] 0[place] 750 mg 00 :00 (four) Medical tablet times Branch daily for 7 days. meloxicam 2019-06 2020- No [id number] 15mg Take 1 [facility] (MOBIC) 15 06-19 tablet by ity of mg tablet 00:00: 00:00 mouth [place] 00 :00 daily for Medical 7 days. Branch methocarbam 2019-06- No [id number] 750mg Take 1 [facility] oL 06-19 tablet by ity of (ROBAXIN-75 00:00: [place]:00 [place] 4 [place] 750 mg 00 :00 (four) Medical tablet times Branch daily for 7 days. meloxicam 2019-06- No [id number] 15mg Take 1 [facility] (MOBIC) 15 06-19 tablet by ity of mg tablet 00:00: 00:00 mouth [place] 00 :00 daily for Medical 7 days. Branch methocarbam 2019-06- No [id number] 750mg Take 1 [facility] oL 06-19 tablet by ity of (ROBAXIN-75 00:00: [place]:00 [place] 4 [place] 750 mg 00 :00 (four) Medical tablet times Branch daily for 7 days. meloxicam 2019-06- No [id number] 15mg Take 1 [facility] (MOBIC) 15 06-19 tablet by ity of mg tablet 00:00: 00:00 mouth [place] 00 :00 daily for Medical 7 days. Branch methocarbam 2019-06- No [id number] 750mg Take 1 [facility] oL 06-19 tablet by ity of (ROBAXIN-75 00:00: 00:00 [place] 4 [place] 750 mg 00 :00 (four) Medical tablet times Branch daily for 7 days. meloxicam 2019-06- No [id number] 15mg Take 1 [facility] (MOBIC) 15 06-19 tablet by ity of mg tablet 00:00: 00:00 mouth [place] 00 :00 daily for Medical 7 days. Branch ciclopirox 2019-06 Yes [id number] Apply to Univers 8 % 1-05 area(s) at ity of solution 00:00: bedtime. [place] 00 Apply to Medical Nails. Branch Reapply nightly. On day 7, remove with alcohol/fi le nails. Repeat ciclopirox 2020- Yes [id number] Apply to Univers 8 % 1-05 area(s) at ity of solution 00:00: bedtime. [place] 00 Apply to Medical Nails. Branch Reapply nightly. On day 7, remove with alcohol/fi le nails. Repeat ciclopirox 2020- Yes [id number] Apply to Univers 8 % 1-05 area(s) at ity of solution 00:00: bedtime. [place] 00 Apply to Medical Nails. Branch Reapply nightly. On day 7, remove with alcohol/fi le nails. Repeat ciclopirox 2020- Yes [id number] Apply to Univers 8 % 1-05 area(s) at ity of solution 00:00: bedtime. [place] 00 Apply to Medical Nails. Branch Reapply nightly. On day 7, remove with alcohol/fi le nails. Repeat ciclopirox 2020- Yes [id number] Apply to Univers 8 % 1-05 area(s) at ity of solution 00:00: bedtime. [place] 00 Apply to Medical Nails. Branch Reapply nightly. On day 7, remove with alcohol/fi le nails. Repeat ciclopirox 2020- Yes [id number] Apply to Univers 8 % 1-05 area(s) at ity of solution 00:00: bedtime. [place] 00 Apply to Medical Nails. Branch Reapply nightly. On day 7, remove with alcohol/fi le nails. Repeat ciclopirox 2020- Yes [id number] Apply to Univers 8 % 1-05 area(s) at ity of solution 00:00: bedtime. [place] 00 Apply to Medical Nails. Branch Reapply nightly. On day 7, remove with alcohol/fi le nails. Repeat ciclopirox 2020- Yes [id number] Apply to Univers 8 % 1-05 area(s) at ity of solution 00:00: bedtime. [place] 00 Apply to Medical Nails. Branch Reapply nightly. On day 7, remove with alcohol/fi le nails. Repeat ciclopirox 2020- Yes [id number] Apply to Univers 8 % 1-05 area(s) at ity of solution 00:00: bedtime. [place] 00 Apply to Medical Nails. Branch Reapply nightly. On day 7, remove with alcohol/fi le nails. Repeat ciclopirox 2019-06 2020- No [id number] Apply to Univers 8 % 06-1518 area(s) at ity of solution 00:00: [place] :00 Apply to Medical Nails. Branch Reapply nightly. On day 7, remove with alcohol/fi le nails. Repeat Lacosamide 2019-06 Yes Take 1 tab [facility] (VIMPAT) 0-28 PO qAM and [facility] 200 MG TABS 00:00: 2 tabs PO o f 00 qPM Medicin e Lacosamide 2019-06- No Take 1 tab [facility] (VIMPAT) 0-28 03-26 PO qAM and [place] [facility] 200 MG TABS 00:00: 00:00 2 tabs PO of 00 :00 qPM Medicin e Lacosamide 2019-06 2020- No Take 1 tab [facility] (VIMPAT) 0-28 11-12 PO qAM and ity of 200 mg 00:00: 00:00 2 tabs PO [place] tablet 00 :00 qPM Medical Branch Lacosamide 2019-06 2020- No Take 1 tab [facility] (VIMPAT) 0-28 11-12 PO qAM and ity of 200 mg 00:00: 00:00 2 tabs PO [place] tablet 00 :00 qPM Medical Branch VIMPAT 200 2019-06 Yes TAKE 1 Unive rs mg tablet 0-18 TABLET BY ity o f 00:00: MOUTH [place] 00 EVERY Medical MORNING Branch THEN TAKE 2 TABLETS BY MOUTH EVERY EVENING VIMPAT 200 2019-06 Yes TAKE 1 Unive rs mg tablet 0-18 TABLET BY ity o f 00:00: MOUTH [place] 00 EVERY Medical MORNING Branch THEN TAKE 2 TABLETS BY MOUTH EVERY EVENING VIMPAT 200 2019-06 Yes TAKE 1 Unive rs mg tablet 0-18 TABLET BY ity o f 00:00: MOUTH [place] 00 EVERY Medical MORNING Branch THEN TAKE 2 TABLETS BY MOUTH EVERY EVENING VIMPAT 200 2019-06 2020- No TAKE 1 Univ ers mg tablet 0-18 11-18 TABLET BY ity of 00:00: 00:00 MOUTH [place] 00 :00 EVERY Medical MORNING Branch THEN TAKE 2 TABLETS BY MOUTH EVERY EVENING diazePAM, 2020-0 Yes 15mg 15 mg by [facility] 15 MG Dose, 01-08 [facility] (VALTOCO 15 00:00: route as of MG DOSE) 2 00 needed for Med icin x 7.5 Other e MG/0.1ML (seizures LQPK lasting more than 3 minutes or for three or more seizure clusters). diazePAM, 2020-0 Yes 15mg 15 mg by [facility] 15 MG Dose, 01-08 [facility] (VALTOCO 15 00:00: route as of MG DOSE) 2 00 needed for Med icin x 7.5 Other e MG/0.1ML (seizures LQPK lasting more than 3 minutes or for three or more seizure clusters). diazePAM 2020-0 Yes 15mg Use 15 mg Univ ers (VALTOCO) 01-08 in each ity of 15 mg/2 00:00: nostril. [place] spray 00 Medical (7.5/0.1mL Branch x 2) [place] diazePAM 2020-0 Yes 15mg Use 15 mg Univ ers (VALTOCO) 01-08 in each ity of 15 mg/2 00:00: nostril. [place] spray 00 Medical (7.5/0.1mL Branch x 2) [place] diazePAM 2020-0 Yes 15mg Use 15 mg [facility] ers (VALTOCO) 01-08 in each ity of 15 mg/2 00:00: nostril. [place] spray 00 Medical (7.5/0.1mL Branch x 2) [place] diazePAM 2020-0 Yes 15mg Use 15 mg [facility] ers (VALTOCO) 01-08 in each ity of 15 mg/2 00:00: nostril. [place] spray 00 Medical (7.5/0.1mL Branch x 2) [place] diazePAM 2020-0 Yes 15mg Use 15 mg [facility] ers (VALTOCO) 01-08 in each ity of 15 mg/2 00:00: nostril. [place] spray 00 Medical (7.5/0.1mL Branch x 2) [place] diazePAM 2020-0 Yes 15mg Use 15 mg [facility] ers (VALTOCO) 01-08 in each ity of 15 mg/2 00:00: nostril. [place] spray 00 Medical (7.5/0.1mL Branch x 2) [place] diazePAM 2020-0 Yes 15mg Use 15 mg [facility] ers (VALTOCO) 7-31 in each ity of 15 mg/2 00:00: nostril. [place] spray 00 Medical (7.5/0.1mL Branch x 2) [place] diazePAM 2020-0 Yes 15mg Use 15 mg [facility] ers (VALTOCO) 7-31 in each ity of 15 mg/2 00:00: nostril. [place] spray 00 Medical (7.5/0.1mL Branch x 2) [place] diazePAM 2020-0 Yes 15mg Use 15 mg [facility] ers (VALTOCO) 7-31 in each ity of 15 mg/2 00:00: nostril. [place] spray 00 Medical (7.5/0.1mL Branch x 2) [place] diazePAM 2020-0 Yes 15mg Use 15 mg [facility] ers (VALTOCO) 7-31 in each ity of 15 mg/2 00:00: nostril. [place] spray 00 Medical (7.5/0.1mL Branch x 2) [place] diazePAM 2020-0 Yes 15mg Use 15 mg [facility] ers (VALTOCO) 7-31 in each ity of 15 mg/2 00:00: nostril. [place] spray 00 Medical (7.5/0.1mL Branch x 2) [place] diazePAM 2020-0 Yes 15mg Use 15 mg Univ ers (VALTOCO) 7-31 in each ity of 15 mg/2 00:00: nostril. [place] spray 00 Medical (7.5/0.1mL Branch x 2) [place] diazePAM 2020-0 Yes 15mg Use 15 mg [facility] ers (VALTOCO) 7-31 in each ity of 15 mg/2 00:00: nostril. [place] spray 00 Medical (7.5/0.1mL Branch x 2) [place] diazePAM 2020-0 Yes 15mg Use 15 mg Univ ers (VALTOCO) 7-31 in each ity of 15 mg/2 00:00: nostril. [place] spray 00 Medical (7.5/0.1mL Branch x 2) [place] diazePAM 2020-0 Yes 15mg Use 15 mg [facility] ers (VALTOCO) 7-31 in each ity of 15 mg/2 00:00: nostril. [place] spray 00 Medical (7.5/0.1mL Branch x 2) [place] diazePAM, 2020-0 2020- No 15mg 15 mg by [place] sherita 15 MG Dose, 01-08 07-23 [facility] (VALTOCO 15 00:00: 00:00 route as o f MG DOSE) 2 00 :00 needed for Med icin x 7.5 Other e MG/0.1ML (seizures LQPK lasting more than 3 minutes or for three or more seizure clusters). EPIDIOLEX Yes 500mg Take 500 [place] sherita 100 MG/ML 7-24 mg by [facility] SOLN 00:00: mouth two of 00 times Medicin daily. e Lacosamide 2019- No Take 1 tab [facility] (VIMPAT) 7-24 10-28 PO qAM and [place] [facility] 200 MG TABS 00:00: 00:00 2 tabs PO of 00 :00 qPM Medicin e cannabidioL Yes 500mg Take 500 U nivers (EPIDIOLEX) 5-05 mg by ity of 100 mg/mL 00:00: mouth 2 [place] oral 00 (two) Medical solution times Branch daily. cannabidioL Yes 500mg Take 500 U nivers (EPIDIOLEX) 5-05 mg by ity of 100 mg/mL 00:00: mouth 2 [place] oral 00 (two) Medical solution times Branch daily. cannabidioL 2019- Yes 500mg Take 500 U nivers (EPIDIOLEX) 5-05 mg by ity of 100 mg/mL 00:00: mouth 2 [place] oral 00 (two) Medical solution times Branch daily. cannabidioL 2019- No 500mg Take 500 [facility] (EPIDIOLEX) 5-05 11-18 mg by ity of 100 mg/mL 00:00: 00:00 [place] oral 00 :00 (two) Medical solution times Branch daily. EPIDIOLEX 2018-06 Yes 400mg Take 400 [place] sherita 100 MG/ML 0-11 mg by [place] SOLN 00:00: mouth two of 00 times Medicin daily. e EPIDIOLEX 2018- No Take 180 [place] sherita 100 MG/ML 5-10 10-11 mg by [place] SOLN 00:00: 00:00 mouth two of 00 :00 times Medicin daily for e 7 days, THEN 360 mg two times daily for 30 days. capsaicin/m Yes Apply to U nivers enthol 5-07 area(s). ity of (ALIVIO 20:40: [place] TOPICAL) 17 Medical Branch CBD oil Yes Univers (ABHINAV'S 5-07 ity of HOPE) 20:1 20:40: [place] with 17 Medical safflower Branch DIAZEPAM 2019-0 Yes Insert Univers RECTAL 5-07 into ity of 20:40: rectum as [place] 17 needed. Medical Branch capsaicin/m Yes Apply to U nivers enthol 5-07 area(s). ity of (ALIVIO 20:40: [place] TOPICAL) 17 Medical Branch CBD oil Yes Univers (ABHINAV'S 5-07 ity of HOPE) 20:1 20:40: [place] with 17 Medical safflower Branch DIAZEPAM 2019-0 Yes Insert [facility] RECTAL 5-07 into ity of 20:40: rectum as [place] 17 needed. Medical Branch capsaicin/m Yes Apply to U nivers enthol 5-07 area(s). ity of (ALIVIO 20:40: [place] TOPICAL) 17 Medical Branch CBD oil Yes Univers (ABHINAV'S 5-07 ity of HOPE) 20:1 20:40: [place] with 17 Medical safflower Branch DIAZEPAM 2019-0 Yes Insert [facility] RECTAL 5-07 into ity of 20:40: rectum as [place] 17 needed. Medical Branch mupirocin 2 Yes [id number] Apply to Univers % ointment 5-07 [id number] area(s) 3 it y of 00:00: (three) [place] 00 times Medical daily. Branch mupirocin 2 2018- Yes [id number] Apply to Univers % ointment 5-07 [id number] area(s) 3 it y of 00:00: (three) [place] 00 times Medical daily. Branch mupirocin 2 Yes [id number] Apply to Univers % ointment 5-07 [id number] area(s) 3 it y of 00:00: (three) [place] 00 times Medical daily. Branch mupirocin 2 2020- No [id number] Apply to Univers % ointment 5-07 11-12 [id number] area(s) 3 i ty of 00:00: 00:00 (three) [place] 00 :00 times Medical daily. Branch mupirocin 2 2020- No [id number] Apply to Univers % ointment 10-15 [id number] area(s) 3 i ty of 00:00: 00:00 (three) [place] 00 :00 times Medical daily. Branch mupirocin 2 2020- No [id number] Apply to Univers % ointment 10-15 [id number] area(s) 3 i ty of 00:00: 00:00 (three) [place] 00 :00 times Medical daily. Branch mupirocin 2 2020- No [id number] Apply to Univers % ointment 10-15 [id number] area(s) 3 i ty of 00:00: 00:00 (three) [place] 00 :00 times Medical daily. Branch VIMPAT 100 Yes TAKE 2 [place] MG TABS 4-27 TABLETS BY Colleg e 00:00: MOUTH of 00 TWICE A Medicin DAY e VIMPAT 100 Yes TAKE 2 Unive rs mg tablet 4-27 TABLETS BY ity of 00:00: MOUTH [place] 00 TWICE A Medical DAY Branch VIMPAT 100 Yes TAKE 2 Unive rs mg tablet 4-27 TABLETS BY ity of 00:00: MOUTH [place] 00 TWICE A Medical DAY Branch VIMPAT 100 Yes TAKE 2 Unive rs mg tablet 4-27 TABLETS BY ity of 00:00: MOUTH [place] 00 TWICE A Medical DAY Branch VIMPAT 100 2020- No 200mg 200 mg 3 U nivers mg tablet 10-05 (three) ity of 00:00: 00:00 times [place] 00 :00 daily. Medical Branch VIMPAT 100 2020- No 200mg 200 mg 3 U nivers mg tablet 10-05 (three) ity of 00:00: 00:00 times [place] 00 :00 daily. Medical Branch VIMPAT 100 2020- No 200mg 200 mg 3 U nivers mg tablet 10-05 (three) ity of 00:00: 00:00 times [place] 00 :00 daily. Medical Branch VIMPAT 100 2020- No 200mg 200 mg 3 U nivers mg tablet 10-05 (three) ity of 00:00: 00:00 times [place] 00 :00 daily. Medical Branch triazolam 2019-0 Yes as needed. [facility] (HALCION) 4-10 [facility] 0.25 MG 00:00: of tablet 00 Medicin e triazolam 2019-0 Yes as needed. [facility] (HALCION) 4-10 [facility] 0.25 MG 00:00: of tablet 00 Medicin e triazolam 2019-0 Yes as needed. [facility] (HALCION) 4-10 [facility] 0.25 MG 00:00: of tablet 00 Medicin e triazolam 0 Yes [id number] 2 tabs po Univers 0.25 mg 4-10 x 1 dose 1 ity of tablet 00:00: hour prior to CT scan Medical Branch triazolam 0 Yes [id number] 2 tabs po [facility] 0.25 mg 4-10 x 1 dose 1 ity of tablet 00:00: hour prior to CT scan Medical Branch triazolam 0 Yes [id number] 2 tabs po [facility] 0.25 mg 4-10 x 1 dose 1 ity of tablet 00:00: hour prior to CT scan Medical Branch triazolam Yes [id number] 2 tabs po Univers 0.25 mg 4-10 x 1 dose 1 ity of tablet 00:00: hour prior to CT scan Medical Branch triazolam 0 Yes [id number] 2 tabs po [facility] 0.25 mg 4-10 x 1 dose 1 ity of tablet 00:00: hour prior to CT scan Medical Branch triazolam 0 Yes [id number] 2 tabs po Univers 0.25 mg 4-10 x 1 dose 1 ity of tablet 00:00: hour prior to CT scan Medical Branch triazolam 20190 Yes [id number] 2 tabs po [facility] 0.25 mg 4-10 x 1 dose 1 ity of tablet 00:00: hour prior to CT scan Medical Branch triazolam 20190 Yes [id number] 2 tabs po [facility] 0.25 mg 4-10 x 1 dose 1 ity of tablet 00:00: hour prior to CT scan Medical Branch triazolam 20190 Yes [id number] 2 tabs po [facility] 0.25 mg 4-10 x 1 dose 1 ity of tablet 00:00: hour prior to CT scan Medical Branch triazolam 0 2020- No as needed. [facility] (HALCION) 4-10 07-23 College 0.25 MG 00:00: 00:00 of tablet 00 :00 Medicin e triazolam 2020- No [id number] 2 tabs po [facility] 0.25 mg 09-1818 x 1 dose 1 ity o f tablet 00:00: 00:00 hour prior [place] [place] Medical Branch diazePAM 10 Yes USE 10 MG [facility] MG GEL 3-21 AFTER College 00:00: SEIZURE of 00 LASTING Medicin OVER 5 e MINS OR BACK TO BACK SEIZURE diazePAM Yes USE 10 MG Univ ers 5-7.5-10 mg 3-21 AFTER ity of rectal gel 00:00: SEIZURE [place] 00 LASTING Medical OVER 5 Branch MINS OR BACK TO BACK SEIZURE diazePAM Yes USE 10 MG Univ ers 5-7.5-10 mg 3-21 AFTER ity of rectal gel 00:00: SEIZURE [place] 00 LASTING Medical OVER 5 Branch MINS OR BACK TO BACK SEIZURE diazePAM Yes USE 10 MG Univ ers 5-7.5-10 mg 3-21 AFTER ity of rectal gel 00:00: SEIZURE [place] 00 LASTING Medical OVER 5 Branch MINS OR BACK TO BACK SEIZURE diazePAM 2019- No USE 10 MG Uni vers 5-7.5-10 mg 3-21 11-12 AFTER ity of rectal gel 00:00: 00:00 SEIZURE [place] 00 :00 LASTING Medical OVER 5 Branch MINS OR BACK TO BACK SEIZURE diazePAM 2019- No USE 10 MG Uni vers 5-7.5-10 mg 3-21 11-12 AFTER ity of rectal gel 00:00: 00:00 SEIZURE [place] 00 :00 LASTING Medical OVER 5 Branch MINS OR BACK TO BACK SEIZURE diazePAM 2019- No USE 10 MG Uni vers 5-7.5-10 mg 3-21 11-12 AFTER ity of rectal gel 00:00: 00:00 SEIZURE [place] 00 :00 LASTING Medical OVER 5 Branch MINS OR BACK TO BACK SEIZURE diazePAM 2019- No USE 10 MG Uni vers 5-7.5-10 mg 3-21 11-12 AFTER ity of rectal gel 00:00: 00:00 SEIZURE [place] 00 :00 LASTING Medical OVER 5 Branch MINS OR BACK TO BACK SEIZURE No known No Univers medications ity [facility] No known No Univers medications ity [facility] No known No Univers medications ity [facility] No known [facility] Vital Name Observation Time Observation Value Comments Source Systolic blood 2021-07-01 16:44:00 121 mm[Hg] [facility] pressure Medicine Diastolic blood 2021-07-01 16:44:00 80 mm[Hg] [facility] Medicine Heart rate 2021-07-01 16:44:00 60 /min [facility] Body height 2021-07-01 16:44:00 172.7 cm [facility] Body weight 2021-07-01 16:44:00 83.462 kg [facility] BMI 2021-07-01 16:44:00 27.98 kg/m2 [facility] Systolic blood 2020-12-31 15:36:00 130 mm[Hg] [facility] pressure Medicine Diastolic blood 2020-12-31 15:36:00 81 mm[Hg] [facility] Medicine Heart rate 2020-12-31 15:36:00 76 /min [facility] Body height 2020-12-31 15:36:00 172.7 cm [facility] Body weight 2020-12-31 15:36:00 78.472 kg [facility] BMI 2020-12-31 15:36:00 26.30 kg/m2 [facility] Systolic blood 2020-09-03 18:11:00 115 mm[Hg] [facility] pressure Medicine Diastolic blood 2020-09-03 18:11:00 81 mm[Hg] [facility] Medicine Body height 2020-09-03 18:11:00 172.7 cm [facility] Body weight 2020-09-03 18:11:00 78.744 kg [facility] BMI 2020-09-03 18:11:00 26.40 kg/m2 [facility] Systolic blood 2020-09-03 18:11:00 115 mm[Hg] [facility] of pressure Medicine Diastolic blood 2020-09-03 18:11:00 81 mm[Hg] [facility] Body height 2020-09-03 18:11:00 172.7 cm [facility] [place] 2020-09-03 18:11:00 78.744 kg [facility] [place] 2020-09-03 18:11:00 26.40 kg/m2 [facility] [place]stolic blood 2020-05-10 22:02:00 117 mm[Hg] Univer sity of pressure [facility] [place] [facility] Branch Diastolic blood 2020-05-10 22:02:00 77 mm[Hg] Unive rsity of pressure [facility] Heart rate 2020-05-10 22:02:00 92 /min Universi ty of [facility] Body temperature 2020-05-10 22:02:00 37.78 Yasmin Univ ersity of [facility] Body height 2020-05-10 22:02:00 177.8 cm Universi ty of [facility] Body weight 2020-05-10 22:02:00 79.833 kg Universi ty [facility] [place] [facility] BMI 2020-05-10 22:02:00 25.25 kg/m2 Universi ty of [facility] [place] [facility] Branch Systolic blood 2020-05-10 22:02:00 117 mm[Hg] Univer sity of pressure [facility] [place] [facility] Branch Diastolic blood 2020-05-10 22:02:00 77 mm[Hg] Unive rsity of pressure [facility] [place] [facility] Branch Heart rate 2020-05-10 22:02:00 92 /min [facility] [place] [facility] Body temperature 2020-05-10 22:02:00 37.78 Yasmin Univ ersity of [facility] [place] [facility] Body height 2020-05-10 22:02:00 177.8 cm [facility] [place] [facility] Body weight 2020-05-10 22:02:00 79.833 kg [facility] [place] [facility] BMI 2020-05-10 22:02:00 25.25 kg/m2 Universi ty of [facility] [place] [facility] Branch Oxygen saturation in 2020-04-28 21:00:00 98 /min [facility] Arterial blood by [facility] [place] Pulse oximetry Branch Systolic blood 2020-04-28 20:45:00 91 mm[Hg] Univer sity of pressure [facility] [place] [facility] Branch Diastolic blood 2020-04-28 20:45:00 55 mm[Hg] Unive rsity of pressure [place] [facility] Heart rate 2020-04-28 20:45:00 57 /min [facility]i ty [facility] Respiratory rate 2020-04-28 19:45:00 16 /min Univ ers[facility] [place] [facility] Body temperature 2020-04-28 19:40:00 36 Yasmin [facility] ersity [facility] [place] [facility] Body height 2020-04-28 16:35:00 177.8 cm [facility] Body weight 2020-04-28 16:35:00 78.9 kg [facility] [place] [facility] BMI 2020-04-28 16:35:00 24.96 kg/m2 [facility] [place] [facility] Systolic blood 2020-04-22 21:23:00 116 mm[Hg] Univer sity of pressure [place] [facility] Diastolic blood 2020-04-22 21:23:00 68 mm[Hg] Unive rsity of pressure [facility] Heart rate 2020-04-22 21:23:00 61 /min [facility]i [facility] Body temperature 2020-04-22 21:23:00 36.28 Yasmin [facility] ersity [facility] [place] [facility] Body height 2020-04-22 21:23:00 175.3 cm [facility] Body weight 2020-04-22 21:23:00 81.647 kg [facility] BMI 2020-04-22 21:23:00 26.58 kg/m2 [facility] Systolic blood 2020-04-22 15:00:00 123 mm[Hg] Univer sity of pressure [facility] Diastolic blood 2020-04-22 15:00:00 72 mm[Hg] Unive rsity of pressure [facility] Heart rate 2020-04-22 15:00:00 80 /min [facility]i [facility] Body height 2020-04-22 15:00:00 175.3 cm [facility] Body weight 2020-04-22 15:00:00 80.65 kg [facility]i ty [facility] [place] [facility] BMI 2020-04-22 15:00:00 26.26 kg/m2 [facility] Systolic blood 2020-04-15 19:16:00 110 mm[Hg] Univer sity of pressure [facility] Diastolic blood 2020-04-15 19:16:00 76 mm[Hg] Unive rsity of pressure [place] [facility] Heart rate 2020-04-15 19:16:00 69 /min Universi ty of [facility] Body temperature 2020-04-15 19:16:00 36.44 Yasmin Univ ersity of [facility] [place] [facility] Respiratory rate 2020-04-15 19:16:00 20 /min Univ ersity of [facility] Body weight 2020-04-15 19:16:00 79.833 kg Universi ty of [facility] BMI 2020-04-15 19:16:00 27.57 kg/m2 Universi ty of [facility] Oxygen saturation in 2020-04-15 19:16:00 95 /min University of Arterial blood by [facility] [place] Pulse oximetry Branch Systolic blood 2020-04-07 18:08:00 125 mm[Hg] [facility] pressure Medicine Diastolic blood 2020-04-07 18:08:00 86 mm[Hg] [facility] of pressure Medicine Heart rate 2020-04-07 18:08:00 73 /min [facility] Medicine Body height 2020-04-07 18:08:00 172.7 cm [facility] Body weight 2020-04-07 18:08:00 81.466 kg [facility] BMI 2020-04-07 18:08:00 27.31 kg/m2 [facility] Systolic blood 2020-04-07 18:08:00 125 mm[Hg] [facility] of pressure Medicine Diastolic blood 2020-04-07 18:08:00 86 mm[Hg] [place] [facility] Heart rate 2020-04-07 18:08:00 73 /min [facility] Body height 2020-04-07 18:08:00 172.7 cm [facility] Body weight 2020-04-07 18:08:00 81.466 kg [facility] [facility] [employer] BMI 2020-04-07 18:08:00 27.31 kg/m2 [facility] [employer] Systolic blood 2019-03-21 19:45:00 118 mm[Hg] [employer] Diastolic blood 2019-03-21 19:45:00 77 mm[Hg] [employer] Heart rate 2019-03-21 19:45:00 72 /min [facility] [employer] Body height 2019-03-21 19:45:00 172.7 cm [facility] [employer] Body weight 2019-03-21 19:45:00 73.936 kg [facility] [employer] BMI 2019-03-21 19:45:00 24.78 kg/m2 [facility] [employer] Systolic blood 2019-03-21 19:45:00 118 mm[Hg] [facility] pressure Medicine Diastolic blood 2019-03-21 19:45:00 77 mm[Hg] [facility] pressure Medicine Heart rate 2019-03-21 19:45:00 72 /min [facility] [employer] [facility] [employer] Body height 2019-03-21 19:45:00 172.7 cm [facility] [employer] Body weight 2019-03-21 19:45:00 73.936 kg [facility] [employer] BMI 2019-03-21 19:45:00 24.78 kg/m2 [facility] [employer] Procedures Procedure Date / Time Performing Clinician Source Performed EXTERNAL PROVIDER RECORDS 2020-05-27 06:01:00 Doctor Unassigned, [facility] [place] [facility] DME/SUPPLY JUSTIFICATION 2020-05-21 06:01:00 Doctor Unarina, [facility] Name Medical Branch MEDICATION CORRESPONDENCE 2020-05-04 06:01:00 Doctor Derik, [facility] Name Medical Branch MR LUMBAR SPINE WO 2020-04-28 19:16:00 Dany Echavarria [facility] CONTRAST Medical Branch MR THORACIC SPINE WO 2020-04-28 18:42:00 Dany Echavarria [facility] CONTRAST Medical Branch COVID-19 (ID NOW RAPID 2020-04-28 15:14:00 Dorene Omalley [facility] TESTING) Medical Branch CONSENT/REFUSAL FOR 2020-04-28 14:46:54 Doctor Unarina, [facility] DIAGNOSIS AND TREATMENT [place] [facility] ASSIGNMENT OF BENEFITS 2020-04-28 14:41:53 [facility] [place] [facility] XR SCOLIOSIS SURVEY 2 VW 2020-04-27 18:34:31 Dany Echavarria [facility] NOTICE OF PRIVACY 2020-04-27 18:02:46 Doctor Unarina, [facility] PRACTICES [place] [facility] CONSENT/REFUSAL FOR 2020-04-27 18:01:44 Doctor Unassigned, [facility] DIAGNOSIS AND TREATMENT [place] [facility] ASSIGNMENT OF BENEFITS 2020-04-27 18:01:27 Doctor [facility], [facility] [place] [facility] XR LUMBAR SPINE 4 VW 2020-04-16 17:26:02 Alicia Gibbs [facility] XR SACRUM AND COCCYX 2020-04-16 17:26:02 Alicia Gibbs [facility] POCT URINALYSIS 2020-04-15 19:26:00 Alicia Gibbs [facility] Plan of Care Planned Activity Planned Date Details Comments Source Future Scheduled 2021-07-01 LACOSAMIDE, Ordered: [facility] Test 11:22:23 SERUM/PLASMA [code = 07/01/2021 of Medi cine NOCPT] Future Scheduled 2021-07-01 Screening for malignant [facility] Test 10:58:03 neoplasm of colon of Medicin e (procedure) [code = 566576312] Future Scheduled 2021-07-01 TETANUS SHOT (ADULT) [facility] Test 10:58:03 [code = TETANUS SHOT of Medi cine (ADULT)] Future Scheduled 2021-07-01 BMI FOLLOW UP PLAN [facility] Test 10:58:03 [code = BMI FOLLOW UP of Med icine PLAN] Future Scheduled 2021-07-01 Hepatitis C screening [facility] Test 10:58:03 (procedure) [code = of Medic ine 672921713] Future Scheduled 2021-07-01 Human immunodeficiency B [facility] College Test 10:58:03 virus screening of Medicine (procedure) [code = 732524629] Future Scheduled 2021-07-01 MEDICARE AWV (Initial) [employer] Test 10:58:03 [code = MEDICARE AWV of Medi cine (Initial)] Future Scheduled 2021-07-01 FLU VACCINE > 6 MONTHS [employer] Test 10:58:03 [code = FLU VACCINE > 6 of M edicine MONTHS] Future Scheduled 2021-06-[address] [facility] - Test 00:00:00 (12+) [code = Medical Center DEPRESSION SCREENING (12+)] Future Scheduled 2021-06-[address] [facility] - Test 00:00:00 (12+) [code = Medical Center DEPRESSION SCREENING (12+)] Future Scheduled 2021-02-09 INFLUENZA VACCINE (#1) [facility] 00:[facility]:00 [code = INFLUENZA Medical Ce nter VACCINE (#1)] Future Scheduled 2021-02-09 INFLUENZA VACCINE (#1) [facility] Test 00:00:00 [code = INFLUENZA Medical Ce nter VACCINE (#1)] Future Scheduled 2020-12-31 TETANUS SHOT (ADULT) [place] [facility] [employer] Test 11:45:41 [code = TETANUS SHOT of Medi cine (ADULT)] Future Scheduled 2020-12-31 BMI FOLLOW UP PLAN [employer] Test 11:45:41 [code = BMI FOLLOW UP of Med icine PLAN] Future Scheduled 2020-12-31 Hepatitis C screening [facility] [place] Test 11:45:41 (procedure) [code = of Medic ine 424936948] Future Scheduled 2020-12-31 Human immunodeficiency [employer] Test 11:45:41 virus screening of Medicine (procedure) [code = 388118088] Future Scheduled 2020-12-31 MEDICARE AWV (Initial) [employer] Test 11:45:41 [code = MEDICARE AWV of Medi cine (Initial)] Future Scheduled 2020-12-31 FLU VACCINE > 6 MONTHS [employer] Test 11:45:41 [code = FLU VACCINE > 6 of M edicine MONTHS] Future Scheduled 2011-02-20 Lipid panel (procedure) [facility] Test 00:00:00 [code = 53609433] Medical Ce nter Future Scheduled 2011-02-20 Lipid panel (procedure) [facility] - Test 00:00:00 [code = 62754987] Medical Ce nter Future Scheduled 1997-02-[address] [facility] Test 00:00:00 WELLNESS (YEAR 2 or Medical Center FIRST YEAR if no IPPE) [code = MEDICARE ANNUAL WELLNESS (YEAR 2 or FIRST YEAR if no IPPE)] Future Scheduled 1997-02-[address] [facility] Test 00:00:00 WELLNESS (YEAR 2 or Medical Center FIRST YEAR if no IPPE) [code = MEDICARE ANNUAL WELLNESS (YEAR 2 or FIRST YEAR if no IPPE)] Future Scheduled 1995-02-20 DTAP/TDAP/TD [facility]ACCINES [facility] Test 00:[facility]:00 (1 - Tdap) [code = Medical C enter DTAP/TDAP/TD VACCINES (1 - Tdap)] Future Scheduled 1995-02-20 DTAP/TDAP/TD [facility]ACCINES [facility] Test 00:00:00 (1 - Tdap) [code = Medical C enter DTAP/TDAP/TD VACCINES (1 - Tdap)] Future Scheduled 1994-02-20 HEPATITIS C [facility]CREENING [facility] Test 00:00:00 [code = HEPATITIS C Medical Center SCREENING] Future Scheduled 1994-02-20 HEPATITIS C [facility]ING [facility] Test 00:00:00 [code = HEPATITIS C Medical Center SCREENING] Future Scheduled 1981-02-20 COVID-19 VACCINE (1) [facility] - Test 00:00:00 [code = COVID-[address] VACCINE (1)] Future Scheduled 1981-02-20 COVID-19 VACCINE (1) [facility] - Test 00:00:00 [code = COVID-[address] VACCINE (1)] Future Scheduled 1976 Screening for malignant [facility] - Test 00:00:00 neoplasm of colon Medical Ce nter (procedure) [code = 847421041] Future Scheduled 1976 Screening for malignant [facility] - Test 00:00:00 neoplasm of colon Medical Ce nter (procedure) [code = 521772507] Future Scheduled COMPREHENSIVE METABOLIC Ordered: [facility] Test PANEL [code = 92546-4] 03/21/2019 of Me dicine Future Scheduled CBC W/O DIFF W PLT Ordered: [facility] Test [code = 6690-2] 03/21/2019 of Medicine Future Scheduled MEDICARE AWV [code = [place] [facility] [employer] Test MEDICARE AWV] of Medicine Future Scheduled TETANUS SHOT (ADULT) [place] [employer] Test [code = TETANUS SHOT of Medi cine (ADULT)] Future Scheduled [facility] SCREENING [facility] [place] [facility] HIV [facility]CREEN[facility]] of Medicine Future Scheduled FLU VACCINE > 6 MONTHS [employer] Test [code = FLU VACCINE > 6 of M edicine MONTHS] Future Scheduled TETANUS SHOT (ADULT) [place] [employer] Test [code = TETANUS SHOT of Medi cine (ADULT)] Future Scheduled BMI FOLLOW UP PLAN [facility] Test [code = BMI FOLLOW UP of Med icine PLAN] Future Scheduled HEPATITIS C SCREENING [employer] [facility] [employer] Test [code = HEPATITIS C of Medic ine SCREENING] Future Scheduled HIV SCREENING [code = [employer] Test HIV SCREENING] of Medicine Future Scheduled MEDICARE AWV (Initial) [employer] Test [code = MEDICARE AWV of Medi cine (Initial)] Future Scheduled FLU VACCINE > 6 MONTHS Postponed from [facility] Test [code = FLU VACCINE > 6 01/10/2020 of M edicine MONTHS] (Postpone Reason: Other) Future Scheduled ZOSTER VACCINE (1 of 2) [facility] Test [code = ZOSTER VACCINE of Me dicine (1 of 2)] Future Scheduled TETANUS SHOT (ADULT) [place] [employer] [employer] Test [code = TETANUS SHOT of Medi cine (ADULT)] Future Scheduled BMI FOLLOW UP PLAN [facility] [place] Test [code = BMI FOLLOW UP of Med icine PLAN] Future Scheduled Hepatitis C screening [employer] Test (procedure) [code = of Medic ine 875151892] Future Scheduled Human [facility] Test virus screening of Medicine (procedure) [code = 651819808] Future Scheduled MEDICARE AWV (Initial) [employer] Test [code = MEDICARE AWV of Medi cine (Initial)] Future Scheduled FLU VACCINE > 6 MONTHS Postponed from [facility] Test [code = FLU VACCINE > 6 01/10/2020 of M edicine MONTHS] (Postpone Reason: Other) Encounters Start End Encounter Admission Attending Care Care Encounter Source Date/Time Date/Time Type Type Clinicians Facility Department ID 2021-04-09 Outpatient [facility] [id number] [facility] 2021-08-16 2021-08-16 Outpatient ERICKSON_R [facility] [address] 11:55:00 11:55:00 0308 [facility] 2021-08-12 2021-08-12 Outpatient ERICKSON_R [facility] [address] 01:09:00 01:09:00 0304 [facility] 2021-08-12 2021-08-12 Outpatient [facility] [id number] 00:00:00 00:00:00 Junior [id number] Echavarria [id number] 2021-07-01 2021-07-01 Office MIGUEL JACOB 1.2.529.127 [id number] [facility] 10:39:55 11:33:51 Visit HIRA AMBULATOR 350.1.13.21 [place] Y 0.2.7.2.686 [id number] [facility] 800 e 2021-05-12 2021-05-12 Outpatient ERICKSON_R [facility] [address] 12:49:00 12:49:00 1202 [facility] 2021-05-12 2021-05-12 Outpatient Sonia [facility] [id number] 00:00:00 00:00:00 Junior [id number] [place] [id number] 2021-03-15 2021-03-15 Outpatient ERICKSON_R [facility] [address] 03:23:00 03:23:00 1005 [facility] 2021-03-15 2021-03-15 Outpatient Sonia, [facility] [id number] 00:00:00 00:00:00 Junior [id number] [place] [id number] 2021-03-15 2021-03-15 Outpatient Sonia, [facility] [id number] 00:00:00 00:00:00 Junior [id number] [place] [id number] 2021-03-09 2021-03-09 Outpatient ERICKSON_R [facility] [address] 02:47:00 02:47:00 [id number] [facility] 2021-03-09 2021-03-09 Outpatient ERICKSON_R [facility] [address] 02:47:00 02:47:00 1001 [facility] 2021-01-11 2021-01-11 Outpatient ERICKSON_R [facility] [address] 12:33:00 12:33:00 0803 [facility] 2021-01-102021-01-10 Outpatient ERICKSON_R [facility] [address] 05:26:00 05:26:00 0802 [facility] 2021-01-06 2021-01-06 Outpatient ERICKSON_R [facility] [address] 04:47:00 04:47:00 0729 [facility] 2020-12-31 2020-12-31 Office MIGUEL Jacob 1.2.733.150 [id number] [facility] 10:32:35 11:02:35 Visit Hira Artisril AMBULATOR 350.1.13.21 College Y 0.2.7.2.686 of [id number] [facility] 800 e 2020-10-12 2020-10-12 Outpatient ERICKSON_R [facility] [address] 04:57:00 04:57:00 0504 Commun i ty Hospita l [facility] 2020-09-03 2020-09-03 Office MIGUEL Jacob 1.2.555.324 [id number] 13:03:36 13:33:36 Visit Hira Mitchell AMBULATOR 350.1.13.21 Y 0.2.7.2.[id number] [facility] 2020-09-03 2020-09-03 Office MIGUEL Jacob 1.2.837.580 [id number] [facility] 13:03:36 13:33:36 Visit Hira Mitchell AMBULATOR 350.1.13.21 College Y 0.2.7.2.686 of [id number] [facility] 800 e 2020-08-14 2020-08-14 Outpatient [facility] [id number] Univers 12:00:00 12:00:00 [facility] 2020-07-21 2020-07-21 Outpatient ERICKSON_R [facility] [address] 10:34:00 10:34:00 [id number] [facility] 2020-07-17 2020-07-17 Outpatient [facility] [id number] Univers 11:40:00 11:40:00 [facility] 2020-07-16 2020-07-16 Outpatient ERMELINDA_R [facility] [address] 04:14:00 04:14:00 0205 [facility] 2020-07-16 2020-07-16 Outpatient Sonia [facility] [id number] 00:00:00 00:00:00 Junior [id number] [place] [id number] 2020-07-08 2020-07-08 Outpatient SONIA_R [facility] [address] 11:19:00 11:19:00 0128 [facility] 2020-06-17 2020-06-17 Outpatient Luiza STOREY, [facility] [id number] Univers 10:00:00 10:00:00 ADAN [id number] [facility] 2020-06-17 2020-06-17 Outpatient Luiza STOREY [facility] [id number] Univers 10:00:00 10:00:00 ADAN [facility] 2020-06-01 2020-06-01 [facility] [id number]-20 Univers 13:00:00 13:00:00 WONDIFUL [id number] ity o [facility] 2020-06-01 2020-06-01 [facility] [id number] Univers 13:00:00 13:00:00 WONDIFUL ity o f [facility] 2020-05-27 2020-05-27 [facility] 1.2.840.114 [id number] 14:38:06 18:06:46 ne Visit [facility] 350.1.13.10 [place] 4.2.7.2.686 Professio [phone] [place] [address] Office Building One 2020-05-27 2020-05-27 Telemedici [facility] 1.2.840.114 [id number] Univers 14:38:06 18:06:46 ne Visit [facility] 350.1.13.10 ity of [place] 4.2.7.2.686 [place] as Professio [phone] [address] Office [facility] 2020-05-27 2020-05-27 Outpatient R NOAH [facility] [id number]-20 Univers 16:30:00 16:30:00 WONDIFUL [id number] ity o f [facility] 2020-05-27 2020-05-27 Outpatient R NOAH [facility] [id number] Univers 16:30:00 16:30:00 WONDIFUL ity o f [facility] 2020-05-27 2020-05-27 Orders Doctor CRISTINA 1.2.840.114 [id number] 00:00:00 00:00:00 Only Unassigned, CINTHIA 350.1.13.10 [place] [facility] 4.2.7.2.686 [id number] [facility] 2020-05-27 2020-05-27 Orders Doctor CRISTINA 1.2.840.114 [id number] Univers 00:00:00 00:00:00 Only Unassigned, CINTHIA 350.1.13.10 ity of [place] [facility] 4.2.7.2.686 [place] as [phone] [address] 2020-05-26 2020-05-26 [facility] 1.2.840.114 [id number] 00:00:00 00:00:00 [facility] 350.1.13.10 [place] 4.2.7.2.686 Professio [phone] [address] 2020-05-26 2020-05-26 [facility] 1.2.840.114 [id number] Univers 00:00:00 00:00:00 [facility] 350.1.13.10 ity of [place] 4.2.7.2.686 [place] Professio [phone] [address] 2020-05-24 2020-05-24 Telephone Noah [facility] 1.2.840.114 [id number] 00:00:00 00:00:00 Wondiful A [place] 350.1.13.10 [place] 4.2.7.2.686 Professio [phone] [address] 2020-05-24 2020-05-24 Telephone Noah [facility] 1.2.840.114 [id number] Univers 00:00:00 00:00:00 Og White 350.1.13.10 ity of [place].2.[place] [phone] [facility] 044 [facility] 2020-05-21 2020-05-21 Outpatient R [facility] [id number] Univers 08:20:00 08:20:00 [id number] ity [facility] 2020-05-21 2020-05-21 Orders Doctor CRISTINA 1.2.840.114 [id number] 00:00:00 00:00:00 Only Unassigned, CINTHIA 350.1.13.10 [place] [facility] 4.2.7.2.686 [id number] 009 2020-05-21 2020-05-21 Orders Doctor CRISTINA 1.2.840.114 [id number] Univers 00:00:00 00:00:00 Only Unassigned, CINTHIA 350.1.13.10 ity of [place] [facility] 4.2.7.2.686 [place] as [phone] [address] 2020-05-20 2020-05-20 Outpatient R VIRY [facility] [id number] Univers 13:30:00 13:30:00 ity [facility] 2020-05-20 2020-05-20 Outpatient R VIRY [facility] [id number] Univers 13:30:00 13:30:00 ity [facility] 2020-05-20 2020-05-20 Telemedickelly Simms [facility] 1.2.840.114 [id number] 11:20:35 11:35:35 ne Visit Health 350.1.13.10 [place] 4.2.7.2.686 [place] [phone] [address] 2020-05-20 2020-05-20 Telemedickelly Simms [facility] 1.2.840.114 [id number] Univers 11:20:35 11:35:35 ne Visit Health 350.1.13.10 i ty of [place].2.[place] [phone] [address] Office Building 2020-05-20 2020-05-20 Telephone [facility] 1.2.840.114 [id number] 00:00:00 00:00:00 [facility] Health 350.1.13.10 [place] 4.2.7.2.686 Professio [phone] [place] [address] [facility] 2020-05-20 2020-05-20 Kal[facility]esh [facility] 1.2.840.114 [id number] Univers 00:00:00 00:00:00 Wondiful A Health 350.1.13.10 ity of [place] 4.2.7.2.686 [place] Professio [phone] [address] Office [address] [facility] 2020-05-19 2020-05-19 [place] [facility] 1.2.840.114 [id number] 00:00:00 00:00:00 [facility] Health 350.1.13.10 [place] 4.2.7.2.686 Professio [phone] [place] [address] [facility] 2020-05-19 2020-05-19 [place] [facility] 1.2.840.114 [id number] Univers 00:00:00 00:00:00 Wondiful A Health 350.1.13.10 ity of [place] 4.2.7.2.686 [place] Professio [phone] [address] Office [facility] 2020-05-17 2020-05-17 Outpatient R [facility] [id number] Univers 08:20:00 08:20:00 [id number] ity of [facility] 2020-05-17 2020-05-17 [facility] [id number] Univers 08:20:00 08:20:00 WONDIFUL ity o f [facility] 2020-05-15 2020-05-15 Laboratory Lab, [facility] 1..840.114 [id number] 13:51:55 14:11:55 Only Fam Pob I Health 350.1.13.10 [place] 4.2.7.2.686 Professio [phone] [place] [address] [facility] 2020-05-15 2020-05-15 Laboratory Lab, [facility] Fam Pob I [facility] 1.2. 840.114 [id number] Univers 13:51:55 14:11:55 Only Becky [facility] 350.1.13.10 ity of [place] 4.2.7.2.686 [place] Professio [phone] [address] Office [facility] 2020-05-15 2020-05-15 Outpatient [facility] [id number] Univers 13:40:00 13:40:00 ity [facility] 2020-05-15 2020-05-15 Outpatient R CHANNING [facility] [id number] Univers 13:40:00 13:40:00 [facility] 2020-05-14 2020-05-14 [facility] [id number] Univers 16:00:00 16:00:00 JUANA [facility] 2020-05-14 2020-05-14 [facility] [id number] Univers 16:00:00 16:00:00 JUANA [facility] 2020-05-14 2020-05-14 Telemedici [facility] 1.2.840.114 [id number] 15:04:18 15:19:18 ne Visit [facility] 350.1.13.10 [place] 4.2.7.2.686 Professio [phone] [address] 2020-05-14 2020-05-14 Telemedici [facility] 1.2.840.114 [id number] Univers 15:04:18 15:19:18 ne Visit [facility] 350.1.13.10 i ty of [place] 4.2.7.2.686 [place] Professio [phone] [address] Office [facility] 2020-05-14 2020-05-14 Telephone Augusto Simms [facility] 1.2.840.114 [id number] 00:00:00 00:00:00 Health 350.1.13.10 [place] 4.2.7.2.686 [place] [phone] [place] [address] Office [facility] 2020-05-14 2020-05-14 Telephone [facility] 1.2.840.114 [id number] Univers 00:00:00 00:00:00 Health 350.1.13.10 it y of [place] [phone] [address] Office Building 2020-05-10 2020-05-10 Office Noah [facility] 1.2.840.114 [id number] 15:03:56 16:37:58 Visit [facility] Health 350.1.13.10 [place] 4.2.7.2.686 Professio [phone] [place] [address] Office Building One 2020-05-10 2020-05-10 Office Noah [facility] 1.2.840.114 [id number] Univers 15:03:56 16:37:58 Visit [facility] Health 350.1.13.10 ity of [place] 4.2.7.2.686 [place] Professio [phone] [address] Office [facility] 2020-05-10 2020-05-10 Outpatient NOAH [facility] [id number] P-20 Univers 15:15:00 15:15:00 WONDIFUL [id number] ity o f [facility] 2020-05-10 2020-05-10 Outpatient R NOAH [facility] [id number] Univers 15:15:00 15:15:00 WONDIFUL ity o f [facility] 2020-05-04 2020-05-04 Ancillary Andrea [facility] 1.2.533.867 [id number] 13:42:26 14:42:26 Visit Susie White 350.1.13.10 [place] 4.2.7.2.686 Professio [phone] [address] 2020-05-04 2020-05-04 Ancillary Susie Mendez [facility] 1.2.840. 114 [id number] Univers 13:42:26 14:42:26 Visit Augusto Simms 350.1.13.10 ity of [place] [phone] Ma dical [address] 2020-05-04 2020-05-04 Outpatient R [facility] [id number] Univers 13:40:00 13:40:00 [id number] ity of [facility] 2020-05-04 2020-05-04 Outpatient R AUGUSTO SIMMS [facility] [id number] Univers 13:40:00 13:40:00 ity of [facility] 2020-05-04 2020-05-04 Orders Doctor CRISTINA 1.2.840.114 [id number] 00:00:00 00:00:00 Only Unassigned, CINTHIA 350.1.13.10 [place] [facility] 4.2.7.2.686 [id number] [id number] 2020-05-04 2020-05-04 Orders Doctor CRISTINA 1.2.840.114 [id number] Univers 00:00:00 00:00:00 Only Unassigned, CINTHIA 350.1.13.10 ity of [place] [facility] 4.2.7.2.686 Reid as [phone] [facility] 009 [place] 2020-04-28 2020-04-28 [facility] Walter Simmsshanti Funez 1.2.840.114 [id number] Univers 09:13:14 23:59:00 Encounter Cinthia 350.1.13.10 ity of Hospital 4.2.7.2.686 [place] as [phone] [facility] [address]04 [place] 2020-04-28 2020-04-28 [facility] Walter Simmsshanti Funez 1.2.840.114 [id number] Univers 08:41:00 15:28:00 Encounter Cinthia 350.1.13.10 ity of Hospital 4.2.7.2.686 [place] as [phone] [facility] [address] 2020-04-28 2020-04-28 Outpatient AUGUSTO SIMMS [facility] [id number] Univers 11:00:00 11:00:00 [id number] ity of [facility] 2020-04-28 2020-04-28 [facility] Augusto Simmsnie 1.2.840.114 [id number] Univers 09:12:55 09:12:55 Encounter [place] 350.1.13.10 ity of Hospital 4.2.7.2.686 Reid as [phone] [address] 2020-04-27 2020-04-27 [facility] 1.2.840.114 [id number] Univers 12:00:00 23:59:00 Encounter [place] [id number] ity of [place] [id number] [place] [phone] [place] [id number] [place] 2020-04-27 2020-04-27 Outpatient [place] VIRY [facility] [id number] Univers 12:00:00 12:00:00 [id number] ity of [facility] 2020-04-27 2020-04-27 Outpatient Luiza SIMMS [facility] [id number] Univers 00:00:00 00:00:00 ity of [facility] 2020-04-22 2020-04-22 [facility] 1.2.840.114 [id number] Univers 14:56:40 16:20:38 Visit [facility] [id number] ity of [place] [id number] [place] Professio [phone] [address] Office [facility] [facility] 2020-04-22 2020-04-22 Outpatient NOAH [facility] [id number] [id number] Univers 15:00:00 15:00:00 WONDIFUL [id number] ity o f [facility] 2020-04-22 2020-04-22 Office Viry [facility] [id number] Univers 08:51:10 09:06:10 Visit Health 350.1.13.10 it y of [place] 4.2.7.2.686 [facility] [phone] [address] Office Building 2020-04-22 2020-04-22 Outpatient Luiza SIMMS [facility] [id number] Univers 09:00:00 09:00:00 ity of [facility] 2020-04-19 2020-04-19 Urgent Provider, [facility] [id number] Univers 18:40:00 19:00:00 Care Ang [facility] 350.1.13.10 ity of Care [place] 4.2.7.2.686 Reid as Professio [phone] Ma dicnh nal [address] [place] [address] [facility] 2020-04-19 2020-04-19 Outpatient R [facility] [id number] Univers 18:40:00 18:40:00 ity of [facility] 2020-04-19 2020-04-19 Outpatient R [facility] [id number] Univers 18:40:00 18:40:00 ity of [facility] 2020-04-19 2020-04-19 [facility] [id number] Univers 00:00:00 00:00:00 Wondiful A Health 350.1.13.10 ity of [place] 4.2.7.2.686 Reid as Professio [phone] Ma dical nal [address] [facility] 2020-04-16 2020-04-16 [facility] [id number] Univers 11:00:00 23:59:00 Encounter Alicia Lopez [place] 350.1.13.10 ity of [place] 4.2.7.2.686 [place] [facility] [phone] [address] 2020-04-16 2020-04-16 [facility] [id number] Univers 11:00:00 11:00:00 ALICIA ity of [facility] 2020-04-16 2020-04-16 [facility] [id number] Univers 00:00:00 00:00:00 ALICIA ity of [facility] 2020-04-15 2020-04-15 Urgent Provider, [facility] [id number] Univers 13:06:56 14:01:36 Care Og [facility] 350.1.13.1 0 ity of [place] 4.2.7.2.686 Reid as Professio [phone] Ma dicnh nal [address] [place] [address] Office [facility] 2020-04-15 2020-04-15 Outpatient R [facility] [id number] Univers 13:00:00 13:00:00 ity of [facility] 2020-04-15 2020-04-15 [facility] [id number] Univers 13:00:00 13:00:00 WONDIFUL ity o f [facility] 2020-04-07 2020-04-07 Office MIGUEL Jacob [id number] 13:03:12 13:33:12 Visit Hira Medrano AMBULATOR 350.1.13.21 Y 0.2.7.2.686 [id number] 2020-04-07 2020-04-07 Office MIGUEL Jacob [id number] [facility] 13:03:12 13:33:12 Visit Hira Medrano AMBULATOR 350.1.13.21 College Y 0.2.7.2.686 of [id number] [facility] 800 e 2019-11-26 2019-11-26 Outpatient DEANA CARBAJAL [facility] [id number] SLE 00:00:00 00:00:00 EFREN 2019-09-02 2019-09-02 Outpatient [facility] [id number] SLE 00:00:00 00:00:00 [id number] 2019-03-21 2019-03-21 Office MIGUEL Jacob [id number] 14:17:49 14:47:49 Visit Hira Medrano AMBULATOR 350.1.13.21 Y 0.2.7.2.[id number] [facility] 2019-03-21 2019-03-21 Office MIGUEL Jacob [id number] [facility] 14:17:49 14:47:49 Visit Hira Medrano AMBULATOR 350.1.13.21 College Y 0.2.7.2.686 of [id number] [facility] 800 e Results Test Description Test Test Results Result Source Time Comments Comments MR LUMBAR SPINE 2020-04- Congenital hypoplastic University WO CONTRAST 18 T10 vertebral body and [facility] 21:23:39 posterior elements Branch results infocal wedging of the thoracic spine. Diffuse posterior epidural lamina stenosis is noted throughout the thoracicspine resulting in mild effacement of the thecal sac but no bony canalstenosis. 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 EXAM: MR THORACIC SPINE WO CONTRAST, MR LUMBAR SPINE WO CONTRAST HISTORY: Presurgical eval, T-spine TECHNIQUE: MRIs of the thoracic and lumbar spine were performed withoutintravenous contrast. COMPARISON: Lumbar spine radiograph dated 04/16/2020. 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 The vertebral bodies are otherwise normal in height and alignment. Thebackground bone marrow signal is unremarkable. Small Schmorl's nodes are noted at the mid thoracic spine. Disc spaces areotherwise normal in height and alignment. There is prominent posterior epidural fat throughout the entire thoracicspine results in mild diffuse narrowing of the thecal sac. No osseousspinal canal stenosis. The paraspinal soft tissues are unremarkable. Dilated fluid-filledesophagus noted. LUMBAR SPINE The vertebral bodies are normal in height and alignment. The background bone marrow signal is unremarkable. The cauda equina terminates at L2 and is normal. Cauda equina nerve rootsare unremarkable. Mild disc desiccation at L3-L4. Lumbar discs are otherwise normal in heightand signal intensity. At L1-L2, mild ligamentum flavum thickening noted. No high-grade spinalcanal stenosis or significant neural foraminal narrowing. At L2-L3, mild diffuse disc bulge with bilateral facet arthrosis andligamentum flavum thickening. No high-grade spinal canal stenosis orsignificant neural foraminal narrowing. At L3-L4, diffuse disc bulge with bilateral facet arthrosis and ligamentumflavum thickening result in mild spinal canal stenosis. No significantneural foraminal narrowing. At L4-L5, mild to moderate bilateral facet arthrosis and ligamentum flavumthickening. No high-grade spinal canal stenosis or significant neuralforaminal narrowing. At L5-S1, no high-grade spinal canal stenosis or significant neuralforaminal narrowing. The paraspinal soft tissues are unremarkable. [facility], Radiant Results Inft User - 04/28/2020 3:24 PM CSTEXAM: MR THORACIC SPINE WO CONTRAST, MR LUMBAR SPINE WO CONTRASTHISTORY: Presurgical eval, T-spine TECHNIQUE: MRIs of the thoracic and lumbar spine were performed withoutintravenous contrast.COMPARISON: Lumbar spine radiograph dated 04/16/2020.FINDINGS:THOR ACIC SPINECongenital hypoplastic T11 vertebral body and posterior elements noted andresulted in mild kyphotic deformity.The vertebral bodies are otherwise normal in height and alignment. Thebackground bone marrow signal is unremarkable.Small Schmorl's nodes are noted at the mid thoracic spine. Disc spaces areotherwise normal in height and alignment.There is prominent posterior epidural fat throughout the entire thoracicspine results in mild diffuse narrowing of the thecal sac. No osseousspinal canal stenosis.The paraspinal soft tissues are unremarkable. Dilated fluid-filledesophagus noted. LUMBAR SPINEThe vertebral bodies are normal in height and alignment.The background bone marrow signal is unremarkable.The cauda equina terminates at L2 and is normal. Cauda equina nerve rootsare unremarkable.Mild disc desiccation at L3-L4. Lumbar discs are otherwise normal in heightand signal intensity.At L1-L2, mild ligamentum flavum thickening noted. No high-grade spinalcanal stenosis or significant neural foraminal narrowing.At L2-L3, mild diffuse disc bulge with bilateral facet arthrosis andligamentum flavum thickening. No high-grade spinal canal stenosis orsignificant neural foraminal narrowing.At L3-L4, diffuse disc bulge with bilateral facet arthrosis and ligamentumflavum thickening result in mild spinal canal stenosis. No significantneural foraminal narrowing.At L4-L5, mild to moderate bilateral facet arthrosis and ligamentum flavumthickening. 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 MR THORACIC 2019-- Congenital hypoplastic [facility] of SPINE WO 18 T10 vertebral body and [facility] CONTRAST 21:23:39 posterior elements Branch results infocal wedging of the thoracic spine. Diffuse posterior epidural lamina stenosis is noted throughout the thoracicspine resulting in mild effacement of the thecal sac but no bony canalstenosis. 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 EXAM: MR THORACIC SPINE WO CONTRAST, MR LUMBAR SPINE WO CONTRAST HISTORY: Presurgical eval, T-spine TECHNIQUE: MRIs of the thoracic and lumbar spine were performed withoutintravenous contrast. COMPARISON: Lumbar spine radiograph dated 04/16/2020. 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 The vertebral bodies are otherwise normal in height and alignment. Thebackground bone marrow signal is unremarkable. Small Schmorl's nodes are noted at the mid thoracic spine. Disc spaces areotherwise normal in height and alignment. There is prominent posterior epidural fat throughout the entire thoracicspine results in mild diffuse narrowing of the thecal sac. No osseousspinal canal stenosis. The paraspinal soft tissues are unremarkable. Dilated fluid-filledesophagus noted. LUMBAR SPINE The vertebral bodies are normal in height and alignment. The background bone marrow signal is unremarkable. The cauda equina terminates at L2 and is normal. Cauda equina nerve rootsare unremarkable. Mild disc desiccation at L3-L4. Lumbar discs are otherwise normal in heightand signal intensity. At L1-L2, mild ligamentum flavum thickening noted. No high-grade spinalcanal stenosis or significant neural foraminal narrowing. At L2-L3, mild diffuse disc bulge with bilateral facet arthrosis andligamentum flavum thickening. No high-grade spinal canal stenosis orsignificant neural foraminal narrowing. At L3-L4, diffuse disc bulge with bilateral facet arthrosis and ligamentumflavum thickening result in mild spinal canal stenosis. No significantneural foraminal narrowing. At L4-L5, mild to moderate bilateral facet arthrosis and ligamentum flavumthickening. No high-grade spinal canal stenosis or significant neuralforaminal narrowing. At L5-S1, no high-grade spinal canal stenosis or significant neuralforaminal narrowing. The paraspinal soft tissues are unremarkable. [facility], Radiant Results Inft User - 04/28/2020 3:24 PM CSTEXAM: MR THORACIC SPINE WO CONTRAST, MR LUMBAR SPINE WO CONTRASTHISTORY: Presurgical eval, T-spine TECHNIQUE: MRIs of the thoracic and lumbar spine were performed withoutintravenous contrast.COMPARISON: Lumbar spine radiograph dated 04/16/2020.FINDINGS:THOR ACIC SPINECongenital hypoplastic T11 vertebral body and posterior elements noted andresulted in mild kyphotic deformity.The vertebral bodies are otherwise normal in height and alignment. Thebackground bone marrow signal is unremarkable.Small Schmorl's nodes are noted at the mid thoracic spine. Disc spaces areotherwise normal in height and alignment.There is prominent posterior epidural fat throughout the entire thoracicspine results in mild diffuse narrowing of the thecal sac. No osseousspinal canal stenosis.The paraspinal soft tissues are unremarkable. Dilated fluid-filledesophagus noted. LUMBAR SPINEThe vertebral bodies are normal in height and alignment.The background bone marrow signal is unremarkable.The cauda equina terminates at L2 and is normal. Cauda equina nerve rootsare unremarkable.Mild disc desiccation at L3-L4. Lumbar discs are otherwise normal in heightand signal intensity.At L1-L2, mild ligamentum flavum thickening noted. No high-grade spinalcanal stenosis or significant neural foraminal narrowing.At L2-L3, mild diffuse disc bulge with bilateral facet arthrosis andligamentum flavum thickening. No high-grade spinal canal stenosis orsignificant neural foraminal narrowing.At L3-L4, diffuse disc bulge with bilateral facet arthrosis and ligamentumflavum thickening result in mild spinal canal stenosis. No significantneural foraminal narrowing.At L4-L5, mild to moderate bilateral facet arthrosis and ligamentum flavumthickening. 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 COVID-19 (ID NOW RAPID TESTING) 2020-04-28 15:58:00 Test Item Value Reference Range Interpretation Comme nts SARS-CoV-2 Rapid ID NOW (test code Not Detected Not Detected = 50298-4) SHARON (test code = SHARON) ID NOW COVID-19 Assay is an isothermal nucleic acid amplification test intended for the qualitative detection of nucleic acid from SARS-CoV-2 viral RNA in nasopharyngeal (CORRECTIONAL THERAPY DIRECTOR) specimens. It is used under Emergency Use Authorization (EUA) by FDA. The limit of detection (LOD) of the assay is 125 Genome Equivalents/mL. A positive result is indicative of the presence of SARS-CoV-2 RNA. ?Clinical correlation with patient history and other diagnostic information is necessary to determine patient infection status. A negative (Not Detected) result does not preclude SARS-CoV-2 infection. In patients with clinical symptoms and other tests that are consistent with SARS-CoV-2 infection, negative results should be treated as presumptive negative and a new specimen should be tested with alternative PCR molecular test. Invalid: Please collect a new specimen for repeat patient testing if clinically indicated. Lab Interpretation (test code = Normal 44751-7) [facility] [id number] 18:42:13 HISTORY: Back pain, T11 deformity. COMPARISON: Lumbar spine study of 04/16/[address] scan of abdomen date09/19/2018. TECHNIQUE: AP and lateral views of thoracic and lumbar spines as well assacrum wereobtained. FINDINGS: Anatomical details of upper thoracic spines in the AP view aresuboptimal.Mild mid thoracic dextroscoliosis suspected.Moderate thoracolumbar dextroscoliosis is noted secondary to developmentalabnormality in size and shape of T11 as well as T12 vertebral bodies. [id number] body is butterfly-shaped and, as a result, there is deformity inthe upper left side of T12 vertebral body. Approximate scoliosis angle at mid thoracic level is less than 5 degreesand at thoracolumbar junction is proximally 13 to 15 degrees. CONCLUSIONS: Thoracolumbar scoliosis secondary to developmental anomaly insize and shape of T11 and T12 vertebral bodies. [facility], Radiant Results Inft User - 04/27/2020 12:43 PM CSTHISTORY: Back pain, T11 deformity.COMPARISON: Lumbar spine study of 04/16/[address] scan of abdomen date09/19/2018.TECHNIQUE: AP and lateral views of thoracic and lumbar spines as well assacrumwere obtained.FINDINGS: Anatomical details of upper thoracic spines in the AP view aresuboptimal.Mild mid thoracic dextroscoliosis suspected.Moderate thoracolumbar dextroscoliosis is noted secondary to developmentalabnormality in size and shape of T11 as well as T12 vertebral bodies. [id number] bodyis butterfly-shaped and, as a result, there is deformity inthe upper left side of T12 vertebral body.Approximate scoliosis angle at mid thoracic level is less than 5 degreesand at thoracolumbar junction is proximally 13 to 15 degrees.CONCLUSIONS: Thoracolumbar scoliosis secondary to developmental anomaly insize and shape of T11 and T12 vertebral bodies. [facility] 4 [id number] 19:41:01XR LUMBAR SPINE 4 VW, XR SACRUM AND COCCYX HISTORY: Male 45 years acute midline low back pain w/o sciatica COMPARISON: None FINDINGS: Mild levocurvature. The vertebral bodies are normal in height and in normal alignment. Nosignificant degenerative changes are present. Oblique radiographsdemonstrate no evidence of spondylolysis. The sacrum and coccyx are unremarkable. [facility], Radiant Results Inft User - 04/16/2020 1:42 PM CSTXR LUMBAR SPINE 4 VW, XR SACRUM AND COCCYXHISTORY: Male 45 years acute midline low back pain w/o sciatica COMPARISON: NoneFINDINGS:Mild levocurvature.The vertebral bodies are normal in height and in normal alignment. Nosignificant degenerative changes are present. Oblique radiographsdemonstrate no evidence of spondylolysis.The sacrum and coccyx are unremarkable.[facility] SACRUM [facility] CO[facility]X 2020-04-16 19:41:01XR LUMBAR SPINE 4 VW, XR SACRUM AND COCCYX HISTORY: Male 45 years acute midline low back pain w/o sciatica COMPARISON: None FINDINGS: Mild levocurvature. The vertebral bodies are normal in height and in normal alignment. Nosignificant degenerative changes are present. Oblique radiographsdemonstrate no evidence of spondylolysis. The sacrum and coccyx are unremarkable. [facility], Radiant Results Inft User - 04/16/2020 1:42 PM CSTXR LUMBAR SPINE 4 VW, XR SACRUM AND COCCYXHISTORY: Male 45 years acute midline low back pain w/o sciatica COMPARISON: NoneFINDINGS:Mild levocurvature.The vertebral bodies are normal in height and in normal alignment. Nosignificant degenerative changes are present. Oblique radiographsdemonstrate no evidence of spondylolysis.The sacrum and coccyx are unremarkable.[facility] URINALYSIS W SPECIFIC [id number] 19:31:00 Test Item Value Reference Range Interpretation Comments POCT U SP GRAV (test code = 1.020 mg/dl 1.005-1.025 3255) POCT PH U (test code = 3254) 5 mg/dl 5-8 POCT U LEUK EST (test code = Negative Negative - Negative 3263) POCT U NIT (test code = 3262) Negative Negative - Negative POCT U PROT (test code = Negative Negative - Negative 3259) POCT U GLU (test code = 3256) Negative Negative - Negative POCT U KETONE (test code = Negative Negative - Negative 3258) POCT U UROBILI (test code = Normal 0.2-1 3260) POCT U BILI (test code = Negative Negative - Negative 3261) POCT U BLD (test code = 3257) Negative Negative - Negative POCT U COLOR (test code = orange 3266) POCT U APPEAR (test code = clear 3267) Lab Interpretation (test code Normal = 92065-4) [facility] AWAKE AND [id number] 15:51:00Reason for exam:->Matt-Gastaut syndrome, intractable, with status epilepticusSt [facility] EEG REPORTDATE OF TEST: [id number] OF REPORT: [id number]: [id number]: [id number] time: 1312Stop time: 1342CPT Code: 16677HGS-28: G40.813 HISTORY: A 44yr old M with LGS with frequent seizures, last seizure was 1 week ago. MEDICATIONS: Epidiolex and Lacosamide. TECHNICAL SUMMARY:Thisis a digital video EEG recorded with 32 [...] None IMPRESSION: Abnormal Awake and Asleep EEG dueto: 1) Continuous slow, generalized2) Background slow CLINICAL CORRELATION:The EEG is consistent with a mild degree of encephalopathy. No areas of focal dysfunction or epileptiform dischargeswere seen. No clinical or electrographic seizures were seen. Carlitos Hernandez MDEpilepsy Fellow I have re viewed this electroencephalogram, discussed the findings with the fellow, addended the fellow's report and agree with the overall assessment. Frank Monaco MD, MSNeurophysiology/Epilepsy attending.
[2021-09-02] MEDS ORDERED: NA CHLORIDE 0.9% 500 ML ONE (01:24)
[2021-09-02 01:45] LABS: Absolute Lymphocytes (CBC) 2.4 K/uL (0.7-4.9); Hematocrit 42.1 % (39.6-49.0); Lymphocytes % 18.5 % (15.3-44.8); MPV 7.7 fL (7.6-11.3); RBC Red Blood Cell Count 4.71 M/uL (4.33-5.43)
[2021-09-02 02:02] LABS: Potassium 4.1 mmol/L (3.5-5.1)
[2021-09-02] MEDS ORDERED: NA CHLORIDE 0.9% 1,000 ML ONE (02:33)
--- NOTE | 2021-09-02 03:06 | ER ---
Nurse's Notes [facility] Name: Dylan Manzanares Jr Age: 46 yrs Sex: Male : 1975 Arrival Date: 09/02/2021 Time: 01:01 Bed 6 Private MD: Diagnosis: Dehydration;Epileptic seizures related to external causes Presentation: 09/02 01:13 Chief complaint: EMS states: Called for patient having seizure at home, continued after lp1 medications given by mother; Patient with hx of Microcephaly, seizures; patient given total of 15mg of Diazepam intranasally without relief; Per EMS, grand mal seizure while on scene, stopped prior to administering medications. Coronavirus screen: At this time, the client does not indicate any symptoms associated with coronavirus-19. Ebola Screen: No symptoms or risks identified at this time. Initial Sepsis Screen: Does the patient meet any 2 criteria? No. Patient's initial sepsis screen is negative. Does the patient have a suspected source of infection? No. Patient's initial sepsis screen is negative. Risk Assessment: Do you want to hurt yourself or someone else? Patient reports no desire to harm self or others. Onset of symptoms was September 01, 2021 at 23:50. 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 - Social history:: Smoking status: Patient denies any tobacco usage or history of. Screenin:17 Abuse screen: Denies threats or abuse. Denies injuries from another. Nutritional lp1 screening: No deficits noted. Tuberculosis screening: No symptoms or risk factors identified. Fall Risk Total Elias Fall Scale indicates High Risk Score (45 or more points). Fall prevention measures have been instituted. Side Rails Up X 2 Family Present and informed to notify staff if the need to leave the bedside As available patient and family educated on Fall Prevention Program and Strategies. Assessment: 01:15 General: Appears in no apparent distress. Behavior is drowsy. Pain: Unable to use pain lp1 scale. FLACC scale score is 0 out of 10. Neuro: Level of Consciousness is obeys commands, Patient easily arousable . Oriented to person, place. Cardiovascular: Patient's skin is warm and dry. Rhythm is sinus rhythm. Respiratory: Airway is patent Respiratory effort is even, shallow, Respiratory pattern is regular, symmetrical, Breath sounds are clear bilaterally. GI: Abdomen is non-distended. : No signs and/or symptoms were reported regarding the genitourinary system. EENT: No signs and/or symptoms were reported regarding the EENT system. Derm: Skin is intact, Skin is dry, Skin is normal. Musculoskeletal: No deficits noted. 01:30 Reassessment: Patient at 86% on RA, NC applied at 2L at this time. lp1 01:40 Reassessment: O2 at 88% on NC at 2L, noted to be mouthing breathing; Patient switched lp1 to Venturi mast at 50%, O2 at 97%; continued drowsiness, responding well to voice, follows commands. 02:33 Reassessment: Assumed care. Patient on Venti mask at 50%. O2 sat maintained at 100%. tk1 Respirations even and unlabored. Arouses to verbal stimuli. Remains drowsy. 02:53 Reassessment: Mom states, O2 irritating patients nose, so she removed mask. Patient's tk1 O2 sat remains at 100%. Will continue to monitor. 03:50 Reassessment: Assisted patient's mother with cleansing and changing patient's clothing. tk1 Patient able to assist. Follows commands well. 04:24 Reassessment: Patient to mother's vehicle via with tech for discharge. tk1 Vital Signs: 01:13 BP 101 / 59; Pulse 94; Resp 12; Temp 97.3(TE); Pulse Ox 94% on R/A; Weight 85.68 kg (R);lp1 02:02 BP 106 / 68; Pulse 81; Resp 22; Pulse Ox 94% on 50% Venturi mask; lp1 02:30 BP 115 / 82 RA Supine (auto/reg); Pulse 73 MON; Resp 16 S; Pulse Ox 100% on 50% Venturi tk1 mask; 03:30 BP 97 / 54 RA Supine (auto/reg); Pulse 68 MON; Resp 19 S; Temp 97.9(O); Pulse Ox 98% on tk1 R/A; Pain 0/10; Aspen Coma Score: 01:17 Eye Response: to voice(3). Verbal Response: oriented(5). Motor Response: obeys lp1 commands(6). Total: 14. ED Course: 01:01 Patient arrived in ED. ag3 01:08 Jax Navarro PA is PHCP. jr8 01:08 Prery Soliz MD is Attending Physician. jr8 01:13 Marissa Kessler, ABBY is Primary Nurse. lp1 01:16 Triage completed. lp1 01:16 Arm band placed on. lp1 01:17 Seizure precautions initiated. lp1 01:17 Patient has correct armband on for positive identification. Side rails up X2. Cardiac lp1 monitor on. Pulse ox on. NIBP on. 02:22 Report given to ABBY Quezada. lp1 02:30 No provider procedures requiring assistance completed. IV is patent, is intact, with tk1 fluids infusing freely. 04:00 IV discontinued, intact, bleeding controlled, No redness/swelling at site. Pressure tk1 dressing applied. Administered Medications: 01:32 Drug: NS 0.9% 500 ml Route: IV; Rate: bolus; Site: left forearm; lp1 02:32 Follow up: Response: No adverse reaction; IV Status: Completed infusion; IV Intake: tk1 500ml 02:31 Drug: NS 0.9% 1000 ml Route: IV; Rate: 1000 ml; Infused Over: 1 hrs; Site: left tk1 forearm; Delivery: Primary tubing; 03:31 Follow up: Response: No adverse reaction; IV Status: Completed infusion; IV Intake: tk1 1000ml Intake: 02:32 IV: 500ml; Total: 500ml. tk1 03:31 IV: 1000ml; Total: 1500ml. tk1 Outcome: 03:06 Discharge ordered by . jr8 04:00 Discharged to home via wheelchair, with family. tk1 04:00 Condition: stable 04:00 Discharge instructions given to family, Instructed on discharge instructions, follow up and referral plans. Demonstrated understanding of instructions, follow-up care. 04:28 Patient left the ED. tk1 Signatures: Marissa Kessler RN RN lp1 Jax Navarro PA PA jr8 Fidelia Harrell ag3 Luis, Pilar tk1
--- NOTE | 2021-09-02 03:06 | EDPHYS ---
Physician Documentation [facility] Name: Dylan Manzanares Jr Age: 46 yrs Sex: Male : 1975 Arrival Date: 09/02/2021 Time: : Bed 6 Private MD: SILVERIO Physician Perry Soliz HPI: 09/02 01:15 This 46 yrs old Male presents to ER via Unassigned with complaints of Seizure. jr8 01:15 The patient presents with a history of multiple seizures. Character of seizure(s): jr8 Motor activity: generalized, Incontinence: incontinent of bladder. Seizure onset: just prior to arrival. Context: the seizure(s) was witnessed, by family, occurred at home, occurred while the patient was at rest. Current symptoms: confusion, decreased level of consciousness, is sleeping but easy to arouse. The patient has experienced similar episodes in the past, chronically. The patient has not recently seen a physician. 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 Family stated that they had to give 2 rounds of diazepam tonight and continued to seize. Now without seizure but postictal. Family stated that they normally were not transport but because he was continuing to have seizures after the second dose wanted to make sure he was okay. Denies any fever or any other new symptoms.. 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 - Social history:: Smoking status: Patient denies any tobacco usage or history of. ROS: 01:15 Constitutional: Negative for fever, chills, and weight loss. jr8 01:15 Neuro: Positive for seizure activity. 01:15 All other systems are negative. Exam: 01:15 Eyes: Pupils equal round and reactive to light, extra-ocular motions intact. Lids and jr8 lashes normal. Conjunctiva and sclera are non-icteric and not injected. Cornea within normal limits. Periorbital areas with no swelling, redness, or edema. Cardiovascular: Regular rate and rhythm with a normal S1 and S2. No gallops, murmurs, or rubs. Normal PMI, no JVD. No pulse deficits. Respiratory: Lungs have equal breath sounds bilaterally, clear to auscultation and percussion. No rales, rhonchi or wheezes noted. No increased work of breathing, no retractions or nasal flaring. Abdomen/GI: Soft, non-tender, with normal bowel sounds. No distension or tympany. No guarding or rebound. No evidence of tenderness throughout. Skin: Warm, dry with normal turgor. Normal color with no rashes, no lesions, and no evidence of cellulitis. MS/ Extremity: Pulses equal, no cyanosis. Neurovascular intact. Full, normal range of motion. 01:15 Neuro: Orientation: to person, Mentation: able to follow commands, Motor: moves all fours, Sensation: no obvious gross deficits, seizure activity, is not currently displayed, but the patient is post-ictal, Abnormal movements: there are no abnormal movements. Vital Signs: 01:13 BP 101 / 59; Pulse 94; Resp 12; Temp 97.3(TE); Pulse Ox 94% on R/A; Weight 85.68 kg (R);lp1 02:02 BP 106 / 68; Pulse 81; Resp 22; Pulse Ox 94% on 50% Venturi mask; lp1 02:30 BP 115 / 82 RA Supine (auto/reg); Pulse 73 MON; Resp 16 S; Pulse Ox 100% on 50% Venturi tk1 mask; 03:30 BP 97 / 54 RA Supine (auto/reg); Pulse 68 MON; Resp 19 S; Temp 97.9(O); Pulse Ox 98% on tk1 R/A; Pain 0/10; Aspen Coma Score: 01:17 Eye Response: to voice(3). Verbal Response: oriented(5). Motor Response: obeys lp1 commands(6). Total: 14. MDM: 01:08 Patient medically screened. jr8 03:05 Data reviewed: vital signs, nurses notes, lab test result(s), and as a result, I will jr8 discharge patient. Data interpreted: Pulse oximetry: on room air is 100 %. Interpretation: normal. Counseling: I had a detailed discussion with the patient and/or guardian regarding: the historical points, exam findings, and any diagnostic results supporting the discharge/admit diagnosis, lab results, the need for outpatient follow up, a family practitioner, to return to the emergency department if symptoms worsen or persist or if there are any questions or concerns that arise at home. Response to treatment: the patient's symptoms have resolved after treatment. 09/02 01:15 Order name: CBC with Diff; Complete Time: 01:51 jr8 09/02 01:15 Order name: Basic Metabolic Panel; Complete Time: 02:24 jr8 09/02 01:15 Order name: Magnesium; Complete Time: : jr8 Administered Medications: 01:32 Drug: NS 0.9% 500 ml Route: IV; Rate: bolus; Site: left forearm; lp1 02:32 Follow up: Response: No adverse reaction; IV Status: Completed infusion; IV Intake: tk1 500ml 02:31 Drug: NS 0.9% 1000 ml Route: IV; Rate: 1000 ml; Infused Over: 1 hrs; Site: left tk1 forearm; Delivery: Primary tubing; 03:31 Follow up: Response: No adverse reaction; IV Status: Completed infusion; IV Intake: tk1 1000ml Disposition: 05:40 Co-signature as Attending Physician, Perry Soliz MD I agree with the assessment and sylvia plan of care. Disposition Summary: 09/02/21 03:06 Discharge Ordered Location: Home jr Problem: new jr8 Symptoms: have improved jr8 Condition: Stable jr8 Diagnosis - Dehydration jr8 - Epileptic seizures related to external causes jr8 Followup: jr8 - With: Private Physician - When: 2 - 3 days - Reason: Recheck today's complaints, Continuance of care, Re-evaluation by your physician Discharge Instructions: - Discharge Summary Sheet jr8 - Dehydration, Adult jr8 - Seizure, Adult jr8 Forms: - Medication Reconciliation Form jr8 - Thank You Letter jr8 - Antibiotic Education jr8 - Prescription Opioid Use jr8 Signatures: Dispatcher [employer] Perry Slaughter MD MD cha Pena, Laura RN RN lp1 Jax Navarro PA PA jr8 Pilar Smith tk1
[2021-09-02 04:55] VITALS: TEMP 97.3
[2021-09-02 04:58] VITALS: BP 115/82; O2SAT 100
== END 2021-09-02 04:28 | disposition home or self-care (01) ==
LOC: ER 00:57
DX: G40.509 Epileptic seizures related to external causes, not intractable, without status epilepticus (principal); E86.0 Dehydration; Q02 Microcephaly; F84.0 Autistic disorder; G80.9 Cerebral palsy, unspecified; Z88.8 Allergy status to other drugs, medicaments and biological substances
CPT/HCPCS: 96361; 85025; 80048; 36415; 83735; 96360; 99284; J7040; J7030

== ENCOUNTER 2022-01-13 18:42 | Emergency (ER) | payer OTHER ==
--- OUTSIDE RECORDS SUMMARY | 2022-01-13 18:48 | XMS REPORT | Continuity of Care Document ---
:1975 Author Organization [facility] t Address [address] [place] [address] Care Team Providers Name Role Phone Noah WINSLOW, Kyra Lopez Primary Care Physician Unavailable HIRA JACOB Attending Clinician Unavailable SONIA_Luiza Attending Clinician Unavailable Doctor Unassigned, [place] Attending Clinician Unavailable EFREN CARBAJAL Attending Clinician Unavailable FOG_A_Provider Attending Clinician Unavailable Junior Barker Attending Clinician [phone] APOORVA ARECHIGA Attending Clinician Unavailable Hira Jacob MD Attending Clinician ADAN STOREY Attending Clinician Unavailable KYRA ZAMORA Attending Clinician Unavailable Kyra Zamora MD Attending Clinician AUGUSTO SIMMS Attending Clinician Unavailable Augusto Simms MD Attending Clinician Lab, Adc Fam Pob I Attending Clinician Unavailable Becky Wilkins Attending Clinician BECKY KEITA Attending Clinician Unavailable JUANA MCLAUGHLIN Attending Clinician Unavailable Juana Dhillon Attending Clinician Susie Mendez PT Attending Clinician Unavailable Provider, [facility] Attending Clinician Unavailable Alicia Tobias Attending Clinician ALICIA GIBBS Attending Clinician Unavailable EFREN CARBAJAL Attending Clinician Unavailable ERMELINDA_Luiza Admitting Clinician Unavailable FOG_A_Provider Admitting Clinician Unavailable Augusto Simms MD Admitting Clinician Payers Payer Name Policy Type Policy Number Effective Date Expiration Date [place] MEDICARE PART A [id number] 1996 \T\ B 00:00:00 [place]ICAID OF [place] [id number] 2018 00:00:00 MEDICARE PART A [id number] 1996 \T\ B - MEDICARE 00:00:00 CHOICE/CHOICE [id number] PLUS/OPTIONS [facility]-MEDICAID - [id number] [place] [id number] 1996 [employer] 00:00:00 [place] [id number] [place] MEDIC[place] A B [id number] 1996 00:00:00 [place] [id number] Problems Condition Condition Condition Status Onset Resolution Last Treating Co mments Source Name Details Category Date Date Treatment Clinician Date COVID-19 COVID-19 Disease Active 2019-06 [facility] rs virus virus 2-26 [place] COVID-19 COVID-19 Disease Active 2019-06 Overview: Torrey velasquez 2-05 [facility] 00:00: g of this note Medicin might [...] Elevated Disease Active Unive rs lipase lipase 4-09 ity of 00:00: [address] Seizure Seizure Disease Active Univers disorder disorder 09-16 ity of 00:00: [address] Dyspepsia Dyspepsia Disease Active Uni vers 09-16 ity of 00:00: [address] Personal Personal Disease Active Unive rs history of history of 09-16 it y of other other 00:00: [place] mental and mental and 00 Me dical behavioral behavioral Br anch disorders disorders Intellectu Intellectu Disease Active U nivers al al 09-16 ity of disability disability 00:00: xa [facility] Compulsive Compulsive Disease Active U nivers self-bitin self-bitin 09-16 it y of g behavior g behavior 00:00: xa [facility] Blind Blind Disease Active [facility] e Autism Autism Disease Active [facility] e Cerebral Cerebral Disease Active [facility] palsy palsy [facility] e Gout Gout Disease Active [facility] e Microcepha Microcepha Disease Active [facility] ly ly [facility] ([facility] of Medicin e Moderate Moderate Disease Active [facility] [employer] [facility] al al of disability disability Me dicin e 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 syndrome, syndrome, of intractabl intractabl Me dicin e, with e, with e status status epilepticu epilepticu s [facility] s [facility] Legal Legal Disease Active Univers blindness blindness ity of [facility] Microcepha Microcepha Disease Active [facility] ly ly ity of [facility] Allergies, Adverse Reactions, Alerts Allergy Allergy Status Severity Reaction(s) Onset Inactive Treating Comm ents Source Name Type Date Date Clinician ANTIHIST Drug Active High Unknown-Cmnt 2007-06 Un pietro AMINES - Class 1-18 ity of [place] 00:00: [address] Antihist Propensi Active Unknown - 2007-06 Reacts Uni vers amines - ty to See comments 18 with it y of [place] adverse 00:00[place] medic[place] reaction 00 ns. Medical s to Branch drug DIPHENHY DRUG Active Unknown-Cmnt Un pietro DRAMINE INGREDI 7- ity of HCL 00:00: [place] 00 Medical Branch Diphenhy Propensi Active Unknown - Uni vers dramine ty to See comments 12-29 ity of Hcl adverse 00:00: [place] reaction 00 Medical s Branch NO KNOWN Drug Active Univers ALLERGIE Class ity of S [place] [facility] [place] Social History Social Habit Start Date Stop Date Quantity Comments Source History [facility] Alcohol Comment of Medici ne Exposure to Not sure [facility] Zoey e SARS-CoV-2 (event) of Med icine History [facility] Alcohol Std Drinks of Med icine History [facility] Alcohol Binge of Medicine Tobacco use and 2021-12-30 2021-12-30 Smokeless tobacco [facility] exposure 00:00:00 00:00:00 non-user of Medicine Alcohol intake 2021-12-30 2021-12-30 Lifetime [facility] Col lege 00:00:00 00:00:00 non-drinker of Medicine (finding) Cigarette 2018-10-18 2018-10-18 [facility] pack-years 00:00:00 00:00:00 of Medicine History [facility] 2018-10-18 2018-10-18 1 [facility] Alcohol Frequency 00:00:00 00:00:00 of Medi cine Sex Assigned At [address] [facility] Tara azuls 00:00:00 [facility]00 [facility] Smoking Status Start Date Stop Date Source Never smoked tobacco [facility] Mary Jane ege of Medicine Medications Ordered Filled Start Stop Current Ordering Indication Dosage Frequency Signature Comments Components Source Medication Medication Date Date Medication? Clinician (SIG) Name Name EPIDIOLEX Yes [id number] 8mL Take 8 mL [place] 100 MG/ML 7-22 by mouth Colleg e SOLN 00:00: two times of 00 daily. Medicin Weight- e 187 lbs DX- LGS Lacosamide Yes [id number] Take 1 [facility] (VIMPAT) 7-22 tablet College 200 MG TABS 00:00: (200 mg) of 00 in the Medicin morning e and 2 tablets (400 mg) at night lamotrigine Yes [id number] Take 100 [facility] (LAMICTAL) 7-22 mg PO qAM Mary Jane ege 100 MG 00:00: and 200 mg of tablet 00 PO qPM Medicin e lamotrigine 0 Yes 100mg Take 1 [place] [facility] (LAMICTAL) 11-09 Tablet by [place] e[facility] 100 MG 00:00: mouth two of tablet 00 times Medicin daily. e lamotrigine 0 2021- No 100mg Take 1 [facility] (LAMICTAL) 11-09 Tablet by Col lege 100 MG 00:00: 00:00 mouth two of tablet 00 :00 times Medicin daily. e Lacosamide Yes Take 1 [facility] (VIMPAT) 11-03 tablet College 200 MG TABS 00:00: (200 mg) of 00 in the Medicin morning e and 2 tablets (400 mg) at night Lacosamide 2021- No Take 1 [facility] (VIMPAT) 11-03 tablet College 200 MG TABS 00:00: 00:00 (200 mg) o f 00 :00 in the Medicin morning e and 2 tablets (400 mg) at night diazePAM, Yes 15mg 15 mg by [facility] 15 MG Dose, 11-01 Nasal [facility] (VALTOCO 15 00:00: route as of MG DOSE) 2 00 needed for Med icin x 7.5 Other e MG/0.1ML (seizures LQPK lasting more than 3 minutes or for three or more seizure clusters). diazePAM, 0 Yes 15mg 15 mg by [facility] 15 MG Dose, 524 Nasal [facility] ([place] 15 00:00: route as of MG DOSE) 2 00 needed for Med icin x 7.5 Other e MG/0.1ML (seizures LQPK lasting more than 3 minutes or for three or more seizure clusters). EPIDIOLEX 2021-0 Yes 6mL Take 6 mL [place] 100 MG/ML -20 by mouth Colleg e SOLN 00:00: two times of 00 daily. Medicin Weight- e 187 lbs DX- LGS EPIDIOLEX 2021-0 2021- No 6mL Take 6 mL [facility] 100 MG/ML 12-30 by mouth Colle ge SOLN 00:00: 00:00 two times of 00 :00 daily. Medicin Weight- e 187 lbs DX- LGS lamotrigine 2021- No 25mg Take 1 [place] (LAMICTAL) 4-20 - Tablet by Col lege 25 MG 00:00: 00:00 mouth two of tablet 00 :00 times Medicin daily. e EPIDIOLEX Yes 500mg Take 500 [place] 100 MG/ML 1-21 mg by [place] SOLN 00:00: mouth two of 00 times Medicin daily. e Lacosamide 2020-06 Yes 200mg Take 200 [facility] (VIMPAT) 2-27 mg by [place] 200 MG TABS 00:00: mouth of 00 daily. Medicin Take 1 e tablet (200 mg) in the morning and 2 tablets (400 mg) at night diazePAM, Yes 15mg 15 mg by [facility] 15 MG Dose, 7 Nasal [facility] ([place] 15 00:00: route as of MG DOSE) 2 00 needed for Med icin x 7.5 Other e MG/0.1ML (seizures LQPK lasting more than 3 minutes or for three or more seizure clusters). Lacosamide Yes 400mg Take 400 [facility] (VIMPAT) 7-23 mg by [place] 200 MG TABS 00:00: mouth of 00 every 12 Medicin hours. e Take 1 tab PO qAM and 2 tabs PO qPM EPIDIOLEX Yes 500mg Take 500 [place] 100 MG/ML 7-23 mg by [place] SOL 00:00: mouth two of 00 times Medicin daily. e diazePAM, Yes 15mg 15 mg by [place] 15 MG Dose, 7-23 Nasal [facility] ([place] 15 00:00: route as of MG DOSE) 2 00 needed for Med icin x 7.5 Other e MG/0.1ML (seizures LQPK lasting more than 3 minutes or for three or more seizure clusters). EPIDIOLEX 2021- No 500mg Take 500 [facility] 100 MG/ML 7-23 01-21 mg by [place] SOL 00:00: 00:00 mouth two of 00 :00 times Medicin daily. e diazePAM, 2020- No 15mg 15 mg by [place] 15 MG Dose, 12-31 Nasal [facility] e ([place] 15 00:00: 00:00 route as o f MG DOSE) 2 00 :00 needed for Med icin x 7.5 Other e MG/0.1ML (seizures LQPK lasting more than 3 minutes or for three or more seizure clusters). EPIDIOLEX 2020- No 500mg Take 500 [facility] [place] 100 MG/ML 11-16- mg by [facility] 00:00: 00:00 mouth two of 00 :00 times Medicin daily. e Lacosamide Yes Take 1 tab [facility] (VIMPAT) 09-03 PO qAM and Colle ge 200 MG TABS 00:00: 2 tabs PO o f 00 qPM Medicin e Lacosamide 2020- No Take 1 tab [facility] (VIMPAT) 09-03 PO qAM and [facility] Jane ege 200 MG TABS 00:00: 00:00 2 tabs PO of 00 :00 qPM Medicin e EPIDIOLEX Yes 500mg Take 500 [place] 100 MG/ML 2-04 mg by [facility] 00:00: mouth two of 00 times Medicin daily. e MELOXICAM 2019-06 Yes [id number] TAKE 1 U nivers 15 mg 2-16 TABLET BY ity of tablet 00:00: MOUTH ONCE DAILY Medical NEEDED FOR Branch PAIN OR INFLAMMATI ON. TAKE WITH FOOD. DON'T TAKE WHILE ON THE STEROID PACK. MELOXICAM 2019-06 Yes [id number] TAKE 1 U nivers 15 mg 2-16 TABLET BY ity of tablet 00:00: MOUTH ONCE DAILY Medical NEEDED FOR Branch PAIN OR INFLAMMATI ON. TAKE WITH FOOD. DON'T TAKE WHILE ON THE STEROID PACK. MELOXICAM 2019-06 Yes [id number] TAKE 1 U nivers 15 mg 2-16 TABLET BY ity of tablet 00:00: MOUTH ONCE DAILY Medical NEEDED FOR Branch PAIN OR INFLAMMATI ON. TAKE WITH FOOD. DON'T TAKE WHILE ON THE STEROID PACK. MELOXICAM 2019-06 Yes [id number] TAKE 1 U nivers 15 mg 2-16 TABLET BY ity of tablet 00:00: MOUTH ONCE [place] 00 DAILY Medical NEEDED FOR Branch PAIN OR INFLAMMATI ON. TAKE WITH FOOD. DON'T TAKE WHILE ON THE STEROID PACK. MELOXICAM 2019- Yes [id number] TAKE 1 U nivers 15 mg 2-16 TABLET BY ity of tablet 00:00: MOUTH ONCE [place] 00 DAILY Medical NEEDED FOR Branch PAIN OR INFLAMMATI ON. TAKE WITH FOOD. DON'T TAKE WHILE ON THE STEROID PACK. promethazin 2019-06- No [id number] 5mL Take 5 mL Univers e-dextromet 2-04 12-15 by mouth 4 i ty of horphan 00:00: 05:59 (four) [place] 6.25-15 00 :00 times Medical mg/5 mL daily as Branch syrup needed for Cough for up to 10 days. promethazin 2019-06- No [id number] 5mL Take 5 mL Univers e-dextromet 2-04 12-15 by mouth 4 i ty of horphan 00:00: 05:59 (four) [place] 6.25-15 00 :00 times Medical mg/5 mL daily as Branch syrup needed for Cough for up to 10 days. promethazin 2019-06- No [id number] 5mL Take 5 mL Univers e-dextromet 2-04 12-15 by mouth 4 i ty of horphan 00:00: 05:59 (four) [place] 6.25-15 00 :00 times Medical mg/5 mL daily as Branch syrup needed for Cough for up to 10 days. promethazin 2019-06- No [id number] 5mL Take 5 mL Univers e-dextromet 2-04 12-15 by mouth 4 i ty of horphan 00:00: 05:59 (four) [place] 6.25-15 00 :00 times Medical mg/5 mL daily as Branch syrup needed for Cough for up to 10 days. promethazin 2019-06- No [id number] 5mL Take 5 mL Univers e-dextromet 2-04 12-15 by mouth 4 i ty of horphan 00:00: 05:59 (four) [place] 6.25-15 00 :00 times Medical mg/5 mL daily as Branch syrup needed for Cough for up to 10 days. promethazin 2019-06- No [id number] 5mL Take 5 mL Univers e-dextromet 2-04 12-15 by mouth 4 i ty of horphan 00:00: 05:59 (four) [place] 6.25-15 00 :00 times Medical mg/5 mL daily as Branch syrup needed for Cough for up to 10 days. Lacosamide 2020-1 Yes Take by [facility] ers (VIMPAT) 1-30 mouth. ity of 200 mg 22:03: Takes 1 [place] tablet 24 tablet in Medical AM and 2 Branch tablets PM Lacosamide 2020-1 Yes Take by [facility] ers (VIMPAT) 1-30 mouth. ity of 200 mg 22:03: Takes 1 [place] tablet 24 tablet in Medical AM and 2 Branch tablets PM Lacosamide 2020-1 Yes Take by [facility] ers (VIMPAT) 1-30 mouth. ity of 200 mg 22:03: Takes 1 [place] tablet 24 tablet in Medical AM and 2 Branch tablets PM Lacosamide 2020-1 Yes Take by [facility] ers (VIMPAT) 1-30 mouth. ity of 200 mg 22:03: Takes 1 [place] tablet 24 tablet in Medical AM and 2 Branch tablets PM Lacosamide 2020-1 Yes Take by [facility] ers (VIMPAT) 1-30 mouth. ity of 200 mg 22:03: Takes 1 [place] tablet 24 tablet in Medical AM and 2 Branch tablets PM Lacosamide 2020-1 Yes Take by [facility] ers (VIMPAT) 1-30 mouth. ity of 200 mg 22:03: Takes 1 [place] tablet 24 tablet in Medical AM and 2 Branch tablets PM Lacosamide 2020-1 Yes Take by [facility] ers (VIMPAT) 1-30 mouth. ity of 200 mg 22:03: Takes 1 [place] tablet 24 tablet in Medical AM and 2 Branch tablets PM Lacosamide 2020-1 Yes Take by [facility] ers (VIMPAT) 1-30 mouth. ity of 200 mg 22:03: Takes 1 [place] tablet 24 tablet in Medical AM and 2 Branch tablets PM Lacosamide 2020-1 Yes Take by [facility] ers (VIMPAT) 1-30 mouth. ity of 200 mg 22:03: Takes 1 [place] tablet 24 tablet in Medical AM and 2 Branch tablets PM Lacosamide 2020-1 Yes Take by [facility] ers (VIMPAT) 1-30 mouth. ity of 200 mg 22:03: Takes 1 [place] tablet 24 tablet in Medical AM and 2 Branch tablets PM Lacosamide 2020-1 Yes Take by [facility] ers (VIMPAT) 1-30 mouth. ity of 200 mg 22:03: Takes 1 [place] tablet 24 tablet in Medical AM and 2 Branch tablets PM Lacosamide 2020-1 Yes Take by [facility] ers (VIMPAT) 30 mouth. ity of 200 mg 22:03: Takes 1 [place] tablet 24 tablet in Medical AM and 2 Branch tablets PM Lacosamide 2020-1 Yes Take by [facility] ers (VIMPAT) 130 mouth. ity of 200 mg 22:03: Takes 1 [place] tablet 24 tablet in Medical AM and 2 Branch tablets PM Lacosamide 2020-1 Yes Take by [facility] ers (VIMPAT) 30 mouth. ity of 200 mg 22:03: Takes 1 [place] tablet 24 tablet in Medical AM and 2 Branch tablets PM Lacosamide 2020-1 Yes Take by [facility] ers (VIMPAT) 30 mouth. ity of 200 mg 22:03: Takes 1 [place] tablet 24 tablet in Medical AM and 2 Branch tablets PM Lacosamide 2020-1 Yes Take by [facility] ers (VIMPAT) 30 mouth. ity of 200 mg 16:03: Takes 1 [place] tablet 24 tablet in Medical AM and 2 Branch tablets PM Lacosamide 2020-1 Yes Take by [facility] ers (VIMPAT) 30 mouth. ity of 200 mg 16:03: Takes 1 [place] tablet 24 tablet in Medical AM and 2 Branch tablets PM EPIDIOLEX 2020-1 Yes Take by Unive rs 100 mg/mL 24 mouth. 500 ity of oral 00:00: ml in AM [place] solution 00 and 500 ml Medic al PM Branch EPIDIOLEX 2020-1 Yes Take by Univ ers 100 mg/mL -24 mouth. 500 ity of oral 00:00: ml in AM [place] solution 00 and 500 ml Medic al PM Branch EPIDIOLEX 2020-1 Yes Take by Unive rs 100 mg/mL -24 mouth. 500 ity of oral 00:00: ml in AM [place] solution 00 and 500 ml Medic al PM Branch EPIDIOLEX 2020-1 Yes Take by Unive rs 100 mg/mL 24 mouth. 500 ity of oral 00:00: ml in AM [place] solution 00 and 500 ml Medic al PM Branch EPIDIOLEX 2020-1 Yes Take by Unive rs 100 mg/mL 1-24 mouth. 500 ity of oral 00:00: ml in AM [place] solution 00 and 500 ml Medic al PM Branch EPIDIOLEX 2020-1 Yes Take by Unive rs 100 mg/mL 1-24 mouth. 500 ity of oral 00:00: ml in AM [place] solution 00 and 500 ml Medic al PM Branch EPIDIOLEX 2020-1 Yes Take by Unive rs 100 mg/mL 1-24 mouth. 500 ity of oral 00:00: ml in AM [place] solution 00 and 500 ml Medic al PM Branch EPIDIOLEX 2020-1 Yes Take by Unive rs 100 mg/mL 1-24 mouth. 500 ity of oral 00:00: ml in AM [place] solution 00 and 500 ml Medic al PM Branch EPIDIOLEX 2020-1 Yes Take by Unive rs 100 mg/mL 1-24 mouth. 500 ity of oral 00:00: ml in AM [place] solution 00 and 500 ml Medic al PM Branch EPIDIOLEX 2020-1 Yes Take by Unive rs 100 mg/mL 1-24 mouth. 500 ity of oral 00:00: ml in AM [place] solution 00 and 500 ml Medic al PM Branch EPIDIOLEX 2020-1 Yes Take by Unive rs 100 mg/mL 1-24 mouth. 500 ity of oral 00:00: ml in AM [place] solution 00 and 500 ml Medic al PM Branch EPIDIOLEX 2020-1 Yes Take by Unive rs 100 mg/mL 1-24 mouth. 500 ity of oral 00:00: ml in AM [place] solution 00 and 500 ml Medic al PM Branch EPIDIOLEX 2020-1 Yes Take by Unive rs 100 mg/mL 1-24 mouth. 500 ity of oral 00:00: ml in AM [place] solution 00 and 500 ml Medic al PM Branch EPIDIOLEX 2020-1 Yes Take by Unive rs 100 mg/mL 1-24 mouth. 500 ity of oral 00:00: ml in AM [place] solution 00 and 500 ml Medic al PM Branch EPIDIOLEX 2020-1 Yes Take by Unive rs 100 mg/mL 1-24 mouth. 500 ity of oral 00:00: ml in AM [place] solution 00 and 500 ml Medic al PM Branch EPIDIOLEX 2020-1 Yes Take by Unive rs 100 mg/mL 1-24 mouth. 500 ity of oral 00:00: ml in AM [place] solution 00 and 500 ml Medic al PM Branch EPIDIOLEX 2020-1 Yes Take by Unive rs 100 mg/mL 1-24 mouth. 500 ity of oral 00:00: ml in AM [place] solution 00 and 500 ml Medic al PM Branch diazePAM 2019-06 2020- No Use in Univer s (VALTOCO) -18 -18 each ity of 15 mg/2 21:29: 00:00 nostril. [place] spray 03 :00 Medical (7.5/0.1mL Branch x 2) [place] Methylpredn 2019-06 2020- No 4mg Take 4 mg Univers isolone 4 -18 18 through ity of mg tablet 21:29: 00:00 enteral [place] 03 :00 tube every Medical 4 (four) Branch hours. diazePAM 2019-06 Yes Use in Univers (VALTOCO) -17 each ity of 15 mg/2 15:20: nostril. [place] spray 29 Medical (7.5/0.1mL Branch x 2) [place] Methylpredn 2019-06 Yes 4mg Take 4 mg U nivers isolone 4 17 through ity of mg tablet 15:20: enteral [...] 1-15 ATTACHED ity of tablet 00:00: FOR [place] 00 DETAILED Medical DIRECTIONS Branch meloxicam 2020- Yes PLEASE SEE Un pietro 15 mg 1-15 ATTACHED ity of tablet 00:00: FOR 00 DETAILED Medical DIRECTIONS Branch meloxicam 2019- Yes PLEASE SEE Un pietro 15 mg 1-15 ATTACHED ity of tablet 00:00: FOR DETAILED Medical DIRECTIONS Branch meloxicam 2019- Yes PLEASE SEE Un pietro 15 mg 1-15 ATTACHED ity of tablet 00:00: FOR 00 DETAILED Medical DIRECTIONS Branch meloxicam 2019- 2020- No PLEASE SEE U nivers 15 mg 1-15 12-16 ATTACHED ity of tablet 00:00: 00:00 FOR [place] 00 :00 DETAILED Medical DIRECTIONS Branch diazePAM 2019- Yes Use in Univers (VALTOCO) 1-12 each ity of 15 mg/2 21:50: nostril. [place] spray 05 Medical (7.5/0.1mL Branch x 2) [place] diazePAM 2019-06 Yes Use in Univers (VALTOCO) 1-12 each ity of 15 mg/2 21:50: nostril. [place] spray 05 Medical (7.5/0.1mL Branch x 2) [place] diazePAM 2019- Yes Use in Univers (VALTOCO) 1-12 each ity of 15 mg/2 21:50: nostril. [place] spray 05 Medical (7.5/0.1mL Branch x 2) [place] diazePAM 2019- Yes Use in Univers (VALTOCO) 1-12 each ity of 15 mg/2 21:50: nostril. [place] spray 05 Medical (7.5/0.1mL Branch x 2) [place] CBD oil 2019-06 2020- No 100mL 100 mL. Unive rs ([facility] ity of HOPE) 20:1 21:48: 00:00 [place] with 42 :00 Medical safflower Branch CBD oil 2019- 2020- No 100mL 100 mL. Unive rs ([facility] ity of HOPE) 20:1 21:48: 00:00 [place] with 42 :00 Medical safflower Branch CBD oil 2019- 2020- No 100mL 100 mL. Unive rs ([facility] ity of HOPE) 20:1 21:48: 00:00 [place] with 42 :00 Medical safflower Branch CBD oil 2019-06 2020- No 100mL 100 mL. Unive rs ([facility] 06-22 ity [facility]) 20:1 21:48: 00:00 [place] with 42 :00 Medical safflower Branch capsaicin/m 2019-06 2020- No Apply to U nivers enthol 06-2212 area(s). ity of (ALIVIO 21:48: 00:00 [place] TOPICAL) 38 :00 Medical Branch capsaicin/m 2019-06 2020- No Apply to U nivers enthol 06-2212 area(s). ity of (ALIVIO 21:48: 00:00 [place] TOPICAL) 38 :00 Medical Branch capsaicin/m 2019-06 2020- No Apply to U nivers enthol -05 21-12 area(s). ity of (ALIVIO 21:48: 00:00 [place] TOPICAL) 38 :00 Medical Branch capsaicin/m 2019-06 2020- No Apply to U nivers enthol 06-22 area(s). ity of (ALIVIO 21:48: 00:00 [place] TOPICAL) 38 :00 Medical Branch DIAZEPAM 2019-06 2020- No Insert [...] :00 needed. Medical Branch ENSURE 2019-06 Yes [id number] 1{can} Take 1-2 Univers liquid 1-12 Cans by ity of 00:00: mouth 3 [place] 00 (three) Medical times Branch daily. methocarbam 2019-06 Yes [id number] 750mg Take 1 Univers oL 1-12 tablet by ity of (ROBAXIN-75 00:00: mouth 4 [place] 0) 750 mg 00 (four) Medical tablet times Branch daily. meloxicam 2019-06 Yes [id number] 15mg Take 1 U nivers (MOBIC) 15 1-12 tablet by ity of mg tablet 00:00: mouth once [place] 00 daily as Medical needed for Branch Pain or Inflammati on. Take with food. Don't take while on the steroid pack. ENSURE 2019-06 Yes [id number] 1{can} Take 1-2 Univers liquid 1-12 Cans by ity of 00:00: mouth 3 [place] 00 (three) Medical times Branch daily. methocarbam 2019-06 Yes [id number] 750mg Take 1 Univers oL 1-12 tablet by ity of (ROBAXIN-75 00:00: mouth 4 [place] as 0) 750 mg 00 (four) Medical tablet times Branch daily. meloxicam 2019-06 Yes [id number] 15mg Take 1 U nivers (MOBIC) 15 1-12 tablet by ity of mg tablet 00:00: mouth once [place] 00 daily as Medical needed for Branch Pain or Inflammati on. Take with food. Don't take while on the steroid pack. ENSURE 2019-06 Yes [id number] 1{can} Take 1-2 Univers liquid 1-12 Cans by ity of 00:00: mouth 3 [place] 00 (three) Medical times Branch daily. methocarbam 2019-06 Yes [id number] 750mg Take 1 Univers oL 1-12 tablet by ity of (ROBAXIN-75 00:00: mouth 4 [place] as 0) 750 mg 00 (four) Medical tablet times Branch daily. meloxicam 2019-06 Yes [id number] 15mg Take 1 U nivers (MOBIC) 15 1-12 tablet by ity of mg tablet 00:00: mouth once [place] 00 daily as Medical needed for Branch Pain or Inflammati on. Take with food. Don't take while on the steroid pack. ENSURE 2019-06- No [id number] 1{can} Take 1-2 Univers liquid 1-12 11-18 Cans by ity of 00:00: 00:00 mouth 3 [place] 00 :00 (three) Medical times Branch daily. methocarbam 2019-06- No [id number] 750mg Take 1 Univers oL 1-12 11-18 tablet by ity of (ROBAXIN-75 00:00: 00:00 mouth 4 [place] 0) 750 mg 00 :00 (four) Medical tablet times Branch daily. meloxicam 2019-06 2020- No [id number] 15mg Take 1 Univers (MOBIC) 15 06-22 tablet by ity of mg tablet 00:00: 00:00 mouth once [place] 00 :00 daily as Medical needed for Branch Pain or Inflammati on. Take with food. Don't take while on the steroid pack. methylPREDN 2019-06- No [id number] Take by [facility] 06-22 mouth ity of (MEDROL, 00:00: 00:00 [place]-INSTRU [place] CU[place],) 4 mg 00 :00 CTIONS. Medica l tablets follow Branch package directions methylPREDN 2019-06- No [id number] Take by [facility] 06-22 mouth ity of (MEDROL, 00:00: 00:00 [place] [facility] 4 mg 00 :00 CTIONS. Medica l tablets follow Branch package directions methylPREDN 2019-06- No [id number] Take by [facility] 06-22 mouth ity of (MEDROL, 00:00: 00:00 [place] [facility] 4 mg 00 :00 CTIONS. Medica l tablets follow Branch package directions methylPREDN 2019-06- No [id number] Take by [facility] 06-22 mouth ity of (MEDROL, 00:00: 00:00 [place] [facility] 4 mg 00 :00 CTIONS. Medica l tablets follow Branch package directions methocarbam 2019-06 Yes TAKE 1 Univ ers oL 750 mg 1-09 TABLET BY ity o f tablet 00:00: MOUTH 4 (FOUR) Medical TIMES Branch DAILY FOR 7 DAYS. methocarbam 2019-06 Yes TAKE 1 Univ ers oL 750 mg 1-09 TABLET BY ity o f tablet 00:00: MOUTH 4 (FOUR) Medical TIMES Branch DAILY FOR 7 DAYS. methocarbam 2019-06 Yes TAKE 1 Univ ers oL 750 mg 1-09 TABLET BY ity o f tablet 00:00: MOUTH 4 (FOUR) Medical TIMES Branch DAILY FOR 7 DAYS. methocarbam 2020-1 Yes TAKE 1 Univ ers oL 750 mg 1-09 TABLET BY ity o f tablet 00:00: MOUTH (FOUR) Medical TIMES Branch DAILY FOR 7 DAYS. methocarbam 2020-1 Yes TAKE 1 [facility] ers oL 750 mg 1-09 TABLET BY ity o f tablet 00:00: MOUTH (FOUR) Medical TIMES Branch DAILY FOR 7 DAYS. methocarbam 2020-1 Yes TAKE 1 Univ ers oL 750 mg 1-09 TABLET BY ity o f tablet 00:00: MOUTH (FOUR) Medical TIMES Branch DAILY FOR 7 DAYS. methocarbam 2020-1 Yes TAKE 1 Univ ers oL 750 mg 1-09 TABLET BY ity o f tablet 00:00: MOUTH (FOUR) Medical TIMES Branch DAILY FOR 7 DAYS. methocarbam 2020-1 Yes TAKE 1 Univ ers oL 750 mg 1-09 TABLET BY ity o f tablet 00:00: MOUTH ([facility]) Medical TIMES Branch DAILY FOR 7 DAYS. methocarbam 2020-1 Yes TAKE 1 Univ ers oL 750 mg 1-09 TABLET BY ity o f tablet 00:00: MOUTH ([facility]) Medical TIMES Branch DAILY FOR 7 DAYS. methocarbam 2020-1 Yes TAKE 1 Univ ers oL 750 mg 1-09 TABLET BY ity o f tablet 00:00: MOUTH ([facility]) Medical TIMES Branch DAILY FOR 7 DAYS. methocarbam 2020-1 Yes TAKE 1 Univ ers oL 750 mg 1-09 TABLET BY ity o f tablet 00:00: MOUTH ([facility]) Medical TIMES Branch DAILY FOR 7 DAYS. methocarbam 2020-1 Yes TAKE 1 Univ ers oL 750 mg 1-09 TABLET BY ity o f tablet 00:00: MOUTH ([facility]) Medical TIMES Branch DAILY FOR 7 DAYS. methocarbam 2020-1 Yes TAKE 1 Univ ers oL 750 mg 1-09 TABLET BY ity o f tablet 00:00: MOUTH ([facility]) Medical TIMES Branch DAILY FOR 7 DAYS. methocarbam 2020-1 Yes TAKE 1 Univ ers oL 750 mg 1-09 TABLET BY ity o f tablet 00:00: MOUTH (FOUR) Medical TIMES Branch DAILY FOR 7 DAYS. methocarbam 2020-1 Yes TAKE 1 Univ ers oL 750 mg 1-09 TABLET BY ity o f tablet 00:00: MOUTH (FOUR) Medical TIMES Branch DAILY FOR 7 DAYS. methocarbam 2019- Yes TAKE 1 Univ ers oL 750 mg -09 TABLET BY ity o f tablet 00:00: MOUTH 4 00 (FOUR) Medical TIMES Branch DAILY FOR 7 DAYS. methocarbam 2019- Yes TAKE 1 Univ ers oL 750 mg -09 TABLET BY ity o f tablet 00:00: MOUTH 4 [place] 00 (FOUR) Medical TIMES Branch DAILY FOR 7 DAYS. methocarbam 2019-06- No [id number] 750mg Take 1 [facility] oL 06-19 tablet by ity of (ROBAXIN-75 00:00: 05:59 mouth 4 [place] 0[place] 750 mg 00 :00 (four) Medical tablet times Branch daily for 7 days. meloxicam 2019-06- No [id number] 15mg Take 1 Univers (MOBIC) 15 06-19 tablet by ity of mg tablet 00:00: 05:59 mouth [place] 00 :00 daily for Medical 7 days. Branch methocarbam 2019-06- No [id number] 750mg Take 1 [facility] oL 06-19 tablet by ity of (ROBAXIN-75 00:00: [place]:00 [place] 0[place] 750 mg 00 :00 (four) Medical tablet times Branch daily for 7 days. meloxicam 2019-06- No [id number] 15mg Take 1 Univers (MOBIC) 15 06-19 tablet by ity of mg tablet 00:00: 00:00 mouth [place] 00 :00 daily for Medical 7 days. Branch methocarbam 2019-06- No [id number] 750mg Take 1 [facility] oL 06-19 tablet by ity of (ROBAXIN-75 00:00: [place]:00 [place] 0[place] 750 mg 00 :00 (four) Medical tablet times Branch daily for 7 days. meloxicam 2019-06 2020- No [id number] 15mg Take 1 Univers (MOBIC) 15 06-19 tablet by ity of mg tablet 00:00: 00:00 mouth [place] 00 :00 daily for Medical 7 days. Branch methocarbam 2019-06 2020- No [id number] 750mg Take 1 [facility] oL 06-19 tablet by ity of (ROBAXIN-75 00:00: [place]:00 [place] 750 mg 00 :00 (four) Medical tablet times Branch daily for 7 days. meloxicam 2019-06- No [id number] 15mg Take 1 Univers (MOBIC) 15 06-19 tablet by ity of mg tablet 00:00: 00:00 mouth [place] 00 :00 daily for Medical 7 days. Branch methocarbam 2019-06- No [id number] 750mg Take 1 [facility] oL 06-19 tablet by ity of (ROBAXIN-75 00:00: [place]:00 [place] 750 mg 00 :00 (four) Medical tablet times Branch daily for 7 days. meloxicam 2019-06- No [id number] 15mg Take 1 Univers (MOBIC) 15 06-19 tablet by ity of mg tablet 00:00: 00:00 mouth [place] 00 :00 daily for Medical 7 days. Branch ciclopirox 2019-06 Yes [id number] Apply to Univers 8 % 1-05 area(s) at ity of solution 00:00: bedtime. [place] 00 Apply to Medical Nails. Branch Reapply nightly. On day 7, remove with alcohol/fi le nails. Repeat ciclopirox 2019-06 Yes [id number] Apply to Univers 8 % 1-05 area(s) at ity of solution 00:00: bedtime. [place] 00 Apply to Medical Nails. Branch Reapply nightly. On day 7, remove with alcohol/fi le nails. Repeat ciclopirox 2019-06 Yes [id number] Apply to Univers 8 % 1-05 area(s) at ity of solution 00:00: bedtime. [place] 00 Apply to Medical Nails. Branch Reapply nightly. On day 7, remove with alcohol/fi le nails. Repeat ciclopirox 2019-06 Yes [id number] Apply to Univers 8 % 1-05 area(s) at ity of solution 00:00: bedtime. [place] 00 Apply to Medical Nails. Branch Reapply nightly. On day 7, remove with alcohol/fi le nails. Repeat ciclopirox 2019-06 Yes [id number] Apply to Univers 8 % 1-05 area(s) at ity of solution 00:00: bedtime. [place] 00 Apply to Medical Nails. Branch Reapply nightly. On day 7, remove with alcohol/fi le nails. Repeat ciclopirox 2019- Yes [id number] Apply to Univers 8 % 1-05 area(s) at ity of solution 00:00: bedtime. [place] 00 Apply to Medical Nails. Branch Reapply nightly. On day 7, remove with alcohol/fi le nails. Repeat ciclopirox 2019-06 Yes [id number] Apply to Univers 8 % 1-05 area(s) at ity of solution 00:00: bedtime. [place] 00 Apply to Medical Nails. Branch Reapply nightly. On day 7, remove with alcohol/fi le nails. Repeat ciclopirox 2019-06 Yes [id number] Apply to Univers 8 % 1-05 area(s) at ity of solution 00:00: bedtime. [place] 00 Apply to Medical Nails. Branch Reapply nightly. On day 7, remove with alcohol/fi le nails. Repeat ciclopirox 2019-06 Yes [id number] Apply to Univers 8 % 1-05 area(s) at ity of solution 00:00: bedtime. [place] 00 Apply to Medical Nails. Branch Reapply nightly. On day 7, remove with alcohol/fi le nails. Repeat ciclopirox 2019-06 2020- No [id number] Apply to Univers 8 % 1-05 11-18 area(s) at ity of solution 00:00: 00:[place] :[place] Apply to Medical Nails. Branch Reapply nightly. On day 7, remove with alcohol/fi le nails. Repeat Lacosamide 2019-06 Yes Take 1 tab [facility] (VIMPAT) 0-28 PO qAM and [place] 200 MG TABS 00:00: 2 tabs PO o f 00 qPM Medicin e Lacosamide 2019-06- No Take 1 tab [facility] (VIMPAT) 0-28 03-26 PO qAM and [place] e[facility] 200 MG TABS 00:00: 00:00 2 tabs PO of 00 :00 qPM Medicin e Lacosamide 2019-06- No Take 1 tab Univers (VIMPAT) 0-28 11-12 PO qAM and ity of 200 mg 00:00: 00:00 2 tabs PO [place] tablet 00 :00 qPM Medical Branch Lacosamide 2019- 2020- No Take 1 tab Univers (VIMPAT) 0-28 11-12 PO qAM and ity of 200 mg 00:00: 00:00 2 tabs PO [place] tablet 00 :00 qPM Medical Branch VIMPAT 200 2019- Yes TAKE 1 Unive rs mg tablet 0-18 TABLET BY ity o f 00:00: MOUTH 00 EVERY Medical MORNING Branch THEN TAKE 2 TABLETS BY MOUTH EVERY EVENING VIMPAT 200 2019-06 Yes TAKE 1 Unive rs mg tablet 0-18 TABLET BY ity o f 00:00: MOUTH 00 EVERY Medical MORNING Branch THEN TAKE 2 TABLETS BY MOUTH EVERY EVENING VIMPAT 200 2019-06 Yes TAKE 1 Unive rs mg tablet 0-18 TABLET BY ity o f 00:00: MOUTH EVERY Medical MORNING Branch THEN TAKE 2 TABLETS BY MOUTH EVERY EVENING VIMPAT 200 2019-06 2020- No TAKE 1 Univ ers mg tablet 0-18 11-18 TABLET BY ity of 00:00: 00:00 MOUTH [place] 00 :00 EVERY Medical MORNING Branch THEN TAKE 2 TABLETS BY MOUTH EVERY EVENING diazePAM, 2019-0 Yes 15mg 15 mg by [facility] 15 MG Dose, 01-08 [facility] ([facility] 15 00:00: route as of MG DOSE) 2 00 needed for Med icin x 7.5 Other e MG/0.1ML (seizures LQPK lasting more than 3 minutes or for three or more seizure clusters). diazePAM, 2019-0 Yes 15mg 15 mg by [facility] 15 MG Dose, 01-08 [facility] ([facility] 15 00:00: route as of MG DOSE) 2 00 needed for Med icin x 7.5 Other e MG/0.1ML (seizures LQPK lasting more than 3 minutes or for three or more seizure clusters). diazePAM 2019-0 Yes 15mg Use 15 mg Univ ers (VALT[place]O) 01-08 in each ity of 15 mg/2 00:00: nostril. spray Medical (7.5/0.1mL Branch x 2) [place] diazePAM 2020-0 Yes 15mg Use 15 mg Univ ers (VALT[place]O) 01-08 in each ity of 15 mg/2 00:00: nostril. [place] spray 00 Medical (7.5/0.1mL Branch x 2) [place] diazePAM 2020-0 Yes 15mg Use 15 mg Univ ers (VALTOCO) 7-31 in each ity of 15 mg/2 00:00: nostril. [place] spray 00 Medical (7.5/0.1mL Branch x 2) [place] diazePAM 2020-0 Yes 15mg Use 15 mg Univ ers (VALT[place]O) 7-31 in each ity of 15 mg/2 00:00: nostril. [place] spray 00 Medical (7.5/0.1mL Branch x 2) [place] diazePAM 2020-0 Yes 15mg Use 15 mg Univ ers (VAL[place]O) 7-31 in each ity of 15 mg/2 00:00: nostril. [place] spray 00 Medical (7.5/0.1mL Branch x 2) [place] diazePAM 2020-0 Yes 15mg Use 15 mg Univ ers ([place]O) 7-31 in each ity of 15 mg/2 00:00: nostril. [place] spray 00 Medical (7.5/0.1mL Branch x 2) [place] diazePAM 2020-0 Yes 15mg Use 15 mg Univ ers (VAL[place]O) 7-31 in each ity of 15 mg/2 00:00: nostril. [place] spray 00 Medical (7.5/0.1mL Branch x 2) [place] diazePAM 2020-0 Yes 15mg Use 15 mg Univ ers ([place]O) 7-31 in each ity of 15 mg/2 00:00: nostril. [place] spray 00 Medical (7.5/0.1mL Branch x 2) [place] diazePAM 2020-0 Yes 15mg Use 15 mg Univ ers (VAL[place]O) 7-31 in each ity of 15 mg/2 00:00: nostril. [place] spray 00 Medical (7.5/0.1mL Branch x 2) [place] diazePAM 2020-0 Yes 15mg Use 15 mg Univ ers (VAL[place]O) 7-31 in each ity of 15 mg/2 00:00: nostril. [place] spray 00 Medical (7.5/0.1mL Branch x 2) [place] diazePAM 2020-0 Yes 15mg Use 15 mg Univ ers (VALTOCO) 7-31 in each ity of 15 mg/2 00:00: nostril. [place] spray 00 Medical (7.5/0.1mL Branch x 2) [place] diazePAM 2019-0 Yes 15mg Use 15 mg Univ ers ([place]) 7 in each ity of 15 mg/2 00:00: nostril. [place] spray Medical (7.5/0.1mL Branch x 2) [place] diazePAM 2019-0 Yes 15mg Use 15 mg Univ ers (VALT[place]O) 7 in each ity of 15 mg/2 00:00: nostril. [place] spray Medical (7.5/0.1mL Branch x 2) [place] diazePAM 2019-0 Yes 15mg Use 15 mg Univ ers (VALTOCO) 7 in each ity of 15 mg/2 00:00: nostril. [place] spray Medical (7.5/0.1mL Branch x 2) [place] diazePAM Yes 15mg Use 15 mg Univ ers (VAL[place]O) 01-08 in each ity of 15 mg/2 00:00: nostril. spray Medical (7.5/0.1mL Branch x 2) [place] diazePAM 2019-0 Yes 15mg Use 15 mg Univ ers (VALTOCO) 01-08 in each ity of 15 mg/2 00:00: nostril. [place] spray Medical (7.5/0.1mL Branch x 2) [place] diazePAM 2019-0 Yes 15mg Use 15 mg Univ ers (VALTOCO) 01-08 in each ity of 15 mg/2 00:00: nostril. [place] spray Medical (7.5/0.1mL Branch x 2) [place] diazePAM, 2020- No 15mg 15 mg by [place] [facility] 15 MG Dose, 01-0823 [facility] ([facility] 15 00:00: 00:00 route as o f MG DOSE) 2 00 :00 needed for Med icin x 7.5 Other e MG/0.1ML (seizures LQPK lasting more than 3 minutes or for three or more seizure clusters). EPIDIOLEX Yes 500mg Take 500 [place] 100 MG/ML 7-24 mg by [place] SOLN 00:00: mouth two of 00 times Medicin daily. e Lacosamide 2020- No Take 1 tab [facility] (VIMPAT) 7-24 10-28 PO qAM and [place] ege 200 MG TABS 00:00: 00:00 2 tabs PO of 00 :00 qPM Medicin e cannabidioL 2020-0 Yes 500mg Take 500 U nivers (EPIDIOLEX) 5-05 mg by ity of 100 mg/mL 00:00: mouth 2 [place] oral 00 (two) Medical solution times Branch daily. cannabidioL 2020-0 Yes 500mg Take 500 U nivers (EPIDIOLEX) 5-05 mg by ity of 100 mg/mL 00:00: mouth 2 [place] oral 00 (two) Medical solution times Branch daily. cannabidioL 2020-0 Yes 500mg Take 500 U nivers (EPIDIOLEX) 5-05 mg by ity of 100 mg/mL 00:00: mouth 2 [place] oral 00 (two) Medical solution times Branch daily. cannabidioL 2020-0 2020- No 500mg Take 500 Univers (EPIDIOLEX) 5-05 11-18 mg by ity of 100 mg/mL 00:00: 00:00 [place] oral 00 :00 (two) Medical solution times Branch daily. EPIDIOLEX 2018-06 Yes 400mg Take 400 [place] 100 MG/ML 0-11 mg by [facility] 00:00: mouth two of 00 times Medicin daily. e EPIDIOLEX 2019- No Take 180 [place] 100 MG/ML 5-10 10-11 mg by [facility] 00:00: 00:00 mouth two of 00 :00 times Medicin daily for e 7 days, THEN 360 mg two times daily for 30 days. capsaicin/m Yes Apply to Un pietro enthol 5-07 area(s). ity of (ALIVIO 20:40: [place] TOPICAL) 17 Medical Branch CBD oil Yes Univers (ABHINAV'S 5-07 ity of HOPE) 20:1 20:40: [place] with 17 Medical safflower Branch DIAZEPAM Yes Insert Univers RECTAL 5-07 into ity of 20:40: rectum as [place] 17 needed. Medical Branch capsaicin/m Yes Apply to Un pietro enthol 5-07 area(s). ity of (ALIVIO 20:40: [place] TOPICAL) 17 Medical Branch CBD oil Yes Univers (ABHINAV'S 5-07 ity of HOPE) 20:1 20:40: [place] with 17 Medical safflower Branch DIAZEPAM 2018- Yes Insert Univers RECTAL 5-07 into ity of 20:40: rectum as [place] 17 needed. Medical Branch capsaicin/m Yes Apply to Un pietro enthol 5-07 area(s). ity of (ALIVIO 20:40: [place] TOPICAL) 17 Medical Branch CBD oil Yes Univers (ABHINAV'S 5-07 ity of VIENNA) 20:1 20:40: [place] with 17 Medical safflower Branch DIAZEPAM 2018- Yes Insert Univers RECTAL 5-07 into ity of 20:40: rectum as [place] 17 needed. Medical Branch mupirocin 2 Yes [id number] Apply to Univers % ointment 5-07 [id number] area(s) 3 it y of 00:00: (three) [place] 00 times Medical daily. Branch mupirocin 2 Yes [id number] Apply to Univers % ointment 5-07 [id number] area(s) 3 it y of 00:00: (three) [place] 00 times Medical daily. Branch mupirocin 2 Yes [id number] Apply to Univers % ointment 5-07 [id number] area(s) 3 it y of 00:00: (three) [place] 00 times Medical daily. Branch mupirocin 2 2020- No [id number] Apply to Univers % ointment 5-07 -12 [id number] area(s) 3 i ty of 00:00: 00:00 (three) [place] 00 :00 times Medical daily. Branch mupirocin 2 2020- No [id number] Apply to Univers % ointment 5-07 -12 [id number] area(s) 3 i ty of 00:00: 00:00 (three) [place] 00 :00 times Medical daily. Branch mupirocin 2 2018- 2020- No [id number] Apply to Univers % ointment 5-07 -12 [id number] area(s) 3 i ty of 00:00: 00:00 (three) [place] 00 :00 times Medical daily. Branch mupirocin 2 2020- No [id number] Apply to Univers % ointment 5-07 -12 [id number] area(s) 3 i ty of 00:00: 00:00 (three) [place] 00 :00 times Medical daily. Branch VIMPAT Yes TAKE 2 [place] [facility] MG TABS 4-27 TABLETS BY Colleg e 00:00: MOUTH of 00 TWICE A Medicin DAY e [facility] 2 Unive rs mg tablet 4-27 TABLETS BY ity of 00:00: MOUTH TWICE A Medical DAY Branch [facility] Yes TAKE 2 Unive rs mg tablet -27 TABLETS BY ity of 00:00: MOUTH TWICE A Medical DAY Branch [facility] Yes TAKE 2 Unive rs mg tablet 27 TABLETS BY ity of 00:00: MOUTH TWICE A Medical DAY Branch [facility] 2020- No 200mg 200 mg 3 U nivers mg tablet 10-05 (three) ity of 00:00: 00:00 times [place] 00 :00 daily. Medical Branch [facility] 2020- No 200mg 200 mg 3 U nivers mg tablet 10-05 (three) ity of 00:00: 00:00 times [place] 00 :00 daily. Medical Branch [facility] 2020- No 200mg 200 mg 3 U nivers mg tablet 10-05 (three) ity of 00:00: 00:00 times [place] 00 :00 daily. Medical Branch [facility] 2020- No 200mg 200 mg 3 U nivers mg tablet 10-05 (three) ity of 00:00: 00:00 times [place] 00 :00 daily. Medical Branch triazolam Yes as needed. [facility] (HALCION) 4-10 [facility] 0.25 MG 00:00: of tablet 00 Medicin e triazolam Yes as needed. [facility] (HALCION) 4-10 [facility] 0.25 MG 00:00: of tablet 00 Medicin e triazolam Yes as needed. [facility] (HALCION) 4-10 [facility] 0.25 MG 00:00: of tablet 00 Medicin e triazolam Yes [id number] 2 tabs po Univers 0.25 mg 4-10 x 1 dose 1 ity of tablet 00:00: hour prior [place] [address] scan Medical Branch triazolam Yes [id number] 2 tabs po Univers 0.25 mg 4-10 x 1 dose 1 ity of tablet 00:00: hour prior to CT scan Medical Branch triazolam Yes [id number] 2 tabs po Univers 0.25 mg 4-10 x 1 dose 1 ity of tablet 00:00: hour prior to CT scan Medical Branch triazolam Yes [id number] 2 tabs po Univers 0.25 mg 4-10 x 1 dose 1 ity of tablet 00:00: hour prior to CT scan Medical Branch triazolam Yes [id number] 2 tabs po Univers 0.25 mg 4-10 x 1 dose 1 ity of tablet 00:00: hour prior to CT scan Medical Branch triazolam Yes [id number] 2 tabs po Univers 0.25 mg 4-10 x 1 dose 1 ity of tablet 00:00: hour prior to CT scan Medical Branch triazolam Yes [id number] 2 tabs po Univers 0.25 mg 4-10 x 1 dose 1 ity of tablet 00:00: hour prior to CT scan Medical Branch triazolam Yes [id number] 2 tabs po Univers 0.25 mg 4-10 x 1 dose 1 ity of tablet 00:00: hour prior to CT scan Medical Branch triazolam Yes [id number] 2 tabs po Univers 0.25 mg 4-10 x 1 dose 1 ity of tablet 00:00: hour prior to CT scan Medical Branch triazolam 2020- No as needed. [facility] (HALCION) 4-10 07-23 College 0.25 MG 00:00: 00:00 of tablet 00 :00 Medicin e triazolam 0 2020- No [id number] 2 tabs po Univers 0.25 mg 4-10 11-18 x 1 dose 1 ity o f tablet 00:00: 00:00 hour prior [place] 00 [place] scan Medical [...] MINS OR BACK TO BACK SEIZURE diazePAM 2019-0 Yes USE 10 MG Univ ers 5-7.5-10 mg 3-21 AFTER ity of rectal gel 00:00: SEIZURE [place] 00 LASTING Medical OVER 5 Branch MINS OR BACK TO BACK SEIZURE diazePAM 2019-0 Yes USE 10 MG Univ ers 5-7.5-10 mg 3-21 AFTER ity of rectal gel 00:00: SEIZURE [place] 00 LASTING Medical OVER 5 Branch MINS OR BACK TO BACK SEIZURE diazePAM 2018-0 2019- No USE 10 MG Uni vers 5-7.5-10 mg 3-21 11-12 AFTER ity of rectal gel 00:00: 00:00 SEIZURE [place] 00 :00 LASTING Medical OVER 5 Branch MINS OR BACK TO BACK SEIZURE diazePAM 2018-0 2019- No USE 10 MG Uni vers 5-7.5-10 mg 3-21 11-12 AFTER ity of rectal gel 00:00: 00:00 SEIZURE [place] 00 :00 LASTING Medical OVER 5 Branch MINS OR BACK TO BACK SEIZURE diazePAM 2018-0 2019- No USE 10 MG Uni vers 5-7.5-10 mg 3-21 11-12 AFTER ity of rectal gel 00:00: 00:00 SEIZURE [place] 00 :00 LASTING Medical OVER 5 Branch MINS OR BACK TO BACK SEIZURE diazePAM 2019-0 2020- No USE 10 MG Uni vers 5-7.5-10 mg 3-21 11-12 AFTER ity of rectal gel 00:00: 00:00 SEIZURE [place] 00 :00 LASTING Medical OVER 5 Branch MINS OR BACK TO BACK SEIZURE No known No Univers medications it of [place] [facility] No known No Univers medications [facility] No known [facility] Immunizations Ordered Filled Immunization Date Status Comments [facility] e Immunization Name Name SARS-COV-2 COVID-19 2020-08-14 Completed Unive rsity of MODERNA VACCINE 00:00:00 [facility] SARS-COV-2 COVID-19 2020-08-14 Completed Unive rsity of MODERNA VACCINE 00:00:00 [facility] SARS-COV-2 COVID-19 2020-07-17 Completed Unive rsity of MODERNA VACCINE 00:00:00 [place] Med ical Branch SARS-COV-2 COVID-19 2020-07-17 Completed Unive rsity of MODERNA VACCINE 00:00:00 [facility] Vital Signs Vital Name Observation Time Observation Value Comments Source Systolic blood 2021-12-30 15:52:00 126 mm[Hg] [facility] Medicine Diastolic blood 2021-12-30 15:52:00 82 mm[Hg] [facility] Medicine Heart rate 2021-12-30 15:52:00 96 /min [facility] ol[facility] of Medicine Respiratory rate 2021-12-30 15:52:00 22 /min [facility] Body height 2021-12-30 15:52:00 185.4 cm [facility] of [facility] Body weight 2021-12-30 15:52:00 82.101 kg [facility] Medicine BMI 2021-12-30 15:52:00 23.88 kg/m2 [facility] Medicine Systolic blood 2021-11-09 14:55:00 123 mm[Hg] [facility] Medicine Diastolic blood 2021-11-09 14:55:00 83 mm[Hg] [facility] Medicine Heart rate 2021-11-09 14:55:00 81 /min [facility] Medicine Body height 2021-11-09 14:55:00 172.7 cm [facility] Medicine Systolic blood 2021-07-01 16:44:00 121 mm[Hg] [facility] pressure Medicine Diastolic blood 2021-07-01 16:44:00 80 mm[Hg] [facility] Medicine Heart rate 2021-07-01 16:44:00 60 /min [facility] Medicine Body height 2021-07-01 16:44:00 172.7 cm [facility] Medicine Body weight 2021-07-01 16:44:00 83.462 kg [facility] Medicine BMI 2021-07-01 16:44:00 27.98 kg/m2 [facility] Medicine Systolic blood 2020-12-31 15:36:00 130 mm[Hg] [facility] pressure Medicine Diastolic blood 2020-12-31 15:36:00 81 mm[Hg] [facility] pressure Medicine Heart rate 2020-12-31 15:36:00 76 /min [facility] C ollege of Medicine Body height 2020-12-31 15:36:00 172.7 cm [facility] C ollege of Medicine Body weight 2020-12-31 15:36:00 78.472 kg [facility] Medicine BMI 2020-12-31 15:36:00 26.30 kg/m2 [facility] Medicine Systolic blood 2020-09-03 18:11:00 115 mm[Hg] [facility] of pressure Medicine Diastolic blood 2020-09-03 18:11:00 81 mm[Hg] [facility] pressure Medicine Body height 2020-09-03 18:11:00 172.7 cm [facility] Medicine Body weight 2020-09-03 18:11:00 78.744 kg [facility] Medicine BMI 2020-09-03 18:11:00 26.40 kg/m2 [facility] Medicine Systolic blood 2020-09-03 18:11:00 115 mm[Hg] [facility] pressure Medicine Diastolic blood 2020-09-03 18:11:00 81 mm[Hg] [facility] pressure Medicine Body height 2020-09-03 18:11:00 172.7 cm [facility] Medicine Body weight 2020-09-03 18:11:00 78.744 kg [facility] Medicine BMI 2020-09-03 18:11:00 26.40 kg/m2 [facility] Medicine Systolic blood 2020-05-10 22:02:00 117 mm[Hg] Univer sity of pressure [facility] Diastolic blood 2020-05-10 22:02:00 77 mm[Hg] Unive rsity of pressure [facility] Heart rate 2020-05-10 22:02:00 92 /min Universi ty of [facility] Body temperature 2020-05-10 22:02:00 37.78 Yasmin Univ ersity of [facility] Body height 2020-05-10 22:02:00 177.8 cm Universi ty of [facility] Body weight 2020-05-10 22:02:00 79.833 kg Universi ty of [place] [facility] BMI 2020-05-10 22:02:00 25.25 kg/m2 Universi ty of [place] [facility] Systolic blood 2020-05-10 22:02:00 117 mm[Hg] Univer sity of pressure [place] [facility] Diastolic blood 2020-05-10 22:02:00 77 mm[Hg] Unive rsity of pressure [facility] Branch Heart rate 2020-05-10 22:02:00 92 /min Universi ty of [facility] Branch Body temperature 2020-05-10 22:02:00 37.78 Yasmin Univ ersity of [facility] Branch Body height 2020-05-10 22:02:00 177.8 cm Universi ty of [facility] Branch Body weight 2020-05-10 22:02:00 79.833 kg Universi ty of [facility] Branch BMI 2020-05-10 22:02:00 25.25 kg/m2 Universi ty of [facility] Oxygen saturation in 2020-04-28 21:00:00 98 /min University of Arterial blood by [facility] [place] [place] Pulse oximetry Branch Systolic blood 2020-04-28 20:45:00 91 mm[Hg] Univer sity of pressure [facility] [facility] Diastolic blood 2020-04-28 20:45:00 55 mm[Hg] Unive rsity of pressure [facility] Heart rate 2020-04-28 20:45:00 57 /min [facility] Respiratory rate 2020-04-28 19:45:00 16 /min [facility] Body temperature 2020-04-28 19:40:00 36 Yasmin [facility] Body height 2020-04-28 16:35:00 177.8 cm [facility] Body weight 2020-04-28 16:35:00 78.9 kg [facility] BMI 2020-04-28 16:35:00 24.96 kg/m2 [facility] Systolic blood 2020-04-22 21:23:00 116 mm[Hg] Univer sity of pressure [facility] Diastolic blood 2020-04-22 21:23:00 68 mm[Hg] Unive rsity of pressure [facility] Heart rate 2020-04-22 21:23:00 61 /min [facility] Body temperature 2020-04-22 21:23:00 36.28 Yasmin [facility] Body height 2020-04-22 21:23:00 175.3 cm [facility] Body weight 2020-04-22 21:23:00 81.647 kg [facility] BMI 2020-04-22 21:23:00 26.58 kg/m2 [facility]i [facility] of [facility] Systolic blood 2020-04-22 15:00:00 123 mm[Hg] [facility]iver [facility]ity of [facility] Diastolic blood 2020-04-22 15:00:00 72 mm[Hg] Unive rsity of pressure [facility] Heart rate 2020-04-22 15:00:00 80 /min [facility]i [facility] of [facility] Body height 2020-04-22 15:00:00 175.3 cm [facility] Body weight 2020-04-22 15:00:00 80.65 kg [facility] BMI 2020-04-22 15:00:00 26.26 kg/m2 [facility] of [facility] Systolic blood 2020-04-15 19:16:00 110 mm[Hg] [facility]iver [facility]ity [facility] Diastolic blood 2020-04-15 19:16:00 76 mm[Hg] Unive rsity of pressure [facility] Heart rate 2020-04-15 19:16:00 69 /min Universi [facility] of [facility] Body temperature 2020-04-15 19:16:00 36.44 Yasmin Univ ersity of [facility] Respiratory rate 2020-04-15 19:16:00 20 /min Univ ersity of [facility] Body weight 2020-04-15 19:16:00 79.833 kg [facility] BMI 2020-04-15 19:16:00 27.57 kg/m2 [facility] Oxygen saturation in 2020-04-15 19:16:00 95 /min [facility] Arterial blood by [facility] [place] [place] Pulse oximetry Branch Systolic blood 2020-04-07 18:08:00 125 mm[Hg] [facility] of pressure Medicine Diastolic blood 2020-04-07 18:08:00 86 mm[Hg] [facility] pressure Medicine Heart rate 2020-04-07 18:08:00 73 /min [facility] Body height 2020-04-07 18:08:00 172.7 cm [facility] Body weight 2020-04-07 18:08:00 81.466 kg [facility] BMI 2020-04-07 18:08:00 27.31 kg/m2 [facility] Medicine Systolic blood 2020-04-07 18:08:00 125 mm[Hg] [facility] pressure Medicine Diastolic blood 2020-04-07 18:08:00 86 mm[Hg] [facility] pressure Medicine Heart rate 2020-04-07 18:08:00 73 /min [facility] Body height 2020-04-07 18:08:00 172.7 cm [facility] of Medicine Body weight 2020-04-07 18:08:00 81.466 kg [facility] BMI 2020-04-07 18:08:00 27.31 kg/m2 [facility] ol[facility] of Medicine Systolic blood 2019-03-21 19:45:00 118 mm[Hg] [facility] of pressure Medicine Diastolic blood 2019-03-21 19:45:00 77 mm[Hg] [facility] of pressure Medicine Heart rate 2019-03-21 19:45:00 72 /min [facility] Medicine Body height 2019-03-21 19:45:00 172.7 cm [facility] Medicine Body weight 2019-03-21 19:45:00 73.936 kg [facility] BMI 2019-03-21 19:45:00 24.78 kg/m2 [facility] Medicine Systolic blood 2019-03-21 19:45:00 118 mm[Hg] [facility] of pressure Medicine Diastolic blood 2019-03-21 19:45:00 77 mm[Hg] [facility] pressure Medicine Heart rate 2019-03-21 19:45:00 72 /min [facility] of Medicine Body height 2019-03-21 19:45:00 172.7 cm [facility] of Medicine Body weight 2019-03-21 19:45:00 73.936 kg [facility] Medicine BMI 2019-03-21 19:45:00 24.78 kg/m2 [facility] Procedures Procedure Date / Time Performing Clinician Source Performed EXTERNAL PROVIDER RECORDS 2021-11-14 05:01:00 Doctor Derik [facility] AMB REF TO TRANSITION 2021-11-09 10:49:37 [facility] CBC W/AUTO DIFF WITH 2021-11-09 10:31:02 [facility] COMPREHENSIVE METABOLIC 2021-11-09 10:31:02 [facility] LAMOTRIGINE LEVEL 2021-11-09 10:31:02 [facility] VITAMIN D 25 HYDROXY 2021-11-09 10:31:02 [facility] EXTERNAL PROVIDER RECORDS 2021-10-13 05:01:00 Doctor Derik, [facility] EXTERNAL PROVIDER RECORDS 2020-05-27 06:01:00 Doctor Derik, [facility] DME/SUPPLY JUSTIFICATION 2020-05-21 06:01:00 Doctor Derik [facility] MEDICATION CORRESPONDENCE 2020-05-04 06:01:00 Doctor Derik [facility] MR LUMBAR SPINE WO 2020-04-28 19:16:00 Dany Echavarria [facility] CONTRAST Medical Branch MR THORACIC SPINE WO 2020-04-28 18:42:00 Dany Echavarria [facility] Medical Branch COVID-19 (ID NOW RAPID 2020-04-28 15:14:00 Dorene Omalley [facility] TESTING) Medical Branch CONSENT/REFUSAL FOR 2020-04-28 14:46:54 Doctor Derik [facility] DIAGNOSIS AND TREATMENT [facility] ASSIGNMENT OF BENEFITS 2020-04-28 14:41:53 Doctor Unarina, [facility] XR SCOLIOSIS SURVEY 2 VW 2020-04-27 18:34:31 Dany Echavarria [facility] Medical Branch NOTICE OF PRIVACY 2020-04-27 18:02:46 Doctor Derik, [facility] PRACTICES [facility] CONSENT/REFUSAL FOR 2020-04-27 18:01:44 Doctor Derik [facility] DIAGNOSIS AND TREATMENT [facility] ASSIGNMENT OF BENEFITS 2020-04-27 18:01:27 Doctor Unarina, [facility] XR LUMBAR SPINE 4 VW 2020-04-16 17:26:[address] [facility] XR SACRUM AND COCCYX 2020-04-16 17:26:[address] [facility] POCT URINALYSIS 2020-04-15 19:26:00 Alicia Gibbs [facility] Plan of Care Planned Activity Planned Date Details Comments Source Future Scheduled 2021-12-30 Screening for malignant [facility] Test 11:17:10 neoplasm of colon of Medicin e (procedure) [code = 937805246] Future Scheduled 2021-12-30 TETANUS SHOT (ADULT) [facility] Test 11:17:10 [code = TETANUS SHOT of Medi cine (ADULT)] Future Scheduled 2021-12-30 Hepatitis C screening [facility] Test 11:17:10 (procedure) [code = of Medic ine 314680912] Future Scheduled 2021-12-30 Human immunodeficiency B [facility] Test 11:17:10 virus screening of Medicine (procedure) [code = 837752465] Future Scheduled 2021-12-30 MEDICARE AWV (Initial) [facility] Test 11:17:10 [code = MEDICARE AWV of Medi cine (Initial)] Future Scheduled 2021-12-30 COVID-19 Vaccine (3 - [facility] Test 11:17:10 Booster for Moderna of Medic ine series) [code = COVID-19 Vaccine (3 - Booster for Moderna series)] Future Scheduled 2021-12-30 FLU VACCINE > 6 MONTHS [facility] Test 11:17:10 [code = FLU VACCINE > 6 of M edicine MONTHS] Future Scheduled 2021-11-09 CBC W/AUTO DIFF WITH Ordered: [facility] Test 10:31:02 PLATELETS [code = 11/09/2021 of Medicin e 64186-5] Future Scheduled 2021-11-09 COMPREHENSIVE METABOLIC Ordered: [facility] Test 10:31:02 PANEL [code = 81294-0] 11/09/2021 of Me dicine Future Scheduled 2021-11-09 LAMOTRIGINE LEVEL [code Ordered: [facility] Test 10:31:02 = 6948-4] 11/09/2021 of Medicine Future Scheduled 2021-11-09 VITAMIN D 25 HYDROXY Ordered: [facility] [employer] Test 10:31:02 [code = 1989-3] 11/09/2021 of Medicine Future Scheduled 2021-11-09 Screening for malignant [facility] Test 10:10:16 neoplasm of colon of Medicin e (procedure) [code = 703399966] Future Scheduled 2021-11-09 TETANUS SHOT (ADULT) [facility] [employer] Test 10:10:16 [code = TETANUS SHOT of Medi cine (ADULT)] Future Scheduled 2021-11-09 BMI FOLLOW UP PLAN [facility] [employer] Test 10:10:16 [code = BMI FOLLOW UP of Med icine PLAN] Future Scheduled 2021-11-09 Hepatitis C screening [facility] [employer] Test 10:10:16 (procedure) [code = of Medic ine 305388539] Future Scheduled 2021-11-09 Human immunodeficiency [facility] Test 10:10:16 virus screening of Medicine (procedure) [code = 512469684] Future Scheduled 2021-11-09 MEDICARE AWV (Initial) [facility] Test 10:10:16 [code = MEDICARE AWV of Medi cine (Initial)] Future Scheduled 2021-11-09 COVID-19 Vaccine (3 - [facility] Test 10:10:16 Booster for Moderna of Medic ine series) [code = COVID-19 Vaccine (3 - Booster for Moderna series)] Future Scheduled 2021-11-09 FLU VACCINE > 6 MONTHS [facility] Test 10:10:16 [code = FLU VACCINE > 6 of M edicine MONTHS] Future Scheduled 2021-07-01 LACOSAMIDE, Ordered: [facility] Test 11:22:23 SERUM/PLASMA [code = 07/01/2021 of Medi cine NOCPT] Future Scheduled 2021-07-01 Screening for malignant [facility] Test 10:58:03 neoplasm of colon of Medicin e (procedure) [code = 910100501] Future Scheduled 2021-07-01 TETANUS SHOT (ADULT) [facility] Test 10:58:03 [code = TETANUS SHOT of Medi cine (ADULT)] Future Scheduled 2021-07-01 BMI FOLLOW UP PLAN [employer] Test 10:58:03 [code = BMI FOLLOW UP of Med icine PLAN] Future Scheduled 2021-07-01 Hepatitis C screening [facility] [employer] Test 10:58:03 (procedure) [code = of Medic ine 465800720] Future Scheduled 2021-07-01 Human immunodeficiency [facility] [employer] [employer] Test 10:58:03 virus screening of Medicine (procedure) [code = 745848293] Future Scheduled 2021-07-01 MEDICARE AWV (Initial) [facility] [employer] [employer] Test 10:58:03 [code = MEDICARE AWV of Medi cine (Initial)] Future Scheduled 2021-07-01 FLU VACCINE > 6 MONTHS [facility] [employer] [employer] Test 10:58:03 [code = FLU VACCINE > 6 of M edicine MONTHS] Future Scheduled 2021-06-[address] [facility] Test 00:00:00 (12+) [code = Medical Center DEPRESSION SCREENING (12+)] Future Scheduled 2021-06-[address] [facility] Test 00:00:00 (12+) [code = Medical Center DEPRESSION SCREENING (12+)] Future Scheduled 2021-02-09 INFLUENZA VACCINE (#1) [facility] Test 00:00:00 [code = INFLUENZA Medical Ce nter VACCINE (#1)] Future Scheduled 2021-02-09 INFLUENZA VACCINE (#1) [facility] Test 00:00:00 [code = INFLUENZA Medical Ce nter VACCINE (#1)] Future Scheduled 2020-12-31 TETANUS SHOT (ADULT) [facility] Test 11:45:41 [code = TETANUS SHOT of Medi cine (ADULT)] Future Scheduled 2020-12-31 BMI FOLLOW UP PLAN [facility] Test 11:45:41 [code = BMI FOLLOW UP of Med icine PLAN] Future Scheduled 2020-12-31 Hepatitis C screening [facility] Test 11:45:41 (procedure) [code = of Medic ine 568369076] Future Scheduled 2020-12-31 Human immunodeficiency [facility] [employer] Test 11:45:41 virus screening of Medicine (procedure) [code = 286369802] Future Scheduled 2020-12-31 MEDICARE AWV (Initial) [employer] Test 11:45:41 [code = MEDICARE AWV of Medi cine (Initial)] Future Scheduled 2020-12-31 FLU VACCINE > 6 MONTHS [employer] Test 11:45:41 [code = FLU VACCINE > 6 of M edicine MONTHS] Future Scheduled 2011-02-20 Lipid panel (procedure) [facility] Test 00:00:00 [code = 68445030] Medical Ce nter Future Scheduled 2011-02-20 Lipid panel (procedure) [facility] Test 00:00:00 [code = 63114084] Medical Ce nter Future Scheduled 1997-02-[address] [facility] Test 00:00:00 WELLNESS (YEAR 2 or Medical Center FIRST YEAR if no IPPE) [code = MEDICARE ANNUAL WELLNESS (YEAR 2 or FIRST YEAR if no IPPE)] Future Scheduled 1997-02-[address] [facility] Test 00:00:00 WELLNESS (YEAR 2 or Medical Center FIRST YEAR if no IPPE) [code = MEDICARE ANNUAL WELLNESS (YEAR 2 or FIRST YEAR if no IPPE)] Future Scheduled 1995-02-20 DTAP/TDAP/TD [facility]ACCINES [facility] Test 00:00:00 (1 - Tdap) [code = Medical C enter DTAP/TDAP/TD VACCINES (1 - Tdap)] Future Scheduled 1995-02-20 DTAP/TDAP/TD VACCINES [facility] Test 00:00:00 (1 - Tdap) [code = Medical C enter DTAP/TDAP/TD VACCINES (1 - Tdap)] Future Scheduled 1994-02-20 HEPATITIS C [facility]CREENING [facility] 00:00:00 [code = HEPATITIS C Medical Center SCREENING] Future Scheduled 1994-02-20 HEPATITIS C [facility]CRE[facility]ING [facility] Test 00:00:00 [code = HEPATITIS C Medical Center SCREENING] Future Scheduled 1981-02-20 COVID-19 VACCINE (1) [facility] Test 00:00:00 [code = COVID-[address] VACCINE (1)] Future Scheduled 1981-02-20 COVID-19 VACCINE (1) [facility] Test 00:00:00 [code = COVID-[address] VACCINE (1)] Future Scheduled 1976 Screening for malignant [facility] Test 00:00:00 neoplasm of colon Medical Ce nter (procedure) [code = 991331677] Future Scheduled 1976 Screening for malignant [facility] Test 00:00:00 neoplasm of colon Medical Ce nter (procedure) [code = 675725843] Future Scheduled COMPREHENSIVE METABOLIC Ordered: [facility] Test PANEL [code = 96416-4] 03/21/2019 of Me dicine Future Scheduled CBC W/O DIFF W PLT Ordered: [employer] Test [code = 6690-2] 03/21/2019 of Medicine Future Scheduled MEDICARE AWV [code = [facility] [employer] [facility] MEDICARE AWV] of Medicine Future Scheduled TETANUS SHOT (ADULT) [facility] [employer] Test [code = TETANUS SHOT of Medi cine (ADULT)] Future Scheduled HIV SCREENING [code = [facility] [employer] [facility] HIV SCREENING] of Medicine Future Scheduled FLU VACCINE > 6 MONTHS [employer] Test [code = FLU VACCINE > 6 of M edicine MONTHS] Future Scheduled TETANUS SHOT (ADULT) [facility] [employer] Test [code = TETANUS SHOT of Medi cine (ADULT)] Future Scheduled BMI FOLLOW UP PLAN [employer] Test [code = BMI FOLLOW [...] FLU VACCINE > 6 MONTHS Postponed from [facility] Test [code = FLU VACCINE > 6 01/10/2020 of M edicine MONTHS] (Postpone Reason: Other) Future Scheduled ZOSTER VACCINE (1 of 2) [facility] Test [code = ZOSTER VACCINE of Me dicine (1 of 2)] Future Scheduled TETANUS SHOT (ADULT) [facility] [employer] Test [code = TETANUS SHOT of Medi cine (ADULT)] Future Scheduled BMI FOLLOW UP PLAN [employer] Test [code = BMI FOLLOW UP of Med icine PLAN] Future Scheduled Hepatitis C screening [employer] [facility] [employer] Test (procedure) [code = of Medic ine 517107174] Future Scheduled Human immunodeficiency [facility] [employer] [facility] virus screening of Medicine (procedure) [code = 048247328] Future Scheduled MEDICARE AWV (Initial) [employer] Test [code = MEDICARE AWV of Medi cine (Initial)] Future Scheduled FLU VACCINE > 6 MONTHS Postponed from [facility] Test [code = FLU VACCINE > 6 01/10/2020 of M edicine MONTHS] (Postpone Reason: Other) Encounters Start End Encounter Admission Attending Care Care Encounter Source Date/Time Date/Time Type Type Clinicians Facility Department ID 2021-04-09 Outpatient [facility] [id number] Univers 05:10:01 [facility] 2021-12-30 2021-12-30 Office MIGUEL JACOB [id number] [facility] 10:45:47 14:31:53 Visit HIRA AMBULATOR 350.1.13.21 College Y 0.2.7.2.686 of [id number] [facility] 800 e 2021-11-18 2021-11-18 Outpatient ERICKSON_R [facility] [address] 06:31:00 06:31:00 0720 [facility] 2021-11-14 2021-11-14 Orders Doctor CRISTINA [id number] Univers 00:00:00 00:00:00 Only Unassigned, CINTHIA 350.1.13.10 ity of [place] [facility] 4.2.7.2.686 Reid as [phone] [facility] [address] 2021-11-09 2021-11-09 Office SOLOMON DIONDedrick [id number] [facility] 09:45:36 11:47:51 Visit EFREN AMBULATOR 350.1.13.21 College Y 0.2.7.2.686 of [id number] [facility] 800 e 2021-10-27 2021-10-27 Outpatient FOG_A_Provi AOSM AOSM [id number] [facility] 02:31:00 02:31:00 piero [id number] [facility]op e [facility] Medicin e 2021-10-25 2021-10-25 Outpatient ERICKSON_R [facility] [address] 03:42:00 03:42:00 0517 [facility] 2021-10-25 2021-10-25 Outpatient ERICKSON_R [facility] [address] 03:42:00 03:42:00 0610 [facility] 2021-10-25 2021-10-25 Outpatient Sonia, [facility] [id number] 00:00:00 00:00:00 Junior [id number] [place] [id number] 2021-10-18 2021-10-18 Outpatient Luiza ARECHIGA [facility] [id number] P-20 Univers 13:00:00 13:00:00 APOORVA [id number] [facility] 2021-10-18 2021-10-18 Outpatient Luiza ARECHIGA [facility] [id number] Univers 13:00:00 13:00:00 APOORVA [facility] 2021-10-13 2021-10-13 Orders Doctor EVANS [id number] Univers 00:00:00 00:00:00 Only Unassigned, CINTHIA 350.1.13.10 ity [facility] 4.2.7.2.686 Reid as [phone] [address] 2021-09-28 2021-09-28 Outpatient SOLOMON [facility] [id number] [facility] 12:58:16 12:58:16 EFREN hernandez of Medicin e 2021-09-26 2021-09-26 Outpatient ERICKSON_R [facility] [address] 05:37:00 05:37:00 0418 [facility] 2021-09-26 2021-09-26 Outpatient Sonia [facility] [id number] 00:00:00 00:00:00 Junior [id number] [place] [id number] 2021-08-16 2021-08-16 Outpatient ERICKSON_R [facility] [address] 11:55:00 11:55:00 0308 [facility] 2021-08-12 2021-08-12 Outpatient ERICKSON_R [facility] [address] 01:09:00 01:09:00 0304 [facility] 2021-08-12 2021-08-12 Outpatient Sonia [facility] [id number] 00:00:00 00:00:00 Junior [id number] [place] [id number] 2021-08-12 2021-08-12 Outpatient Sonia [facility] [id number] 00:00:00 00:00:00 Junior [id number] [place] [id number] 2021-07-01 2021-07-01 Office MIGUEL JACOB [id number] [facility] 10:39:55 11:33:51 Visit HIRA AMBULATOR 350.1.13.21 College Y 0.2.7.2.686 of [id number] Medi ashu 800 e 2021-05-12 2021-05-12 Outpatient ERICKSON_R [facility] [address] 12:49:00 12:49:00 1202 [facility] 2021-05-12 2021-05-12 Outpatient Sonia [facility] [id number] 00:00:00 00:00:00 Junior [id number] [place] [id number] 2021-03-15 2021-03-15 Outpatient ERICKSON_R [facility] [address] 03:23:00 03:23:00 1005 [facility] 2021-03-15 2021-03-15 Outpatient Sonia, [facility] [id number] 00:00:00 00:00:00 Junior [id number] [place] [id number] 2021-03-15 2021-03-15 Outpatient Sonia, [facility] [id number] 00:00:00 00:00:00 Junior [id number] [place] [id number] 2021-03-09 2021-03-09 Outpatient ERICKSON_R [facility] [address] 02:47:00 02:47:00 0929 [facility] 2021-03-09 2021-03-09 Outpatient ERICKSON_R [facility] [address] 02:47:00 02:47:00 1001 [facility] 2021-01-11 2021-01-11 Outpatient ERICKSON_R [facility] [address] 12:33:00 12:33:00 0803 [facility] 2021-01-10 2021-01-10 Outpatient ERICKSON_R [facility] [address] 05:26:00 05:26:00 0802 [facility] 2021-01-06 2021-01-06 Outpatient [facility]SON_R [facility] [address] 04:47:00 04:47:00 0729 [facility] 2020-12-31 2020-12-31 Office MIGUEL Jacob [id number] [facility] 10:32:35 11:02:35 Visit Hira Artisril AMBULATOR 350.1.13.21 College Y 0.2.7.2.686 of [id number] [facility] 800 e 2020-10-12 2020-10-12 Outpatient ERICKSON_R [facility] [address] 04:57:00 04:57:00 0504 [facility] 2020-09-03 2020-09-03 Office MIGUEL Jacob [id number] 13:03:36 13:33:36 Visit Hira Artisril AMBULATOR 350.1.13.21 Y 0.2.7.2.686 [id number] [facility] 2020-09-03 2020-09-03 Office MIGUEL Jacob [id number] [facility] 13:03:36 13:33:36 Visit Hira Artisril AMBULATOR 350.1.13.21 College Y 0.2.7.2.686 of [id number] [facility] 800 e 2020-08-14 2020-08-14 Outpatient [facility] [id number] Univers 12:00:00 12:00:00 ity [facility] 2020-07-21 2020-07-21 Outpatient ERICKSON_R [facility] [address] 10:34:00 10:34:00 0210 [facility] 2020-07-17 2020-07-17 Outpatient [facility] [id number] Univers 11:40[facility] 2020-07-16 Outpatient ERICKSON_R [facility] [address] 04:14:00 04:14:00 0205 [facility] 2020-07-16 2020-07-16 Outpatient Sonia [facility] [id number] 00:00:00 00:00:00 Junior [id number] [place] [id number] 2020-07-08 2020-07-08 Outpatient ERICKSON_R [facility] [address] 11:19:00 11:19:00 0128 [facility] 2020-06-17 2020-06-17 Outpatient Luiza STOREY, [facility] [id number] Univers 10:00:00 10:00:00 ADAN [id number] [facility] 2020-06-17 2020-06-17 Outpatient Luiza STOREY, [facility] [id number] Univers 10:00:00 10:00:00 ADAN [facility] 2020-06-01 2020-06-01 [facility] [id number] P-20 Univers 13:00:00 13:00:00 WONDIFUL [id number] ity o f [facility] 2020-06-01 2020-06-01 [facility]patient [facility] [id number] Univers 13:00:00 13:00:00 WONDIFUL ity o f [facility] 2020-05-27 2020-05-27 [facility] 1.2.840.114 [id number] Univers 14:38:06 18:06:46 ne [facility] 4.2.7.2.686 Reid as Professio [phone] [address] Office [facility] 2020-05-27 2020-05-27 [facility] 1.2.840.114 [id number] 14:38:06 18:06:46 ne Visit [facility] 350.1.13.10 [place] 4.2.7.2.686 Professio [id number] [address] 2020-05-27 2020-05-27 Outpatient R NOAH [facility] [id number] P-20 Univers 16:30:00 16:30:00 WONDIFUL [id number] ity o f [facility] 2020-05-27 2020-05-27 Outpatient R NOAH [facility] [id number] Univers 16:30:00 16:30:00 WONDIFUL ity o f [facility] 2020-05-27 2020-05-27 Orders Doctor CRISTINA 1.2.840.114 [id number] Univers 00:00:00 00:00:00 Only Unassigned, CINTHIA 350.1.13.10 [facility]y [facility] [place] [facility] 4.2.7.2.686 Reid as [phone] [address] 2020-05-27 2020-05-27 Orders Doctor CRISTINA 1.2.840.114 [id number] 00:00:00 00:00:00 Only Unassigned, CINTHIA 350.1.13.10 [facility] 4.2.7.2.686 [phone] [facility] 2020-05-26 2020-05-26 [facility] 1.2.840.114 [id number] 00:00:00 00:00:00 [facility]iful A [facility] 350.1.13.10 [place] 4.2.7.2.686 Professio [phone] [address] 2020-05-26 2020-05-26 [facility] 1.2.840.114 [id number] [facility] 00:00:00 00:00:00 Wondiful A Health 350.1.13.10 ity of [place] 4.2.7.2.686 [place] as Professio [phone] Ga dical [address] Office [facility] 2020-05-24 2020-05-24 Kalpesh Zamora VTAUGUSTO 1.2.840.114 [id number] 00:00:00 00:00:00 Wondiful A [place] 350.1.13.10 [place] 4.2.7.2.686 Professio [phone] nal [address] [place] [address] 2020-05-24 2020-05-24 Telephone Noah [facility] 1.2.840.114 [id number] Univers 00:00:00 00:00:00 Kyra White 350.1.13.10 ity of [place].2.[place] [phone] Ga dical [address] 2020-05-21 2020-05-21 Outpatient R [facility] [id number] -[id number] Univers 08:20:00 08:20:00 [id number] ity [facility] 2020-05-21 2020-05-21 Orders Doctor CRISTINA 1.2.840.114 [id number] 00:00:00 00:00:00 Only Unassigned, [place] 350.1.13.10 [place] [facility] 4.2.7.2.686 [phone] [facility] 2020-05-21 2020-05-21 Orders Doctor CRISTINA 1.2.840.114 [id number] Univers 00:00:00 00:00:00 Only Unassigned, CINTHIA 350.1.13.10 ity of [place] [facility] 4.2.7.2.686 [place] as [phone] [address] 2020-05-20 2020-05-20 Outpatient R VIRY [facility] [id number] Univers 13:30:00 13:30:00 ity [facility] 2020-05-20 2020-05-20 Outpatient R VIRY [facility] [id number] Univers 13:30:00 13:30:00 ity [facility] 2020-05-20 2020-05-20 Telemedickelly Simms [facility] 1.2.840.114 [id number] 11:20:35 11:35:35 ne Visit Health 350.1.13.10 [place] 4.2.7.2.686 [place] [phone] Medical [facility] Office [facility] 2020-05-20 2020-05-20 Telemedickelly Simms [facility] 1.2.840.114 [id number] Univers 11:20:35 11:35:35 ne Visit Health 350.1.13.10 i ty of [place].2.[place] [phone] [address] Office Building 2020-05-20 2020-05-20 Telephone [facility] 1.2.840.114 [id number] 00:00:00 00:00:00 [facility] 350.1.13.10 [place] 4.2.7.2.686 Professio [phone] [place] [address] Office Building One 2020-05-20 2020-05-20 [facility] 1.2.840.114 [id number] Univers 00:00:00 00:00:00 Wondiful A Health 350.1.13.10 ity of [place] 4.2.7.2.686 [place] Professio [phone] [address] Office Building One 2020-05-19 2020-05-19 [facility] 1.2.840.114 [id number] 00:00:00 00:00:00 [facility] 350.1.13.10 [place] 4.2.7.2.686 Professio [phone] [place] [address] Office Building One 2020-05-19 2020-05-19 [facility] 1.2.840.114 [id number] Univers 00:00:00 00:00:00 W[facility]iful A Health 350.1.13.10 ity of [place] 4.2.7.2.686 [place] Professio [phone] [address] Office Building One 2020-05-17 2020-05-17 Outpatient R [facility] [id number] -[id number] Univers 08:20:00 08:20:00 [id number] ity of [facility] 2020-05-17 2020-05-17 [facility] [id number] Univers 08:20:00 08:20:00 WONDIFUL ity o f [facility] 2020-05-15 2020-05-15 Laboratory Lab, [facility] 1.2.840.114 [id number] 13:51:55 14:11:55 Only Fam Pob I Health 350.1.13.10 [place] 4.2.7.2.686 Professio [phone] [place] [address] Office Building One 2020-05-15 2020-05-15 Laboratory Lab, Adc Fam Pob I [facility] 1.. 840.114 [id number] Univers 13:51:55 14:11:55 Only Becky [facility] 350.1.13.10 ity of [place] 4.2.7.2.686 [place] Professio [phone] [address] Office [facility] 2020-05-15 2020-05-15 Outpatient [facility] [id number] -[id number] Univers 13:40:00 13:40:00 [id number] [facility] 2020-05-15 2020-05-15 [facility] [id number] Univers 13:40:00 13:40:00 BECKY [facility] 2020-05-14 2020-05-14 Outpatient R LISSETTE, [facility] [id number] -[id number] Univers 16:00:00 16:00:00 JUANA [facility] 2020-05-14 2020-05-14 [facility] [id number] Univers 16:00:00 16:00:00 JUANA [facility] 2020-05-14 2020-05-14 Telemedici [facility] 1..840.114 [id number] 15:04:18 15:19:18 ne Visit [facility] 350.1.13.10 [place] 4.2.7.2.686 Professio [phone] [place] [address] Office [facility] 2020-05-14 2020-05-14 [facility]medici [facility] 1.840.114 [id number] Univers 15:04:18 15:19:18 ne Visit [facility] 350.1.13.10 i ty of [place] 4.2.7.2.686 [place] Professio [phone] [address] Office [facility] 2020-05-14 2020-05-14 Telephone ViryAugusto hyde [facility] 1.2.840.114 [id number] 00:00:00 00:00:00 Health 350.1.13.10 [place] 4.2.7.2.686 [place] [phone] [place] [address] Office Building 2020-05-14 2020-05-14 Telephone Augusto Simms [facility] 1.2.840.114 [id number] Univers 00:00:00 00:00:00 Health 350.1.13.10 it y of [place]2.[place] [phone] [address] Office Building 2020-05-10 2020-05-10 Office Noah [facility] 1.2.840.114 [id number] 15:03:56 16:37:58 Visit [facility] 350.1.13.10 [place] 4.2.7.2.686 Professio [phone] [place] [address] Office Building One 2020-05-10 2020-05-10 Office Noah [facility] 1.2.840.114 [id number] [facility] 15:03:56 16:37:58 Visit Wondiful A Health 350.1.13.10 ity of [place] 4.2.7.2.686 [place] Professio [phone] [address] Office Building One 2020-05-10 2020-05-10 Outpatient NOAH [facility] [id number] Univers 15:15:00 15:15:00 WONDIFUL [id number] ity o clyde [facility] 2020-05-10 2020-05-10 Outpatient R NOAH [facility] [id number] Univers 15:15:00 15:15:00 WONDIFUL ity o clyde [facility] 2020-05-04 2020-05-04 Ancillary Andrea [facility] 1.2.962.800 [id number] 13:42:26 14:42:26 Visit Susie Denise Christopher 350.1.13.10 [place] 4.2.7.2.686 Professio [phone] [facility] 179 [facility] 2020-05-04 2020-05-04 Ancillary Susie Mendez [facility] 1.2.840. 114 [id number] Univers 13:42:26 14:42:26 Visit Augusto Simms [place] 350.1.13.10 ity of [place].2.[place] [phone] Ga dical [facility] [address] Building 2020-05-04 2020-05-04 Outpatient R [facility] [id number] -[id number] Univers 13:40:00 13:40:00 [id number] ity of [facility] 2020-05-04 2020-05-04 Outpatient R AUGUSTO SIMMS [facility] [id number] Univers 13:40:00 13:40:00 ity of [facility] 2020-05-04 2020-05-04 Orders Doctor CRISTINA 1.2.840.114 [id number] 00:00:00 00:00:00 Only Unassigned, [place] 350.1.13.10 [place] [facility] 4.2.7.2.686 [id number] 009 2020-05-04 2020-05-04 Orders Doctor CRISTINA 1.2.840.114 [id number] Univers 00:00:00 00:00:00 Only Unassigned, CINTHIA 350.1.13.10 ity of [facility] 4.2.7.2.686 Reid as [phone] [facility] 009 [place] 2020-04-28 2020-04-28 [facility] Augusto Simms 1.2.840.114 [id number] Univers 09:13:14 23:59:00 Encounter [place] 350.1.13.10 ity of Hospital 4.2.7.2.686 [place] as [phone] [address] 2020-04-28 2020-04-28 [facility] 1.2.840.114 [id number] Univers 08:41:00 15:28:00 Encounter Cinthia 350.1.13.10 ity of Hospital 4.2.7.2.686 [place] as [phone] [facility] 104 [place] 2020-04-28 2020-04-28 Outpatient AUGUSTO SIMMS [facility] [id number] Univers 11:00:00 11:00:00 [id number] ity of [facility] 2020-04-28 2020-04-28 [facility] Augusto Simms 1.2.840.114 [id number] Univers 09:12:55 09:12:55 Encounter [place] 350.1.13.10 ity of Hospital 4.2.7.2.686 [place] as [phone] [address] 2020-04-27 2020-04-27 Hospital Viry [facility] 1.2.840.114 [id number] Univers 12:00:00 23:59:00 Encounter [place] 350.1.13.10 ity of [place] 4.2.7.2.686 [facility] [phone] [address] 2020-04-27 2020-04-27 Outpatient Luiza VIRY, [facility] [id number] Univers 12:00:00 12:00:00 [id number] ity of [facility] 2020-04-27 2020-04-27 Outpatient uLiza VIRY [facility] [id number] Univers 00:00:00 00:00:00 ity of [facility] 2020-04-22 2020-04-22 Office [facility] 1.2.840.114 [id number] Univers 14:56:40 16:20:38 Visit Wondiful A Health 350.1.13.10 ity of [place] 4.2.7.2.686 [place] as Professio [phone] Ga dical nal 044 [place] Office Building One 2020-04-22 2020-04-22 [facility]patient [facility] [id number] Univers 15:00:00 15:00:00 WONDIFUL [id number] ity o f [facility] 2020-04-22 2020-04-22 Office Viry [facility] 1.2.840.114 [id number] Univers 08:51:10 09:06:10 Visit Health 350.1.13.10 it y of [place] 4.2.7.2.686 [facility] [phone] [address] Office Building 2020-04-22 2020-04-22 Outpatient R VIRY [facility] [id number] Univers 09:00:00 09:00:00 ity of [facility] 2020-04-19 2020-04-19 Urgent Provider, [facility] 1.2.789.171 [id number] Univers 18:40:00 19:00:00 Care Ang Urgent Health 350.1.13.10 ity of Care [place] 4.2.7.2.686 [place] as Professio [phone] Ga dical nal 044 [place] Office [facility] 2020-04-19 2020-04-19 Outpatient R [facility] [id number] Univers 18:40:00 18:40:00 ity of [facility] 2020-04-19 2020-04-19 Outpatient R [facility] [id number] Univers 18:40:00 18:40:00 ity of [facility] 2020-04-19 2020-04-19 Telephone [facility] 1.2.840.114 [id number] Univers 00:00:00 00:00:00 Wondiful A Health 350.1.13.10 ity of [place] 4.2.7.2.686 [place] as Professio [phone] [address] Office [facility] 2020-04-16 2020-04-16 [facility] 1.2.840.114 [id number] Univers 11:00:00 23:59:00 Encounter Alicia Lopez [place] 350.1.13.10 ity of [place] 4.2.7.2.686 [place] [facility] [phone] [facility] [address] [place] [address] 2020-04-16 2020-04-16 Outpatient [facility] [id number] -[id number] Univers 11:00:00 11:00:00 ALICIA ity [facility] 2020-04-16 2020-04-16 Outpatient [facility] [id number] Univers 00:00:00 00:00:00 ALICIA ity [facility] 2020-04-15 2020-04-15 Urgent Provider, [facility] 1.2.840.114 [id number] Univers 13:06:56 14:01:36 Care Kyra Zamora Health 350.1.13.1 0 ity of [place] 4.2.7.2.686 [place] as Professio [phone] [address] 2020-04-15 2020-04-15 Outpatient R [facility] [id number] -[id number] Univers 13:00:00 13:00:00 ity [facility] 2020-04-15 2020-04-15 [facility] [id number] 7450 [facility] 13:00:00 13:00:00 KYRA tang [facility] 2020-04-07 2020-04-07 Office MIGUEL Jacob 1.2.810.133 [id number] 13:03:12 13:33:12 Visit Hira Medrano AMBULATOR 350.1.13.21 Y 0.2.7.2.686 [id number] [facility] 2020-04-07 2020-04-07 Office MIGUEL Jacob 1.2.263.070 [id number] [facility] 13:03:12 13:33:12 Visit Hira Artisril AMBULATOR 350.1.13.21 College Y 0.2.7.2.686 of [phone] [facility] 800 e 2019-11-26 2019-11-26 [address]JAL [facility] [id number] [facility] 00:00:00 00:00:00 EFREN 2019-09-02 2019-09-[address] 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 It is used under Emergency Use [...] indicated. Lab Interpretation (test code = Normal 54868-6) [facility] 2 [id number] 18:42:13 HISTORY: Back pain, T11 deformity. COMPARISON: [...] T11 as well as T12 vertebral bodies. D30kkrkoafqq body is butterfly-shaped and, as a result, there is deformity inthe upper left side of T12 vertebral body. Approximate scoliosis angle at mid thoracic level is less than 5 degreesand at thoracolumbar junction is proximally 13 to 15 degrees. CONCLUSIONS: Thoracolumbar scoliosis secondary to developmental anomaly insize and shape of T11 and T12 vertebral bodies. [facility], Radiant Results Inft User - 04/27/2020 12:43 [...] T11 as well as T12 vertebral bodies. S44cqweeapyj bodyis butterfly-shaped and, as a result, there is deformity inthe upper left side of T12 vertebral body.Approximate scoliosis angle at mid thoracic level is less than 5 degreesand at thoracolumbar junction is proximally 13 to 15 degrees.CONCLUSIONS: Thoracolumbar scoliosis secondary to developmental anomaly insize and shape of T11 and T12 vertebral bodies. [facility] 4 [id number] 19:41:01XR LUMBAR SPINE 4 VW, XR SACRUM AND COCCYX HISTORY: Male 45 years acute midline low back pain w/o sciatica COMPARISON: None FINDINGS: Mild levocurvature. The vertebral bodies are normal in height and in normal alignment. Nosignificant degenerative changes are present. Oblique radiographsdemonstrate noevidence of spondylolysis. The sacrum and coccyx are unremarkable. [facility], Radiant Results Inft User -04/16/2020 1:42 PM CSTXR LUMBAR SPINE 4 VW, XR SACRUM AND COCCYXHISTORY: Male 45 years acute midlinelow back pain w/o sciatica COMPARISON: NoneFINDINGS:Mild levocurvature.The vertebral bodies are normal in height and in normal alignment. Nosignificant degenerative changes are present. Oblique radiographsdemonstrate no evidence of spondylolysis.The sacrum and coccyx are unremarkable.[facility] SACRUM AND [id number] 19:41:01XR LUMBAR SPINE 4 VW, XR SACRUM AND COCCYX HISTORY: Male 45 years acute midline low back pain w/o sciatica COMPARISON: None FINDINGS: Mild levocurvature. The vertebral bodies are normal in height and in normal alignment. Nosignificant degenerative changes are present. Oblique radiographsdemonstrate noevidence of spondylolysis. The sacrum and coccyx are unremarkable. [facility], Radiant Results Inft User -04/16/2020 1:42 PM CSTXR LUMBAR SPINE 4 VW, XR SACRUM AND COCCYXHISTORY: Male 45 years acute midlinelow back pain w/o sciatica COMPARISON: NoneFINDINGS:Mild levocurvature.The vertebral bodies are normal in height and in normal alignment. Nosignificant degenerative changes are present. Oblique radiographsdemonstrate no evidence of spondylolysis.The sacrum and coccyx are unremarkable.[facility] URINALYSIS W SPECIFIC [id number] 19:31:00 Test Item Value Reference Range Interpretation [...] 3267) Lab Interpretation (test code Normal = 54552-2) [facility] AWAKE AND [id number] 15:51:00Reason for exam:->[place]-Gastaut syndrome, intractable, with status epilepticusSt Luke's EEG REPORTDATE OF TEST: 3-75-7798HMAE OF REPORT: [id number]: [id number]: [id number] time: 1312Stop time: 1342CPT Code: 66562KJX-83: G40.813 HISTORY: A 44yr old M with LGS with frequent seizures, last seizure was 1 week ago. MEDICATIONS: Epidiolex and Lacosamide. TECHNICAL SUMMARY:This is a digital video EEG recorded with 32 input channels reviewed with bipolar and referential montages using the modified combinatorial system nomenclature. DESCRIPTION OF RECORD:In the most wakeful statethe background consists of theta (5-7Hz) activity with a poorly formed posterior dominant rhythm 7Hz, minimally reactive to light and poorly modulated, symmetric with no AP gradient noted. Stage 2 sleep architecture was seen K-complexes and sleep spindles. HV: Hyperventilation was not performed.PHOTICSTIMULATION: Photic stimulation was done from 1-33 Hz; [...]
--- NOTE | 2022-01-13 20:29 | RAD REPORT ---
EXAM DESCRIPTION: Jose Alfredo Single View01/13/2022 7:50 pm CLINICAL HISTORY: cough COMPARISON: 2019 FINDINGS: Mild prominence of right pulmonary interstitial pattern. It is uncertain whether this is c hronic or a mild acute pneumonitis. Left lung appears clear of acute infiltrate. Heart is borderline enlarged
--- NOTE | 2022-01-13 21:21 | ER ---
Nurse's Notes [facility] Name: Dylan Manzanares Jr Age: 46 yrs Sex: Male : 1975 Arrival Date: 01/13/2022 Time: 18:55 Bed 16 Private MD: Diagnosis: Other seizures;Acute interstitial pneumonitis Presentation: 01/13 18:55 Chief complaint: EMS states: pt with Hx of seizures and has recently had medications jh6 increased in dose due to increased seizures. Mother stated that she called EMS because today pts seizures lasted longer then usual and pt vomited. Mother worried that pt might have aspirated. Coronavirus screen: Vaccine status: Patient reports receiving the 2nd dose of the covid vaccine. Ebola Screen: Patient negative for fever greater than or equal to 101.5 degrees Fahrenheit, and additional compatible Ebola Virus Disease symptoms Patient denies exposure to infectious person. Patient denies travel to an Ebola-affected area in the 21 days before illness onset. Initial Sepsis Screen: Does the patient meet any 2 criteria? No. Patient's initial sepsis screen is negative. Does the patient have a suspected source of infection? No. Patient's initial sepsis screen is negative. Risk Assessment: Do you want to hurt yourself or someone else? Patient reports no desire to harm self or others. Onset of symptoms was January 13, 2022. 18:55 Method Of Arrival: EMS: [place] [address] 18:55 Acuity: CAITIE 3 6 Triage Assessment: 18:58 General: Appears in no apparent distress. Behavior is calm, cooperative. Pain: Denies [facility] pain. Neuro: Level of Consciousness is awake, obeys commands, Oriented to person. 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 Screenin:59 Abuse screen: Denies threats or abuse. Denies injuries from another. Nutritional [facility] screening: Had unintentional weight loss of 10 pounds or more. Tuberculosis screening: No symptoms or risk factors identified. Fall Risk Mental Status-. Assessment: 19:00 General: see triage note. . [facility] Vital Signs: 18:55 BP 105 / 66; Pulse 90; Resp 16; Temp 97.7; Pulse Ox 94% ; Weight 75.75 kg; Height [address] [facility] 9 in. (175.26 cm); Pain 0/10; 18:55 Body Mass Index 24.66 (75.75 kg, 175.26 cm) [facility] ED Course: 18:55 Patient arrived in ED. [facility] 18:55 Patricia Gagnon, RN is Primary Nurse. [facility] 18:58 Triage completed. [facility] 18:59 Arm band placed on left wrist. Patient placed in the treatment room, on a stretcher, on [facility] oxygen, on pulse oximetry. 19:00 Bed in low position. Call light in reach. Side rails up X2. Adult w/ patient. [facility] 19:01 No provider procedures requiring assistance completed. [facility] 19:05 Ervin Quintero MD is Attending Physician. [facility] 19:52 Chest Single View XRAY In Process Unspecified. EDNJ 21:19 Padilla Mckeon MD is Referral Physician. [facility] 21:28 Patient did not have IV access during this emergency room visit. 3 Administered Medications: 21:15 Drug: LevOfloxacin 500 mg Route: PO; 3 21:28 Follow up: Response: No adverse reaction 3 Medication: 19:01 VIS not applicable for this client. [facility] Outcome: 21:28 AMA AMA form signed 3 21:28 Condition: stable 21:28 Discharge instructions given to patient, clinical technician, Instructed on discharge instructions, follow up and referral plans. medication usage, Demonstrated understanding of instructions, follow-up care, medications, Prescriptions given X 1. 21:29 Patient left the ED. 3 Signatures: Dispatcher [employer] EDNJ Ervin Quintero MD MD [facility] Chemo Cox, RN RN 3 Patricia Gagnon, RN RN 6
--- NOTE | 2022-01-13 21:21 | EDPHYS ---
Physician Documentation [facility] Name: Dylan Manzanares Jr Age: 46 yrs Sex: Male : 1975 Arrival Date: 01/13/2022 Time: 18:55 Bed 16 Private MD: SILVERIO Physician Ervin Quintero HPI: 01/13 19:20 This 46 yrs old Male presents to ER via EMS with complaints of Seizure. mh7 19:20 The patient presents after having a single isolated seizure, that lasted 10 minute(s), mh7 the episode(s) was witnessed, by family, mother. Character of seizure(s): Loss of consciousness: the patient experienced loss of consciousness, during seizure(s), Motor activity: generalized, shaking all over, Incontinence: none, Apnea: the patient did not experience apnea, Circulation: the patient did not experience evidence of pulse disturbance, Eye movements: are unknown. Seizure onset: just prior to arrival, today. Context: the seizure(s) was witnessed, by family, mother, occurred at home, occurred while the patient was lying down, Contributing factors: Mother states occurs with change in barometric pressure so was not unexpected., . 19:20 Seizure Hx: Original onset: since childhood,\\E\\ Cause: microcephaly, cerebral palsy, Last mh7 seizure: The patient's last seizure was approximately 1 week(s) ago, Usual frequency: irregular frequency, Seizure medications: Lamictal, Vimpat. Associated injury: The patient did not suffer any apparent associated injury. Current symptoms: Currently, the patient is not experiencing any symptoms, the patient feels back to baseline. The patient has experienced similar episodes in the past, chronically. Mother states that his neurologist increased his dose of seizure medication recently, but they have not started the increased dose at home yet. She is concerned that he started coughing during and after seizure today and is concerned that he may have aspirated some fluid.. 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 ROS: 19:20 Unable to obtain ROS due to baseline nonverbal. mh7 Exam: 19:20 Constitutional: This is a well developed, well nourished patient who is awake, alert, mh7 and in no acute distress. 19:20 Eyes: Pupils equal round and reactive to light, extra-ocular motions intact. Lids and lashes normal. Conjunctiva and sclera are non-icteric and not injected. Cornea within normal limits. Periorbital areas with no swelling, redness, or edema. ENT: Nares patent. No nasal discharge, no septal abnormalities noted. Tympanic membranes are normal and external auditory canals are clear. Oropharynx with no redness, swelling, or masses, exudates, or evidence of obstruction, uvula midline. Mucous membranes moist. Neck: Trachea midline, no thyromegaly or masses palpated, and no cervical lymphadenopathy. Supple, full range of motion without nuchal rigidity, or vertebral point tenderness. No Meningismus. Chest/axilla: Normal chest wall appearance and motion. Nontender with no deformity. No lesions are appreciated. Cardiovascular: Regular rate and rhythm with a normal S1 and S2. No gallops, murmurs, or rubs. Normal PMI, no JVD. No pulse deficits. Respiratory: Lungs have equal breath sounds bilaterally, clear to auscultation and percussion. No rales, rhonchi or wheezes noted. No increased work of breathing, no retractions or nasal flaring. Abdomen/GI: Soft, non-tender, with normal bowel sounds. No distension or tympany. No guarding or rebound. No evidence of tenderness throughout. Back: No spinal tenderness. No costovertebral tenderness. Full range of motion. Skin: Warm, dry with normal turgor. Normal color with no rashes, no lesions, and no evidence of cellulitis. MS/ Extremity: Pulses equal, no cyanosis. Neurovascular intact. Full, normal range of motion. 19:20 Head/face: microcephaly, no signs of trauma. 19:20 Neuro: Orientation: unable to test, the patient suffers from cerebral palsy, Mentation: unable to test, the patient suffers from cerebral palsy, Memory: unable to test, the patient suffers from cerebral palsy, Cranial nerves: no acute changes, Cerebellar function: unable to test, the patient suffers from cerebral palsy, Motor: moves all fours, Sensation: no obvious gross deficits, Gait: not tested. seizure activity, is not displayed by the patient, Abnormal movements: there are no abnormal movements. Vital Signs: 18:55 BP 105 / 66; Pulse 90; Resp 16; Temp 97.7; Pulse Ox 94% ; Weight 75.75 kg; Height 5 ft. jh6 9 in. (175.26 cm); Pain 0/10; 18:55 Body Mass Index 24.66 (75.75 kg, 175.26 cm) jh6 MDM: 21:11 Differential diagnosis: seizure, Medication noncompliance, pneumonia, aspiration 7 pneumonitis. Data reviewed: vital signs, nurses notes, EMS record, old medical records, lab test result(s), Flu: negative COVID negative. Data interpreted: Pulse oximetry: on room air is 98 %. Interpretation: normal. Counseling: I had a detailed discussion with the patient and/or guardian regarding: the historical points, exam findings, and any diagnostic results supporting the discharge/admit diagnosis, lab results, radiology results, the need for further work-up and treatment in the hospital. Response to treatment: the patient's symptoms have markedly improved after treatment. Refusal of service: The patient/guardian displays adequate decision making capability and despite a detailed discussion of alternatives, benefits, risks, and consequences refuses: Admission to the hospital for further work-up and treatment, CT Scan, all lab tests. ED course: NAD, VSS, no focal neurological deficits, no seizure activity. Discussed test results and chest x ray with possible right lung pneumonitis. Recommended labs, antibiotics, possible CT chest, and admission. Mother refused admission and wants to leave against medical advice. Explained the possibility of permanent disability and/or if condition worsens. She verbalized that she understood this information as presented. She will take him to follow up with his doctor. Advised to return to ER if worsening of symptoms or other concerns.. 21:20 [facility] 01/13 19:28 Order name: COVID-19 SARS RT PCR (Document "Date of Onset" if Symptomatic); Complete [facility] Time: 20:58 01/13 19:28 Order name: Influenza Screen (a \\T\\ B); Complete Time: 20:52 [facility] 01/13 19:28 Order name: Chest Single View XRAY; Complete Time: 20:52 [facility] Administered Medications: 21:15 Drug: LevOfloxacin 500 mg Route: PO; ll3 21:28 Follow up: Response: No adverse reaction ll3 Disposition Summary: 01/13/22 21:20 Left Against Medical Advice Location: [facility] Problem: an acute exacerbation [facility] Symptoms: have improved [facility] Condition: Stable [facility] Diagnosis - Other seizures [facility] - Acute interstitial pneumonitis [facility] - With: Private Physician - When: 1 - 2 days - Reason: Worsening of condition, Recheck today's complaints, Continuance of care, Re-evaluation by your physician [facility] - With: Padilla Mckeon MD - When: 1 - 2 days - Reason: Worsening of condition, Recheck today's complaints Discharge Instructions: - Discharge Summary Sheet [facility] - Epilepsy [facility] - Seizure, Adult, [id number] - Pneumonitis [facility] Prescriptions: - levofloxacin 500 mg Oral Tablet - take 1 tablet by ORAL route once daily for 7 days; 7 tablet; Refills: 0, 7 Product Selection Permitted Signatures: Dispatcher [employer] Ervin Mayer MD MD 7 Chemo Cox RN RN ll3 Patricia Gagnon RN RN jh6
[2022-01-13] MEDS ORDERED: levoFLOXacin 250 MG TAB ONE (21:25)
[2022-01-14 00:42] VITALS: BP 105/66; TEMP 97.7; O2SAT 94
== END 2022-01-13 21:29 | disposition left against medical advice (07) ==
LOC: ER 18:42
DX: G40.89 Other seizures (principal); J84.114 Acute interstitial pneumonitis; F84.0 Autistic disorder; Z20.822 Contact with and (suspected) exposure to COVID-19; Z88.8 Allergy status to other drugs, medicaments and biological substances
CPT/HCPCS: 87804 ×2; 71045; 99284; U0003

== ENCOUNTER 2022-08-02 07:23 | Day surgery (SDC) | payer OTHER ==
[2022-08-02] MEDS ORDERED: Ringers Lactate 1,000 ML IV ONE (08:03)
[2022-08-02] MEDS ORDERED: LIDOCAINE 1% MPF 5 ML VIAL ONE (10:35)
[2022-08-02] MEDS ORDERED: propofoL 200 MG/20 ML VIAL IV ONE (10:35)
[2022-08-02 12:08] VITALS: TEMP 97
[2022-08-02 12:09] VITALS: BP 118/84; O2SAT 95
== END 2022-08-02 11:19 | disposition home or self-care (01) ==
LOC: OR 07:23
PROVIDERS: ATTEND Internal Medicine Gastroenterology
PROC: 0DB78ZX Excision of Stomach, Pylorus, Via Natural or Artificial Opening Endoscopic, Diagnostic (ICD-10-PCS; 2022-08-02)
PROC: 0DB68ZX Excision of Stomach, Via Natural or Artificial Opening Endoscopic, Diagnostic (ICD-10-PCS; principal; 2022-08-02 09:30)
DX: R13.10 Dysphagia, unspecified (principal); R13.19 Other dysphagia; R11.10 Vomiting, unspecified; R56.9 Unspecified convulsions; K30 Functional dyspepsia; T17.398A Other foreign object in larynx causing other injury, initial encounter; K44.9 Diaphragmatic hernia without obstruction or gangrene; K31.1 Adult hypertrophic pyloric stenosis; K22.2 Esophageal obstruction; K22.11 Ulcer of esophagus with bleeding; K21.00 Gastro-esophageal reflux disease with esophagitis, without bleeding; K29.50 Unspecified chronic gastritis without bleeding
CPT/HCPCS: 43239; 88312; 88305; J2704; J2001; J7120

== ENCOUNTER 2024-03-17 11:24 | Emergency (ER) | payer OTHER ==
--- NOTE | 2024-03-17 11:58 | RAD REPORT ---
EXAMINATION: CT LUMBAR SPINE WITHOUT CONTRAST CLINICAL INDICATION: Male, 49 years old. PAIN TECHNIQUE: Axial CT images were obtained through the lumbar spine in soft tissue and bone windows wit hout intravenous contrast. Coronal and Sagittal reformatted images were created from the data set. One or more of the following dose reduction techniques were used: Automated exposure control, adjustm ent of the mA and/ or kV according to patient size, and/or iterative reconstruction. Unless otherwise specified, incidental findings do not require dedicated imaging follow-up. [id number]. COMPARISON: CT 07/27/2022 FINDINGS: For purposes of this dictation, it is assumed that there are 5 non rib-bearing lumbar type vertebrae, and the most caudal fully segmented lumbar vertebra is labeled L5. ALIGNMENT: The lumbar spine demonstrates normal alignment without scoliosis or spondylolisthesis. BONES: No significant soft tissue abnormalities. No aggressive osseous lesions. 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 DISCS: Intervertebral disc space heights are maintained. LEVELS: No significant spinal canal or definite neural foraminal stenosis. No visualized abnormality within the spinal canal. Motion artifact. SOFT TISSUE: No soft tissue abnormalities. IMPRESSION: No acute lumbar spine abnormalities. Motion artifact limits evaluation of the discs and central canal . MRI could further assess if there is concern for clinically significant neural foraminal narrowing or central spinal stenosis.
--- NOTE | 2024-03-17 12:42 | ER ---
Nurse's Notes [facility] Name: Dylan Manzanares Jr Age: 49 yrs Sex: Male : 1975 Arrival Date: 03/17/2024 Time: 11:24 Bed IW1 Private MD: Diagnosis: Low back pain;Other injury of muscle, fascia and tendon of lower back Presentation: 03/17 12:06 Chief complaint: Parent and/or Guardian states: Low back pain onset Sunday while cm10 bowling. Coronavirus screen: Client denies travel out of the [place] in the last 14 days. Ebola Screen: Patient denies travel to an Ebola-affected area in the 21 days before illness onset. No symptoms or risks identified at this time. Initial Sepsis Screen: Does the patient meet any 2 criteria? No. Patient's initial sepsis screen is negative. Does the patient have a suspected source of infection? No. Patient's initial sepsis screen is negative. Risk Assessment: Do you want to hurt yourself or someone else? Patient reports no desire to harm self or others. Onset of symptoms was March 15, 2024. 12:06 Method Of Arrival: Wheelchair cm10 12:06 Acuity: CAITIE 4 cm10 Triage Assessment: 12:11 General: Appears in no apparent distress. comfortable, Behavior is appropriate for age. cm10 Neuro: No deficits noted. Level of Consciousness is awake, alert, obeys commands, Oriented to person, place, time, situation. Respiratory: No deficits noted. Airway is patent Respiratory effort is even, unlabored, Respiratory pattern is regular, symmetrical. 13:06 Pain: Complains of pain in back. cm10 Historical: - Allergies: 12:07 ANTIHISTAMINES; cm10 - Home Meds: 12:07 lacosamide 10 mg/mL oral solution 30 mL 2 times per day [Active]; Epidiolex 100 mg/mL cm10 oral solution 8 mL 2 times per day [Active]; lamotrigine 100 mg oral tablet [Active]; omeprazole 20 mg Oral capsule,delayed release (e.c.) [Active]; Valtoco 15 mg/2 spray (7.5/0.1mL x 2) intranasal spray, non-aerosol [Active]; albuterol sulfate 2.5 mg /3 mL (0.083 %) Inhl Solution for Nebulization [Active]; - PMHx: 12:07 autism retardation; Cerebral Palsy; microcephalic; Seizures; Chromosome [id number] cm10 Deletion; - Immunization history:: Adult Immunizations up to date. - Infectious Disease History:: Denies. - Social history:: Smoking status: Patient denies any tobacco usage or history of. Screenin:06 [facility] ED Fall Risk Assessment (Adult) History of falling in the last 3 months, cm10 including since admission No falls in past 3 months (0 pts) Confusion or Disorientation No (0 pts) Intoxicated or Sedated No (0 pts) Impaired Gait Yes (1 pt) Mobility Assist Device Used Yes (1 pt) Altered Elimination No (0 pt) Score/Fall Risk Level 0 - 2 = Low Risk Oriented to surroundings, Maintained a safe environment, Hourly rounding (assess needs \T\ fall precautionary measures) done. Abuse screen: Denies threats or abuse. Denies injuries from another. Nutritional screening: No deficits noted. Tuberculosis screening: No symptoms or risk factors identified. Vital Signs: 12:06 BP 133 / 87; Pulse 70; Resp 18; Temp 98.1; Pulse Ox 99% on R/A; Weight 79.83 kg; Height cm10 5 ft. 10 in. ; Pain 5/10; 12:06 Body Mass Index 25.25 (79.83 kg, 177.8 cm) cm10 12:06 Pain Scale: Arteaga-Pat (FACES) cm10 ED Course: 11:29 Patient arrived in ED. sj2 11:31 Perry Soliz MD is Attending Physician. sylvia 11:49 CT Lumbar Spine Wo Con In Process Unspecified. EDMS 12:07 Triage completed. cm10 12:11 Arm band placed on Patient placed in an exam room, on a stretcher. cm10 13:06 Patient has correct armband on for positive identification. Adult w/ patient. Provided cm10 Education on: Follow-up instructions. Cardiac monitoring not applicable on this patient. 13:06 No provider procedures requiring assistance completed. Patient did not have IV access cm10 during this emergency room visit. Administered Medications: 12:23 CANCELLED (Duplicate Order): [id number] mg IVP once sylvia 12:23 CANCELLED (Duplicate Order): ondansetron 4 mg IVP once; over 2 minutes sylvia 12:23 CANCELLED (Duplicate Order): [id number] mg PO once sylvia 12:23 CANCELLED (Duplicate Order): morphineor iv 4 mg IVP once over 4 mins sylvia 12:23 CANCELLED (Duplicate Order): Decadron - [id number] mg IVP once sylvia 12:24 CANCELLED (Duplicate Order): ns 0.9% 1000 ml IV at 1 bolus Per protocol; 1000 mL bolus sylvia 12:45 CANCELLED (Duplicate Order): mg PO once sylvia 12:45 CANCELLED (Duplicate Order): diazepam5 mg PO once sylvia 13:02 Drug: Dexamethasone PO 10 mg PO once Route: PO; cm10 13:05 Follow up: Response: No adverse reaction cm10 13:02 Drug: Ketorolac IM 60 mg IM once Route: IM; Site: right gluteus; cm10 13:05 Follow up: Response: No adverse reaction cm10 Medication: 13:05 VIS not applicable for this client. cm10 Outcome: 12:41 Discharge ordered by . [facility] 13:06 Discharged to home via wheelchair, with family, 10 13:06 Condition: good 13:06 Discharge instructions given to fire equipment repairer inspector, Instructed on discharge instructions, follow up and referral plans. medication usage, Demonstrated understanding of instructions, follow-up care, medications, Prescriptions given X 2, 13:07 Patient left the ED. cm10 Signatures: Dispatcher [employer] Perry Slaughter MD MD cha Martinez, Clarissa, RN RN cm10 Jody Milian sj2
--- NOTE | 2024-03-17 12:42 | EDPHYS ---
Physician Documentation [facility] Name: Dylan Manzanares Jr Age: 49 yrs Sex: Male : 1975 Arrival Date: 03/17/2024 Time: 11:24 Bed IW1 Private MD: ED Physician Perry Soliz HPI: 03/17 12:32 This 49 yrs old Male presents to ER via Wheelchair with complaints of Back sylvia Injury, UNABLE TO STRAIGHTEN UP. 12:32 The patient presents with pain that is acute, and decreased range of motion. The sylvia symptoms are located in the low back. Onset: The symptoms/episode began/occurred 1 day(s) ago. The pain does not radiate. Associated signs and symptoms: Pertinent positives:. The problem was sustained when bending over, playing sports, bowling. Modifying factors: The patient symptoms are alleviated by. Severity of symptoms: At their worst the symptoms were moderate, in the emergency department the symptoms are unchanged. The patient has experienced similar episodes in the past, a few times. Historical: - Allergies: 12:07 ANTIHISTAMINES; cm10 - Home Meds: 12:07 lacosamide 10 mg/mL oral solution 30 mL 2 times per day [Active]; Epidiolex 100 mg/mL cm10 oral solution 8 mL 2 times per day [Active]; lamotrigine 100 mg oral tablet [Active]; omeprazole 20 mg Oral capsule,delayed release (e.c.) [Active]; Valtoco 15 mg/2 spray (7.5/0.1mL x 2) intranasal spray, non-aerosol [Active]; albuterol sulfate 2.5 mg /3 mL (0.083 %) Inhl Solution for Nebulization [Active]; - PMHx: 12:07 autism retardation; Cerebral Palsy; microcephalic; Seizures; Chromosome 2z35-[id number] cm10 Deletion; - Immunization history:: Adult Immunizations up to date. - Infectious Disease History:: Denies. - Social history:: Smoking status: Patient denies any tobacco usage or history of. ROS: 12:36 Constitutional: Negative for fever, chills, and weight loss, Eyes: Negative for injury, sylvia pain, redness, and discharge, ENT: Negative for injury, pain, and discharge, Neck: Negative for injury, pain, and swelling, Cardiovascular: Negative for chest pain, palpitations, and edema, Respiratory: Negative for shortness of breath, cough, wheezing, and pleuritic chest pain, Abdomen/GI: Negative for abdominal pain, nausea, vomiting, diarrhea, and constipation, : Negative for injury, bleeding, discharge, and swelling, MS/Extremity: Negative for injury and deformity, Skin: Negative for injury, rash, and discoloration, Neuro: Negative for headache, weakness, numbness, tingling, and seizure, Psych: Negative for depression, anxiety, suicide ideation, homicidal ideation, and hallucinations, Allergy/Immunology: Negative for hives, rash, and allergies, Endocrine: Negative for neck swelling, polydipsia, polyuria, polyphagia, and marked weight changes, Hematologic/Lymphatic: Negative for swollen nodes, abnormal bleeding, and unusual bruising, 12:36 Back: Positive for pain at rest, pain with movement, Exam: 12:36 Constitutional: This is a well developed, well nourished patient who is awake, alert, sylvia and in no acute distress. Head/Face: Normocephalic, atraumatic. Eyes: Pupils equal round and reactive to light, extra-ocular motions intact. Lids and lashes normal. Conjunctiva and sclera are non-icteric and not injected. Cornea within normal limits. Periorbital areas with no swelling, redness, or edema. ENT: Nares patent. No nasal discharge, no septal abnormalities noted. Tympanic membranes are normal and external auditory canals are clear. Oropharynx with no redness, swelling, or masses, exudates, or evidence of obstruction, uvula midline. Mucous membranes moist. Neck: Trachea midline, no thyromegaly or masses palpated, and no cervical lymphadenopathy. Supple, full range of motion without nuchal rigidity, or vertebral point tenderness. No Meningismus. Chest/axilla: Normal chest wall appearance and motion. Nontender with no deformity. No lesions are appreciated. Cardiovascular: Regular rate and rhythm with a normal S1 and S2. No gallops, murmurs, or rubs. Normal PMI, no JVD. No pulse deficits. Respiratory: Lungs have equal breath sounds bilaterally, clear to auscultation and percussion. No rales, rhonchi or wheezes noted. No increased work of breathing, no retractions or nasal flaring. Abdomen/GI: Soft, non-tender, with normal bowel sounds. No distension or tympany. No guarding or rebound. No evidence of tenderness throughout. Male : Normal genitalia with no discharge or lesions. Skin: Warm, dry with normal turgor. Normal color with no rashes, no lesions, and no evidence of cellulitis. MS/ Extremity: Pulses equal, no cyanosis. Neurovascular intact. Full, normal range of motion. Neuro: Awake and alert, GCS 15, oriented to person, place, time, and situation. Cranial nerves II-XII grossly intact. Motor strength 5/5 in all extremities. Sensory grossly intact. Cerebellar exam normal. Normal gait. Psych: Awake, alert, with orientation to person, place and time. Behavior, mood, and affect are within normal limits. Vital Signs: 12:06 BP 133 / 87; Pulse 70; Resp 18; Temp 98.1; Pulse Ox 99% on R/A; Weight 79.83 kg; Height cm10 5 ft. 10 in. ; Pain 5/10; 12:06 Body Mass Index 25.25 (79.83 kg, 177.8 cm) cm10 12:06 Pain Scale: Arteaga-Pat (FACES) cm10 MDM: 11:32 Patient medically screened. sylvia 12:37 Differential diagnosis: chronic back pain, Fatigue Fracture Obesity Pyelonephritis sylvia ruptured disc. Data reviewed: vital signs, nurses notes, lab test result(s), radiologic studies, CT scan. Consideration of Admission/Observation Escalation of care including admission/observation considered. I considered the following discharge prescriptions or medication management in the emergency department Medications were administered in the Emergency Department. See MAR. Independent interpretation of the following test(s) in the Emergency Department CT Scan: My interpretation is ct lumbar. Historians other than the Patient: Family Member: mom and dad. Care significantly affected by the following chronic conditions: 03/17 11:34 Order name: CT Lumbar Spine Wo Con; Complete Time: 12:23 sylvia Administered Medications: 12:23 CANCELLED (Duplicate Order): [id number] mg IVP once sylvia 12:23 CANCELLED (Duplicate Order): ondansetron 4 mg IVP once; over 2 minutes sylvia 12:23 CANCELLED (Duplicate Order): [id number] mg PO once sylvia 12:23 CANCELLED (Duplicate Order): morphineor iv 4 mg IVP once over 4 mins sylvia 12:23 CANCELLED (Duplicate Order): Decadron - [id number] mg IVP once sylvia 12:24 CANCELLED (Duplicate Order): ns 0.9% 1000 ml IV at 1 bolus Per protocol; 1000 mL bolus [facility] 12:45 CANCELLED (Duplicate Order): [id number] mg PO once sylvia 12:45 CANCELLED (Duplicate Order): diazepam5 mg PO once sylvia 13:02 Drug: Dexamethasone PO 10 mg PO once Route: PO; cm10 13:05 Follow up: Response: No adverse reaction cm10 13:02 Drug: Ketorolac IM 60 mg IM once Route: IM; Site: right gluteus; cm10 13:05 Follow up: Response: No adverse reaction cm10 Disposition Summary: 03/17/24 12:41 Discharge Ordered Notes: Location: Home sylvia Problem: new sylvia Symptoms: have improved sylvia Condition: Stable sylvia Diagnosis - Low back pain sylvia - Other injury of muscle, fascia and tendon of lower back sylvia Followup: sylvia - With: Private Physician - When: 2 - 3 days - Reason: Recheck today's complaints, Continuance of care, Re-evaluation by your physician Discharge Instructions: - Discharge Summary Sheet sylvia - Acute Back Pain, Adult sylvia - Chronic Back Pain sylvia - Musculoskeletal Pain [facility] Forms: - Medication Reconciliation Form sylvia - Antibiotic Education sylvia - Prescription Opioid Use sylvia - Patient Portal Instructions [facility] - Leadership Thank You Letter [facility] Prescriptions: - acetaminophen-codeine 120 mg-12 mg /5 mL (5 mL) Oral solution - take 10 milliliter ORAL route 4 times per day; 200 milliliter; Refills: 0, sylvia Product Selection Permitted - Children's Motrin 100 mg/5 mL Oral suspension - take 20 milliliter ORAL route every 6 hours As needed; 350 milliliter; Refills: sylvia 0, Product Selection Permitted Signatures: Dispatcher [employer] EDPerry Cr MD MD cha Martinez, Clarissa RN RN cm10 Corrections: (The following items were deleted from the chart) 11:35 11:35 Spine Lumbar Wo Con+CT.RAD.BRZ ordered. [facility] 12:23 11:34 Ketorolac IVP 30 mg IVP once ordered. [facility] 12:23 11:34 Ondansetron IVP 4 mg IVP once; over 2 minutes ordered. [facility] 12:23 11:34 Diazepam PO 10 mg PO once ordered. [facility] 12:23 11:34 morphine IVP or IV 4 mg IVP once over 4 mins ordered. [facility] 11:34 Decadron - Dexamethasone IVP 10 mg IVP once ordered. [facility] 11:34 NS 0.9% IV 1000 ml IV at 1 bolus Per protocol; 1000 mL bolus ordered. [facility] 12:44 Ibuprofen PO 600 mg PO once ordered. [facility] 12:44 Diazepam PO 5 mg PO once ordered. [facility] 11:35 Urinalysis+U.LAB.BRZ ordered. EDMS EDMS 12: 11:35 CBC+H.LAB.BRZ ordered. EDMS EDMS 12: 11:35 COMPREHENSIVE METABOLIC PANEL+C.LAB.BRZ ordered. EDMS EDMS
[2024-03-17] MEDS ORDERED: KETOROLAC 30 MG/ML INJ ONE (12:52)
[2024-03-17] MEDS ORDERED: dexAMETHasone 10 MG/ML VIAL ONE (12:52)
[2024-03-17 13:23] VITALS: BP 133/87; TEMP 98.1; O2SAT 99
== END 2024-03-17 13:07 | disposition home or self-care (01) ==
LOC: ER 11:24
DX: S39.092A Other injury of muscle, fascia and tendon of lower back, initial encounter (principal); G80.9 Cerebral palsy, unspecified
CPT/HCPCS: 72131; 96372; 99284; J1100